=== PATIENT | male | born 1940 | race Caucasian/White ===

== ENCOUNTER 2017-02-03 12:28 | Emergency (ER) | payer BC ==
[~2017-02-03] VITALS: Ht 172.7 cm; Wt 93.5 kg
[~2017-02-03 12:28] MED LIST: ANDG TOP; CHOL100027 PO; FINA5TAB PO; FSM70 PO; FURO-85 PO; METO25TA3 PO; POTA1080 PO; SIMV20TA5 PO; TAMS0.4C59 PO; TIMO0.2527 OPB; TRVOPS OPB; ZOLP5TAB6 PO
[2017-02-03 12:32] VITALS: Ht 172.7 cm; Wt 93.5 kg
[2017-02-03] MEDS ORDERED: SODIUM CHLORIDE 0.9% 1000ML 1,000 ML IV ONE (12:52)
[2017-02-03] MEDS ORDERED: SODIUM CHLORIDE 0.9% 1000ML 1,000 ML IV STA (12:52)
[2017-02-03] MEDS ORDERED: KETOROLAC TROMETHAMINE 30 MG/ML VIAL IV STA (12:52)
[2017-02-03 13:15] LABS: COMPLETE YES; EOS % 1.5 %; HEMATOCRIT 37.8 % (42-52); IG% 0.2 %; LYMPH % 34.1 %; LYMPH ABS # 1.57 K/uL (1.2-3.4); MEAN CELL VOLUME 84.4 fL (80-100); MEAN CORPUSCULAR HEMOGLOBIN 27.9 pg (25-34); MEAN CORPUSCULAR HGB CONC 33.1 g/dl (32-36); MEAN PLATELET VOLUME 9.7 fL (7.4-10.4); MONO % 12.2 %; PLATELET COUNT 163 K/uL (130-400); RED BLOOD COUNT 4.48 M/uL (4.7-6.1)
[2017-02-03] MEDS ORDERED: OXYC20TA50 PO (13:20)
[2017-02-03] MEDS ORDERED: FLM4 PO (13:21)
[2017-02-03 13:33] LABS: BUN/CREATININE RATIO 17.7 (10-20); CREATININE 0.96 mg/dl (0.60-1.40); POTASSIUM 3.9 mmol/L (3.5-5.1)
--- NOTE | 2017-02-03 13:39 | EMERGENCY ROOM VISIT NOTE ---
History Report prepared by Hansel: Clare Milian Under the Supervision of: Dr. Scar Begum M.D. First contact with patient: 12:44 Chief Complaint: FLANK PAIN Stated Complaint: RIGHT SIDE PAIN/KIDNEY STONE History of Present Illness The patient is a 77 year old male who presents to the Emergency Room with complaints of worsening right-sided flank pain for the past 3 hours. He developed right flank pain around 9-10am this morning that has been gradually worsening. He has groin pain that is worse when he lays flat. The patient has a history of kidney stones and states that this feels exactly like his previous stones. He rates his current pain as a 6/10 in severity. He took any oxycodone [employer] that did not help. The patient denies chest pain, shortness of breath, dysuria, and abdominal pain. Two days ago he had an episode of "rust colored" urine, but denies anything since that time. He denies any current hematuria. He does not take any blood thinners. Source of History: patient Onset: 3 hours ago Position: other (right flank) Symptom Intensity: 6/10 Timing: worsening Modifying Factors (Worsening): other (laying flat) Associated Symptoms: No chest pain, No SOB, No abdominal pain, No urinary symptoms Review of Systems See HPI for pertinent positives & negatives. A total of 10 systems reviewed and were otherwise negative. Past Medical & Surgical Medical Problems: (1) Benign hypertension (2) Hyperlipidemia (3) Kidney stone (4) Pulmonary valve disorder Surgical Problems: (1) H/O mitral valve repair (2) Hx of laminectomy Old medical records were reviewed. Nurse's notes were reviewed and I agree with. Family History FH: ischemic heart disease Social History Smoking Status: Never Smoker Alcohol Use: none Marital Status: Housing Status: lives with family Occupation Status: employed Current/Historical Medications Scheduled Alendronate Sodium (Alendronate Sodium), 70 MG PO WK Cholecalciferol (Vitamin D 1000 Unit), 1,000 INTER.UNIT PO BID Finasteride (Proscar), 5 MG PO DAILY Furosemide (Lasix), 20 MG PO DAILY Metoprolol Succ (Toprol Xl) (Toprol-Xl), 25 MG PO BID Oxycodone Hcl (Oxycontin), 20 MG PO Q12 Potassium Citrate (Alkalinizer (Potassium Citrate ER), 1,080 MG PO DAILY Simvastatin (Zocor), 20 MG PO QPM Tamsulosin HCl (Tamsulosin HCl), 0.4 MG PO DAILY Testosterone (Androgel), 5 GM TOP QAM Timolol Gfs 0.25% Oph (Timoptic-Xe 0.25% Oph), 1 DROP OPB HS Travoprost (Travatan Oph Soln 0.004% *), 1 DROP OPB HS Scheduled PRN Oxycodone Immediate Rel Tab (Roxicodone Ir), 1-2 TAB PO Q4H PRN for Severe Pain Zolpidem Tartrate (Zolpidem Tartrate), 5 MG PO HS PRN for Sleep Allergies Coded Allergies: No Known Allergies (Verified , 02/03/17) Physical Exam Vital Signs Date Time Temp Pulse Resp B/P (MAP) Pulse Ox O2 Delivery O2 Flow Rate FiO2 02/03/17 16:28 36.6 57 16 137/73 97 02/03/17 14:28 65 16 137/72 98 Room Air 02/03/17 13:28 56 16 135/56 95 02/03/17 12:32 36.6 64 18 138/75 95 Room Air Physical Exam General: Well developed well nourished non-ill appearing older male in no acute distress, breathing comfortably on room air. Normal speech HEENT: Normal cephalic atraumatic. Pupils are equal round and reactive to light. Sclerae anicteric. Extraocular movements are intact. Oropharynx is pink with moist mucous membranes. No swelling of the mouth lips or tongue. Neck: Supple with a midline trachea. No meningeal signs or stiffness, no JVD or bruits. No Stridor. Chest: Clear to auscultation bilaterally. No wheezes or rhonchi. No increased work of breathing. Heart: regular rate and rhythm. Abdomen: Soft nontender, nondistended without rebound guarding or rigidity, no rash. Extremities: No cyanosis clubbing or edema. No calf tenderness or assymetry Spine/Back. Non tender to palpation. No CVA tenderness Skin: Good turgor without rashes. Neurologic exam: Cranial nerves two through 12 are intact. Motor and sensation are intact and symmetrical throughout. Medical Decision & Procedures ER Provider Diagnostic Interpretation: Radiology results as stated below per my review and radiologist interpretation: ABD/PELVIS WITHOUT FOR STONE HISTORY: 77 years-old Male eval for stone acute right flank pain with concern for kidney stones. Initial exam. COMPARISON: CT abdomen and pelvis 11/11/2012 TECHNIQUE: Multiple axial CT images of the abdomen and pelvis were obtained without contrast. A dose lowering technique was used consistent with the principals of RAVINDER. FINDINGS: There is minimal dependent bibasilar atelectasis. Calcific granuloma is noted within the left lower lobe, subcentimeter. No pneumoperitoneum. Inferior cardiac chambers are enlarged with coronary arterial calcifications. Prosthetic mitral valve is noted. The liver, spleen, pancreas and adrenal glands are within normal limits. Nonspecific perinephric stranding is present bilaterally. There is mild right-sided hydroureteronephrosis secondary to a 4 x 3 x 6 mm calculus of the distal right ureter just proximal to the ureterovesicular junction. There is a large smoothly marginated 1.3 x 2.3 cm urinary bladder calculus which is seen layering dependently. Small urachal remnant of the urinary bladder is noted projecting from the urinary bladder dome towards the umbilicus, nicely seen on the sagittal images. Multiple left-sided nonobstructing renal calculi are noted, largest of which is in the interpolar region, 1.1 x 1.0 cm. No left-sided obstructive uropathy. Prostate is markedly enlarged, 7.0 cm transversely with unchanged retroprostatic calcifications. There are small bilateral fat filled inguinal hernias with apparent small bilateral hydroceles. There is moderate after chronic plaquing of the abdominal aorta. Mildly prominent nonenlarged periaortic lymph nodes are seen measuring up to 8 mm in short axis, unchanged and likely physiologic. There is no bowel obstruction. The appendix appears normal. Small fat filled periumbilical hernia is noted, diastases 1.3 cm. Multilevel degenerative changes of the spine are noted with advanced intervertebral disc space narrowing throughout the thoracic and lumbar spine. Advanced facet arthropathy also noted. There is convex left curvature of the lumbar spine. IMPRESSION: 1. Mild right-sided hydroureteronephrosis secondary to a 4 x 3 x 6 mm calculus of the distal right ureter just proximal to the ureterovesicular junction. 2. Multiple left-sided nonobstructing renal calculi are noted in addition to a large 2.3 cm bladder calculus. 3. Prostatomegaly. 4. Note is made of a urachal remnant extending towards the umbilicus suggesting a diverticulum or patent urachus. The above report was generated using voice recognition software. It may contain grammatical, syntax or spelling errors. Electronically signed by: Angel Alston M.D. 02/03/2017 2:37 PM Dictated Date/Time: 02/03/2017 2:25 PM Laboratory Results 02/03/17 13:00 Red Blood Count 4.48, Mean Corpuscular Volume 84.4, Mean Corpuscular Hemoglobin 27.9, Mean Corpuscular Hemoglobin Concent 33.1, Mean Platelet Volume 9.7, Neutrophils (%) (Auto) 52.0, Lymphocytes (%) (Auto) 34.1, Monocytes (%) (Auto) 12.2, Eosinophils (%) (Auto) 1.5, Basophils (%) (Auto) 0.0, Neutrophils # (Auto ) 2.39, Lymphocytes # (Auto) 1.57, Monocytes # (Auto) 0.56, Eosinophils # (Auto ) 0.07, Basophils # (Auto) 0.00 02/03/17 13:00 Test 02/03/17 13:00 02/03/17 14:30 White Blood Count 4.60 K/uL (4.8-10.8) Red Blood Count 4.48 M/uL (4.7-6.1) Hemoglobin 12.5 g/dL (14.0-18.0) Hematocrit 37.8 % (42-52) Mean Corpuscular Volume 84.4 fL (80-100) Mean Corpuscular Hemoglobin 27.9 pg (25-34) Mean Corpuscular Hemoglobin Concent 33.1 g/dl (32-36) Platelet Count 163 K/uL (130-400) Mean Platelet Volume 9.7 fL (7.4-10.4) Neutrophils (%) (Auto) 52.0 % Lymphocytes (%) (Auto) 34.1 % Monocytes (%) (Auto) 12.2 % Eosinophils (%) (Auto) 1.5 % Basophils (%) (Auto) 0.0 % Neutrophils # (Auto) 2.39 K/uL (1.4-6.5) Lymphocytes # (Auto) 1.57 K/uL (1.2-3.4) Monocytes # (Auto) 0.56 K/uL (0.11-0.59) Eosinophils # (Auto) 0.07 K/uL (0-0.5) Basophils # (Auto) 0.00 K/uL (0-0.2) RDW Standard Deviation 39.7 fL (36.4-46.3) RDW Coefficient of Variation 13.0 % (11.5-14.5) Immature Granulocyte % (Auto) 0.2 % Immature Granulocyte # (Auto) 0.01 K/uL (0.00-0.02) Anion Gap 7.0 mmol/L (3-11) Est Creatinine Clear Calc Drug Dose 71.5 ml/min Estimated GFR () 88.0 Estimated GFR (Non- 75.9 BUN/Creatinine Ratio 17.7 (10-20) Calcium Level 9.0 mg/dl (8.5-10.1) Total Bilirubin 0.5 mg/dl (0.2-1) Direct Bilirubin 0.2 mg/dl (0-0.2) Aspartate Amino Transf (AST/SGOT) 15 U/L (15-37) Alanine Aminotransferase (ALT/SGPT) 22 U/L (12-78) Alkaline Phosphatase 79 U/L (45-117) Total Protein 7.5 gm/dl (6.4-8.2) Albumin 4.0 gm/dl (3.4-5.0) Lipase 197 U/L (73-393) Urine Color YELLOW Urine Appearance CLEAR (CLEAR) Urine pH 5.0 (4.5-7.5) Urine Specific [place] 1.014 (1.000-1.030) Urine Protein NEG (NEG) Urine Glucose (UA) NEG (NEG) Urine Ketones NEG (NEG) Urine Occult Blood 2+ (NEG) Urine Nitrite NEG (NEG) Urine Bilirubin NEG (NEG) Urine Urobilinogen NEG (NEG) Urine Leukocyte Esterase NEG (NEG) Urine WBC (Auto) 1-5 /hpf (0-5) Urine RBC (Auto) 0-4 /hpf (0-4) Urine Hyaline Casts (Auto) 1-5 /lpf (0-5) Urine Epithelial Cells (Auto) 10-20 /lpf (0-5) Urine Bacteria (Auto) NEG (NEG) Laboratory studies as stated above per my review. Medications Administered Medications (Trade) Dose Ordered Sig/Sheree Route Start Time Stop Time Status Last Admin Dose Admin Sodium Chloride 1,000 ml @ 999 mls/hr Q1H1M STAT IV 02/03/17 12:52 02/03/17 13:52 DC 02/03/17 13:04 999 MLS/HR Sodium Chloride 1,000 ml @ 150 mls/hr Q6H40M ONCE IV 02/03/17 12:52 02/03/17 19:31 02/03/17 14:59 150 MLS/HR Ketorolac Tromethamine (Toradol Inj) 15 mg NOW STAT IV 02/03/17 12:52 02/03/17 12:55 DC 02/03/17 13:05 15 MG ED Course 1244: Past medical records reviewed. The patient was evaluated in room A12B, and a complete history and physical examination were performed. 1252: Toradol 15 mg IV, NSS 1000 ml @ 150 mls/hr IV, NSS 1000 ml @ 999 mls/hr IV 1421: I reassessed the patient and he is doing well. 1501: I updated the patient at this time. Toradol has improved his pain. 1534: I reassessed the patient at this time. He is feeling better and resting comfortably. I discussed the results and treatment plan with the patient. I answered all pertaining questions that he had. He expressed understanding and verbalized agreement. The patient will be discharged home. Medical Decision Differentials include, but are not limited to kidney stone, musculoskeletal, UTI , aneurysm, colitis, infection, electrolyte or metabolic abnormality. This patient comes in as described above. He's having right flank pain which occasionally rates radiates around to the abdomen. It does have a history kidney stones. He looks well on exam. He has no fever or chills or anything to suggest infection. IV access established and he was hydrated normal saline. He has no white count or fever to suggest infection. Urinalysis does not suggest infection with a backup culture pending. He has normal renal function. He has no electrode or metabolic abnormalities. CAT scan does show an obstructing distal stone on the right. This is medium-size and it may pass on its own. He feels significantly better after receiving Toradol 15 mg IV as well as IV hydration. He desires to go home. He is followed by Dr. Harkins. I recommended he follow up with Dr. Harkins or his primary doctor within the next couple days. He should rest and drink plenty of fluids, use NSAID such as ibuprofen or Aleve. For breakthrough pain, use OxyIR 5 mg, one or 2 pills every 6 hours as needed. He was warned that this could make him drowsy and do not take before drinking, driving, working. Do not take with any other narcotics or sedating medications. He was encouraged to return if: increasing pain, fever or chills, worsening of symptoms, any new problems or concerns. He was happy with plan and discharged to home. [place] Drug Monitoring Program Search Results: patient reviewed within database, no issues identified Medication Reconcilliation Current Medication List: was personally reviewed by me Blood Pressure Screening Patient's blood pressure: Normal blood pressure Impression Primary Impression: Renal colic on right side Additional Impression: Kidney stone Scribe Attestation The scribe's documentation has been prepared under my direction and personally reviewed by me in its entirety. I confirm that the note above accurately reflects all work, treatment, procedures, and medical decision making performed by me. Departure Information Dispostion Home / Self-Care Prescriptions Oxycodone Immediate Rel Tab (ROXICODONE IR) 5 Mg Tab 1-2 TAB PO Q4H Y for Severe Pain for 4 Days, #20 TAB Prov: Scar Begum M.D. 02/03/17 Referrals Jaya Skaggs M.D. (PCP) Forms HOME CARE DOCUMENTATION FORM, IMPORTANT VISIT INFORMATION Patient Instructions My [facility] Additional Instructions Rest. Drink plenty of fluids. Strain her urine. Use either Aleve or ibuprofen in the [id number] dosages for the next several days. Take with food For more severe pain may use OxyIR 5 mg, one or 2 pills every 6 hours OxyIR may make you drowsy do not take before drinking, driving, working Do not take with any other narcotics or sedating medications including OxyContin , Ultram/tramadol, Vicodin, Percocet, etc. Be very careful getting up and down Return if: Fever or chills, worsening of symptoms, burning on urination, any new problems or concerns Problem Qualifiers
--- NOTE | 2017-02-03 14:39 | DIAGNOSTIC IMAGING REPORT ---
ABD/PELVIS WITHOUT FOR STONE HISTORY: 77 years-old Male eval for stone acute right flank pain with concern for kidney stones. Initial exam. COMPARISON: CT abdomen and pelvis 11/11/2012 TECHNIQUE: Multiple axial CT images of the abdomen and pelvis were obtained without contrast. A dose lowering technique was used consistent with the principals of RAVINDER. FINDINGS: There is minimal dependent bibasilar atelectasis. Calcific granuloma is noted within the left lower lobe, subcentimeter. No pneumoperitoneum. Inferior cardiac chambers are enlarged with coronary arterial calcifications. Prosthetic mitral valve is noted. The liver, spleen, pancreas and adrenal glands are within normal limits. Nonspecific perinephric stranding is present bilaterally. There is mild right-sided hydroureteronephrosis secondary to a 4 x 3 x 6 mm calculus of the distal right ureter just proximal to the ureterovesicular junction. There is a large smoothly marginated 1.3 x 2.3 cm urinary bladder calculus which is seen layering dependently. Small urachal remnant of the urinary bladder is noted projecting from the urinary bladder dome towards the umbilicus, nicely seen on the sagittal images. Multiple left-sided nonobstructing renal calculi are noted, largest of which is in the interpolar region, 1.1 x 1.0 cm. No left-sided obstructive uropathy. Prostate is markedly enlarged, 7.0 cm transversely with unchanged retroprostatic calcifications. There are small bilateral fat filled inguinal hernias with apparent small bilateral hydroceles. There is moderate after chronic plaquing of the abdominal aorta. Mildly prominent nonenlarged periaortic lymph nodes are seen measuring up to 8 mm in short axis, unchanged and likely physiologic. There is no bowel obstruction. The appendix appears normal. Small fat filled periumbilical hernia is noted, diastases 1.3 cm. Multilevel degenerative changes of the spine are noted with advanced intervertebral disc space narrowing throughout the thoracic and lumbar spine. Advanced facet arthropathy also noted. There is convex left curvature of the lumbar spine. IMPRESSION: 1. Mild right-sided hydroureteronephrosis secondary to a 4 x 3 x 6 mm calculus of the distal right ureter just proximal to the ureterovesicular junction. 2. Multiple left-sided nonobstructing renal calculi are noted in addition to a large 2.3 cm bladder calculus. 3. Prostatomegaly. 4. Note is made of a urachal remnant extending towards the umbilicus suggesting a diverticulum or patent urachus. The above report was generated using voice recognition software. It may contain grammatical, syntax or spelling errors. Electronically signed by: Angel Alston M.D. 02/03/2017 2:37 PM Dictated Date/Time: 02/03/2017 2:25 PM
[2017-02-03 15:02] LABS: URINE APPEARANCE CLEAR (CLEAR); URINE BILIRUBIN NEG (NEG); URINE COLOR YELLOW; URINE NITRITE NEG (NEG); URINE SPECIFIC GRAVITY 1.014 (1.000-1.030); UROBILINOGEN NEG (NEG)
[2017-02-03 15:03] LABS: MANUAL MICROSCOPIC REQUIRED? NO; REVIEW REQ? NO
[2017-02-03] MEDS ORDERED: OXYC1TAB3 PO (15:45)
[2017-02-03 16:28] VITALS: BP 137/73; PULSE 57; TEMP 36.6; O2SAT 97
== END 2017-02-03 16:29 | disposition home or self-care (01) ==
LOC: C.EDB 12:30 → C.EDA 16:29
DX: N13.2 Hydronephrosis with renal and ureteral calculous obstruction (principal); N23 Unspecified renal colic; I10 Essential (primary) hypertension; E78.5 Hyperlipidemia, unspecified; Z87.442 Personal history of urinary calculi; Z82.49 Family history of ischemic heart disease and other diseases of the circulatory system; Z79.899 Other long term (current) drug therapy

== ENCOUNTER → 2017-04-13 | Outpatient (CLI) | payer BC ==
[~2017-04-13] MED LIST changes: +CPR500 PO; +FLM4 PO; +OXYC20TA50 PO; -TAMS0.4C59 PO; -TIMO0.2527 OPB; +TIMO4SOL2 OPB; +TRAV0.00 OPB; -TRVOPS OPB
--- NOTE | 2017-04-13 11:20 | DIAGNOSTIC IMAGING REPORT ---
KUB CLINICAL HISTORY: Nephrolithiasis. COMPARISON STUDY: CT of the abdomen and pelvis March 30, 2017. FINDINGS: A 1.2 cm calculus within the upper pole of the left kidney is noted. A punctate calcification within the lower pole of the left kidney is noted. A 3 x 1.8 cm bladder calculus is unchanged. No ureteral calculi are identified. IMPRESSION: 1. No change in left-sided nephrolithiasis, including a 1.2 cm calculus within the upper pole of the left kidney. 2. 3 x 1.8 cm bladder calculus. 3. No ureteral calculi. Electronically signed by: Richard Navarrete M.D. 04/13/2017 11:19 AM Dictated Date/Time: 04/13/2017 11:15 AM
== END | disposition home or self-care (01) ==
LOC: C.RAD1850 10:45
PROVIDERS: ATTEND Urology
DX: N20.0 Calculus of kidney (principal)

== ENCOUNTER → 2017-11-26 | Outpatient (CLI) | payer BC ==
[~2017-11-26] MED LIST changes: +ASPI-435 PO; +CIPR1TAB10 PO; -CPR500 PO; +IRON1CAP2 PO; +OPTIRAY 320 IV PRN; +OXYC-57 PO; -OXYC20TA50 PO; +PRENTAB26 PO; -ZOLP5TAB6 PO
--- NOTE | 2017-11-26 11:26 | DIAGNOSTIC IMAGING REPORT ---
CT OF THE ABDOMEN AND PELVIS WITH AND WITHOUT CONTRAST HEMATURIA PROTOCOL CLINICAL HISTORY: Bladder calculus. COMPARISON STUDY: CT of the abdomen and pelvis November 01, 2017 and KUB November 13, 2017. TECHNIQUE: Unenhanced and split bolus phase imaging of the abdomen and pelvis was performed with delayed phase imaging through the pelvis. Injection of 116 cc Optiray 320 IV was uneventful. A dose lowering technique was utilized adhering to the principles of ALARA. CT DOSE: 2024.50 mGycm FINDINGS: Lung bases are clear. The distal right ureteral calculus shown on CT of November 01, 2017 is no longer visualized. The left renal calculus shown on prior exam is no longer visualized. There is a punctate calculus within the lower pole of the left kidney. There are no ureteral calculi and there is no hydronephrosis or hydroureter. A 3 x 1.5 cm bladder calculus is unchanged. Prostate gland is markedly enlarged. No upper tract urothelial lesions are identified although opacification on the delayed images is suboptimal. Mild bladder wall thickening is accentuated by underdistention. Bladder is suboptimally assessed given incomplete opacification but no discrete bladder mass is identified. The liver, spleen, adrenal glands and pancreas are unremarkable. Multiple subcentimeter hypodense renal lesions are too small to characterize but favor cysts. There is no evidence for a bowel obstruction. No abdominal or pelvic lymphadenopathy is present. There are no suspicious osseous lesions. IMPRESSION: 1. No hydronephrosis or hydroureter. No ureteral calculi. Distal right ureteral calculus on CT of November 01, 2017 no longer visualized. Large left renal calculus shown on prior examination no longer visualized. Punctate left renal calculus. 2. No change in a 3 x 1.5 cm bladder calculus. 3. Marked enlargement of the prostate gland. 4. No urothelial lesion identified although collecting system/ureteral opacification and bladder opacification suboptimal. Electronically signed by: Richard Navarrete M.D. 11/26/2017 11:25 AM Dictated Date/Time: 11/26/2017 11:12 AM
== END | disposition home or self-care (01) ==
LOC: C.CTS 10:34
PROVIDERS: ATTEND Urology
DX: N21.0 Calculus in bladder (principal); N20.0 Calculus of kidney; N40.0 Benign prostatic hyperplasia without lower urinary tract symptoms

== ENCOUNTER → 2017-12-22 | Outpatient (CLI) | payer BC ==
[~2017-12-22] MED LIST changes: -CIPR1TAB10 PO; -OPTIRAY 320 IV PRN; -OXYC-57 PO
[2017-12-22 14:00] LABS: EOS ABS # 0.04 K/uL (0-0.5); HEMATOCRIT 36.6 % (42-52); HEMOGLOBIN 11.9 g/dL (14.0-18.0); IG# 0.01 K/uL (0.00-0.02); LYMPH % 48.1 %; LYMPH ABS # 1.91 K/uL (1.2-3.4); MEAN CELL VOLUME 84.1 fL (80-100); MEAN CORPUSCULAR HEMOGLOBIN 27.4 pg (25-34); MEAN CORPUSCULAR HGB CONC 32.5 g/dl (32-36); MEAN PLATELET VOLUME 10.3 fL (7.4-10.4); MONO % 10.6 %; MONO ABS # 0.42 K/uL (0.11-0.59); NEUT ABS # 1.59 K/uL (1.4-6.5); PLATELET COUNT 149 K/uL (130-400); RED CELL DISTRIBUTION WIDTH CV 12.9 % (11.5-14.5); RED CELL DISTRIBUTION WIDTH SD 39.4 fL (36.4-46.3); WHITE BLOOD COUNT 3.97 K/uL (4.8-10.8)
[2017-12-22 15:29] LABS: BLOOD UREA NITROGEN 21 mg/dl (7-18); CALCIUM 9.3 mg/dl (8.5-10.1); CARBON DIOXIDE 29 mmol/L (21-32); CREATININE 0.95 mg/dl (0.60-1.40); GLUCOSE 89 mg/dl (70-99); POTASSIUM 4.4 mmol/L (3.5-5.1); SODIUM 142 mmol/L (136-145)
== END | disposition home or self-care (01) ==
LOC: C.CPL 12:40
PROVIDERS: ATTEND Urology
DX: Z01.818 Encounter for other preprocedural examination (principal)

== ENCOUNTER 2019-12-25 22:53 | Inpatient (IN) ==
--- NOTE | 2019-12-25 23:36 | Emergency Department Note ---
Impression & Plan Hematuria ED Provider Note NAME: KAYLA YOUSSEF III AGE: 79 SEX: M ARRIVES VIA: Ambulance INFORMANT: [Patient] and his ED PROVIDER(S): Bertha Bautista DO CHIEF COMPLAINT: Suprapubic pressure and hematuria PLAN: Disposition: Evaluation by the [facility] Hospitalist service Condition: Stable MEDICAL DECISION MAKING: This is a 79-year-old male patient who underwent bladder/prostate resection 3.5 weeks ago. He removed the Araujo catheter approximately 5 days ago. Since that time, the urinary output has decreased and has turned to more blood and increased in viscosity. Patient now has increased bladder pressure. A Araujo catheter was placed and bloody urine was slightly draining. The catheter was irrigated with 1 L of sterile water in a syringe. Clots were removed but the urine remained quite bloody. The patient's H&H was stable. The case was discussed with urology and they recommended continuous bladder irrigation and admission to the hospital. Triage Nursing notes reviewed and agree them. [Additional history obtained from] the patient's [Prior medical records reviewed] Vital Signs: reviewed and unremarkable Differential diagnosis: Hematuria, UTI, medication side effects ER treatment provided: Fully catheter placement Continuous bladder irrigation Diagnostics interpreted by me: ECG: Sinus tachycardia at [address] segment depression in leads I and aVL which may be rate dependent. There is no ectopy. This was compared to an EKG from November of this year. Cardiac Monitoring: Sinus tachycardia at a rate of 117 Laboratory studies: [See below] Consultation(s): Dr. [facility] urology HPI: 79/M arrives for evaluation of hematuria and bladder pressure. The patient underwent a TURP and bladder tumor removal on November [address] Kumar. The patient removed his Araujo catheter 5 days ago at the direction of his urologist. Since that time, the patient's urine has increased in viscosity and blood. Tonight, the patient noted very thick bloody urine and now has incr easing bladder pressure. ROS: See above HPI for pertinent positives & negatives. A total of [10] systems reviewed and were otherwise negative. PAST MEDICAL HISTORY:[See Below] PAST SURGICAL HISTORY:[See Below] FAMILY HISTORY:[See Below] SOCIAL HISTORY:[See Below] HOME MEDICATIONS:See list ALLERGIES:None VITALS:[See Below] PHYSICAL EXAMINATION: HEENT: Head - normocephalic and atraumatic Pupils are equal, round, and reactive to light. Extraocular eye muscles are intact, and sclera are anicteric. Nose - moist nasal mucosa without discharge. Mouth - moist buccal mucosa. Oropharynx is nonerythematous and there is no tonsillar exudate or edema noted. Neck: Supple; no cervical lymphadenopathy or JVD Heart: Regular rate and rhythm. There is a normal S1 and S2 with no murmurs, clicks, or gallops appreciated. Lungs: Clear to auscultation bilaterally with no wheezes, rales, or rhonchi. Abdomen: Soft, moderately distended, some pain with palpation in the suprapubic region, with good bowel sounds. There are no palpable pulsatile masses or he patosplenomegaly. There is no guarding, rigidity, or rebound noted. Extremities: No evidence of cyanosis, clubbing, or edema. There are easily palpable peripheral pulses. Skin: Extremely pale, warm and dry with good turgor and no rashes. ED COURSE: Times/Reassessments: 2310: The patient was evaluated in room C10. A complete history and physical was performed. An order was placed for continuous cardiac monitoring. The patient was in a sinus tachycardia at a rate of 117. A twelve-lead EKG was obtained as described above. A Araujo catheter was placed and the bladder was irrigated as described above. 0020: Patient was reevaluated at this time. The catheter continued to drain tonia blood with some clots. I discussed the case with urology and they recommended continuous bladder irrigation. A three-way catheter was placed and continuous bladder irrigation was started. I discussed the case with the [facility] hospitalist service and they will evaluate for further management. Bertha Bautista DO Past Med/Surg History Medical History (Updated 12/26/19 @ 04:47 by Bertha Bautista DO) Balance problem post laminectomy; walks with a walker since then BPH (benign prostatic hyperplasia) current issue Elevated IOP History of prostatitis Admitted to [facility] 2017, d/c to [facility] Hx of bladder cancer Hyperlipidemia Hypertension Osteopenia Personal history of kidney stones hx lithotripsy Pulmonary hypertension Sleep apnea uses cpap "sporadically" Surgical History (Updated 12/26/19 @ 02:39 by Fabrizio Trujillo MD) History of cardiac cath x2 - [facility] - done prior to MVR, not CAD-related, no stents placed History of colonoscopy History of lithotripsy left kidney Hx of CABG Hx of laminectomy C4-C7 - [facility] 1997 Hx of mitral valve repair done at [facility] 2011 Hx of rotator cuff surgery right and left Social History Smoking Status: Never smoker Second Hand Exposure: No; Hx Alcohol Use: No Hx Substance Use: No Preferred Language: Micronesian Communication Ability: Effective Visual Impairment: No Limitations 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 Beliefs That Will Affect Care: None Current Living Situation: Spouse Feels Safe at Home: Yes Allergies Allergies Allergy/AdvReac Type Severity Reaction Status Date / Time No Known Allergies Allergy Verified 12/26/19 01:25 Home Meds Home Medications Medication Instructions Recorded Confirmed aspirin [Aspir-81] 81 mg PO QAM 03/17/18 12/26/19 cholecalciferol (vitamin D3) 2,000 unit PO QAM 03/17/18 12/26/19 [Vitamin D3] finasteride 5 mg PO QPM 03/17/18 12/26/19 furosemide 20 mg PO QAM 03/17/18 12/26/19 metoprolol succinate [Toprol XL] 25 mg PO DAILY 03/17/18 12/26/19 potassium citrate 10 meq PO QAM 03/17/18 12/26/19 simvastatin 20 mg PO PM 03/17/18 12/26/19 tamsulosin 0.4 mg PO QPM 03/17/18 12/26/19 timolol 1 drp OPHTHALMIC (EYE) QPM 03/17/18 12/26/19 travoprost [Travatan Z] 1 drp OPHTHALMIC (EYE) PM 03/17/18 12/26/19 alendronate 70 mg tablet 70 mg PO WK 09/07/19 12/26/19 testosterone 1.62 % (20.25 mg/1.25 1 packet TD DAILY 09/07/19 12/26/19 gram) transdermal gel packet Results & Data (ED) Vital Signs Vital Signs - 24 hr 12/25/19 23:00 12/25/19 23:06 12/25/19 23:30 Temperature 36.8 C Temperature Source Oral Pulse Rate 100 H 117 H 104 H Pulse Rate [Apical] Pulse Rate from SpO2 Sensor 100 H 105 H Respiratory Rate 16 20 15 Respiratory Effort / Characteristics Non-Labored Spontaneous Respiratory Depth Normal Blood Pressure 136/105 H 136/105 H 135/116 H Blood Pressure [Right Arm] Blood Pressure Mean 123 115 122 Blood Pressure Mean [Right Arm] Pulse Oximetry 99 99 99 Oxygen Delivery Method Room Air Sepsis Recent Fever Within 48 Hours No Sepsis New/Unexplained Change in Mental Status No Sepsis Action Taken by Nursing No Action Required 12/26/19 00:00 12/26/19 00:07 12/26/19 00:31 Temperature Temperature Source Pulse Rate 94 H 92 H Pulse Rate [Apical] 95 H Pulse Rate from SpO2 Sensor 90 Respiratory Rate 12 16 19 Respiratory Effort / Characteristics Non-Labored Respiratory Depth Normal Blood Pressure 132/82 124/73 Blood Pressure [Right Arm] 132/82 Blood Pressure Mean 86 109 Blood Pressure Mean [Right Arm] 98 Pulse Oximetry 98 99 98 Oxygen Delivery Method Room Air Room Air Sepsis Recent Fever Within 48 Hours Sepsis New/Unexplained Change in Mental Status Sepsis Action Taken by Nursing 12/26/19 01:00 12/26/19 01:30 12/26/19 02:00 Temperature Temperature Source Pulse Rate 96 H 106 H 104 H Pulse Rate [Apical] Pulse Rate from SpO2 Sensor 93 H 107 H 97 H Respiratory Rate 16 14 15 Respiratory Effort / Characteristics Respiratory Depth Blood Pressure 112/78 110/70 131/79 Blood Pressure [Right Arm] Blood Pressure Mean 82 86 95 Blood Pressure Mean [Right Arm] Pulse Oximetry 96 96 98 Oxygen Delivery Method Room Air Room Air Room Air Sepsis Recent Fever Within 48 Hours Sepsis New/Unexplained Change in Mental Status Sepsis Action Taken by Nursing 12/26/19 02:30 Temperature Temperature Source Pulse Rate 102 H Pulse Rate [Apical] Pulse Rate from SpO2 Sensor 102 H Respiratory Rate 19 Respiratory Effort / Characteristics Respiratory Depth Blood Pressure 105/69 Blood Pressure [Right Arm] Blood Pressure Mean 91 Blood Pressure Mean [Right Arm] Pulse Oximetry 95 Oxygen Delivery Method Sepsis Recent Fever Within 48 Hours Sepsis New/Unexplained Change in Mental Status Sepsis Action Taken by Nursing Laboratory Data Result diagrams: 12/25/19 23:00 12/25/19 23:00 Lab Results 12/25/19 12/25/19 12/25/19 Range/Units 23:00 23:00 23:55 WBC 7.92 (4.8-10.8) K/uL RBC 4.13 L (4.7-6.1) M/uL Hgb 11.2 L (14.0-18.0) g/dL Hct 33.6 L (42-52) % MCV 81.4 (80-100) fL MCH 27.1 (25-34) pg MCHC 33.3 (32-36) g/dL RDW Std Deviation 39.0 (36.4-46.3) fL RDW Coeff of Destiny 13.1 (11.5-14.5) % Plt Count 242 (130-400) K/uL MPV 10.2 (7.4-10.4) fL Immature Gran % (Auto) 0.3 % Neut % (Auto) 58.4 % Lymph % (Auto) 28.3 % [place] % (Auto) 12.5 % Eos % (Auto) 0.5 % Baso % (Auto) 0.0 % Neut # (Auto) 4.63 (1.4-6.5) K/uL Lymph # (Auto) 2.24 (1.2-3.4) K/uL [place] # (Auto) 0.99 H (0.11-0.59) K/uL Eos # (Auto) 0.04 (0-0.5) K/uL Baso # (Auto) 0.00 (0-0.2) K/uL Immature Gran # (Auto) 0.02 (0.00-0.02) K/uL Sodium 144 (136-145) mmol/L Potassium 3.9 (3.5-5.1) mmol/L Chloride 114 H (98-107) mmol/L Carbon Dioxide 22 (21-32) mmol/L Anion Gap 8.0 (3-11) BUN 23 H (7-18) mg/dl Creatinine 1.02 (0.6-1.4) mg/dl Est Cr Clr Drug Dosing 63.7 ml/min Est GFR ( Amer) 80.6 Est GFR (Non-Af Amer) 69.6 BUN/Creatinine Ratio 22.1 H (10-20) Glucose 123 H (70-99) mg/dl Calcium 8.7 (8.5-10.1) mg/dl Total Bilirubin 0.3 (0.2-1) mg/dl AST 18 (15-37) U/L ALT 14 (12-78) U/L Alkaline Phosphatase 85 (45-117) U/L Total Protein 7.1 (6.4-8.2) gm/dl Albumin 3.3 L (3.4-5.0) gm/dl Globulin 3.8 (2.5-4.0) gm/dl Albumin/Globulin Ratio 0.9 (0.9-2) Lipase 172 (73-393) U/L Urine Color Red Urine Appearance Cloudy A (Clear) Urine pH 8.0 H (4.5-7.5) Ur Specific [place] 1.025 (1.000-1.030) Urine Protein 3+ H (Negative) Urine Glucose (UA) Trace H (Negative) Urine Ketones Negative (Negative) Urine Blood 2+ H (Negative) Urine Nitrite Negative (Negative) Urine Bilirubin Negative (Negative) Urine Urobilinogen Negative (Negative) Ur Leukocyte Esterase Negative (Negative) Urine RBC >30 H (0-4) /hpf Urine WBC 10-30 H (0-5) /hpf Ur Epithelial Cells 0-5 (0-5) /lpf Urine Bacteria Negative (Negative) Administered Medications Discontinued Medications Fentanyl Citrate (Fentanyl Citrate 100 Mcg/2 Ml Vial) 50 mcg IV NOW STA Stop: 12/26/19 01:55 Last Admin: 12/26/19 02:13 Dose: 50 mcg Documented by: [id number] Sodium Chloride (Nss) 500 mls @ 999 mls/hr IV .Q31M ONE Stop: 12/26/19 00:22 Last Infusion: 12/26/19 00:39 Dose: 0 mls/hr Documented by: [id number] Admin: 12/26/19 00:09 Dose: 999 mls/hr Documented by: [id number] Discharge Plan Visit Data Chief Complaint: Urinary Symptoms Stated Complaint: PAIN ED Provider: Bertha Bautista Discharge Problem: Hematuria Patient Disposition: Admitted As Inpatient Discharge Instructions Interventions: ED Discharge Assessment Last Done: 12/26/19 03:33 Discharge Problem: Hematuria Qualifiers: Hematuria type: gross Qualified Code(s): R31.0 - Gross hematuria
[2019-12-25 23:38] LABS: Eosinophils # (auto) 0.04 K/uL (0-0.5); Eosinophils % (auto) 0.5 %; Hematocrit (blood only) 33.6 % (42-52); Hemoglobin 11.2 g/dL (14.0-18.0); Immature Granulocytes # (auto) 0.02 K/uL (0.00-0.02); Immature Granulocytes % (auto) 0.3 %; Lymphocytes # (auto) 2.24 K/uL (1.2-3.4); Lymphocytes % (auto) 28.3 %; Mean Corpuscular Hemoglobin 27.1 pg (25-34); Mean Corpuscular Hgb Conc 33.3 g/dL (32-36); Mean Corpuscular Volume 81.4 fL (80-100); Mean Platelet Volume 10.2 fL (7.4-10.4); Monocytes # (auto) 0.99 K/uL (0.11-0.59); Monocytes % (auto) 12.5 %; Neutrophils # (auto) 4.63 K/uL (1.4-6.5); Neutrophils % (auto) 58.4 %; Platelet Count 242 K/uL (130-400); RDW Coefficient of Variation 13.1 % (11.5-14.5); Red Blood Count 4.13 M/uL (4.7-6.1); White Blood Count 7.92 K/uL (4.8-10.8)
[2019-12-25 23:46] LABS: Albumin Level 3.3 gm/dl (3.4-5.0); BUN Creatinine Ratio 22.1 (10-20); Calcium 8.7 mg/dl (8.5-10.1); Creatinine Clr Calc Pharmacy 63.7 ml/min; Est GFR (African American) 80.6; Est GFR (Non-African American) 69.6; Potassium 3.9 mmol/L (3.5-5.1)
[2019-12-25 23:48] LABS: Albumin Globulin Ratio 0.9 (0.9-2); Bilirubin,Total 0.3 mg/dl (0.2-1); Globulin 3.8 gm/dl (2.5-4.0); Total Protein 7.1 gm/dl (6.4-8.2)
[2019-12-25] MEDS ORDERED: SODIUM CHLORIDE 0.9% 500 ML IV ONE (23:52)
[2019-12-26 00:22] LABS: Appearance Urine Cloudy (Clear); Bilirubin Urine Negative (Negative); Blood Urine 2+ (Negative); Color Urine Red; Glucose Urine UA Trace (Negative); Ketones Urine Negative (Negative); Leukocyte Esterase Urine Negative (Negative); Nitrite Urine Negative (Negative); Specific Gravity Urine 1.025 (1.000-1.030); Urobilinogen Urine Negative (Negative)
[2019-12-26 00:24] LABS: Protein Urine 3+ (Negative)
[2019-12-26 00:26] LABS: Sulfosalicylic Acid Urine Positive (Negative)
[2019-12-26 00:29] LABS: Bacteria Urine Negative (Negative); Epithelial Cell Urine 0-5 /lpf (0-5); RBC Urine >30 /hpf (0-4)
[2019-12-26] MEDS ORDERED: fentaNYL citrate 100 MCG/2 ML VIAL IV STA (01:54)
--- NOTE | 2019-12-26 02:15 | History & Physical Report ---
Date of Service December 26, 2019 Assessment & Plan (1) Malignant neoplasm of urinary bladder: Mr. Boss is a 79yo M w/ MHx of bladder neoplasm status post resection,With a past medical history of hearing loss, MONSE, Klinefelter's, and hypertension who presents with increased urinary bleed and decreased urinary output. Hematuria following prostate adenoma/bladder Tumor resection papillary appearing tumor 11/30 with Doran removal 5 days prior to presentation Increasingly thick, sanguinous output Case discussed with urology by ED provider, recommended placement of irrigating catheter and continuous bladder irrigation Bladder ultrasound pending Hemoglobin 11.2, prior hemoglobin 12 Aspirin held - If persistent bleeding can consider DDVAP/Aspirin reversal - NPO, Uro consulted - CBC q12 while bleeding, BMP daily CAD with history of CABG - ASA held as above - Metoprolol Succinate 25mg PO daily, hold for SBP<110 - EF 2018 60% - Continue Simvastatin 20mg daily - Pitting edema present, worse since his bipass with vein graft per pt. 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 during H&P, communication intact but somewhat limited by memory MONSE with pHTN - CPAP qHS PRN DVT PPx: SCDs Diet: NPO pending Uro eval, NSS 80cc/hr Code: Full Dispo: Med/Surg Tele in setting of active bleeding (2) Pulmonary hypertension: (3) Pulmonary valve disorder: (4) Urethral stricture unspecified: (5) UTI (urinary tract infection): (6) Sensorineural hearing loss (SNHL) of both ears: (7) Obstructive sleep apnea: (8) Mitral regurgitation: (9) Benign prostatic hyperplasia with urinary obstruction: History of Present Illness Chief Complaint: Urinary Retention, hematuria, pain Primary Care Provider: Jaya Skaggs MD Mr. Boss is a 79yo M w/ MHx of bladder neoplasm status post resection,With a past medical history of hearing loss, MONSE, Klinefelter's, and hypertension who presents with increased urinary bleed and decreased urinary output. Patient recently underwent transurethral resection of bladder tumor of 7.[address] Kumar on 11/30. He had a Doran in place which was removed 5 days ago. He started getting blood clots and started having increasingly thick urine output in decreased volume. He had his catheter out 5 days ago and his symptoms started ~1-2 days afterwards. He uses a plastic container to void into at night and has noted a progressively darker red color to his urine. He was finally unable to void while sitting on the toilet despite a feeling of pressure and having to go along with an increase in pain which prompted him to present to the emergency department. Sporadic pain while in the bedside every 5-8 minutes.. Pain improved following irrigation. He denies lightheadedness, dizziness, shortness of breath. He is on a daily aspirin. No blood thinners. Medical History: Reviewed. Surgical History Reviewed: Pertinent positive recent bladder/prostate resection. Meds: Reviewed MedHx: Reviewed Social: No tobacco products. rare alcohol use. denies recreational drug use. Lives with his and granddaughter. No one sick in the home. independently ambulatory. Code Status: Full code Allergies Allergy/AdvReac Type Severity Reaction Status Date / Time No Known Allergies Allergy Verified 12/26/19 01:25 Home Medications Home Medications Medication Instructions Recorded Confirmed Type aspirin [Aspir-81] 81 mg PO QAM 03/17/18 12/26/19 History cholecalciferol (vitamin D3) 2,000 unit PO QAM 03/17/18 12/26/19 History [Vitamin D3] finasteride 5 mg PO QPM 03/17/18 12/26/19 History furosemide 20 mg PO QAM 03/17/18 12/26/19 History metoprolol succinate [Toprol XL] 25 mg PO DAILY 03/17/18 12/26/19 History potassium citrate 10 meq PO QAM 03/17/18 12/26/19 History simvastatin 20 mg PO PM 03/17/18 12/26/19 History tamsulosin 0.4 mg PO QPM 03/17/18 12/26/19 History timolol 1 drp OPHTHALMIC (EYE) QPM 03/17/18 12/26/19 History travoprost [Travatan Z] 1 drp OPHTHALMIC (EYE) PM 03/17/18 12/26/19 History alendronate 70 mg tablet 70 mg PO WK 09/07/19 12/26/19 History testosterone 1.62 % (20.25 mg/1.25 1 packet TD DAILY 09/07/19 12/26/19 History gram) transdermal gel packet Past Med/Surg History Medical History Balance problem post laminectomy; walks with a walker since then BPH (benign prostatic hyperplasia) current issue Elevated IOP History of prostatitis Admitted to [facility] 2017, d/c to [facility] Hx of bladder cancer Hyperlipidemia Hypertension Osteopenia Personal history of kidney stones hx lithotripsy Pulmonary hypertension Sleep apnea uses cpap "sporadically" Surgical History History of cardiac cath x2 - s - done prior to MVR, not CAD-related, no stents placed History of colonoscopy History of lithotripsy left kidney Hx of CABG Hx of laminectomy C4-C7 - [facility] 1997 Hx of mitral valve repair done at [facility] 2011 Hx of rotator cuff surgery right and left Social History Smoking Status: Unknown if ever smoked Second Hand Exposure: No; Hx Alcohol Use: No Hx Substance Use: No Preferred Language: Irish Communication Ability: Effective Visual Impairment: No Limitations Intranet Specialist Required: No Beliefs That Will Affect Care: None Current Living Situation: Spouse Feels Safe at Home: Yes Safety Concerns: Feels Safe At This Time Review of Systems Review of Systems: Constitutional: Denies fever, chills, malaise, weight lira ge Eyes: Denies vision change ENT: Denies ear pain, sore throat, sinus pain Cardiovascular: Denies Chest pain, chest pressure, palpitations. Endorses chronic leg swelling. Respiratory: Denies shortness of breath, cough, sputum production, difficulty breathing Gastrointestinal: Denies nausea, vomiting, constipation, diarrhea Genitourinary: See HPI Musculoskeletal: Denies acute/focal weakness, muscle aches/pain, joint aches/pain Integumentary:Denies acute rash, lesions, bruising Neurological: Denies headache, numbness, tingling, focal weakness Physical Exam Physical Exam: General: A&O to name and place. NAD. Cooperative. HEENT: Atraumatic, normocephalic. PERLAA. Pulm: CTAB A&P. -wheezes, -rales, -rhonchi. Symmetrical chest rise. No increase work of breathing. No respiratory distress. Cardiac: RRR, -mrg. Radial pulses intact and symmetrical. Pitting edema to the calf present bilaterally. Abdominal: Suprapubic TTP. Softly distended. : Triple lumen doran in place with irrigation running. Draining sanginous urine. Results & Data Results & Data ([facility]) Vital Signs (Past 12 Hours) Vital Signs Temp Pulse Pulse Resp BP BP Pulse Ox 12/26/19 01:00 96 H 16 112/78 96 12/26/19 00:31 92 H 19 124/73 98 12/26/19 00:07 95 H 16 132/82 99 12/26/19 00:00 94 H 12 132/82 98 12/25/19 23:30 104 H 15 135/116 H 99 12/25/19 23:06 36.8 C 117 H 20 136/105 H 99 12/25/19 23:00 100 H 16 136/105 H 99 Supervising Physician Co-Signing Physician Notes Attending addendum: I have physically seen this patient, have supervised the medical residents activities, and agree with the H&P unless as otherwise noted. Assessment and Plan: Gross hematuria/status post tumor resection of prostate and bladder- Admit for continuous bladder irrigation Follow urine culture and sensitivity Empiric ceftriaxone hold aspirin Hold aspirin Reverse aspirin if bleeding persists NPO CAD/CABG- Holding aspirin Continue metoprolol succinate with hold parameters Remaining orders and notations as noted Resident Activity Tracking Resident Involvement: Resident Care Provided Care Provided: Adult Hospital Medicine
[2019-12-26] MEDS: SODIUM CHLORIDE 0.9% 1000ML 1,000 ML IV SCH ×2 (05:22→17:53)
--- NOTE | 2019-12-26 08:23 | Ultrasound Report ---
US retro bladder ltd HISTORY: 79 years-old Male clot burden, continued hematuria acute hematuria with prior transurethral resection of a bladder mass on 12/01/2019. COMPARISON: Renal ultrasound 08/18/2018, CT abdomen and pelvis 12/05/2019 TECHNIQUE: Multiple real-time sonographic images of the urinary bladder were obtained assessing ashely param appearance and color flow FINDINGS: Decompressed urinary bladder optimally visualized. Ureteral jets are not seen. No definitive urinary bladder mass that a 5. There is a catheter device noted which appears to extend into the venous and m ay partially extend into the urinary bladder. Hypoechoic collection adjacent to the catheter measures up to 3.8 x 4.9 x 1.0 cm. IMPRESSION: 1. Decompressed urinary bladder suboptimally evaluated. 2. Indeterminate hypoechoic collection adjacent to the pelvic catheter measures up to 4.9 cm. ACT 112: Negative or not required by law. The above report was generated using voice recognition software. It may contain grammatical, syntax o r spelling errors. Electronically signed by: Angel Alston M.D. 12/26/2019 8:22 AM
--- NOTE | 2019-12-26 08:26 | Hospitalist Progress Note ---
Date of Service December 26, 2019 Assessment & Plan (1) Malignant neoplasm of urinary bladder: Mr. Boss is a 79yo M w/ MHx of bladder neoplasm status post resection,With a past medical history of hearing loss, MONSE, Klinefelter's, and hypertension who presents with increased urinary bleed and decreased urinary output. Hematuria following prostate adenoma/bladder Tumor resection papillary appearing tumor 11/30 with Araujo removal 5 days prior to presentation Increasingly thick, sanguinous output Case discussed with urology by ED provider, recommended placement of irrigating catheter and continuous bladder irrigation Bladder ultrasound pending Hemoglobin 11.2, prior hemoglobin 12 Aspirin held - If persistent bleeding can consider DDVAP/Aspirin reversal - NPO, Uro consulted - CBC q12 while bleeding, BMP daily (2) Benign prostatic hyperplasia with urinary obstruction: (3) UTI (urinary tract infection): Abnormal urinalysis on presentation. 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 - Pt with some memory difficulty during H&P, communication intact but somewhat limited by memory Admission and Anticipated Discharge Date Admission Date: December 26, 2019 Subjective Patient is relatively comfortable he continues to have punch colored urine he is on three-way irrigation Araujo catheter at this time Review of Systems Review of Systems: Mild distress and moderate fatigue no headache, blurry or double vision no speech or swallowing issues no chest pain, pressure or palpitations no shortness of breath, cough or wheezes Mild suprapubic abdominal pain, nausea or vomiting, diarrhea or constipation Persistent gross hematuria no focal joint pain or swelling no back pain, CVA tenderness or radicular pain no bruising, bleeding or rashes no focal signs of weakness or numbness or altered sensation no complaints or anxiety or depression. Physical Exam Physical Exam: The patient appeared very pale but well nourished and normally developed. Vital signs as documented. Head exam is normocephalic atraumatic no scleral icterus Neck is without JVD, thyromegaly, or carotid bruits. Lungs are clear to auscultation, no focal loss of breath sounds Cardiac exam, Rhythm is regular.. No murmurs, rubs or gallops. Abdominal exam reveals normal bowel sounds, soft mild tenderness in the suprapubic area Extremities are nonedematous and both pedal pulses are normal. Neurologic exam is alert and oriented, no focal loss of strength or sensation Skin is without bruises or rashes Psychologically is without concerns for anxiety or depression Results & Data Results & Data ([facility]) Vital Signs (Past 12 Hours) Vital Signs Temp Pulse Pulse Resp BP BP Pulse Ox 12/26/19 05:31 98.4 F 94 H 16 105/71 97 12/26/19 03:00 90 19 119/68 98 12/26/19 02:30 102 H 19 105/69 95 12/26/19 02:00 104 H 15 131/79 98 12/26/19 01:30 106 H 14 110/70 96 12/26/19 01:00 96 H 16 112/78 96 12/26/19 00:31 92 H 19 124/73 98 12/26/19 00:07 95 H 16 132/82 99 12/26/19 00:00 94 H 12 132/82 98 12/25/19 23:30 104 H 15 135/116 H 99 12/25/19 23:06 98.2 F 117 H 20 136/105 H 99 12/25/19 23:00 100 H 16 136/105 H 99 PG Care Time/CCT Total # of Minutes Spent Total Time Spent with Patient: Total time spent is greater than 50% in coordination of care (as documented) at patient's floor/unit and/or counseling patient: Coding Level of Care Code 08757 Subseq Hosp Care Lvl 2 Diagnoses Malignant neoplasm of urinary bladder C67.9 Benign prostatic hyperplasia with urinary obstruction N40.1; N13.8 UTI (urinary tract infection) N39.0 Obstructive sleep apnea G47.33 Atherosclerotic heart disease of [place] coronary artery without angina pectoris I25.10 Pulmonary hypertension I27.20 Pulmonary valve disorder I37.9 Sensorineural hearing loss (SNHL) of both ears H90.3
[2019-12-26] MEDS: POTASSIUM CITRATE 10 MEQ TAB PO SCH (09:00)
[2019-12-26] MEDS: METOPROLOL SUCC 25MG EXT REL TAB PO SCH (09:00)
[2019-12-26] MEDS: FUROSEMIDE 20 MG TAB PO SCH (09:00)
[2019-12-26 12:08] LABS: Basophils # (auto) 0.01 K/uL (0-0.2); Basophils % (auto) 0.1 %; Eosinophils # (auto) 0.03 K/uL (0-0.5); Eosinophils % (auto) 0.4 %; Hematocrit (blood only) 27.8 % (42-52); Immature Granulocytes # (auto) 0.03 K/uL (0.00-0.02); Immature Granulocytes % (auto) 0.4 %; Mean Corpuscular Hemoglobin 26.6 pg (25-34); Mean Corpuscular Hgb Conc 32.4 g/dL (32-36); Mean Corpuscular Volume 82.2 fL (80-100); Mean Platelet Volume 9.7 fL (7.4-10.4); Monocytes # (auto) 1.21 K/uL (0.11-0.59); Monocytes % (auto) 17.2 %; Neutrophils # (auto) 3.85 K/uL (1.4-6.5); Neutrophils % (auto) 54.9 %; Platelet Count 175 K/uL (130-400); RDW Coefficient of Variation 13.3 % (11.5-14.5); RDW Standard Deviation 40.3 fL (36.4-46.3); Red Blood Count 3.38 M/uL (4.7-6.1); White Blood Count 7.03 K/uL (4.8-10.8)
--- NOTE | 2019-12-26 12:34 | Electrocardiogram Report ---
Test Reason : Blood Pressure : / mmHG Vent. Rate : 107 BPM Atrial Rate : 107 BPM P-R Int : 172 ms QRS Dur : 096 ms QT Int : 348 ms P-R-T Axes : 000 -16 060 degrees QTc Int : 464 ms Sinus tachycardia Nonspecific ST abnormality Abnormal ECG When compared with ECG of 18-NOV-2019 10:36, [place] interval has decreased Vent. rate has increased BY [address] now depressed in Anterior leads Confirmed by Campbell Hanson ([id number]) on 12/26/2019 12:34:48 PM Referred By: REFERRED SELF Confirmed By:Campbell Hanson
--- NOTE | 2019-12-26 16:22 | Urology Consultation ---
Date of Consultation December 26, 2019 Assessment & Plan (1) Benign prostatic hyperplasia with urinary obstruction: (2) UTI (urinary tract infection): Patient undergoing supportive care with hydration, IV medications, and supportive care. Patient has CBI with a three-way catheter and has been tolerating well. Had irrigated last night in the ER with ER team and drastically improved issues. Has not had considerable clot since then. No major changes or issues. Has been tolerating catheter without major problems. Discussed different options. Discussed concerns and issues. Discussed plan moving forward. Plan will be to maintain catheter for approximately 1 to 2 weeks with plans to attempt removal in the office. We will continue with CBI overnight and continue to titrate to clear with plans to hopefully discontinue in the morning. Likely can go home tomorrow morning if doing well and no major other issues. Would recommend a few days of antibiotics due to possibility of UTI. Otherwise we will continue to follow. Patient's complicated history was reviewed and interpreted by myself. All imaging was reviewed interpreted by myself. Recent history and other issues were discussed. Patient is well-established with our urology group and will continue with follow-up with them. History of Present Illness Attending Physician: Jonathan Gil MD History of Present Illness Consult for urinary issues with hematuria. Patient had a resection of prostate and bladder approximately 3 to 4 weeks ago and had catheter recently removed approximately a week and a half ago. After that time went a few days with no major issues but then developed worsening problems with voiding and started to pass thick material. Eventually had difficulty voiding and had significant pressure and issues voiding after distention of the bladder due to hematuria and clot. Was irrigated in the ER and drastically improved. Had a three-way catheter placed and placed on CBI and since then has been doing well. Urine is currently a light red/pink color and CBI has been turned down over time. Patient has mild to moderate discomfort in pelvis and groin going to back and side in waves. Has decreased mobility significantly with acute issues. No severe nausea or vomiting. Currently no fevers. Allergies Allergy/AdvReac Type Severity Reaction Status Date / Time No Known Allergies Allergy Verified 12/26/19 01:25 Home Medications Home Medications Medication Instructions Recorded Confirmed Type aspirin [Aspir-81] 81 mg PO QAM 03/17/18 12/26/19 History cholecalciferol (vitamin D3) 2,000 unit PO QAM 03/17/18 12/26/19 History [Vitamin D3] finasteride 5 mg PO QPM 03/17/18 12/26/19 History furosemide 20 mg PO QAM 03/17/18 12/26/19 History metoprolol succinate [Toprol XL] 25 mg PO DAILY 03/17/18 12/26/19 History potassium citrate 10 meq PO QAM 03/17/18 12/26/19 History simvastatin 20 mg PO PM 03/17/18 12/26/19 History tamsulosin 0.4 mg PO QPM 03/17/18 12/26/19 History timolol 1 drp OPHTHALMIC (EYE) QPM 03/17/18 12/26/19 History travoprost [Travatan Z] 1 drp OPHTHALMIC (EYE) PM 03/17/18 12/26/19 History alendronate 70 mg tablet 70 mg PO WK 09/07/19 12/26/19 History testosterone 1.62 % (20.25 mg/1.25 1 packet TD DAILY 09/07/19 12/26/19 History gram) transdermal gel packet Patient History Medical History Balance problem post laminectomy; walks with a walker since then BPH (benign prostatic hyperplasia) current issue Elevated IOP History of prostatitis Admitted to [facility] 2017, d/c to [facility] Hx of bladder cancer Hyperlipidemia Hypertension Osteopenia Personal history of kidney stones hx lithotripsy Pulmonary hypertension Sleep apnea uses cpap "sporadically" Surgical History History of cardiac cath x2 - s - done prior to MVR, not CAD-related, no stents placed History of colonoscopy History of lithotripsy left kidney Hx of CABG Hx of laminectomy C4-C7 - [facility] 1997 Hx of mitral valve repair done at [facility] 2011 Hx of rotator cuff surgery right and left Social History Smoking Status: Unknown if ever smoked Second Hand Exposure: No; Hx Alcohol Use: No Hx Substance Use: No Preferred Language: Hungarian Communication Ability: Effective Visual Impairment: No Limitations 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 Advanced age. Chronic Medical issues. HEENT: Normocephalic. Inspection normal. Cranial Nerves 2-12 Grossly intact with some hearing issues. Normal inspection of face. Normal inspection of neck. Psychologic: Normal affect. Baseline issues with memory. Respiratory: Nonlabored. No use of accessory muscles. No tachypnea or dyspnea. Cardiovascular: No tachycardia Skin: [place] and Dry. No rashes or visible lesions. Extremities/Lymphatics: Minor Mobility issues. Slow Gait. Abdomen: Soft Non-distended. No rebound or guarding. Obese. : Araujo in place draining light red/pink urine on CBI on slow drip. Results & Data ([facility]) Vital Signs (Past 12 Hours) Vital Signs Temp Pulse Pulse Pulse Resp BP BP 12/26/19 15:24 36.7 C 68 18 115/68 12/26/19 14:20 69 12/26/19 11:04 36.3 C L 79 17 109/68 12/26/19 08:26 36.6 C 108 H 17 108/70 12/26/19 07:00 87 12/26/19 05:31 36.9 C 94 H 16 105/71 Pulse Ox 12/26/19 15:24 98 12/26/19 14:20 12/26/19 11:04 96 12/26/19 08:26 98 12/26/19 07:00 12/26/19 05:31 97 PG Care Time/CCT Total # of Minutes Spent Total Time Spent with Patient: Total time spent is greater than 50% in coordination of care (as documented) at patient's floor/unit and/or counseling patient: Coding Level of Care Code 73769 Inpt Consult Level 5 Diagnoses Benign prostatic hyperplasia with urinary obstruction N40.1; N13.8 UTI (urinary tract infection) N39.0
[2019-12-26] MEDS: BELLADONNA/OPIUM SUPP 60 MG SUPP PR PRN ×2 (16:49→22:55)
[2019-12-26] MEDS: ACETAMINOPHEN 325 MG TAB PO PRN ×2 (16:50→20:53)
[2019-12-26] MEDS: FINASTERIDE 5 MG TAB PO SCH (20:18)
[2019-12-26] MEDS: SIMVASTATIN 20 MG TAB PO SCH (20:18)
[2019-12-27 00:37] LABS: Basophils # (auto) 0.01 K/uL (0-0.2); Basophils % (auto) 0.2 %; Eosinophils # (auto) 0.03 K/uL (0-0.5); Eosinophils % (auto) 0.5 %; Hematocrit (blood only) 26.5 % (42-52); Hemoglobin 8.7 g/dL (14.0-18.0); Immature Granulocytes # (auto) 0.02 K/uL (0.00-0.02); Immature Granulocytes % (auto) 0.3 %; Lymphocytes # (auto) 2.14 K/uL (1.2-3.4); Mean Corpuscular Hemoglobin 27.3 pg (25-34); Mean Corpuscular Hgb Conc 32.8 g/dL (32-36); Mean Corpuscular Volume 83.1 fL (80-100); Monocytes % (auto) 12.3 %; Neutrophils # (auto) 3.49 K/uL (1.4-6.5); Neutrophils % (auto) 53.7 %; Platelet Count 156 K/uL (130-400); RDW Coefficient of Variation 13.5 % (11.5-14.5); Red Blood Count 3.19 M/uL (4.7-6.1); White Blood Count 6.49 K/uL (4.8-10.8)
--- NOTE | 2019-12-27 01:41 | Billing Data ---
Date of Service December 27, 2019 Coding Level of Care Code 81072 Initial Inpt Care Lvl 2
[2019-12-27] MEDS: ACETAMINOPHEN 325 MG TAB PO PRN ×4 (01:59→20:26)
[2019-12-27] MEDS: SODIUM CHLORIDE 0.9% 1000ML 1,000 ML IV SCH ×2 (05:24→16:08)
[2019-12-27] MEDS: BELLADONNA/OPIUM SUPP 60 MG SUPP PR PRN ×2 (05:31→16:08)
[2019-12-27] MEDS: METOPROLOL SUCC 25MG EXT REL TAB PO SCH (08:08)
[2019-12-27] MEDS: FUROSEMIDE 20 MG TAB PO SCH (08:08)
[2019-12-27] MEDS: POTASSIUM CITRATE 10 MEQ TAB PO SCH (08:09)
--- NOTE | 2019-12-27 09:55 | Urology Progress Note ---
Date of Service December 27, 2019 Assessment & Plan (1) Hematuria: Hematuria appears to have resolved Hemoglobin is stable Cultures pending but no growth at this stage CBI clamped Ambulate Already scheduled for an outpatient voiding trial Discharge when deemed medically stable presuming his urine remains clear Subjective Subjectively doing okay this morning He tolerated his catheter and CBI well overnight Tolerating a diet No pain Not ambulating much Physical Exam Physical Exam: CBI running slowlycompletely clear urine Constitutional: well developed and well nourished Neck: neck nontender Respiratory: normal respiratory effort; no respiratory distress and does not use accessory muscles Cardiovascular: Rate/Rhythm: regular rate Vessels: radial pulses present Extremities: no edema Gastrointestinal (Abdomen): Inspection/Auscultation: abdomen normal to inspection Percussion/Palpation: abdomen soft; abdomen nontender and no guarding Musculoskeletal: Head/Neck/Chest: normocephalic and head atraumatic Extremities: extremities normal to inspection Skin: no rashes and no lesions Trauma: no evidence of skin trauma Neurologic: awake; not obtunded Speech / Cognition: normal speech Motor/Sensory: no tremor Psychiatric: Orientation: alert and oriented x 3 Genitourinary: no CVA tenderness Lymphatic: no lymphadenopathy Results & Data ([facility]) Vital Signs (Past 12 Hours) Vital Signs Temp Pulse Pulse Resp BP Pulse Ox 12/27/19 07:04 36.6 C 63 18 124/65 99 12/27/19 07:00 54 L 12/27/19 04:52 36.6 C 87 20 144/72 H 99 12/26/19 23:27 70 12/26/19 22:55 36.7 C 62 18 121/73 98 PG Care Time/CCT Total # of Minutes Spent Total Time Spent with Patient: Total time spent is greater than 50% in coordination of care (as documented) at patient's floor/unit and/or counseling patient: Coding Level of Care Code 65193 Subseq Hosp Care Lvl 2 Diagnoses Hematuria R31.0 Hematuria type: gross (1) Hematuria Hematuria type: gross Qualified Code(s): R31.0 - Gross hematuria
[2019-12-27] MEDS: cefTRIAXone SODIUM 2,000 MG in DEXTROSE 5% 50 ML IV SCH (11:53)
[2019-12-27 12:14] LABS: Mean Corpuscular Hgb Conc 32.2 g/dL (32-36); Mean Platelet Volume 10.1 fL (7.4-10.4); Platelet Count 183 K/uL (130-400)
[2019-12-27 12:41] LABS: Basophils # (auto) 0.01 K/uL (0-0.2); Basophils % (auto) 0.2 %; Eosinophils # (auto) 0.07 K/uL (0-0.5); Eosinophils % (auto) 1.1 %; Hematocrit (blood only) 30.4 % (42-52); Hemoglobin 9.8 g/dL (14.0-18.0); Immature Granulocytes # (auto) 0.02 K/uL (0.00-0.02); Immature Granulocytes % (auto) 0.3 %; Lymphocytes # (auto) 1.56 K/uL (1.2-3.4); Lymphocytes % (auto) 24.9 %; Mean Corpuscular Hemoglobin 26.9 pg (25-34); Mean Corpuscular Volume 83.5 fL (80-100); Monocytes # (auto) 0.71 K/uL (0.11-0.59); Monocytes % (auto) 11.3 %; Neutrophils # (auto) 3.89 K/uL (1.4-6.5); Neutrophils % (auto) 62.2 %; RDW Coefficient of Variation 13.4 % (11.5-14.5); Red Blood Count 3.64 M/uL (4.7-6.1); White Blood Count 6.26 K/uL (4.8-10.8)
[2019-12-27] MEDS: SIMVASTATIN 20 MG TAB PO SCH (20:27)
[2019-12-27] MEDS: FINASTERIDE 5 MG TAB PO SCH (20:27)
[2019-12-28] MEDS: BELLADONNA/OPIUM SUPP 60 MG SUPP PR PRN (00:23)
[2019-12-28] MEDS: SODIUM CHLORIDE 0.9% 1000ML 1,000 ML IV SCH (06:03)
[2019-12-28] MEDS: FUROSEMIDE 20 MG TAB PO SCH (08:09)
[2019-12-28] MEDS: METOPROLOL SUCC 25MG EXT REL TAB PO SCH (08:10)
[2019-12-28] MEDS: POTASSIUM CITRATE 10 MEQ TAB PO SCH (08:10)
[2019-12-28] MEDS: cefTRIAXone SODIUM 2,000 MG in DEXTROSE 5% 50 ML IV SCH (09:47)
[2019-12-28 10:48] LABS: Hematocrit (blood only) 27.7 % (42-52); Hemoglobin 8.9 g/dL (14.0-18.0)
[2019-12-28] MEDS: ACETAMINOPHEN 325 MG TAB PO PRN (10:49)
--- NOTE | 2019-12-28 13:21 | Urology Progress Note ---
Date of Service December 28, 2019 Assessment & Plan (1) Malignant neoplasm of urinary bladder: (2) Hematuria: (3) Neoplasm of bladder: (4) UTI (urinary tract infection): start ditropan and d/c for f/u on macobid hs pain med and ditropan xl follow up next week for voiding trial per Dr. Kumar Admission and Anticipated Discharge Date Admission Date: December 26, 2019 Subjective pt with clear urine off CBI but occasional bladder spasm . Off b and o suppository . Ordered ditropan xl 5 mg . Would discharge on this and with pain med if spasms severe. Physical Exam Physical Exam: urine in doran bag clear Results & Data ([facility]) Vital Signs (Past 12 Hours) Vital Signs Temp Pulse Pulse Resp BP Pulse Ox 12/28/19 11:46 36.9 C 60 18 110/63 98 12/28/19 07:21 57 L 12/28/19 06:52 36.9 C 60 18 112/58 L 98 12/28/19 04:05 36.6 C 68 18 123/72 98 PG Care Time/CCT Total # of Minutes Spent Total Time Spent with Patient: Total time spent is greater than 50% in coordination of care (as documented) at patient's floor/unit and/or counseling patient: Coding Level of Care Code 96632 Subseq Hosp Care Lvl 1 Diagnoses Malignant neoplasm of urinary bladder C67.9 Hematuria R31.0 Hematuria type: gross Neoplasm of bladder D49.4 UTI (urinary tract infection) N39.0 (1) Hematuria Hematuria type: gross Qualified Code(s): R31.0 - Gross hematuria
[2019-12-28] MEDS ORDERED: OXYBUTYNIN CHLORIDE XL 5 MG TABCR PO SCH (13:30)
--- NOTE | 2019-12-30 08:09 | Discharge Summary ---
Date of Service December 28, 2019 Admission HPI Per Admitting Provider Mr. Boss is a 79yo M w/ MHx of bladder neoplasm status post resection,With a past medical history of hearing loss, MONSE, Klinefelter's, and hypertension who presents with increased urinary bleed and decreased urinary output. Patient recently underwent transurethral resection of bladder tumor of 7.[address] Kumar on 11/30. He had a Doran in place which was removed 5 days ago. He started getting blood clots and started having increasingly thick urine output in decreased volume. He had his catheter out 5 days ago and his symptoms started ~1-2 days afterwards. He uses a plastic container to void into at night and has noted a progressively darker red color to his urine. He was finally unable to void while sitting on the toilet despite a feeling of pressure and having to go along with an increase in pain which prompted him to present to the emergency department. Sporadic pain while in the bedside every 5-8 minutes.. Pain improved following irrigation. He denies lightheadedness, dizziness, sh ortness of breath. He is on a daily aspirin. No blood thinners. Medical History: Reviewed. Surgical History Reviewed: Pertinent positive recent bladder/prostate resection. Meds: Reviewed MedHx: Reviewed Social: No tobacco products. rare alcohol use. denies recreational drug use. Lives with his and granddaughter. No one sick in the home. independently ambulatory. Code Status: Full code Principal Diagnosis Hematuria and urinary retention after cystoscopy Discharge Exam Constitutional well developed, + obese and healthy appearing; no acute distress Eyes PERRL, conjunctivae normal, anicteric sclerae ENMT external ear and nose normal, oropharynx normal Neck trachea midline, no thyromegaly Respiratory normal respiratory effort, lungs clear to auscultation Cardiovascular RRR, no murmur, no edema Gastrointestinal (Abdomen) normal bowel sounds, soft, nontender, no hepatosplenomegaly Musculoskeletal no cyanosis or clubbing, extremities motor strength 5/5 Skin no rashes, warm and dry Neurologic patellar DTR's 2+ bilat, sensation intact and PERRL, EOMI, accommodation nl, no face palsy, no dysarthria Psychiatric A+Ox3, euthymic affect Genitourinary doran in place Lymphatic no cervical or axillary lymphadenopathy Discharge Data Allergies Allergy/AdvReac Type Severity Reaction Status Date / Time No Known Allergies Allergy Verified 12/26/19 01:25 Consultations 12/26/19 01:53 ED Decision to Admit Stat 12/26/19 04:03 Consult Urology Routine Ordered Studies 12/26/19 04:03 retro bladder ltd Urgent Hospital Course (1) Malignant neoplasm of urinary bladder: Mr. Boss is a 79yo M w/ MHx of bladder neoplasm status post resection,With a past medical history of hearing loss, MONSE, Klinefelter's, and hypertension who presents with increased urinary bleed and decreased urinary output, evidence of urinary retention treated with bladder irrigation, three way catheter, hematuria resolved and less bladder spasms no growth on urine culture Hb dropped slightly to 8.9 but no further signs of bleeding will continue to hold aspirin until 01/01 keep doran on discharge and follow up with Dr. Kumar next week Ditropan daily to decrease bladder spasms Use Ultram PRN for pain, use Sandor shonna suppositories q6 PRN for pain Macrobid BID x 5 days to cover for potential infection urology followed while admitted, they agree with discharge, will seein the office (2) Pulmonary hypertension: likely due to obstructive sleep apnea (3) Pulmonary valve disorder: (4) Urethral stricture unspecified: (5) UTI (urinary tract infection): Abnormal urinalysis on presentation. 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 Kumar) Discharge Plan Discharge Items Patient Disposition: Home - Self-Care Reason For Visit: HEMATURIA Discharge Diagnosis: Hematuria status post bladder tumor resection Condition on Discharge: Good Goals: voiding trial next week with Dr Kumar in the office Activity: Resume your previous activity Non-emergency contact: Primary Care Provider and Urologist Call non-emergency contact if: you have any medication questions and your symptoms worsen Follow-up/Referrals: Martinez Kumar DO [Physician] - (next week, voiding trial) Jaya Skaggs MD [Primary Care Provider] - Diet: Heart Healthy Addtl Attending Provider Instructions: Medications: - DITROPAN: take 5mg daily for overactive bladder - MACROBID: take twice a day for 5 days to cover for possible UTI - ULTRAM: take at night for pain - SANDOR SHONNA: use suppository every 6 hours as needed Hematuria, urinary retention, recent resection of bladder tumor, possible UTI hematuria treated with bladder irrigation will keep doran on discharge, follow up with Dr. Kumar for voiding trial next week continue to hold aspirin until Monday 01/01, you can resume that morning Hb dropped slightly to 8.9 but no further signs of bleeding continue all prior medications, will add Ditropan for more symptom relief and use Ultram at night for pain control Pending Studies at Discharge: No Stand-Alone Forms: [employer], Smoking Cessation Medications and DC Order Prescriptions: New oxybutynin chloride 5 mg Tablet Extended Release 24hr 5 mg PO QAM 30 Days Qty: 30 RF: 2 nitrofurantoin monohyd/m-cryst [Macrobid] 100 mg capsule 100 mg PO BID 7 Days Qty: 14 RF: 0 tramadol 50 mg tablet 50 mg PO HS PRN (Reason: pain) Qty: 10 RF: 0 belladonna alkaloids-opium 16.2-60 mg Suppository 1 supp DE Q6H PRN (Reason: pain) 7 Days Qty: 12 RF: 0 Continued testosterone 1.62 % (20.25 mg/1.25 gram) gel in packet 1 packet TD DAILY RF: 0 alendronate 70 mg tablet 70 mg PO WK RF: 0 travoprost [Travatan Z] 0.004 % Drops 1 drp OPHTHALMIC (EYE) PM RF: 0 tamsulosin 0.4 mg Capsule 0.4 mg PO QPM RF: 0 potassium citrate 10 mEq (1,080 mg) Tablet Extended Release 10 meq PO QAM RF: 0 simvastatin 20 mg Tablet 20 mg PO PM RF: 0 timolol 0.25 % Drops 1 drp ophthalmic (eye) QPM RF: 0 furosemide 20 mg Tablet 20 mg PO QAM RF: 0 metoprolol succinate [Toprol XL] 25 mg Tablet Extended Release 24 Hr 25 mg PO DAILY RF: 0 finasteride 5 mg Tablet 5 mg PO QPM RF: 0 cholecalciferol (vitamin D3) [Vitamin D3] 2,000 unit Capsule 2,000 unit PO QAM RF: 0 Discontinued aspirin [Aspir-81] 81 mg Tablet,Delayed Release (Dr/Ec) 81 mg PO QAM RF: 0 Discharge Orders: Discharge Order (Routine); Ordered 12/28/19 Ordered By: Aamir Castillo Admission Data Admit Date/Time: 12/26/19 02:43 Attending Provider: Aamir Castillo Admit Provider: Fabrizio Trujillo Primary Care Provider: Jaya Skaggs Other Providers: Crispin Marie ; Martinez Kumar Other Interventions: Discharge Summary Assessment (RN) Last Done: 12/28/19 15:12 Coding Level of Care Code D/C Day Management >30 mins Diagnoses Malignant neoplasm of urinary bladder C67.9 Pulmonary hypertension I27.20 Pulmonary valve disorder I37.9 Urethral stricture unspecified N35.919 UTI (urinary tract infection) N39.0 Sensorineural hearing loss (SNHL) of both ears H90.3 Obstructive sleep apnea G47.33 Mitral regurgitation I34.0 Benign prostatic hyperplasia with urinary obstruction N40.1; N13.8
== END 2019-12-28 16:45 | disposition home or self-care (01) | DRG 687 ==
LOC: ED 22:53 → 2W 12-26 02:43 → SUATTDRO 12-26 02:43 → 2W 12-26 03:33

== ENCOUNTER 2022-02-27 11:55 | Inpatient (IN) ==
[2022-02-27 12:29] LABS: Basophils # (auto) 0.01 K/uL (0-0.2); Basophils % (auto) 0.1 %; Eosinophils # (auto) 0.02 K/uL (0-0.50); Eosinophils % (auto) 0.2 %; Hemoglobin 12.6 g/dl (14.0-18.0); Immature Granulocytes # (auto) 0.07 K/uL (0.00-0.02); Immature Granulocytes % (auto) 0.8 %; Lymphocytes # (auto) 1.04 K/uL (1.2-3.4); Lymphocytes % (auto) 11.7 %; Mean Corpuscular Hemoglobin 27.2 pg (25.0-34.0); Mean Corpuscular Hgb Conc 33.2 g/dL (32.0-36.0); Mean Corpuscular Volume 81.9 fL (80.0-100.0); Mean Platelet Volume 10.6 fL (9.4-12.4); Monocytes # (auto) 1.88 K/uL (0.24-0.82); Monocytes % (auto) 21.2 %; Neutrophils # (auto) 5.86 K/uL (1.4-6.5); Platelet Count 185 K/uL (130-400); RDW Coefficient of Variation 13.3 % (11.5-14.5); RDW Standard Deviation 39.5 fL (36.4-46.3); Red Blood Count 4.64 M/uL (4.63-6.08); White Blood Count 8.88 K/ul (4.8-10.8)
[2022-02-27 12:49] LABS: Albumin Level 3.9 gm/dl (3.4-5.0); Potassium 3.4 mmol/L (3.5-5.1)
[2022-02-27 12:53] LABS: INR 1.1 (0.9-1.1); Partial Thromboplastin Time 27.6 Seconds (21.0-31.0); Prothrombin Time 11.4 Seconds (9.0-12.0)
[2022-02-27 13:23] LABS: Albumin Globulin Ratio 1.3 (0.9-2); BUN Creatinine Ratio 12.2 (10-20); Bilirubin,Total 1.6 mg/dl (0.2-1.0); Calcium 9.2 mg/dl (8.5-10.1); Creatinine Clr Calc Pharmacy 52.7 ml/min; Est GFR (African American) 68.3 ml/min; Est GFR (Non-African American) 58.9 ml/min; Globulin 3.1 gm/dl (2.5-4.0); Magnesium 1.8 mg/dl (1.7-2.4)
[2022-02-27] MEDS ORDERED: ACETAMINOPHEN 500 MG TAB PO STA (14:17)
[2022-02-27] MEDS ORDERED: CEFEPIME 2,000 MG/20 ML VIAL IV STA (14:17)
[2022-02-27] MEDS ORDERED: SODIUM CHLORIDE 0.9% 1000ML 500 ML IV ONE (14:17)
--- NOTE | 2022-02-27 14:26 | XRay Report ---
XR chest 1V portable CLINICAL HISTORY: weak TECHNIQUE: Single frontal radiograph of the chest was obtained. Comparison: Comparison is made to chest radiograph 11/18/2019 FINDINGS: Median sternotomy wires are unchanged. The cardiomediastinal silhouette is stable. The lungs are curtis r. No evidence of pleural effusion or pneumothorax. IMPRESSION: No acute chest disease. ACT 112: Negative or not required by law. Electronically signed by: Aamir Hernandez M.D. 02/27/2022 2:24 PM
--- NOTE | 2022-02-27 14:31 | Emergency Department Note ---
Impression & Plan Weakness, Cellulitis, Flu-like symptoms, Fever ED Provider Note NAME: KAYLA YOUSSEF III AGE: 82 SEX: M : 1940 ARRIVES VIA: Ambulance INFORMANT: [Patient][friend] ED PROVIDER(S): [Qamar Vallecillo MD] CHIEF COMPLAINT: Illness HISTORY OF PRESENT ILLNESS: Patient is an 82-year-old male who was found on the floor of his home. He is unsure how he got to the floor. He denies any pain or injury. He admits to feeling weak and achy and somewhat flulike for the last 2 days. As per the friend at the bedside, his legs are swollen and that is not typical. Patient denies any cough or congestion. He had a mild sore throat yesterday but that has resolved. He has not had vomiting or diarrhea, no abdominal pain. The patient is a poor historian because of dementia, no further history obtainable. REVIEW OF SYSTEMS: Unobtainable given his dementia. PMHx/PSHx: See Below SOCIAL HISTORY: See Below. PHYSICAL EXAM: GENERAL: Patient is in no acute distress. HEENT: No acute trauma, normocephalic atraumatic, mucous membranes moist, no nasal congestion, no scleral icterus. NECK: No stridor, no adenopathy, no meningismus, trachea is midline. LUNGS: Clear to auscultation bilaterally, no wheeze, no rhonchi, breath sounds equal. HEART: Without murmurs gallops or rubs, regular rate and rhythm. ABDOMEN: Soft, nontender, bowel sounds positive, no peritonitis. EXTREMITIES: No cyanosis. Moderate bilateral pedal edema with some warmth and mild erythema bilaterally, no drainage NEUROLOGIC: Awake and alert, dementia noted, no acute motor or sensory deficits, no focal weakness. SKIN: No jaundice, no diaphoresis. Groin: No erythema to suggest cellulitis. DIFFERENTIAL DIAGNOSIS: Infection, dehydration, metabolic abnormality, UTI, COVID-19, influenza, rhabdomyolysis, hypo/hyperglycemia, electrolyte disturbance, anemia, hypoxia, cardiac sources, intracerebral event, toxicologic issues, stroke, TIA, as well as other pathologies. EMERGENCY DEPARTMENT COURSE/PROCEDURES: ECG: Indication was weakness. The ECG shows a very poor baseline. The rate is 78. I suspect a sinus rhythm with PVCs. No ST elevation. There is nonspecific ST change seen. QTC is 451. Continuous Cardiac Monitoring: An order was placed for continuous cardiac monitoring. The monitor shows a rate of 72 with normal sinus rhythm. Critical Care Note: I have personally spent 38 minutes of critical care time in the direct management of this patient. This includes bedside care, interpretation of diagnostic studies, and testing, discussion with consultants, patient, and family members, and other required patient management activities. This 38 minutes is in excess of all separately billable procedures. MEDICAL DECISION MAKING: There is no leukocytosis. The patient does have a mild anemia with a hemoglobin 12.6. The patient does have a history of anemia. There is a normal platelet count. No coagulopathy. Potassium slightly low at 3.4. No renal failure. Lactic acid level is not elevated making severe sepsis less likely. No concerning liver enzyme elevation. Total CK was slightly elevated consistent with his time on the ground, total CK was not high enough to be concerning for true rhabdomyolysis. The patient appeared to be in a euthyroid state. Urinalysis showed what appears to be contamination. COVID, influenza and RSV test were negative. Chest x-ray did not show pneumonia or CHF. On exam, the patient had a bilateral lower extremity cellulitis. He was febrile. The patient received IV cefepime as antibiotic coverage. He was given IV saline for hydration. He received oral Tylenol. The patient has fallen, he is weak. He has flulike symptoms, he has a fever. He appears to have a bilateral lower extremity cellulitis. Hospitalization is warranted. I spoke with the patient and his friend, I talked to case management, the on- call hospitalist was consulted. Past Med/Surg History Medical History Balance problem post laminectomy; walks with a walker since then BPH (benign prostatic hyperplasia) current issue Elevated IOP History of prostatitis Admitted to [facility] 2017, d/c to [facility] Hx of bladder cancer Hyperlipidemia Hypertension Osteopenia Personal history of kidney stones hx lithotripsy Pulmonary hypertension Sleep apnea uses cpap "sporadically" Surgical History History of cardiac cath x2 - [facility] - done prior to MVR, not CAD-related, no stents placed History of colonoscopy History of lithotripsy left kidney Hx of CABG Hx of laminectomy C4-C7 - [facility] 1997 Hx of mitral valve repair done at [facility] 2011 Hx of rotator cuff surgery right and left Social History Smoking Status: Unknown if ever smoked Second Hand Exposure: No; Do You Dip or Chew Tobacco: No; Tobacco Cessation Education Requested by Patient: No Hx Alcohol Use: No Hx Substance Use: No Preferred Language: Kazakh Communication Ability: Effective Visual Impairment: No Limitations Geospatial Program Management Officer Required: No Beliefs That Will Affect Care: None marital status: Current Living Situation: Alone Current Living Situation Comment: Currently lives in a ranch style house 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 Other Information That Helps Us Care for You: No Feels Safe at Home: Yes Safety Concerns: Feels Safe At This Time Assistive Devices: Walker Allergies Allergies Allergy/AdvReac Type Severity Reaction Status Date / Time No Known Allergies Allergy Verified 02/27/22 15:23 Home Meds Home Medications Medication Instructions Recorded Confirmed cholecalciferol (vitamin D3) 50 2,000 unit PO QAM 03/17/18 02/27/22 mcg (2,000 unit) capsule (Vitamin D3) finasteride 5 mg tablet 5 mg PO QPM 03/17/18 02/27/22 furosemide 20 mg tablet 20 mg PO QAM 03/17/18 02/27/22 metoprolol succinate 25 mg 25 mg PO DAILY 03/17/18 02/27/22 tablet,extended release 24 hr (Toprol XL) potassium citrate 10 mEq (1,080 10 meq PO QAM 03/17/18 02/27/22 mg) tablet,extended release simvastatin 20 mg tablet 20 mg PO PM 03/17/18 02/27/22 tamsulosin 0.4 mg capsule 0.4 mg PO QPM 03/17/18 02/27/22 alendronate 70 mg tablet 70 mg PO WK 09/07/19 02/27/22 Previous Rx's Medication Instructions Recorded tramadol 50 mg tablet 50 mg PO HS PRN pain #10 tabs 12/28/19 Results & Data (ED) Vital Signs Vital Signs - 24 hr 02/27/22 12:02 02/27/22 12:19 02/27/22 14:30 Temperature 38 C H Temperature Source Oral Pulse Rate 75 72 Pulse Rate [Finger] 67 Respiratory Rate 20 20 18 Blood Pressure 147/74 H Blood Pressure [Left Arm] 145/88 H Blood Pressure Mean 98 Blood Pressure Mean [Left Arm] 107 Pulse Oximetry 99 97 98 Oxygen Delivery Method Room Air Room Air Room Air Sepsis Recent Fever Within 48 Hours Yes Sepsis New/Unexplained Change in Mental Status No Sepsis Action Taken by Nursing No Action Required Home Medications Current Medication List: was personally reviewed by me Laboratory Data Attestation: I reviewed the patient's lab results. Result diagrams: 02/27/22 12:10 02/27/22 12:10 Lab Results 02/27/22 02/27/22 02/27/22 Range/Units 12:10 12:10 12:10 WBC 8.88 (4.8-10.8) K/ul RBC 4.64 (4.63-6.08) M/uL Hgb 12.6 L (14.0-18.0) g/dl Hct 38.0 L (40.1-51.0) % MCV 81.9 (80.0-100.0) fL MCH 27.2 (25.0-34.0) pg MCHC 33.2 (32.0-36.0) g/dL RDW Std Deviation 39.5 (36.4-46.3) fL RDW Coeff of Destiny 13.3 (11.5-14.5) % Plt Count 185 (130-400) K/uL MPV 10.6 (9.4-12.4) fL Immature Gran % (Auto) 0.8 % Neut % (Auto) 66.0 % Lymph % (Auto) 11.7 % [place] % (Auto) 21.2 % Eos % (Auto) 0.2 % Baso % (Auto) 0.1 % Neut # (Auto) 5.86 (1.4-6.5) K/uL Lymph # (Auto) 1.04 L (1.2-3.4) K/uL [place] # (Auto) 1.88 H (0.24-0.82) K/uL Eos # (Auto) 0.02 (0-0.50) K/uL Baso # (Auto) 0.01 (0-0.2) K/uL Immature Gran # (Auto) 0.07 H (0.00-0.02) K/uL PT 11.4 (9.0-12.0) Seconds INR 1.1 (0.9-1.1) APTT 27.6 (21.0-31.0) Seconds PTT Ratio 1.0 Sodium 140 (136-145) mmol/L Potassium 3.4 L (3.5-5.1) mmol/L Chloride 108 H (98-107) mmol/L Carbon Dioxide 22 (21-32) mmol/L Anion Gap 10 (3-11) BUN 14 (6-23) mg/dl Creatinine 1.15 (0.6-1.4) mg/dl Est Cr Clr Drug Dosing 52.7 ml/min Est GFR ( Amer) 68.3 ml/min Est GFR (Non-Af Amer) 58.9 ml/min BUN/Creatinine Ratio 12.2 (10-20) Glucose 103 H (70-99(Fasting)) mg/dl Lactate (0.4-2.0) mmol/L Calcium 9.2 (8.5-10.1) mg/dl Magnesium 1.8 (1.7-2.4) mg/dl Total Bilirubin 1.6 H (0.2-1.0) mg/dl AST 25 (13-39) U/L ALT 8 (7-52) U/L Alkaline Phosphatase 80 (34-104) U/L Total Creatine Kinase (30-223) U/L Total Protein 7.0 (6.0-8.3) gm/dl Albumin 3.9 (3.4-5.0) gm/dl Globulin 3.1 (2.5-4.0) gm/dl Albumin/Globulin Ratio 1.3 (0.9-2) TSH (0.300-4.500) uIu/ml SARS-CoV-2 (PCR) (Negative) Influenza Type A (PCR) (Neg) Influenza Type B (PCR) (Neg) RSV (RT-PCR) (Neg) 02/27/22 02/27/22 02/27/22 Range/Units 12:10 12:10 14:16 WBC (4.8-10.8) K/ul RBC (4.63-6.08) M/uL Hgb (14.0-18.0) g/dl Hct (40.1-51.0) % MCV (80.0-100.0) fL MCH (25.0-34.0) pg MCHC (32.0-36.0) g/dL RDW Std Deviation (36.4-46.3) fL RDW Coeff of Destiny (11.5-14.5) % Plt Count (130-400) K/uL MPV (9.4-12.4) fL Immature Gran % (Auto) % Neut % (Auto) % Lymph % (Auto) % [place] % (Auto) % Eos % (Auto) % Baso % (Auto) % Neut # (Auto) (1.4-6.5) K/uL Lymph # (Auto) (1.2-3.4) K/uL [place] # (Auto) (0.24-0.82) K/uL Eos # (Auto) (0-0.50) K/uL Baso # (Auto) (0-0.2) K/uL Immature Gran # (Auto) (0.00-0.02) K/uL PT (9.0-12.0) Seconds INR (0.9-1.1) APTT (21.0-31.0) Seconds PTT Ratio Sodium (136-145) mmol/L Potassium (3.5-5.1) mmol/L Chloride (98-107) mmol/L Carbon Dioxide (21-32) mmol/L Anion Gap (3-11) BUN (6-23) mg/dl Creatinine (0.6-1.4) mg/dl Est Cr Clr Drug Dosing ml/min Est GFR ( Amer) ml/min Est GFR (Non-Af Amer) ml/min BUN/Creatinine Ratio (10-20) Glucose (70-99(Fasting)) mg/dl Lactate (0.4-2.0) mmol/L Calcium (8.5-10.1) mg/dl Magnesium (1.7-2.4) mg/dl Total Bilirubin (0.2-1.0) mg/dl AST (13-39) U/L ALT (7-52) U/L Alkaline Phosphatase (34-104) U/L Total Creatine Kinase 524 H (30-223) U/L Total Protein (6.0-8.3) gm/dl Albumin (3.4-5.0) gm/dl Globulin (2.5-4.0) gm/dl Albumin/Globulin Ratio (0.9-2) TSH 2.404 (0.300-4.500) uIu/ml SARS-CoV-2 (PCR) NEGATIVE (Negative) Influenza Type A (PCR) Negative (Neg) Influenza Type B (PCR) Negative (Neg) RSV (RT-PCR) Negative (Neg) 02/27/22 Range/Units 14:31 WBC (4.8-10.8) K/ul RBC (4.63-6.08) M/uL Hgb (14.0-18.0) g/dl Hct (40.1-51.0) % MCV (80.0-100.0) fL MCH (25.0-34.0) pg MCHC (32.0-36.0) g/dL RDW Std Deviation (36.4-46.3) fL RDW Coeff of Destiny (11.5-14.5) % Plt Count (130-400) K/uL MPV (9.4-12.4) fL Immature Gran % (Auto) % Neut % (Auto) % Lymph % (Auto) % [place] % (Auto) % Eos % (Auto) % Baso % (Auto) % Neut # (Auto) (1.4-6.5) K/uL Lymph # (Auto) (1.2-3.4) K/uL [place] # (Auto) (0.24-0.82) K/uL Eos # (Auto) (0-0.50) K/uL Baso # (Auto) (0-0.2) K/uL Immature Gran # (Auto) (0.00-0.02) K/uL PT (9.0-12.0) Seconds INR (0.9-1.1) APTT (21.0-31.0) Seconds PTT Ratio Sodium (136-145) mmol/L Potassium (3.5-5.1) mmol/L Chloride (98-107) mmol/L Carbon Dioxide (21-32) mmol/L Anion Gap (3-11) BUN (6-23) mg/dl Creatinine (0.6-1.4) mg/dl Est Cr Clr Drug Dosing ml/min Est GFR ( Amer) ml/min Est GFR (Non-Af Amer) ml/min BUN/Creatinine Ratio (10-20) Glucose (70-99(Fasting)) mg/dl Lactate 1.6 (0.4-2.0) mmol/L Calcium (8.5-10.1) mg/dl Magnesium (1.7-2.4) mg/dl Total Bilirubin (0.2-1.0) mg/dl AST (13-39) U/L ALT (7-52) U/L Alkaline Phosphatase (34-104) U/L Total Creatine Kinase (30-223) U/L Total Protein (6.0-8.3) gm/dl Albumin (3.4-5.0) gm/dl Globulin (2.5-4.0) gm/dl Albumin/Globulin Ratio (0.9-2) TSH (0.300-4.500) uIu/ml SARS-CoV-2 (PCR) (Negative) Influenza Type A (PCR) (Neg) Influenza Type B (PCR) (Neg) RSV (RT-PCR) (Neg) Administered Medications Finasteride (Finasteride 5 Mg Tab) 5 mg PO QPM CHIDI Stop: 03/29/22 20:59 Last Admin: 02/27/22 21:02 Dose: 5 mg Documented By: Simvastatin (Simvastatin 20 Mg Tab) 20 mg PO PM CHIDI Stop: 03/29/22 20:59 Last Admin: 02/27/22 21:01 Dose: 20 mg Documented By: Tamsulosin HCl (Tamsulosin Hcl 0.4 Mg Cap) 0.4 mg PO QPM CHIDI Stop: 03/29/22 20:59 Last Admin: 02/27/22 21:01 Dose: 0.4 mg Documented By: Discontinued Medications Acetaminophen (Acetaminophen 500 Mg Tab) 1,000 mg PO NOW STA Stop: 02/27/22 14:18 Last Admin: 02/27/22 14:23 Dose: 1,000 mg Documented By: JENN Cefepime HCl (Maxipime) 2,000 mg in 20 mls @ 5 mls/min IV NOW STA; Protocol Stop: 02/27/22 14:20 Last Admin: 02/27/22 14:23 Dose: 5 mls/min Documented By: JENN Sodium Chloride (Nss 1000ml) 500 mls @ 999 mls/hr IV .Q31M ONE Stop: 02/27/22 14:47 Last Infusion: 02/27/22 15:59 Dose: 0 mls/hr Documented By: Admin: 02/27/22 14:23 Dose: 999 mls/hr Documented By: MES Potassium Chloride (Potassium Chloride Crtab 20 Meq Tabcr) 20 meq PO BID CHIDI Stop: 02/27/22 21:01 Last Admin: 02/27/22 21:02 Dose: 20 meq Documented By: Admin: 02/27/22 17:42 Dose: 20 meq Documented By: BT Imaging Data Radiologist's Impression: Chest X-Ray 02/27/22 13:56 XR chest 1V portable CLINICAL HISTORY: weak TECHNIQUE: Single frontal radiograph of the chest was obtained. Comparison: Comparison is made to chest radiograph 11/18/2019 FINDINGS: Median sternotomy wires are unchanged. The cardiomediastinal silhouette is stable. The lungs are clear. No evidence of pleural effusion or pneumothorax. IMPRESSION: No acute chest disease. ACT 112: Negative or not required by law. Electronically signed by: Aamir Hernandez M.D. 02/27/2022 2:24 PM Discharge Plan Visit Data Chief Complaint: Illness Stated Complaint: WEAKNESS, ED Provider: Qamar Vallecillo Discharge Problem: Weakness, Cellulitis, Flu-like symptoms, Fever Patient Disposition: Admitted As Inpatient Condition: Fair Discharge Instructions Interventions: ED Discharge Assessment Last Done: 02/27/22 16:39
[2022-02-27 15:23] LABS: Influenza A virus by PCR Negative (Neg); Influenza B virus by PCR Negative (Neg); RSV by PCR Negative (Neg); SARS CoV2 RNA(COVID-19) InHosp NEGATIVE (Negative)
--- NOTE | 2022-02-27 15:38 | Electrocardiogram Report ---
Test Reason : Blood Pressure : / mmHG Vent. Rate : 078 BPM Atrial Rate : 075 BPM P-R Int : 260 ms QRS Dur : 088 ms QT Int : 396 ms P-R-T Axes : 269 -42 -50 degrees QTc Int : 451 ms Poor data quality, interpretation may be adversely affected Probable Sinus rhythm Left anterior fascicular block Pulmonary disease pattern Nonspecific ST abnormality Abnormal ECG When compared with ECG of 25-DEC-2019 23:00, No significant change Confirmed by Shaw Durbin ([id number]) on 02/27/2022 3:37:55 PM Referred By: ED Confirmed By:Shaw Durbin
--- NOTE | 2022-02-27 16:38 | History & Physical Report ---
Date of Service February 27, 2022 Assessment & Plan (1) Bilateral lower extremity edema: Plan: Do not suspect cellulitis given lack of neutrophilia, fevers and bilateral equal symptoms in setting of pitting edema. Will hold further antibiotics and observe wfor worsening erythema Unclear acuity but patient has longstanding need for stockings according to his friend Venous doppler to assess for DVT Recommend DOC hose and monitoring for progression I suspect this is just from venous insufficiency with him not moving around much however to complete workup will get TTE LFTs unremarkable Urine Protein/Cr ratio pending (2) Ambulatory dysfunction: Plan: PT/OT evals (3) Obstructive sleep apnea: Plan: CPAP HS (4) Benign hypertension: Plan: Continue furosemide 20 mg p.o. daily (5) BPH (benign prostatic hyperplasia): Plan: Continue tamsulosin 0.4 mg p.o. 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 Unclear if he was lost to follow-up given he was followed in 2020 but appointment in October was canceled. (7) Expressive dysphasia: Plan: Prior H&P in 2019 noted patient had some memory difficulties but no specific word finding difficulty. Will obtain brain MRI given inability to obtain a good history. (8) Short-term memory loss: Plan: Unclear chronicity but noted memory difficulties in 2019 H&P B12 level with AM labs TSH WNL Plan VTE prophylaxis - deferred pending venous doppler Diet - regular Disposition - observation status to med/surg, PT/OT evals Admission and Anticipated Discharge Date Admission Date: February 27, 2022 History of Present Illness Chief Complaint: Found on floor Primary Care Provider: Jaya Skaggs MD Félix Boss is an 82-year-old male who presents to the ER with via EMS due to being found on the floor. Unable to get any meaningful history from the patient - he is having a lot of difficulty finding the right words. He has known short term memory loss. Unable to tell me what happened, how long he had been down or how he got there. Tries to confabulate poorly. Per nursing/ER notes the patient was found on the ground in his home by his friend. Unknown how long he was on the floor. Patient denies loss of consciousness or any pain. Generally feels weak and achy with dizziness and decreased appetite. Orientated x3. Allergies Allergy/AdvReac Type Severity Reaction Status Date / Time No Known Allergies Allergy Verified 02/27/22 15:23 Home Medications Medication Instructions Recorded Confirmed Type cholecalciferol (vitamin D3) 50 2,000 unit PO QAM 03/17/18 02/27/22 History mcg (2,000 unit) capsule (Vitamin D3) finasteride 5 mg tablet 5 mg PO QPM 03/17/18 02/27/22 History furosemide 20 mg tablet 20 mg PO QAM 03/17/18 02/27/22 History metoprolol succinate 25 mg 25 mg PO DAILY 03/17/18 02/27/22 History tablet,extended release 24 hr (Toprol XL) potassium citrate 10 mEq (1,080 10 meq PO QAM 03/17/18 02/27/22 History mg) tablet,extended release simvastatin 20 mg tablet 20 mg PO PM 03/17/18 02/27/22 History tamsulosin 0.4 mg capsule 0.4 mg PO QPM 03/17/18 02/27/22 History alendronate 70 mg tablet 70 mg PO WK 09/07/19 02/27/22 History tramadol 50 mg tablet 50 mg PO HS PRN pain #10 tabs 12/28/19 02/27/22 Rx Past Med/Surg History Medical History Balance problem post laminectomy; walks with a walker since then BPH (benign prostatic hyperplasia) current issue Elevated IOP History of prostatitis Admitted to [facility] 2017, d/c to [facility] Hx of bladder cancer Hyperlipidemia Hypertension Osteopenia Personal history of kidney stones hx lithotripsy Pulmonary hypertension Sleep apnea uses cpap "sporadically" Surgical History History of cardiac cath x2 - [facility] - done prior to MVR, not CAD-related, no stents placed History of colonoscopy History of lithotripsy left kidney Hx of CABG Hx of laminectomy C4-C7 - [facility] 1997 Hx of mitral valve repair done [facility] 2011 Hx of rotator cuff surgery right and left Social History Smoking Status: Unknown if ever smoked Second Hand Exposure: No; Do You Dip or Chew Tobacco: No; Tobacco Cessation Education Requested by Patient: No Hx Alcohol Use: No Hx Substance Use: No Preferred Language: Polish Communication Ability: Effective Visual Impairment: No Limitations Charge Preparation Technician Required: No Beliefs That Will Affect Care: None marital status: Current Living Situation: Alone Current Living Situation Comment: Currently lives in a ranch style house 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 Other Information That Helps Us Care for You: No Feels Safe at Home: Yes Safety Concerns: Feels Safe At This Time Assistive Devices: Walker Review of Systems Review of Systems: Unobtainable due to cognitive status (unreliable) Physical Exam Constitutional: WD/WN, vitals as above Eyes: PERRL, conjunctivae normal, anicteric sclerae Neck: trachea midline, no thyromegaly Respiratory: normal respiratory effort, lungs clear to auscultation Cardiovascular: Rate/Rhythm: regular rate and regular rhythm Heart Sounds: + murmur (systolic, loudest at apex) Extremities: normal capillary refill and + pedal edema (3+ b/l pitting); no calf tenderness Gastrointestinal (Abdomen): normal bowel sounds, soft, nontender, no hepatosplenomegaly Musculoskeletal: no cyanosis or clubbing, extremities motor strength 5/5 Skin: no rashes, warm and dry Neurologic: moves all extremities, awake and + confused; no focal motor deficits (no lateralizing weakness) Speech / Cognition: normal speech Motor/Sensory: no tremor and no pronator drift Coordination: normal [id number] test Psychiatric: Orientation: alert, oriented to person, oriented to place and oriented to time (year) Genitourinary: no CVA tenderness Results & Data Results & Data ([facility]) Vital Signs (Past 12 Hours) Vital Signs Temp Pulse Pulse Resp BP BP Pulse Ox 02/27/22 15:04 37.4 C 02/27/22 14:30 67 18 145/88 H 98 02/27/22 12:19 72 20 97 02/27/22 12:02 38 C H 75 20 147/74 H 99 O2 Del Method 02/27/22 15:04 02/27/22 14:30 Room Air 02/27/22 12:19 Room Air 02/27/22 12:02 Room Air Laboratory Results Abnormal lab results 02/27/22 02/27/22 02/27/22 Range/Units 12:10 12:10 12:10 Hgb 12.6 L (14.0-18.0) g/dl Hct 38.0 L (40.1-51.0) % Lymph # (Auto) 1.04 L (1.2-3.4) K/uL [place] # (Auto) 1.88 H (0.24-0.82) K/uL Immature Gran # (Auto) 0.07 H (0.00-0.02) K/uL Potassium 3.4 L (3.5-5.1) mmol/L Chloride 108 H (98-107) mmol/L Glucose 103 H (70-99(Fasting)) mg/dl Total Bilirubin 1.6 H (0.2-1.0) mg/dl Total Creatine Kinase 524 H (30-223) U/L Diagnostic Findings XR chest 1V portable CLINICAL HISTORY: weak TECHNIQUE: Single frontal radiograph of the chest was obtained. Comparison: Comparison is made to chest radiograph 11/18/2019 FINDINGS: Median sternotomy wires are unchanged. The cardiomediastinal silhouette is stable. The lungs are clear. No evidence of pleural effusion or pneumothorax. IMPRESSION: No acute chest disease. Medications Administered ER medications given: Cefepime 2 g IV Acetaminophen 1 g. NSS 500 mL bolus ECG Indication: altered mental status Rate (beats per minute): 78 Rhythm: normal sinus (probable but quality affects interpretation) Findings: + LAFB and + nonspecific-ST abn Comparison ECG Date: from (December 25, 2019) Change: no significant change Code Status & VTE Plan Code Status Full per patient wishes VTE Prophylaxis Plan VTE Prophylaxis will be ordered: Yes PG Care Time/CCT Total # of Minutes Spent Total Time Spent with Patient: Total time spent is greater than 50% in coordination of care (as documented) at patient's floor/unit and/or counseling patient: Coding Level of Care Code INT OBSERVATION CARE 70M LVL 3 Diagnoses Bilateral lower extremity edema R60.0 Ambulatory dysfunction R26.2 Obstructive sleep apnea G47.33 Benign hypertension I10 BPH (benign prostatic hyperplasia) N40.0 Hematuria R31.0 Hematuria type: gross Expressive dysphasia R47.02 Short-term memory loss R41.3 (1) Hematuria Hematuria type: gross Qualified Code(s): R31.0 - Gross hematuria
[2022-02-27] MEDS ORDERED: traMADol HCL 50 MG TABLET PO PRN (17:14)
[2022-02-27 17:18] LABS: Appearance Urine Turbid (Clear); Bacteria Urine Automated Negative (Negative); Blood Urine 3+ (Negative); Color Urine Orange; Epithelial Cell Urine Auto >30 /lpf (0-5); Glucose Urine UA Negative (Negative); Ketones Urine 1+ (Negative); Leukocyte Esterase Urine Trace (Negative); Nitrite Urine Positive (Negative); Protein Urine 1+ (Negative); Specific Gravity Urine 1.023 (1.000-1.030); Urobilinogen Urine Negative (Negative)
[2022-02-27 17:24] LABS: Bilirubin Urine 1+ (Negative)
[2022-02-27] MEDS: POTASSIUM CHLORIDE CRTAB 20 MEQ TABCR PO SCH ×2 (17:42→21:02)
[2022-02-27 17:57] LABS: Calcium Oxalate Crystals Urine Present (None Prsent); Cast Urine Automated 0 /lpf (0-5); Triple Phosphate Crystal Urine Present (None Prsent)
[2022-02-27] MEDS ORDERED: SIMVASTATIN 20 MG TAB PO SCH (21:00)
[2022-02-27] MEDS: TAMSULOSIN HCL 0.4 MG CAP PO SCH (21:01)
[2022-02-27] MEDS: FINASTERIDE 5 MG TAB PO SCH (21:02)
[2022-02-28 00:46] LABS: Creatinine Urine Random 155.1 mg/dl; Protein Creatinine Ratio Urine 0.3 (0-0.2); Total Protein Urine Random 52.6 mg/dl (0-11.9)
[2022-02-28 07:23] LABS: Basophils # (auto) 0.02 K/uL (0-0.2); Basophils % (auto) 0.2 %; Eosinophils # (auto) 0.02 K/uL (0-0.50); Eosinophils % (auto) 0.2 %; Hemoglobin 10.6 g/dl (14.0-18.0); Immature Granulocytes # (auto) 0.11 K/uL (0.00-0.02); Immature Granulocytes % (auto) 1.1 %; Lymphocytes # (auto) 1.57 K/uL (1.2-3.4); Mean Corpuscular Hemoglobin 27.6 pg (25.0-34.0); Mean Corpuscular Hgb Conc 33.1 g/dL (32.0-36.0); Mean Corpuscular Volume 83.3 fL (80.0-100.0); Monocytes # (auto) 1.89 K/uL (0.24-0.82); Monocytes % (auto) 18.1 %; Neutrophils # (auto) 6.84 K/uL (1.4-6.5); Neutrophils % (auto) 65.4 %; Platelet Count 130 K/uL (130-400); RDW Coefficient of Variation 13.4 % (11.5-14.5); RDW Standard Deviation 40.8 fL (36.4-46.3); Red Blood Count 3.84 M/uL (4.63-6.08); White Blood Count 10.45 K/ul (4.8-10.8)
[2022-02-28 07:28] LABS: Albumin Globulin Ratio 1.5 (0.9-2); Albumin Level 3.4 gm/dl (3.4-5.0); BUN Creatinine Ratio 11.8 (10-20); Bilirubin,Total 1.2 mg/dl (0.2-1.0); Calcium 8.4 mg/dl (8.5-10.1); Creatinine Clr Calc Pharmacy 44.7 ml/min; Est GFR (Non-African American) 44.9 ml/min; Globulin 2.2 gm/dl (2.5-4.0); Potassium 3.8 mmol/L (3.5-5.1); Total Protein 5.6 gm/dl (6.0-8.3)
--- NOTE | 2022-02-28 08:55 | Ultrasound Report ---
BILATERAL LOWER EXTREMITY VENOUS DOPPLER HISTORY: b/l swollen lower extremities COMPARISON STUDY: None. FINDINGS: There is normal compressibility, flow, and augmentation within the bilateral lower extremit y deep venous systems. IMPRESSION: No DVT within the right or left lower extremity. ACT 112: Negative or not required by law. Electronically signed by: Guicho Brannon M.D. 02/28/2022 8:54 AM
[2022-02-28] MEDS ORDERED: FUROSEMIDE 20 MG TAB PO SCH (09:00)
[2022-02-28] MEDS: CYANOCOBALAMIN 1000 MCG/ML VIAL IM SCH (10:18)
[2022-02-28] MEDS: cefTRIAXone SODIUM 2,000 MG in DEXTROSE 5% 50 ML IV SCH (10:19)
[2022-02-28] MEDS: METOPROLOL SUCC 25MG EXT REL TAB PO SCH (10:19)
[2022-02-28] MEDS: CHOLECALCIFEROL 1,000 UNITS 25 MCG TAB PO SCH (10:20)
[2022-02-28] MEDS: SODIUM CHLORIDE 0.9% 1000ML 1,000 ML IV SCH (10:23)
--- NOTE | 2022-02-28 10:39 | CT Scan Report ---
HEAD CT NONCONTRAST CT DOSE: HISTORY: confusion, found down TECHNIQUE: Multiaxial CT images of the head were performed without the use of intravenous contrast. A utomated exposure control was utilized for this study. A dose lowering technique was utilized adheri ng to the principles of ALARA. Comparison: Head CT 06/19/2013. Findings: The paranasal sinuses and mastoid air cells are clear. The calvarium and skull base are int act. There is no mass, hematoma, midline shift, acute infarct. White matter hypodensity is nonspecifi c but suggestive of microvascular ischemic change. The ventricles and sulci demonstrate mild age-rela russell involutional changes. 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 Impression: No acute intracranial abnormality. Atrophy and microvascular ischemic changes. ACT 112: Negative or not required by law. Electronically signed by: Guicho Brannon M.D. 02/28/2022 10:36 AM
--- NOTE | 2022-02-28 10:44 | CT Scan Report ---
ABDOMEN AND PELVIS CT WITHOUT CONTRAST CT DOSE: 1876.50 mGy.cm HISTORY: Acute fever with confusion fever,h/o bladder CA,confusion TECHNIQUE: Multiaxial CT images of the abdomen and pelvis were performed without contrast. A dose lo wering technique was utilized adhering to the principles of ALARA. COMPARISON STUDY: CT abdomen pelvis 12/05/2019. FINDINGS: Prior median sternotomy. Coronary arterial calcifications. Mild subsegmental bibasilar atel ectasis versus scarring. Limited study secondary to upper extremity positioning. No pneumatosis or pn eumoperitoneum. The unenhanced spleen, mildly atrophic pancreas and adrenal glands are unremarkable. The visualized l iver appears to be within normal limits. Mild nonspecific bilateral perinephric stranding. 2 mm nonob structing calculus of the inferior pole left kidney. 2 mm nonobstructing calculus of the superior venice e right kidney. There is mild right-sided hydroureteronephrosis secondary to an obstructing 7 x 4 x 7 mm calculus of the right ureter at the level of L5. Prostamegaly. Partial distention of the urinary bladder. Atherosclerosis of the abdominal aorta without aneurysm. Subcentimeter retroperitoneal lymph nodes. No bowel obstruction or bowel wall thickening. Mild colonic fecal retention. Normal appendix. Degener ative changes of the shoulders and spine. Chronic appearing ununited fracture of the posterolateral l eft ninth rib. IMPRESSION: 1. Mild right-sided hydroureteronephrosis secondary to an obstructing 7 mm calculus of the right uret er at the level of L5. 2. Bilateral nephrolithiasis. 3. Prostamegaly. 4. No bowel obstruction or bowel wall thickening. 5. Additional findings as above. ACT 112: Negative or not required by law. The above report was generated using voice recognition software. It may contain grammatical, syntax o r spelling errors. Electronically signed by: Malik Alston M.D. 02/28/2022 10:42 AM
[2022-02-28] MEDS: DAPTOmycin 300 MG in SYRINGE 0 ML IV SCH (11:15)
[2022-02-28] MEDS: ACETAMINOPHEN 325 MG TAB PO PRN ×3 (11:15→23:27)
--- NOTE | 2022-02-28 12:57 | Urology Consultation ---
Date of Consultation February 28, 2022 Assessment & Plan (1) Right ureteral calculus: (2) Fever: Plan 82yo M admitted with fever, BLE edema, and weakness. CT a/p today notable for an obstructing right ureteral stone. - Reviewed with Dr. Kumar. - Afebrile and hemodynamically stable at present. - Labs reviewed - WBC 10.45, Creatinine 1.44 (previous 1.15). - Urine and blood cultures pending. - On IV Ceftriaxone and Daptomycin, follow cultures. - Pt states he is voiding in urinal, continue to monitor. Bladder scan prn. - Pt had lunch so will make NPO now and continue with close observation, possible stent placement later today pending patient status. - Continue supportive care and antibiotic therapy - Urology will follow closely ATTENDING NOTE: Independently evaluated, assessed, examined, and interviewed. Agree with above. Significant stone with obstruction. Increasing issues with infections. Had fever at admission. On broad spectrum abx for concern with developing pyelonephritis. Had eaten around noon and plan was for supportive care and resuscitation prior to procedure to allow for gastric emptying. Had previously had left sided stones. Has history of Low Risk UCC/PUNLMP Risks and benefits discussed at length for procedure. These include bleeding, infection, injury to surrounding tissues or organs, and risks associated with anesthesia. Patient states understanding and agrees to proceed. Will sign consent and proceed. Plan for cystoscopy with possible right stent and ureteroscopy. History of Present Illness Reason for Consultation: obstructing right ureteral stone, fever Attending Physician: Nikki Kelly MD History of Present Illness 82yo M with a hx of bladder ca, BPH s/p TURP (2019) who presented to the ED via EMS yesterday after being found on the floor and admitted with BLE edema and weakness. On arrival he was febrile at 30 8C. No leukocytosis. Normal renal function. UA with 3+ blood, positive nitrite, trace LE, negative bacteria. He was given IV cefepime and fluids and admitted to medicine for further management due to weakness and flulike symptoms. Due to his fever and confusion a CT a/p was ordered this morning and notable for an obstructing 7 mm calculus at the right ureter causing mild right-sided hydronephrosis, bilateral nephrolithiasis, and prostatomegaly. Urology consulted for right ureteral stone, fever. CT a/p- 1. Mild right-sided hydroureteronephrosis secondary to an obstructing 7 mm c alculus of the right ureter at the level of L5. 2. Bilateral nephrolithiasis. 3. Prostamegaly. 4. No bowel obstruction or bowel wall thickening. 5. Additional findings as above. Patient examined at bedside. Awake, sitting in bedside chair eating lunch on arrival. No acute distress. Unable to provide much meaningful history. Forgetful. He denies any pain or discomfort. Denies fevers or chills. Denies nausea or vomiting. Reports he is voiding in the urinal without difficulty. Denies hematuria or dysuria. Allergies Allergy/AdvReac Type Severity Reaction Status Date / Time No Known Allergies Allergy Verified 02/27/22 15:23 Home Medications Medication Instructions Recorded Confirmed Type cholecalciferol (vitamin D3) 50 2,000 unit PO QAM 03/17/18 02/27/22 History mcg (2,000 unit) capsule (Vitamin D3) finasteride 5 mg tablet 5 mg PO QPM 03/17/18 02/27/22 History furosemide 20 mg tablet 20 mg PO QAM 03/17/18 02/27/22 History metoprolol succinate 25 mg 25 mg PO DAILY 03/17/18 02/27/22 History tablet,extended release 24 hr (Toprol XL) potassium citrate 10 mEq (1,080 10 meq PO QAM 03/17/18 02/27/22 History mg) tablet,extended release simvastatin 20 mg tablet 20 mg PO PM 03/17/18 02/27/22 History tamsulosin 0.4 mg capsule 0.4 mg PO QPM 03/17/18 02/27/22 History alendronate 70 mg tablet 70 mg PO WK 09/07/19 02/27/22 History tramadol 50 mg tablet 50 mg PO HS PRN pain #10 tabs 12/28/19 02/27/22 Rx Patient History Medical History (Updated 02/28/22 @ 17:18 by Nikki Kelly MD) B12 deficiency Balance problem post laminectomy; walks with a walker since then BPH (benign prostatic hyperplasia) current issue Elevated IOP History of prostatitis Admitted to [facility] 2017, d/c to [facility] Hx of bladder cancer Hyperlipidemia Hypertension Osteopenia Personal history of kidney stones hx lithotripsy Pulmonary hypertension Sleep apnea uses cpap "sporadically" Surgical History History of cardiac cath x2 - s - done prior to MVR, not CAD-related, no stents placed History of colonoscopy History of lithotripsy left kidney Hx of CABG Hx of laminectomy C4-C7 - [facility] 1997 Hx of mitral valve repair done at [facility] 2011 Hx of rotator cuff surgery right and left Social History Smoking Status: Unknown if ever smoked Second Hand Exposure: No; Do You Dip or Chew Tobacco: No; Tobacco Cessation Education Requested by Patient: No Hx Alcohol Use: No Hx Substance Use: No Preferred Language: Andorran Communication Ability: Effective Visual Impairment: No Limitations Automation Technician Required: No Beliefs That Will Affect Care: None marital status: Current Living Situation: Alone Current Living Situation Comment: Currently lives in a ranch style house and 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 Other Information That Helps Us Care for You: No Feels Safe at Home: Yes Safety Concerns: Feels Safe At This Time Assistive Devices: Cane, Glasses and Walker Review of Systems Review of Systems: All systems reviewed & are unremarkable except as noted in HPI & below Physical Exam Constitutional: no acute distress Eyes: PERRL, conjunctivae normal, anicteric sclerae ENMT: external ear and nose normal, oropharynx normal Neck: normal visual inspection Respiratory: no respiratory distress and no labored breathing Gastrointestinal (Abdomen): Percussion/Palpation: abdomen soft; abdomen nontender and no guarding Musculoskeletal: Head/Neck/Chest: normocephalic Skin: No visible rashes or lesions Neurologic: awake Forgetful Psychiatric: Orientation: alert and oriented x 3 Genitourinary: no CVA tenderness Results & Data ([facility]) Vital Signs (Past 12 Hours) Vital Signs Temp Pulse Pulse Resp BP Pulse Ox O2 Del Method 02/28/22 11:00 37.0 C 68 20 111/64 96 Room Air 02/28/22 07:40 37.0 C 73 18 108/57 L 97 Room Air 02/28/22 03:15 36.7 C 67 20 120/68 97 CPAP 02/28/22 03:23 78 26 H 97 FiO2 02/28/22 11:00 02/28/22 07:40 02/28/22 03:15 02/28/22 03:23 21 PG Care Time/CCT Total # of Minutes Spent Total Time Spent with Patient: Total time spent is greater than 50% in coordination of care (as documented) at patient's floor/unit and/or counseling patient: Coding Level of Care Code 25386 Initial Inpt Care Lvl 2 Diagnoses Right ureteral calculus N20.1 Fever R50.9 Fever type: unspecified (1) Fever Fever type: unspecified Qualified Code(s): R50.9 - Fever, unspecified
--- NOTE | 2022-02-28 17:19 | Hospitalist Progress Note ---
Date of Service February 28, 2022 Assessment & Plan (1) Fever: Plan: Presented with fever, increased confusion, and was found down on the ground- unknown if there was a fall Chest x-ray negative, COVID/flu/RSV negative. With complaints of right-sided abdominal and back pain for the last several days and UA with blood, protein, nitrite, and crystals, but no WBCs and a lot of epithelial cells-contaminated sample, however suspicion for UTI and ureteral stone prompted CT abdomen/pelvis. He has a history of nephrolithiasis and bladder cancer. CT abdomen/pelvis shows right-sided 7 mm obstructing ureteral stone with mild right-sided hydronephrosis Initially ER physician questioned cellulitis of the legs but this is ruled out- he has chronic venous stasis changes and significant edema. He did receive 1 dose of cefepime in the ER -Blood cultures-remain no growth to date -Start ceftriaxone and daptomycin for broad-spectrum coverage -Follow urine culture -Consult urology-plan for cystoscopy and ureteral stent placement later this evening -Tylenol as needed for fevers -Restart IV fluids with normal saline at maintenance rate for 2 L while n.p.o. given mild acute kidney injury (2) Acute metabolic encephalopathy: Plan: Secondary to fever and UTI as above in the setting of existing cognitive impairment as per my discussion with his step daughter/POA on phone Seems to be somewhat improved since admission -Continue to treat infection as above -Discontinue home tramadol (3) Right ureteral calculus: Plan: As above (4) B12 deficiency: Plan: B12 level checked after admission and found to be severely low at 176 -Begin B12 injections IM once daily for several days while here and then convert to p.o. B12 on discharge (5) LOLA (acute kidney injury): Plan: Creatinine up to 1.44 today from 1.1 on admission Likely secondary to obstructing ureteral stone and possibly prerenal from fevers and dehydration Also with mild rhabdomyolysis but not likely significant to be causing acute kidney injury -Hold home Lasix -Giving IV fluids -Follow BMP in the morning (6) Bilateral lower extremity edema: Plan: Ongoing for at least a year but worse in the last month as per his stepdaughter With significant 3+ edema Urine protein creatinine ratio not significantly high and serum protein and albumin levels are normal Venous doppler to assess for DVT is negative bilaterally He has a history of mitral valve repair and previous echocardiogram 2018 and notes from cardiology from 2019 reviewed and note mild pulmonary hypertension as well as severely dilated RV with normal systolic function at that time He is treated with Lasix from his PCP-hold for now for acute kidney injury as above CT abdomen/pelvis without significant inguinal or pelvic lymphadenopathy causing compression -Check echo to assess for right-sided heart failure as he does have mildly elevated total bilirubin which could be sign of hepatic congestion (7) Obstructive sleep apnea: Plan: Continue CPAP HS (8) Benign hypertension: Plan: Blood pressures are controlled Holding home Lasix Continue home metoprolol (9) BPH (benign prostatic hyperplasia): Plan: Continue tamsulosin 0.4 mg p.o. daily Continue finasteride (10) Short-term memory loss: Plan: Unclear chronicity but noted memory difficulties in 2019 H&P B12 level low and being replaced as above TSH WNL Would benefit from neurology or neuropsych evaluation as an outpatient to formally evaluate for dementia Discussed with his stepdaughter on the phone-she is working on trying to convince the patient to move into an assisted living type setting as she does not feel he is safe at home with his declining cognition; she will be removing his car keys from the house but he has not really driven in several months anyway. (11) Ambulatory dysfunction: Plan: PT/OT aguilar (12) Rhabdomyolysis: Plan: Mildly elevated CK in the 500s now down to 300s Continue normal saline hydration gently as above Likely secondary to being down on the ground for an unknown length of time Plan VTE prophylaxis -DOC pool, add Lovenox after urological procedure Disposition -continued stay, admit Discussed his care with his stepdaughter on the phone at length on 02/28 Admission and Anticipated Discharge Date Admission Date: February 27, 2022 Subjective Patient forgetful and continues to tell me the seeing things repeatedly mostly with regards to his previous urological procedures a couple of years ago. He does not recall why he never followed up with urology. He does not recall falling to the ground-states "that part is hazy." He does note that he has been having right-sided abdominal and back pain for the last several days. He is not hurting anywhere else. He thinks that the slight redness to his legs is the same as it always is and that the swelling in his legs has been going on for quite some time. His daughter on the phone relates that the leg swelling has worsened probably over the last month. Telemetry with normal sinus rhythm with rates in 70s to 80s Review of Systems Review of Systems: All systems reviewed & are unremarkable except as noted in HPI & below Physical Exam Constitutional: WD/WN, vitals as above Eyes: + anicteric sclerae Neck: trachea midline, no thyromegaly Respiratory: normal respiratory effort, lungs clear to auscultation Cardiovascular: Rate/Rhythm: regular rate and regular rhythm Heart Sounds: no murmur Extremities: + edema (3+ edema bilateral legs to the knees) Chest (Breasts): Chest: normal inspection of chest Gastrointestinal (Abdomen): normal bowel sounds, soft, nontender, no hepatosplenomegaly Musculoskeletal: Extremities: extremities normal to inspection; no cyanosis an d no clubbing Skin: Bilateral legs with chronic venous stasis changes with pink rash anterior legs, no warmth to the touch, no tenderness Dry skin Neurologic: moves all extremities and awake; no focal motor deficits Psychiatric: Orientation: alert, oriented to person, oriented to place and cooperative Genitourinary: Penis appears normal, no scrotal swelling Results & Data Results & Data ([facility] [place]) Vital Signs (Past 12 Hours) Vital Signs Temp Pulse Resp BP Pulse Ox O2 Del Method 02/28/22 16:03 37.2 C 63 20 137/74 98 Room Air 02/28/22 12:01 Room Air 02/28/22 11:00 37.0 C 68 20 111/64 96 Room Air 02/28/22 07:40 37.0 C 73 18 108/57 L 97 Room Air Laboratory Results 02/28/22 02/28/22 02/28/22 Range/Units 09:34 06:39 06:39 WBC (4.8-10.8) K/ul RBC (4.63-6.08) M/uL Hgb (14.0-18.0) g/dl Hct (40.1-51.0) % MCV (80.0-100.0) fL MCH (25.0-34.0) pg MCHC (32.0-36.0) g/dL RDW Std Deviation (36.4-46.3) fL RDW Coeff of Destiny (11.5-14.5) % Plt Count (130-400) K/uL MPV (9.4-12.4) fL Immature Gran % (Auto) % Neut % (Auto) % Lymph % (Auto) % Burnett % (Auto) % Eos % (Auto) % Baso % (Auto) % Neut # (Auto) (1.4-6.5) K/uL Lymph # (Auto) (1.2-3.4) K/uL Burnett # (Auto) (0.24-0.82) K/uL Eos # (Auto) (0-0.50) K/uL Baso # (Auto) (0-0.2) K/uL Immature Gran # (Auto) (0.00-0.02) K/uL Sodium 138 (136-145) mmol/L Potassium 3.8 (3.5-5.1) mmol/L Chloride 108 H (98-107) mmol/L Carbon Dioxide 23 (21-32) mmol/L Anion Gap 7 (3-11) BUN 17 (6-23) mg/dl Creatinine 1.44 H (0.6-1.4) mg/dl Est Cr Clr Drug Dosing 44.7 ml/min Est GFR ( Amer) 52.0 ml/min Est GFR (Non-Af Amer) 44.9 ml/min BUN/Creatinine Ratio 11.8 (10-20) Glucose 103 H (70-99(Fasting)) mg/dl Calcium 8.4 L (8.5-10.1) mg/dl Total Bilirubin 1.2 H (0.2-1.0) mg/dl AST 24 (13-39) U/L ALT 8 (7-52) U/L Alkaline Phosphatase 60 (34-104) U/L Total Creatine Kinase 379 H (30-223) U/L Total Protein 5.6 L (6.0-8.3) gm/dl Albumin 3.4 (3.4-5.0) gm/dl Globulin 2.2 L (2.5-4.0) gm/dl Albumin/Globulin Ratio 1.5 (0.9-2) Vitamin B12 176 L (180-914) pg/ml Ur Random Creatinine mg/dl U Random Total Protein (0-11.9) mg/dl Protein/Creatinin Ratio (0-0.2) 02/28/22 02/27/22 Range/Units 06:39 23:00 WBC 10.45 (4.8-10.8) K/ul RBC 3.84 L (4.63-6.08) M/uL Hgb 10.6 L (14.0-18.0) g/dl Hct 32.0 L (40.1-51.0) % MCV 83.3 (80.0-100.0) fL MCH 27.6 (25.0-34.0) pg MCHC 33.1 (32.0-36.0) g/dL RDW Std Deviation 40.8 (36.4-46.3) fL RDW Coeff of Destiny 13.4 (11.5-14.5) % Plt Count 130 (130-400) K/uL MPV 11.0 (9.4-12.4) fL Immature Gran % (Auto) 1.1 % Neut % (Auto) 65.4 % Lymph % (Auto) 15.0 % Burnett % (Auto) 18.1 % Eos % (Auto) 0.2 % Baso % (Auto) 0.2 % Neut # (Auto) 6.84 H (1.4-6.5) K/uL Lymph # (Auto) 1.57 (1.2-3.4) K/uL Burnett # (Auto) 1.89 H (0.24-0.82) K/uL Eos # (Auto) 0.02 (0-0.50) K/uL Baso # (Auto) 0.02 (0-0.2) K/uL Immature Gran # (Auto) 0.11 H (0.00-0.02) K/uL Sodium (136-145) mmol/L Potassium (3.5-5.1) mmol/L Chloride (98-107) mmol/L Carbon Dioxide (21-32) mmol/L Anion Gap (3-11) BUN (6-23) mg/dl Creatinine (0.6-1.4) mg/dl Est Cr Clr Drug Dosing ml/min Est GFR ( Amer) ml/min Est GFR (Non-Af Amer) ml/min BUN/Creatinine Ratio (10-20) Glucose (70-99(Fasting)) mg/dl Calcium (8.5-10.1) mg/dl Total Bilirubin (0.2-1.0) mg/dl AST (13-39) U/L ALT (7-52) U/L Alkaline Phosphatase (34-104) U/L Total Creatine Kinase (30-223) U/L Total Protein (6.0-8.3) gm/dl Albumin (3.4-5.0) gm/dl Globulin (2.5-4.0) gm/dl Albumin/Globulin Ratio (0.9-2) Vitamin B12 (180-914) pg/ml Ur Random Creatinine 155.1 mg/dl U Random Total Protein 52.6 H (0-11.9) mg/dl Protein/Creatinin Ratio 0.3 H (0-0.2) Diagnostic Findings Venous Doppler Study 02/28/22 00:00 BILATERAL LOWER EXTREMITY VENOUS DOPPLER HISTORY: b/l swollen lower extremities COMPARISON STUDY: None. FINDINGS: There is normal compressibility, flow, and augmentation within the bilateral lower extremity deep venous systems. IMPRESSION: No DVT within the right or left lower extremity. ACT 112: Negative or not required by law. Electronically signed by: Guicho Brannon M.D. 02/28/2022 8:[address] 02/28/22 09:[address] DOSE: HISTORY: confusion, found down TECHNIQUE: Multiaxial CT images of the head were performed without the use of intravenous contrast. Automated exposure control was utilized for this study. A dose lowering technique was utilized adhering to the principles of ALARA. Comparison: Head CT 06/19/2013. Findings: The paranasal sinuses and mastoid air cells are clear. The calvarium and skull base are intact. There is no mass, hematoma, midline shift, acute infarct. White matter hypodensity is nonspecific but suggestive of microvascular ischemic change. The ventricles and sulci demonstrate mild age-related involutional changes. 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 Impression: No acute intracranial abnormality. Atrophy and microvascular ischemic changes. ACT 112: Negative or not required by law. Electronically signed by: Guicho Brannon M.D. 02/28/2022 10:36 AM Abdomen/Pelvis CT 02/28/22 09:[address] WITHOUT CONTRAST CT DOSE: 1876.50 mGy.cm HISTORY: Acute fever with confusion fever,h/o bladder CA,confusion TECHNIQUE: Multiaxial CT images of the abdomen and pelvis were performed without contrast. A dose lowering technique was utilized adhering to the principles of ALARA. COMPARISON STUDY: CT abdomen pelvis 12/05/2019. FINDINGS: Prior median sternotomy. Coronary arterial calcifications. Mild subsegmental bibasilar atelectasis versus scarring. Limited study secondary to upper extremity positioning. No pneumatosis or pneumoperitoneum. The unenhanced spleen, mildly atrophic pancreas and adrenal glands are unremark able. The visualized liver appears to be within normal limits. Mild nonspecific bilateral perinephric stranding. 2 mm nonobstructing calculus of the inferior pole left kidney. 2 mm nonobstructing calculus of the superior pole right kidney. There is mild right-sided hydroureteronephrosis secondary to an obstructing 7 x 4 x 7 mm calculus of the right ureter at the level of L5. Prostamegaly. Partial distention of the urinary bladder. Atherosclerosis of the abdominal aorta without aneurysm. Subcentimeter retroperitoneal lymph nodes. No bowel obstruction or bowel wall thickening. Mild colonic fecal retention. Normal appendix. Degenerative changes of the shoulders and spine. 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 IMPRESSION: 1. Mild right-sided hydroureteronephrosis secondary to an obstructing 7 mm calculus of the right ureter at the level of L5. 2. Bilateral nephrolithiasis. 3. Prostamegaly. 4. No bowel obstruction or bowel wall thickening. 5. Additional findings as above. ACT 112: Negative or not required by law. The above report was generated using voice recognition software. It may contain grammatical, syntax or spelling errors. Electronically signed by: Malik Alston M.D. 02/28/2022 10:42 AM PG Care Time/CCT Total # of Minutes Spent Total Time Spent with Patient: Total time spent is greater than 50% in coordination of care (as documented) at patient's floor/unit and/or counseling patient: Coding Level of Care Code 35863 Subseq Hosp Care Lvl 3 Diagnoses Fever R50.9 Fever type: unspecified Acute metabolic encephalopathy G93.41 Right ureteral calculus N20.1 B12 deficiency E53.8 LOLA (acute kidney injury) N17.9 Bilateral lower extremity edema R60.0 Obstructive sleep apnea G47.33 Benign hypertension I10 BPH (benign prostatic hyperplasia) N40.0 Short-term memory loss R41.3 Ambulatory dysfunction R26.2 Rhabdomyolysis M62.82 (1) Fever Fever type: unspecified Qualified Code(s): R50.9 - Fever, unspecified
[2022-02-28] MEDS ORDERED: ePHEDrine sulfate 50 MG/ML AMP IV PRN (20:04)
[2022-02-28] MEDS ORDERED: fentaNYL citrate 100 MCG/2 ML VIAL IV PRN (20:04)
[2022-02-28] MEDS ORDERED: ONDANSETRON INJ 2 MG/ML 2 ML VIAL IV PRN (20:04)
[2022-02-28] MEDS ORDERED: ATROPINE SULFATE 0.1 MG/ML 10ML SYR IV PRN (20:04)
--- NOTE | 2022-02-28 20:04 | Anesthesiology Consultation ---
Date of Service February 28, 2022 Assessment & Plan Chart Review Chart Review: Acceptable Risk for Surgery and Patient NOT seen in Pre Admission Testing Consults Requested none ASA ASA4 Proposed Anesthesia Anesthesia Type: MAC Risk / Benefits Reviewed With: PT / POA / Parent / Guardian, Accepts Plan and Informed Consent Obtained History Surgery Operation Date: 02/28/22 20:00 Proposed Procedures p Cystoscopy Retrograde - Martinez Kumar DO s Ureteral Stent - Martinez Kumar DO Height/Weight Height: 5 ft 10 in Weight: 90.1 kg Allergies Allergy/AdvReac Type Severity Reaction Status Date / Time No Known Allergies Allergy Verified 02/27/22 15:23 Medications Home Medications Medication Instructions Recorded Confirmed Last Taken cholecalciferol (vitamin D3) 50 2,000 unit PO QAM 03/17/18 02/27/22 12/04/19 mcg (2,000 unit) capsule (Vitamin D3) finasteride 5 mg tablet 5 mg PO QPM 03/17/18 02/27/22 12/04/19 furosemide 20 mg tablet 20 mg PO QAM 03/17/18 02/27/22 12/04/19 metoprolol succinate 25 mg 25 mg PO DAILY 03/17/18 02/27/22 12/04/19 tablet,extended release 24 hr (Toprol XL) potassium citrate 10 mEq (1,080 10 meq PO QAM 03/17/18 02/27/22 12/04/19 mg) tablet,extended release simvastatin 20 mg tablet 20 mg PO PM 03/17/18 02/27/22 12/04/19 tamsulosin 0.4 mg capsule 0.4 mg PO QPM 03/17/18 02/27/22 12/04/19 alendronate 70 mg tablet 70 mg PO WK 09/07/19 02/27/22 11/29/19 10:00 tramadol 50 mg tablet 50 mg PO HS PRN pain #10 tabs 12/28/19 02/27/22 Unknown Active Medications Generic Name Dose Route Start Last Admin Trade Name Freq PRN Reason Stop Dose Admin Acetaminophen 650 mg 02/27/22 17:09 02/28/22 16:00 Acetaminophen 325 Mg Tab PO 03/29/22 17:08 650 mg Q4H PRN Administration Pain or Fever Cyanocobalamin 1,000 mcg 02/28/22 09:15 02/28/22 10:18 Cyanocobalamin 1000 Mcg/Ml Vial IM 03/04/22 09:01 1,000 mcg QAM CHIDI Administration Finasteride 5 mg 02/27/22 21:00 02/27/22 21:02 Finasteride 5 Mg Tab PO 03/29/22 20:59 5 mg QPM CHIDI Administration Ceftriaxone Sodium 2,000 mg/ 70 mls @ 100 mls/hr 02/28/22 09:15 02/28/22 11:20 Dextrose IV 03/07/22 09:14 Infused Q24H CHIDI Infusion Protocol Daptomycin 300 mg/ Syringe 6 mls @ 3 mls/min 02/28/22 09:15 02/28/22 11:15 IV 03/07/22 09:14 3 mls/min Q24H CHIDI Administration Protocol Sodium Chloride 1,000 mls @ 80 mls/hr 02/28/22 09:30 02/28/22 10:23 Nss 1000ml IV 03/01/22 10:29 80 mls/hr .[id number] CHIDI Administration Metoprolol Succinate 25 mg 02/28/22 09:00 02/28/22 10:19 Metoprolol Succ 25mg Ext Rel Tab PO 03/30/22 08:59 25 mg DAILY CHIDI Administration Tamsulosin HCl 0.4 mg 02/27/22 21:00 02/27/22 21:01 Tamsulosin Hcl 0.4 Mg Cap PO 03/29/22 20:59 0.4 mg QPM CHIDI Administration Vitamin D 2,000 units 02/28/22 09:00 02/28/22 10:20 Cholecalciferol 1,000 Units 25 Mcg Tab PO 03/30/22 08:59 2,000 units QAM CHIDI Administration Past Medical History Medical History (Updated 02/28/22 @ 17:18 by Nikki Kelly MD) B12 deficiency Balance problem post laminectomy; walks with a walker since then BPH (benign prostatic hyperplasia) current issue Elevated IOP History of prostatitis Admitted to [facility] 2017, d/c to [facility] Hx of bladder cancer Hyperlipidemia Hypertension Osteopenia Personal history of kidney stones hx lithotripsy Pulmonary hypertension Sleep apnea uses cpap "sporadically" Exercise / Class Metabolic Activity II 4-5 Yardwork/Stairs/Walk up hill Past Surgical History Surgical History History of cardiac cath x2 - s - done prior to MVR, not CAD-related, no stents placed History of colonoscopy History of lithotripsy left kidney Hx of CABG Hx of laminectomy C4-C7 - [facility] 1997 Hx of mitral valve repair done at [facility] 2011 Hx of rotator cuff surgery right and left Past Anesthesia History No Hx of Anesthesia Complications and No Family Hx of Anesthesia Complications History of PONV No Hx of PONV and No Hx of Motion Sickness Social History Smoking Status: Unknown if ever smoked Do You Dip or Chew Tobacco: No Hx Alcohol Use: No alcohol intake frequency: holidays/special occasions only Hx Substance Use: No substance use type: does not use Physical Exam Vital Signs Last Vital Signs Temp 37 C 02/28/22 19:23 Pulse 64 02/28/22 19:23 Resp 18 02/28/22 19:23 BP 138/63 02/28/22 19:23 Pulse Ox 99 02/28/22 19:23 O2 Del Method 02/28/22 19:23 FiO2 21 02/28/22 03:23 ENMT Mouth: no dentition abnormality Thyromental Distance: > or= 3.5 Finger Breadths Mallampati Class: II Neck normal visual inspection Respiratory normal respiratory effort Auscultation: lungs clear to auscultation bilaterally Cardiovascular Rate/Rhythm: regular rate and regular rhythm Extremities: + edema Psychiatric Orientation: alert Testing Laboratory Results 02/28/22 06:39 02/28/22 06:39 PT 11.4 Seconds (9.0-12.0) 02/27/22 12:10 INR 1.1 (0.9-1.1) 02/27/22 12:10 APTT 27.6 Seconds (21.0-31.0) 02/27/22 12:10 Urine Color [place] 02/27/22 16:38 Urine Appearance Turbid (Clear) A 02/27/22 16:38 Urine pH 5.0 (4.5-7.5) 02/27/22 16:38 Ur Specific [place] 1.023 (1.000-1.030) 02/27/22 16:38 Urine Protein 1+ (Negative) H 02/27/22 16:38 Urine Glucose (UA) Negative (Negative) 02/27/22 16:38 Urine Ketones 1+ (Negative) H 02/27/22 16:38 Urine Nitrite Positive (Negative) A 02/27/22 16:38 Ur Leukocyte Esterase Trace (Negative) H 02/27/22 16:38 Urine WBC (Auto) 1-5 /hpf (0-5) 02/27/22 16:38 Urine RBC (Auto) 10-30 /hpf (0-4) H 02/27/22 16:38 U Hyaline Cast (Auto) 0 /lpf (0-5) 02/27/22 16:38 U Epithel Cells (Auto) >30 /lpf (0-5) H 02/27/22 16:38 Urine Bacteria (Auto) Negative (Negative) 02/27/22 16:38 02/27/22 12:10 Aerobic Blood Culture - Preliminary Blood No growth in Aerobic bottle after 24 hours. Anaerobic Blood Culture - Preliminary No growth in Anaerobic bottle after 24 hours. 02/27/22 12:05 Aerobic Blood Culture - Preliminary Blood No growth in Aerobic bottle after 24 hours. Anaerobic Blood Culture - Preliminary No growth in Anaerobic bottle after 24 hours.
[2022-02-28] MEDS ORDERED: PROPOFOL IV EMULSION 10 MG/ML 20 ML VIAL IV ONE (20:30)
[2022-02-28] MEDS ORDERED: LIDOCAINE 2% MPF LOCAL 5 ML VIAL INFIL ONE (20:30)
[2022-02-28] MEDS ORDERED: DIATRIZOATE MEGLUMINE 30% 100ML VIAL INSTIL PRN (20:43)
--- NOTE | 2022-02-28 21:05 | Operative Report ---
PG Post Operative Report Pre & Post Diagnosis Operation Date: 02/28/22 20:00 Pre-Op Diagnosis: Right obstuctive stone Post-Op Diagnosis: Right obstuctive stone I identified the patient and participated in the time-out.: Yes Procedure Operation Date: 02/28/22 20:00 Actual Procedures p Cystoscopy Right Retrograde Pyelogram Right Renal Aspiration, Right Ureteral Stent - Martinez Kumar DO Surgeon Martinez Kumar, II, DO Rehabilitation Worker None Estimated Blood Loss 1 Findings Consistent with Post-Op Diagnosis Stent placed in good position. Severely impacted stone with purulent material drained from right kidney. 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 Risks and benefits discussed at length. Description of Procedure Patient was consented and brought back to the operating room. Patient was placed under anesthesia in the supine position and moved to the dorsal lithotomy position. Patient was prepped and draped in the regular sterile fashion. A time out was completed. A 30degree Cystoscope was placed into the bladder and the entire bladder was examined. Numerous small tumors were discovered in the trigone and bladder neck. Appeared to be papillary tumors. The UO's were identified. The UO was cannulized with a catheter and considerable obstruction was appreciated. A wire was used to by pass the area. With manipulation, the catheter was advanced and a urine aspiration was completed. Purulent material was noted and a large amount of drainage occurred after bypassing the obstruciton. The catheter was advanced and a retrograde pyelogram was completed. A wire was then placed. With the wire in place, a 6 Fr Double J stent was placed. It was confirmed with fluoroscopy. With the stent in place, the bladder was emptied. The scope was removed. A 20 Fr Coude catheter was placed. The patient was cleaned, aroused from anesthesia, and transferred to the pacu in stable condition having tolerated the procedure well with no complications. I was present and participated in all aspects of the procedure. The patient will be monitored in the PACU until transferred. Will maintain stent for likely 2-3 weeks for decompression. Likely will need catheter for 3-7 days for decompression of system and management of any blood clots or bleeding. Patient had significant narrowing of the pendulous urethra that was bypassed with the scope. A severely impacted stone was found in the distal ureter. Multiple tumors were discovered in the bladder. Will likely need to proceed with intervention on these issues once patient is cleared of infection. I attest to the content of the Intraoperative Record and any orders documented therein. Any exceptions are noted below.
--- NOTE | 2022-02-28 21:16 | Anesthesiology Progress Note ---
Date of Service February 28, 2022 Anesthesia Post Procedure Vital Signs Vital Signs: Temp Pulse Pulse Resp BP Pulse Ox O2 Del Method 02/28/22 19:23 37 C 64 18 138/63 99 Room Air 02/28/22 06:28 77 02/28/22 14:17 60 02/28/22 16:03 37.2 C 63 20 137/74 98 Room Air 02/28/22 12:01 Room Air 02/28/22 11:00 37.0 C 68 20 111/64 96 Room Air 02/28/22 07:40 37.0 C 73 18 108/57 L 97 Room Air 02/27/22 21:50 78 02/28/22 03:15 36.7 C 67 20 120/68 97 CPAP 02/28/22 03:23 78 26 H 97 02/27/22 23:05 36.9 C 68 18 134/64 97 Room Air 02/27/22 23:28 78 26 H 97 FiO2 02/28/22 19:23 02/28/22 06:28 02/28/22 14:17 02/28/22 16:03 02/28/22 12:01 02/28/22 11:00 02/28/22 07:40 02/27/22 21:50 02/28/22 03:15 02/28/22 03:23 21 02/27/22 23:05 02/27/22 23:28 21 Pain Intensity Left Back: Pain Intensity: 8 Left Neck: Pain Intensity: 8 Transfer of Care Handoff Completed per policy Notes Mental Status: alert / awake / arousable Patient Amnestic to Procedure: Yes Nausea / Vomiting: adequately controlled Pain: adequately controlled Airway Patency, RR, SpO2: stable & adequate BP & HR: stable & adequate Hydration State: stable & adequate Anesthetic Complications: no major complications apparent
[2022-02-28] MEDS: TAMSULOSIN HCL 0.4 MG CAP PO SCH (22:36)
[2022-02-28] MEDS: FINASTERIDE 5 MG TAB PO SCH (22:36)
--- NOTE | 2022-02-28 22:53 | Fluoroscopy Report ---
INTRAOPERATIVE RADIOGRAPHS CLINICAL HISTORY: Right ureteral stent placement. Fluoroscopy time: 92 seconds. FINDINGS: 3 spot fluoroscopic views of the right abdomen are correlated with abdominal CT dated 02/28. Contrast within the renal collecting system on the initial image shows moderate hydronephrosis . The images show the proximal and distal ends of a right ureteral stent in appropriate position. A b ladder catheter is also in place. IMPRESSION: Intraoperative images from a right ureteral stent placement procedure as above. Electronically signed by: Qamar Choudhury M.D. 02/28/2022 10:51 PM
[2022-03-01] MEDS: SODIUM CHLORIDE 0.9% 1000ML 1,000 ML IV SCH (01:20)
[2022-03-01 07:49] LABS: Basophils # (auto) 0.01 K/uL (0-0.2); Basophils % (auto) 0.1 %; Echinocytes 1+; Eosinophils # (auto) 0.07 K/uL (0-0.50); Eosinophils % (auto) 0.9 %; Hematocrit (blood only) 28.9 % (40.1-51.0); Hemoglobin 9.6 g/dl (14.0-18.0); Immature Granulocytes # (auto) 0.06 K/uL (0.00-0.02); Immature Granulocytes % (auto) 0.8 %; Lymphocytes # (auto) 1.63 K/uL (1.2-3.4); Lymphocytes % (auto) 21.4 %; Mean Corpuscular Hemoglobin 27.4 pg (25.0-34.0); Mean Corpuscular Hgb Conc 33.2 g/dL (32.0-36.0); Mean Corpuscular Volume 82.6 fL (80.0-100.0); Mean Platelet Volume 11.2 fL (9.4-12.4); Monocytes # (auto) 1.19 K/uL (0.24-0.82); Monocytes % (auto) 15.6 %; Neutrophils # (auto) 4.67 K/uL (1.4-6.5); Neutrophils % (auto) 61.2 %; Platelet Count 123 K/uL (130-400); Platelet Estimate Decreased (Normal); RDW Coefficient of Variation 13.5 % (11.5-14.5); RDW Standard Deviation 40.5 fL (36.4-46.3); White Blood Count 7.63 K/ul (4.8-10.8)
[2022-03-01] MEDS: DAPTOmycin 300 MG in SYRINGE 0 ML IV SCH (09:26)
[2022-03-01] MEDS: cefTRIAXone SODIUM 2,000 MG in DEXTROSE 5% 50 ML IV SCH (09:31)
[2022-03-01] MEDS: CHOLECALCIFEROL 1,000 UNITS 25 MCG TAB PO SCH (09:37)
[2022-03-01] MEDS: METOPROLOL SUCC 25MG EXT REL TAB PO SCH (09:37)
[2022-03-01] MEDS: CYANOCOBALAMIN 1000 MCG/ML VIAL IM SCH (09:37)
[2022-03-01] MEDS: ENOXAPARIN INJ 30 MG/0.3 ML SYR SQ SCH (09:38)
--- NOTE | 2022-03-01 09:45 | XCELERA ---
[id number]
--- NOTE | 2022-03-01 17:38 | Hospitalist Progress Note ---
Date of Service March 01, 2022 Assessment & Plan (1) Fever: Plan: Presented with fever, increased confusion, and was found down on the ground- unknown if there was a fall Chest x-ray negative, COVID/flu/RSV negative. With complaints of right-sided abdominal and back pain for the last several days and UA with blood, protein, nitrite, and crystals, but no WBCs and a lot of epithelial cells-contaminated sample, however suspicion for UTI and ureteral stone prompted CT abdomen/pelvis. He has a history of nephrolithiasis and bladder cancer. CT abdomen/pelvis shows right-sided 7 mm obstructing ureteral stone with mild right-sided hydronephrosis Initially ER physician questioned cellulitis of the legs but this is ruled out- he has chronic venous stasis changes and significant edema. He did receive 1 dose of cefepime in the ER -Blood cultures-remain no growth to date -Start ceftriaxone and daptomycin for broad-spectrum coverage -Follow urine culture -Consult urology-plan for cystoscopy and ureteral stent placement later this evening -Tylenol as needed for fevers -Restart IV fluids with normal saline at maintenance rate for 2 L while n.p.o. given mild acute kidney injury On 03/01 will repeat blood in AM. temperature has improved. continue antibiotics. (2) Acute metabolic encephalopathy: Plan: Secondary to fever and UTI as above in the setting of existing cognitive impairment as per my discussion with his step daughter/POA on phone Seems to be somewhat improved since admission -Continue to treat infection as above -Discontinue home tramadol (3) Right ureteral calculus: Plan: As above (4) B12 deficiency: Plan: B12 level checked after admission and found to be severely low at 176 -Begin B12 injections IM once daily for several days while here and then convert to p.o. B12 on discharge (5) LOLA (acute kidney injury): Plan: Creatinine up to 1.44 today from 1.1 on admission Likely secondary to obstructing ureteral stone and possibly prerenal from fevers and dehydration Also with mild rhabdomyolysis but not likely significant to be causing acute kidney injury -Hold home Lasix -Giving IV fluids -Follow BMP in the morning (6) Bilateral lower extremity edema: Plan: Ongoing for at least a year but worse in the last month as per his stepdaughter With significant 3+ edema Urine protein creatinine ratio not significantly high and serum protein and albumin levels are normal Venous doppler to assess for DVT is negative bilaterally He has a history of mitral valve repair and previous echocardiogram 2019 and notes from cardiology from 2019 reviewed and note mild pulmonary hypertension as well as severely dilated RV with normal systolic function at that time He is treated with Lasix from his PCP-hold for now for acute kidney injury as above CT abdomen/pelvis without significant inguinal or pelvic lymphadenopathy causing compression -Check echo to assess for right-sided heart failure as he does have mildly elevated total bilirubin which could be sign of hepatic congestion (7) Obstructive sleep apnea: Plan: Continue CPAP HS (8) Benign hypertension: Plan: Blood pressures are controlled Holding home Lasix Continue home metoprolol (9) BPH (benign prostatic hyperplasia): Plan: Continue tamsulosin 0.4 mg p.o. daily Continue finasteride (10) Short-term memory loss: Plan: Unclear chronicity but noted memory difficulties in 2019 H&P B12 level low and being replaced as above TSH WNL Would benefit from neurology or neuropsych evaluation as an outpatient to formally evaluate for dementia Discussed with his stepdaughter on the phone-she is working on trying to convince the patient to move into an assisted living type setting as she does not feel he is safe at home with his declining cognition; she will be removing his car keys from the house but he has not really driven in several months anyway. (11) Ambulatory dysfunction: Plan: PT/OT aguilar (12) Rhabdomyolysis: Plan: Mildly elevated CK in the 500s now down to 300s Continue normal saline hydration gently as above Likely secondary to being down on the ground for an unknown length of time Plan VTE prophylaxis -DOC pool, add Lovenox after urological procedure Disposition -continued stay, admit Discussed his care with his stepdaughter on the phone at length on 02/28 Admission and Anticipated Discharge Date Admission Date: February 28, 2022 Subjective 82 yo male reports no symptoms. Patient has poor short term memory. Review of Systems Review of Systems: All systems reviewed & are unremarkable except as noted in HPI & below Physical Exam Physical Exam: Constitutional: WD/WN, vitals as above Eyes: + anicteric sclerae Neck: trachea midline, no thyromegaly Respiratory: normal respiratory effort, lungs clear to auscultation Cardiovascular: Rate/Rhythm: regular rate and regular rhythm Heart Sounds: no murmur Extremities: + edema (3+ edema bilateral legs to the knees) Chest (Breasts): Chest: normal inspection of chest Gastrointestinal (Abdomen): normal bowel sounds, soft, nontender, no hepatosplenomegaly Musculoskeletal: Extremities: extremities normal to inspection; no cyanosis and no clubbing Skin: Bilateral legs with chronic venous stasis changes with pink rash anterior legs, no warmth to the touch, no tenderness Dry skin Neurologic: moves all extremities and awake; no focal motor deficits Psychiatric: Orientation: alert, oriented to person, oriented to place and cooperative Genitourinary: Penis appears normal, no scrotal swelling Results & Data Results & Data ([facility]) Vital Signs (Past 12 Hours) Vital Signs Temp Pulse Pulse Resp BP Pulse Ox O2 Del Method 03/01/22 06:16 56 L 03/01/22 14:30 73 03/01/22 15:25 36.7 C 69 18 125/65 98 Room Air 03/01/22 11:08 36.7 C 60 18 112/68 96 Room Air 03/01/22 07:49 36.7 C 64 20 113/62 97 Room Air PG Care Time/CCT Total # of Minutes Spent Total Time Spent with Patient: Total time spent is greater than 50% in coordination of care (as documented) at patient's floor/unit and/or counseling patient: Coding Level of Care Code 42242 Subseq Hosp Care Lvl 2 Diagnoses Fever R50.9 Fever type: unspecified Acute metabolic encephalopathy G93.41 Right ureteral calculus N20.1 B12 deficiency E53.8 LOLA (acute kidney injury) N17.9 Bilateral lower extremity edema R60.0 Obstructive sleep apnea G47.33 Benign hypertension I10 BPH (benign prostatic hyperplasia) N40.0 Short-term memory loss R41.3 Ambulatory dysfunction R26.2 Rhabdomyolysis M62.82 (1) Fever Fever type: unspecified Qualified Code(s): R50.9 - Fever, unspecified
[2022-03-01] MEDS: FINASTERIDE 5 MG TAB PO SCH (20:23)
[2022-03-01] MEDS: TAMSULOSIN HCL 0.4 MG CAP PO SCH (20:23)
[2022-03-02] MEDS ORDERED: MELATONIN 3 MG TAB PO ONE (01:24)
[2022-03-02 07:10] LABS: Albumin Globulin Ratio 1.3 (0.9-2); Albumin Level 3.1 gm/dl (3.4-5.0); BUN Creatinine Ratio 22.5 (10-20); Bilirubin,Total 0.5 mg/dl (0.2-1.0); Calcium 8.2 mg/dl (8.5-10.1); Creatinine Clr Calc Pharmacy 80.4 ml/min; Est GFR (African American) 96.4 ml/min; Est GFR (Non-African American) 83.2 ml/min; Globulin 2.4 gm/dl (2.5-4.0); Potassium 3.6 mmol/L (3.5-5.1); Total Protein 5.5 gm/dl (6.0-8.3)
[2022-03-02] MEDS: CHOLECALCIFEROL 1,000 UNITS 25 MCG TAB PO SCH (09:38)
[2022-03-02] MEDS: METOPROLOL SUCC 25MG EXT REL TAB PO SCH (09:38)
[2022-03-02] MEDS: CYANOCOBALAMIN 1000 MCG/ML VIAL IM SCH (09:39)
[2022-03-02] MEDS: ENOXAPARIN INJ 30 MG/0.3 ML SYR SQ SCH (09:46)
[2022-03-02] MEDS: DAPTOmycin 300 MG in SYRINGE 0 ML IV SCH (10:00)
[2022-03-02] MEDS: cefTRIAXone SODIUM 2,000 MG in DEXTROSE 5% 50 ML IV SCH (10:02)
[2022-03-02] MEDS: ACETAMINOPHEN 325 MG TAB PO PRN (12:30)
[2022-03-02] MEDS: FINASTERIDE 5 MG TAB PO SCH (20:33)
[2022-03-02] MEDS: TAMSULOSIN HCL 0.4 MG CAP PO SCH (20:33)
--- NOTE | 2022-03-02 20:53 | Hospitalist Progress Note ---
Date of Service March 02, 2022 Assessment & Plan (1) Fever: Plan: Presented with fever, increased confusion, and was found down on the ground- unknown if there was a fall Chest x-ray negative, COVID/flu/RSV negative. With complaints of right-sided abdominal and back pain for the last several days and UA with blood, protein, nitrite, and crystals, but no WBCs and a lot of epithelial cells-contaminated sample, however suspicion for UTI and ureteral stone prompted CT abdomen/pelvis. He has a history of nephrolithiasis and bladder cancer. CT abdomen/pelvis shows right-sided 7 mm obstructing ureteral stone with mild right-sided hydronephrosis Initially ER physician questioned cellulitis of the legs but this is ruled out- he has chronic venous stasis changes and significant edema. He did receive 1 dose of cefepime in the ER -Blood cultures-remain no growth to date -Start ceftriaxone and daptomycin for broad-spectrum coverage -Follow urine culture -Consult urology-plan for cystoscopy and ureteral stent placement later this evening -Tylenol as needed for fevers -Restart IV fluids with normal saline at maintenance rate for 2 L while n.p.o. given mild acute kidney injury On 03/02 will repeat bloodwork in AM. remained afebrile continue antibiotics. awaiting placement (2) Acute metabolic encephalopathy: Plan: Secondary to fever and UTI as above in the setting of existing cognitive impairment as per my discussion with his step daughter/POA on phone Seems to be somewhat improved since admission -Continue to treat infection as above -Discontinue home tramadol (3) Right ureteral calculus: Plan: As above (4) B12 deficiency: Plan: B12 level checked after admission and found to be severely low at 176 -Begin B12 injections IM once daily for several days while here and then convert to p.o. B12 on discharge (5) LOLA (acute kidney injury): Plan: Creatinine up to 1.44 today from 1.1 on admission Likely secondary to obstructing ureteral stone and possibly prerenal from fevers and dehydration Also with mild rhabdomyolysis but not likely significant to be causing acute kidney injury resolved on 03/02 (6) Bilateral lower extremity edema: Plan: Ongoing for at least a year but worse in the last month as per his stepdaughter With significant 3+ edema Urine protein creatinine ratio not significantly high and serum protein and albumin levels are normal Venous doppler to assess for DVT is negative bilaterally He has a history of mitral valve repair and previous echocardiogram 2019 and notes from cardiology from 2020 reviewed and note mild pulmonary hypertension as well as severely dilated RV with normal systolic function at that time He is treated with Lasix from his PCP-hold for now for acute kidney injury as above CT abdomen/pelvis without significant inguinal or pelvic lymphadenopathy causing compression -Check echo to assess for right-sided heart failure as he does have mildly elevated total bilirubin which could be sign of hepatic congestion (7) Obstructive sleep apnea: Plan: Continue CPAP HS (8) Benign hypertension: Plan: Blood pressures are controlled Holding home Lasix Continue home metoprolol (9) BPH (benign prostatic hyperplasia): Plan: Continue tamsulosin 0.4 mg p.o. daily Continue finasteride (10) Short-term memory loss: Plan: Unclear chronicity but noted memory difficulties in 2019 H&P B12 level low and being replaced as above TSH WNL Would benefit from neurology or neuropsych evaluation as an outpatient to formally evaluate for dementia Discussed with his stepdaughter on the phone-she is working on trying to convince the patient to move into an assisted living type setting as she does not feel he is safe at home with his declining cognition; she will be removing his car keys from the house but he has not really driven in several months anyway. (11) Ambulatory dysfunction: Plan: PT/OT aguilar (12) Rhabdomyolysis: Plan: Mildly elevated CK in the 500s now down to 300s Continue normal saline hydration gently as above Likely secondary to being down on the ground for an unknown length of time Plan VTE prophylaxis -DOC hose, add Lovenox after urological procedure Disposition -continued stay, admit Admission and Anticipated Discharge Date Admission Date: February 28, 2022 Subjective 82 yo male reports no new symptoms. Review of Systems Review of Systems: All systems reviewed & are unremarkable except as noted in HPI & below Physical Exam Physical Exam: Constitutional: WD/WN, vitals as above Eyes: + anicteric sclerae Neck: trachea midline, no thyromegaly Respiratory: normal respiratory effort, lungs clear to auscultation Cardiovascular: Rate/Rhythm: regular rate and regular rhythm Heart Sounds: no murmur Extremities: + edema (3+ edema bilateral legs to the knees) Chest (Breasts): Chest: normal inspection of chest Gastrointestinal (Abdomen): normal bowel sounds, soft, nontender, no hepatosplenomegaly Musculoskeletal: Extremities: extremities normal to inspection; no cyanosis and no clubbing Skin: Bilateral legs with chronic venous stasis changes with pink rash anterior legs, no warmth to the touch, no tenderness Dry skin Neurologic: moves all extremities and awake; no focal motor deficits Psychiatric: Orientation: alert, oriented to person, oriented to place and cooperative Genitourinary: Penis appears normal, no scrotal swelling Results & Data Results & Data ([facility]) Vital Signs (Past 12 Hours) Vital Signs Temp Pulse Pulse Resp BP Pulse Ox O2 Del Method 03/02/22 19:00 36.8 C 58 L 20 123/63 97 Room Air 03/02/22 15:02 66 03/02/22 15:46 37.2 C 64 18 110/67 99 Room Air PG Care Time/CCT Total # of Minutes Spent Total Time Spent with Patient: Total time spent is greater than 50% in coordination of care (as documented) at patient's floor/unit and/or counseling patient: Coding Level of Care Code 94962 Subseq Hosp Care Lvl 2 Diagnoses Fever R50.9 Fever type: unspecified Acute metabolic encephalopathy G93.41 Right ureteral calculus N20.1 B12 deficiency E53.8 LOLA (acute kidney injury) N17.9 Bilateral lower extremity edema R60.0 Obstructive sleep apnea G47.33 Benign hypertension I10 BPH (benign prostatic hyperplasia) N40.0 Short-term memory loss R41.3 Ambulatory dysfunction R26.2 Rhabdomyolysis M62.82 Time Spent (min) 25 (1) Fever Fever type: unspecified Qualified Code(s): R50.9 - Fever, unspecified
[2022-03-03 06:57] LABS: Hematocrit (blood only) 28.6 % (40.1-51.0); Hemoglobin 9.4 g/dl (14.0-18.0); Mean Corpuscular Hemoglobin 27.5 pg (25.0-34.0); Mean Corpuscular Hgb Conc 32.9 g/dL (32.0-36.0); Mean Corpuscular Volume 83.6 fL (80.0-100.0); Mean Platelet Volume 11.1 fL (9.4-12.4); Platelet Count 151 K/uL (130-400); RDW Coefficient of Variation 13.4 % (11.5-14.5); RDW Standard Deviation 40.9 fL (36.4-46.3); Red Blood Count 3.42 M/uL (4.63-6.08); White Blood Count 6.04 K/ul (4.8-10.8)
[2022-03-03 07:53] LABS: BUN Creatinine Ratio 23.8 (10-20); Calcium 8.5 mg/dl (8.5-10.1); Creatinine Clr Calc Pharmacy 77.4 ml/min; Est GFR (African American) 94.5 ml/min; Est GFR (Non-African American) 81.5 ml/min; Potassium 3.6 mmol/L (3.5-5.1)
[2022-03-03] MEDS: ENOXAPARIN INJ 30 MG/0.3 ML SYR SQ SCH (08:52)
[2022-03-03] MEDS: CHOLECALCIFEROL 1,000 UNITS 25 MCG TAB PO SCH (08:54)
[2022-03-03] MEDS: METOPROLOL SUCC 25MG EXT REL TAB PO SCH (08:54)
[2022-03-03] MEDS: CYANOCOBALAMIN 1000 MCG/ML VIAL IM SCH (08:54)
--- NOTE | 2022-03-03 09:17 | Urology Progress Note ---
Date of Service March 03, 2022 Assessment & Plan (1) Right ureteral calculus: Plan: 82yo M admitted with fever, BLE edema, and weakness; found to have a right ureteral stone. - Pt POD #3 s/p cystoscopy and right ureteral stent placement - Subjectively doing well - Afebrile, lab work reviewed - creatinine and WBC within normal limits - Urine and kidney culture showed no growth, BCx showing no growth x 48 hours - on Ceftriaxone and Daptomycin - Tolerating right ureteral stent without bother - Continue Araujo catheter for at least 3-7 days, can follow-up outpatient for voiding trial if discharged with catheter - Plan to maintain ureteral stent for 2-3 weeks - Continue supportive care, antibiotics, and management per primary service - Will arrange outpatient follow-up with our service to discuss definitive stone treatment and next steps - will sign off Admission and Anticipated Discharge Date Admission Date: February 28, 2022 Subjective Patient awake and resting in bed. No acute issues overnight. Offers no complaints at present. No flank, abdominal or suprapubic discomfort. Araujo intact and draining clear yellow/tea colored urine. No nausea or vomiting. No fever or chills. Review of Systems Constitutional: as per Subjective / HPI Gastrointestinal: as per Subjective / HPI Genitourinary: + as per Subjective / HPI Physical Exam Constitutional: well developed; no acute distress and not ill appearing Respiratory: normal respiratory effort; no respiratory distress and no labored breathing Gastrointestinal (Abdomen): Inspection/Auscultation: abdomen normal to inspection; abdomen not distended Neurologic: moves all extremities and awake forgetful, repeats same questions during exam Psychiatric: Orientation: alert and oriented to person Genitourinary: Araujo intact and draining clear yellow/tea colored urine Results & Data ([facility]) Vital Signs (Past 12 Hours) Vital Signs Temp Pulse Pulse Resp BP Pulse Ox O2 Del Method 03/03/22 08:12 37.3 C 61 18 111/67 97 Room Air 03/03/22 06:13 54 L 03/03/22 03:10 36.7 C 56 L 20 119/70 98 Room Air 03/02/22 23:13 57 L PG Care Time/CCT Total # of Minutes Spent Total Time Spent with Patient: Total time spent is greater than 50% in coordination of care (as documented) at patient's floor/unit and/or counseling patient: Coding Level of Care Code 22382 Subseq Hosp Care Lvl 2 Diagnoses Right ureteral calculus N20.1
[2022-03-03] MEDS: DAPTOmycin 300 MG in SYRINGE 0 ML IV SCH (09:49)
[2022-03-03] MEDS: cefTRIAXone SODIUM 2,000 MG in DEXTROSE 5% 50 ML IV SCH (09:49)
[2022-03-03] MEDS: TAMSULOSIN HCL 0.4 MG CAP PO SCH (20:06)
[2022-03-03] MEDS: FINASTERIDE 5 MG TAB PO SCH (20:06)
--- NOTE | 2022-03-03 22:21 | Hospitalist Progress Note ---
Date of Service March 03, 2022 Assessment & Plan (1) Fever: Plan: Presented with fever, increased confusion, and was found down on the ground- unknown if there was a fall Chest x-ray negative, COVID/flu/RSV negative. With complaints of right-sided abdominal and back pain for the last several days and UA with blood, protein, nitrite, and crystals, but no WBCs and a lot of epithelial cells-contaminated sample, however suspicion for UTI and ureteral stone prompted CT abdomen/pelvis. He has a history of nephrolithiasis and bladder cancer. CT abdomen/pelvis shows right-sided 7 mm obstructing ureteral stone with mild right-sided hydronephrosis Initially ER physician questioned cellulitis of the legs but this is ruled out- he has chronic venous stasis changes and significant edema. He did receive 1 dose of cefepime in the ER -Blood cultures-remain no growth to date -Start ceftriaxone and daptomycin for broad-spectrum coverage -Follow urine culture -Consult urology-plan for cystoscopy and ureteral stent placement later this evening -Tylenol as needed for fevers -Restart IV fluids with normal saline at maintenance rate for 2 L while n.p.o. given mild acute kidney injury On 03/03 remained afebrile continue antibiotics. awaiting placement (2) Acute metabolic encephalopathy: Plan: Secondary to fever and UTI as above in the setting of existing cognitive impairment as per my discussion with his step daughter/POA on phone Seems to be somewhat improved since admission -Continue to treat infection as above -Discontinue home tramadol (3) Right ureteral calculus: Plan: As above (4) B12 deficiency: Plan: B12 level checked after admission and found to be severely low at 176 -Begin B12 injections IM once daily for several days while here and then convert to p.o. B12 on discharge (5) LOLA (acute kidney injury): Plan: Creatinine up to 1.44 today from 1.1 on admission Likely secondary to obstructing ureteral stone and possibly prerenal from fevers and dehydration Also with mild rhabdomyolysis but not likely significant to be causing acute kidney injury resolved on 03/02 (6) Bilateral lower extremity edema: Plan: Ongoing for at least a year but worse in the last month as per his stepdaughter With significant 3+ edema Urine protein creatinine ratio not significantly high and serum protein and albumin levels are normal Venous doppler to assess for DVT is negative bilaterally He has a history of mitral valve repair and previous echocardiogram 2018 and notes from cardiology from 2020 reviewed and note mild pulmonary hypertension as well as severely dilated RV with normal systolic function at that time He is treated with Lasix from his PCP-hold for now for acute kidney injury as above CT abdomen/pelvis without significant inguinal or pelvic lymphadenopathy causing compression -Check echo to assess for right-sided heart failure as he does have mildly elevated total bilirubin which could be sign of hepatic congestion (7) Obstructive sleep apnea: Plan: Continue CPAP HS (8) Benign hypertension: Plan: Blood pressures are controlled Holding home Lasix Continue home metoprolol (9) BPH (benign prostatic hyperplasia): Plan: Continue tamsulosin 0.4 mg p.o. daily Continue finasteride (10) Short-term memory loss: Plan: Unclear chronicity but noted memory difficulties in 2019 H&P B12 level low and being replaced as above TSH WNL Would benefit from neurology or neuropsych evaluation as an outpatient to f ormally evaluate for dementia Discussed with his stepdaughter on the phone-she is working on trying to convince the patient to move into an assisted living type setting as she does not feel he is safe at home with his declining cognition; she will be removing his car keys from the house but he has not really driven in several months anyway. (11) Ambulatory dysfunction: Plan: PT/OT aguilar (12) Rhabdomyolysis: Plan: Mildly elevated CK in the 500s now down to 300s Continue normal saline hydration gently as above Likely secondary to being down on the ground for an unknown length of time Plan VTE prophylaxis -DOC hose, add Lovenox after urological procedure Disposition -continued stay, admit Admission and Anticipated Discharge Date Admission Date: February 28, 2022 Subjective 82 yo male reports no new symptoms. Review of Systems Review of Systems: All systems reviewed & are unremarkable except as noted in HPI & below Physical Exam Physical Exam: Constitutional: WD/WN, vitals as above Eyes: + anicteric sclerae Neck: trachea midline, no thyromegaly Respiratory: normal respiratory effort, lungs clear to auscultation Cardiovascular: Rate/Rhythm: regular rate and regular rhythm Heart Sounds: no murmur Extremities: + edema (3+ edema bilateral legs to the knees) Chest (Breasts): Chest: normal inspection of chest Gastrointestinal (Abdomen): normal bowel sounds, soft, nontender, no hepatosplenomegaly Musculoskeletal: Extremities: extremities normal to inspection; no cyanosis and no clubbing Skin: Bilateral legs with chronic venous stasis changes with pink rash anterior legs, no warmth to the touch, no tenderness Dry skin Neurologic: moves all extremities and awake; no focal motor deficits Psychiatric: Orientation: alert, oriented to person, oriented to place and cooperative Genitourinary: Penis appears normal, no scrotal swelling Results & Data Results & Data ([facility]) Vital Signs (Past 12 Hours) Vital Signs Temp Pulse Pulse Resp BP Pulse Ox O2 Del Method 03/03/22 19:56 Room Air 03/03/22 19:55 36.6 C 51 L 18 123/62 95 Room Air 03/03/22 16:01 36.9 C 63 19 147/78 H 97 Room Air 03/03/22 14:16 57 L 03/03/22 11:54 70 18 147/75 H 98 Room Air 03/03/22 11:29 36.8 C PG Care Time/CCT Total # of Minutes Spent Total Time Spent with Patient: Total time spent is greater than 50% in coordination of care (as documented) at patient's floor/unit and/or counseling patient: Coding Level of Care Code 53962 Subseq Hosp Care Lvl 2 Diagnoses Fever R50.9 Fever type: unspecified Acute metabolic encephalopathy G93.41 Right ureteral calculus N20.1 B12 deficiency E53.8 LOLA (acute kidney injury) N17.9 Bilateral lower extremity edema R60.0 Obstructive sleep apnea G47.33 Benign hypertension I10 BPH (benign prostatic hyperplasia) N40.0 Short-term memory loss R41.3 Ambulatory dysfunction R26.2 Rhabdomyolysis M62.82 Time Spent (min) 25 (1) Fever Fever type: unspecified Qualified Code(s): R50.9 - Fever, unspecified
[2022-03-04] MEDS: CHOLECALCIFEROL 1,000 UNITS 25 MCG TAB PO SCH (08:08)
[2022-03-04] MEDS: CYANOCOBALAMIN 1000 MCG/ML VIAL IM SCH (08:09)
[2022-03-04] MEDS: METOPROLOL SUCC 25MG EXT REL TAB PO SCH (08:09)
[2022-03-04] MEDS: ENOXAPARIN INJ 30 MG/0.3 ML SYR SQ SCH (08:09)
[2022-03-04] MEDS: cefTRIAXone SODIUM 2,000 MG in DEXTROSE 5% 50 ML IV SCH (08:55)
[2022-03-04] MEDS: DAPTOmycin 300 MG in SYRINGE 0 ML IV SCH (08:55)
--- NOTE | 2022-03-10 14:37 | Discharge Summary ---
Date of Service March 04, 2022 Admission HPI Per Admitting Provider Félix Boss is an 82-year-old male who presents to the ER with via EMS due to being found on the floor. Unable to get any meaningful history from the patient - he is having a lot of difficulty finding the right words. He has known short term memory loss. Unable to tell me what happened, how long he had been down or how he got there. Tries to confabulate poorly. Per nursing/ER notes the patient was found on the ground in his home by his friend. Unknown how long he was on the floor. Patient denies loss of consciousness or any pain. Generally feels weak and achy with dizziness and decreased appetite. Orientated x3. Principal Diagnosis fever Discharge Exam Constitutional: WD/WN, vitals as above Eyes: + anicteric sclerae Neck: trachea midline, no thyromegaly Respiratory: normal respiratory effort, lungs clear to auscultation Cardiovascular: Rate/Rhythm: regular rate and regular rhythm Heart Sounds: no murmur Extremities: + edema (3+ edema bilateral legs to the knees) Chest (Breasts): Chest: normal inspection of chest Gastrointestinal (Abdomen): normal bowel sounds, soft, nontender, no he patosplenomegaly Musculoskeletal: Extremities: extremities normal to inspection; no cyanosis and no clubbing Skin: Bilateral legs with chronic venous stasis changes with pink rash anterior legs, no warmth to the touch, no tenderness Dry skin Neurologic: moves all extremities and awake; no focal motor deficits Psychiatric: Orientation: alert, oriented to person, oriented to place and cooperative Genitourinary: Penis appears normal, no scrotal swelling Discharge Data Allergies Allergy/AdvReac Type Severity Reaction Status Date / Time No Known Allergies Allergy Verified 02/27/22 15:23 Consultations 02/27/22 14:31 ED Decision to Admit Stat 02/28/22 11:38 Consult Urology Routine Procedures Performed Operation Date: 02/28/22 20:00 Actual Procedures p Right Ureteral Stent, Cystoscopy Retrograde - Martinez Kumar DO Ordered Studies 02/28/22 US venous doppler LE BI Routine 02/28/22 09:[address] [CT head/brain wo con] Urgent 02/28/22 09:14 CT abd pelvis wo con Urgent 02/28/22 19:13 FL retrograde includes kub Routine Hospital Course (1) Fever: Presented with fever, increased confusion, and was found down on the ground- unknown if there was a fall Chest x-ray negative, COVID/flu/RSV negative. With complaints of right-sided abdominal and back pain for the last several days and UA with blood, protein, nitrite, and crystals, but no WBCs and a lot of epithelial cells-contaminated sample, however suspicion for UTI and ureteral stone prompted CT abdomen/pelvis. He has a history of nephrolithiasis and bladder cancer. CT abdomen/pelvis shows right-sided 7 mm obstructing ureteral stone with mild right-sided hydronephrosis Initially ER physician questioned cellulitis of the legs but this is ruled out- he has chronic venous stasis changes and significant edema. He did receive 1 dose of cefepime in the ER -Blood cultures-remain no growth to date -Start ceftriaxone and daptomycin for broad-spectrum coverage -Follow urine culture -Consult urology-plan for cystoscopy and ureteral stent placement later this evening -Tylenol as needed for fevers -Restart IV fluids with normal saline at maintenance rate for 2 L while n.p.o. given mild acute kidney injury On 03/03 remained afebrile continue antibiotics. awaiting placement ON 03/04 will discharge patient on 8 more days of PO antibiotics Patient received ceftriaxone on 03/04 will start cefdinir on 03/05 Discharge instructions and followup stated below. (2) Acute metabolic encephalopathy: Secondary to fever and UTI as above in the setting of existing cognitive impairment as per my discussion with his step daughter/POA on phone Seems to be somewhat improved since admission -Continue to treat infection as above -Discontinue home tramadol during inpatient. will recommend limiting this as an outpatient. (3) Right ureteral calculus: As above (4) B12 deficiency: B12 level checked after admission and found to be severely low at 176 -Begin B12 injections IM once daily for several days while here and then convert to p.o. B12 on discharge (5) LOLA (acute kidney injury): Creatinine up to 1.44 today from 1.1 on admission Likely secondary to obstructing ureteral stone and possibly prerenal from fevers and dehydration Also with mild rhabdomyolysis but not likely significant to be causing acute kidney injury resolved on 03/02 (6) Bilateral lower extremity edema: Ongoing for at least a year but worse in the last month as per his stepdaughter With significant 3+ edema Urine protein creatinine ratio not significantly high and serum protein and albumin levels are normal Venous doppler to assess for DVT is negative bilaterally He has a history of mitral valve repair and previous echocardiogram 2019 and notes from cardiology from 2019 reviewed and note mild pulmonary hypertension as well as severely dilated RV with normal systolic function at that time He is treated with Lasix from his PCP-hold for now for acute kidney injury as above CT abdomen/pelvis without significant inguinal or pelvic lymphadenopathy causing compression -Check echo to assess for right-sided heart failure as he does have mildly elevated total bilirubin which could be sign of hepatic congestion (7) Obstructive sleep apnea: Continue CPAP HS (8) Benign hypertension: Blood pressures are controlled Holding home Lasix Continue home metoprolol (9) BPH (benign prostatic hyperplasia): Continue tamsulosin 0.4 mg p.o. daily Continue finasteride (10) Short-term memory loss: Unclear chronicity but noted memory difficulties in 2019 H&P B12 level low and being replaced as above TSH WNL Would benefit from neurology or neuropsych evaluation as an outpatient to formally evaluate for dementia Discussed with his stepdaughter on the phone-she is working on trying to convince the patient to move into an assisted living type setting as she does not feel he is safe at home with his declining cognition; she will be removing his car keys from the house but he has not really driven in several months anyway. (11) Ambulatory dysfunction: PT/OT aguilar (12) Rhabdomyolysis: Mildly elevated CK in the 500s now down to 300s Continue normal saline hydration gently as above Likely secondary to being down on the ground for an unknown length of time Total Time Total Time Spent Total Time Spent (In Minutes): 35 Discharge Plan Discharge Items Patient Disposition: Transfer Inpatient Rehab Fac Reason For Visit: cellulitis Discharge Diagnosis: complicated UTI Condition on Discharge: Fair Activity: Resume your previous activity Non-emergency contact: Primary Care Provider Call non-emergency contact if: you have any medication questions Follow-up/Referrals: Jaya Skaggs MD [Primary Care Provider] - Diet: Regular Addtl Attending Provider Instructions: - Tolerating right ureteral stent without bother - Continue Araujo catheter for at least 3-7 days, can follow-up outpatient for voiding trial if discharged with catheter - Plan to maintain ureteral stent for 2-3 weeks - Continue supportive care, antibiotics for 8 more days starting tomorrow morning. He received ceftriaxone today, will not need oral cefdiir until AM of 03/05 - Will need to arrange outpatient follow-up with Urology to discuss definitive stone treatment Pending Studies at Discharge: No Stand-Alone Forms: My [facility] Skilled Items Patient informed of condition?: Yes DNR: No Discharge Level of Care: Acute rehab Communicable Disease: No Discharge Prognosis: Stable Lines: None Urinary Catheter: Yes (continue for 3-7 more days) Medications and DC Order Prescriptions: New cefdinir 300 mg capsule 300 mg PO BID 8 Days Qty: 16 0RF Continued alendronate 70 mg tablet 70 mg PO WK Rx Instructions: tuesdays tamsulosin 0.4 mg Capsule 0.4 mg PO QPM potassium citrate 10 mEq (1,080 mg) Tablet Extended Release 10 meq PO QAM simvastatin 20 mg Tablet 20 mg PO PM furosemide 20 mg Tablet 20 mg PO QAM metoprolol succinate [Toprol XL] 25 mg Tablet Extended Release 24 Hr 25 mg PO DAILY finasteride 5 mg Tablet 5 mg PO QPM cholecalciferol (vitamin D3) [Vitamin D3] 2,000 unit Capsule 2,000 unit PO QAM tramadol 50 mg tablet 50 mg PO HS PRN (Reason: pain) Qty: 10 0RF Discharge Orders: Discharge Order (Routine); Ordered 03/04/22 Ordered By: John Grimes Admission Data Admit Date/Time: 02/28/22 17:15 Attending Provider: John Grimes Admit Provider: Hayden Clement Primary Care Provider: Jaya Skaggs Other Providers: Hayden Clement ; Kareem Faulkner ; [facility] ; [facility] ; [facility] Other Interventions: Discharge Summary Assessment (RN) Last Done: 03/04/22 14:05 Coding Level of Care Code D/C DAY MANAGEMENT >30 MINS Diagnoses Fever R50.9 Fever type: unspecified Acute metabolic encephalopathy G93.41 Right ureteral calculus N20.1 B12 deficiency E53.8 LOLA (acute kidney injury) N17.9 Bilateral lower extremity edema R60.0 Obstructive sleep apnea G47.33 Benign hypertension I10 BPH (benign prostatic hyperplasia) N40.0 Short-term memory loss R41.3 Ambulatory dysfunction R26.2 Rhabdomyolysis M62.82
== END 2022-03-04 17:09 | DRG 659 ==
LOC: 2N 11:55 → ED 11:55 → SUATTDRO 14:37 → 2N 16:39 → SUATTDRO 02-28 17:15

== ENCOUNTER 2023-10-05 21:33 | Inpatient (IN) ==
--- OUTSIDE RECORDS SUMMARY | 2023-10-05 21:42 | External Medical Summary ---
Author Name Unknown Address Unknown Organization [id number]:[place] [facility] [place] [address] [place] [address] Laboratory Report Ordering Provider Test Date Status LOUIS ALBRIGHT 07/20/2023 07:32:00 Final Observation Date Value Abnormality Reference (Units ) Status Color of Urine by Auto 07/20/2023 07:32:00 Light Yellow Colorless, Light Yellow, Yellow, Dark Yellow Final Clarity, Urine 07/20/2023 07:32:00 Clear Clear Final Glucose [Mass/volume] in Urine by Automated test strip 07/20/2023 07:32:00 Negative Negative (mg/dL) Final Bilirubin.total [Presence] in Urine by Automated test strip 07/20/2023 07:32:00 Negative Negative Final Ketones [Mass/volume] in Urine by Automated test strip 07/20/2023 07:32:00 Negative Negative (mg/dL) Final Specific gravity, Urine 07/20/2023 07:32:00 1.014 1.003-1.030 Final Hemoglobin [Presence] in Urine by Automated test strip 07/20/2023 07:32:00 Negative Negative Final pH, Urine 07/20/2023 07:32:00 6.0 5.0-7.5 (Units) Final Protein [Mass/volume] in Urine by Automated test strip 07/20/2023 07:32:00 Negative Negative (mg/dL) Final Urobilinogen [Mass/volume] in Urine by Automated test strip 07/20/2023 07:32:00 Normal Normal (mg/dL) Final Nitrite [Presence] in Urine by Automated test strip 07/20/2023 07:32:00 Negative Negative Final Leukocyte esterase [Presence] in Urine by Automated test strip 07/20/2023 07:32:00 Negative Negative Final Annotation Comment 07/20/2023 07:32:00 Final Screen negative - Microscopi c not performed. Performing Location LABORATORY [facility] - [address] [place] [address]
--- OUTSIDE RECORDS SUMMARY | 2023-10-05 21:42 | External Medical Summary ---
Author Name Unknown Address Unknown Organization [id number][place] [facility] [place] [address] [place] [id number] Laboratory Report Ordering Provider Test Date Status LOUIS ALBRIGHT 07/20/2023 07:32:00 Final Observation Date Value Abnormality Reference (Units) Status Bacteria identified in Specimen by Culture 07/20/2023 07:32:00 No significant growth Final Test: Culture, Urine, Quanti tative
Specimen Source: Urine, Clean Catch
Specimen Type: Urine
Specimen Date: 07/20/2023 7:32 AM
Result Date: 07/21/2023 4:59 PM
Result Status: Final result
Resulting Lab: [place] [facility]
[address]
[place] [id number]

CULTURE

No significant growth

null Performing Location [place] [facility] [place] [address] [facility] [id number]
[2023-10-05 22:18] LABS: Albumin Globulin Ratio 1.5 (0.9-2); Albumin Level 4.6 gm/dl (3.4-5.0); BUN Creatinine Ratio 20.3 (10-20); Bilirubin,Total 0.4 mg/dl (0.2-1.0); Creatinine Clr Calc Pharmacy 54.6 ml/min; Est GFR (African American) 59.6 ml/min; Est GFR (Non-African American) 51.4 ml/min; Globulin 3.1 gm/dl (2.5-4.0); Magnesium 2.1 mg/dl (1.7-2.4); Potassium 4.2 mmol/L (3.5-5.1); Total Protein 7.7 gm/dl (6.0-8.3)
[2023-10-05 22:19] LABS: Basophils # (auto) 0.02 K/uL (0.00-0.20); Basophils % (auto) 0.2 %; Eosinophils # (auto) 0.08 K/uL (0.00-0.50); Eosinophils % (auto) 0.9 %; Hematocrit (blood only) 40.4 % (42.0-52.0); Hemoglobin 13.3 g/dl (14.0-18.0); Immature Granulocytes # (auto) 0.08 K/uL (0.01-0.20); Immature Granulocytes % (auto) 0.9 %; Lymphocytes # (auto) 2.41 K/uL (1.20-3.40); Lymphocytes % (auto) 27.4 %; Mean Corpuscular Hgb Conc 32.9 g/dL (32.0-36.0); Mean Corpuscular Volume 82.1 fL (80.0-100.0); Mean Platelet Volume 10.9 fL (9.4-12.4); Monocytes # (auto) 1.53 K/uL (0.11-0.59); Monocytes % (auto) 17.4 %; Neutrophils # (auto) 4.69 K/uL (1.40-6.50); Neutrophils % (auto) 53.2 %; Platelet Count 194 K/uL (130-400); RDW Coefficient of Variation 14.3 % (11.5-14.5); RDW Standard Deviation 42.4 fL (36.4-46.3); Red Blood Count 4.92 M/uL (4.70-6.10); White Blood Count 8.81 K/ul (4.8-10.8)
[2023-10-05 22:25] LABS: Troponin I High Sensitivity 6.9 pg/ml (0-20)
[2023-10-05 22:29] LABS: Partial Thromboplastin Time 27 Seconds (21-31)
--- NOTE | 2023-10-05 23:13 | Emergency Department Note ---
History of Present Illness General Chief complaint: Fall Stated complaint: FALL Time Seen by Provider: 10/05/23 21:41 History of Present Illness Maximum Pain Intensity: 6 This is an 83-year-old male presenting to the emergency department from [facility] via EMS for evaluation of unwitnessed fall. Patient was found in the bathroom with blood on the back of his head. Patient was not able to stand or ambulate after the fall. He is not on any blood thinners. Patient is having pain in his head as well as his right hip. Patient does not report any chest pain, chest tightness, shortness of breath, lightheadedness, or dizziness before or after the event. He does not remember many of the events before the fall however, and this may have been a syncopal episode. He rates his current discomfort a 6/10. Home Medications Medication Instructions Recorded Confirmed Type finasteride 5 mg tablet 5 mg PO QPM 03/17/18 10/06/23 History metoprolol succinate 25 mg 25 mg PO QAM 03/17/18 10/06/23 History tablet,extended release 24 hr (Toprol XL) potassium citrate 10 mEq (1,080 10 meq PO QAM 03/17/18 10/06/23 History mg) tablet,extended release simvastatin 20 mg tablet 20 mg PO PM 03/17/18 10/06/23 History cholecalciferol (vitamin D3) 50 50 mcg PO DAILY 03/27/22 10/06/23 History mcg (2,000 unit) capsule (Vitamin D3) tamsulosin 0.4 mg capsule 0.4 mg PO QPM 05/07/22 10/06/23 History alendronate 70 mg tablet 70 mg PO WK 01/29/23 10/06/23 History furosemide 20 mg tablet (Lasix) 20 mg PO BID 01/29/23 10/06/23 History acetaminophen 325 mg tablet 650 mg PO Q4 PRN Mild Pain (Scale 10/06/23 10/06/23 History Score 1-4) acetaminophen 325 mg tablet 650 mg PO Q4 PRN fever < 100 per 10/06/23 10/06/23 History [facility] menthol 0.44 %-zinc oxide 20.6 % 1 applic topical QS 10/06/23 10/06/23 History topical ointment (Calmoseptine) sertraline 50 mg tablet 50 mg PO QPM 10/06/23 10/06/23 History Allergies Allergy/AdvReac Type Severity Reaction Status Date / Time citalopram [From Celexa] Allergy Unknown Unknown Verified 10/06/23 03:00 Past Med/Surg History Problem List (Updated 10/06/23 @ 02:53 by Ash Muro PA-C) Fall (Acute) Head injury (Acute) CHF (congestive heart failure) (Acute) Syncope and collapse Personal history of kidney stones hx lithotripsy Chronic acquired lymphedema (Chronic) Abnormal ankle brachial index (CELINA) (Acute) Dementia Vitamin D deficiency Calculus of kidney Pulmonary valve disorder (Chronic) Back pain (Acute) Encounter for removal of sutures (Acute) Head injury (Acute) Ureteral calculi (Acute) Ureteral calculus (Acute) Vertigo (Acute) Encounter for pre-operative examination Urethral stricture unspecified (Acute) UTI (urinary tract infection) (Acute) Tinnitus (Acute) Sensorineural hearing loss (SNHL) of both ears (Acute) Obstructive sleep apnea (Acute) Neoplasm of uncertain behavior of skin (Acute) Neoplasm of bladder (Acute) Mitral regurgitation (Acute) Menieres disease (Acute) Malignant tumor of urinary bladder (Acute) Laceration (Acute) Klinefelters syndrome (Acute) Incomplete bladder emptying (Acute) Hearing loss (Acute) Gross hematuria (Acute) Encounter for screening for malignant neoplasm of prostate (Acute) Elevated prostate specific antigen (PSA) (Acute) Dysplastic nevus (Acute) Calculus of urinary bladder (Acute) Benign prostatic hyperplasia with urinary obstruction (Acute) Benign hypertension (Acute 11/11/12) Atherosclerotic heart disease of [place] coronary artery without angina pectoris (Acute) Actinic keratosis (Acute) Malignant neoplasm of urinary bladder Hematuria (Acute) Bilateral lower extremity edema Expressive dysphasia Ambulatory dysfunction Short-term memory loss Weakness (Acute) Cellulitis (Acute) Flu-like symptoms (Acute) Fever (Acute) Right ureteral calculus Acute metabolic encephalopathy LOLA (acute kidney injury) Rhabdomyolysis B12 deficiency BPH (benign prostatic hyperplasia) current issue Pulmonary hypertension RVSP 40-50 mmHg Medical History Atrial septal aneurysm 03/01/22 Atrial septal aneurysm incidentally noted, with small, hemodynamically insignificant shunt. Consider daily aspirin for stroke prophylaxis. CAD (coronary artery disease) h/o CABG x 1; 05/2010 History of prostatitis Osteopenia Hx of bladder cancer Elevated IOP Balance problem post laminectomy; walks with a walker since then Hypertension Hyperlipidemia Sleep apnea uses cpap "sporadically" Surgical History History of cystoscopy Hx of CABG History of lithotripsy left kidney History of colonoscopy History of cardiac cath x2 - s - done prior to MVR, not CAD-related, no stents placed Hx of rotator cuff surgery right and left Hx of laminectomy C4-C7 - [facility] 1997 Hx of mitral valve repair done at [facility] 2011 Social History Smoking Status: Never smoker Preferred Language: Portuguese Communication Ability: Effective Visual Impairment: No Limitations Mechanic Helper Required: No Beliefs That Will Affect Care: None marital status: / Current Living Situation: Personal Care Facility Current Living Situation Comment: [facility] Feels Safe at Home: Yes Assistive Devices: Cane, Glasses and Walker Review of Systems A total of 10 systems reviewed and were otherwise negative Physical Exam Vital Signs Vital Signs - 24 hr 10/05/23 21:41 10/05/23 21:45 10/05/23 21:50 Temperature 36.7 C Temperature Source Oral Pulse Rate 75 79 80 Pulse Rate [Apical] Pulse Rate from SpO2 Sensor Pulse Rhythm Irregular Irregular Pulse Rhythm [Apical] Pulse Strength Normal Pulse Strength [Apical] Respiratory Rate 17 15 Respiratory Effort / Characteristics Non-Labored Spontaneous Respiratory Depth Normal Respiratory Pattern Blood Pressure 133/81 Blood Pressure [Left Arm] Blood Pressure Mean 98 Blood Pressure Mean [Left Arm] Pulse Oximetry 95 95 Oxygen Delivery Method Room Air Room Air Sepsis Recent Fever Within 48 Hours No Sepsis New/Unexplained Change in Mental Status N/A Sepsis Action Taken by Nursing No Action Required 10/05/23 21:51 10/05/23 22:46 10/05/23 23:00 Temperature Temperature Source Pulse Rate 64 Pulse Rate [Apical] 78 69 Pulse Rate from SpO2 Sensor Pulse Rhythm Pulse Rhythm [Apical] Irregular Pulse Strength Pulse Strength [Apical] Normal Respiratory Rate 15 18 13 Respiratory Effort / Characteristics Non-Labored Spontaneous Respiratory Depth Normal Normal Respiratory Pattern Regular Blood Pressure 122/69 Blood Pressure [Left Arm] 115/90 105/63 Blood Pressure Mean 86 Blood Pressure Mean [Left Arm] 98 77 Pulse Oximetry 99 96 96 Oxygen Delivery Method Room Air Room Air Sepsis Recent Fever Within 48 Hours Sepsis New/Unexplained Change in Mental Status Sepsis Action Taken by Nursing 10/05/23 23:30 10/05/23 23:31 10/06/23 00:03 Temperature Temperature Source Pulse Rate 71 74 Pulse Rate [Apical] 63 Pulse Rate from SpO2 Sensor Pulse Rhythm Pulse Rhythm [Apical] Regular Pulse Strength Pulse Strength [Apical] Normal Respiratory Rate 14 21 18 Respiratory Effort / Characteristics Non-Labored Respiratory Depth Normal Respiratory Pattern Blood Pressure 103/71 Blood Pressure [Left Arm] 124/68 Blood Pressure Mean 81 Blood Pressure Mean [Left Arm] 86 Pulse Oximetry 97 95 98 Oxygen Delivery Method Room Air Sepsis Recent Fever Within 48 Hours Sepsis New/Unexplained Change in Mental Status Sepsis Action Taken by Nursing 10/06/23 00:03 10/06/23 00:30 10/06/23 01:00 Temperature Temperature Source Pulse Rate 70 75 66 Pulse Rate [Apical] Pulse Rate from SpO2 Sensor 73 Pulse Rhythm Pulse Rhythm [Apical] Pulse Strength Pulse Strength [Apical] Respiratory Rate 18 20 18 Respiratory Effort / Characteristics Respiratory Depth Respiratory Pattern Blood Pressure 124/68 Blood Pressure [Left Arm] Blood Pressure Mean 86 Blood Pressure Mean [Left Arm] Pulse Oximetry 98 Oxygen Delivery Method Sepsis Recent Fever Within 48 Hours Sepsis New/Unexplained Change in Mental Status Sepsis Action Taken by Nursing VITALS: Vitals are noted on the nurse's note and reviewed by myself. Vital signs stable. GENERAL: Elderly white male who appears in his chronic state of health. HEAD: Superficial abrasion noted to the left posterior scalp. No significant laceration noted. EARS: External ear normal. External auditory canals clear, tympanic membranes pearly mendenhall without erythema or effusion bilaterally. EYES: Pupils equal round and reactive to light and accommodation. Conjunctivae without injection, sclerae without icterus. Extraocular movements intact. NECK: Supple without nuchal rigidity. No lymphadenopathy. No thyromegaly. Cervical spine is nontender. HEART: Regular rate and rhythm LUNGS: Clear to auscultation bilaterally without wheezes, rales or rhonchi. No retractions or accessory muscle use. ABDOMEN: Positive normal bowel sounds x 4. Soft, nontender, without masses or organomegaly. No guarding or rebound tenderness. MUSCULOSKELETAL: Bilateral lower extremity 2+ pitting edema. Bilateral hip tenderness right greater than left. NEURO: Patient was alert and oriented to person place and time. CN II through XII grossly intact. Course Administered Medications Discontinued Medications Furosemide (Furosemide Inj 20 Mg/2 Ml Vial) 20 mg IV ONE ONE Stop: 10/06/23 00:10 Last Admin: 10/06/23 00:14 Dose: 20 mg Documented By: KOFI Medical Decision Making Differential Diagnosis Differential diagnosis: Etiologies such as vasovagal event, infection, anemia, hypoglycemia, hypovolemia, electrolyte abnormalities, dysrhythmias, cardiac ischemia, cardiac tamponade, valvular heart disease, structural heart disease, seizure, vascular stenosis/dissection, pulmonary embolism, intracerebral event, toxicological process, neurologic event, as well as others were entertained. Laboratory Data 10/05/23 21:46 10/05/23 21:46 Lab Results 10/05/23 10/06/23 Range/Units 21:46 00:57 WBC 8.81 (4.8-10.8) K/ul RBC 4.92 (4.70-6.10) M/uL Hgb 13.3 L (14.0-18.0) g/dl Hct 40.4 L (42.0-52.0) % MCV 82.1 (80.0-100.0) fL MCH 27.0 (25.0-34.0) pg MCHC 32.9 (32.0-36.0) g/dL RDW Std Deviation 42.4 (36.4-46.3) fL RDW Coeff of Destiny 14.3 (11.5-14.5) % Plt Count 194 (130-400) K/uL MPV 10.9 (9.4-12.4) fL Immature Gran % (Auto) 0.9 % Neut % (Auto) 53.2 % Lymph % (Auto) 27.4 % [place] % (Auto) 17.4 % Eos % (Auto) 0.9 % Baso % (Auto) 0.2 % Neut # (Auto) 4.69 (1.40-6.50) K/uL Lymph # (Auto) 2.41 (1.20-3.40) K/uL [place] # (Auto) 1.53 H (0.11-0.59) K/uL Eos # (Auto) 0.08 (0.00-0.50) K/uL Baso # (Auto) 0.02 (0.00-0.20) K/uL Immature Gran # (Auto) 0.08 (0.01-0.20) K/uL PT 11.0 (9.0-12.0) Seconds INR 1.0 (0.9-1.1) APTT 27 (21-31) Seconds PTT Ratio 1.0 Sodium 139 (136-145) mmol/L Potassium 4.2 (3.5-5.1) mmol/L Chloride 102 (98-107) mmol/L Carbon Dioxide 30 (21-32) mmol/L Anion Gap 7 (3-11) BUN 26 H (6-23) mg/dl Creatinine 1.28 (0.6-1.4) mg/dl Est Cr Clr Drug Dosing 54.6 ml/min Est GFR ( Amer) 59.6 ml/min Est GFR (Non-Af Amer) 51.4 ml/min BUN/Creatinine Ratio 20.3 H (10-20) Glucose 113 H (70-99(Fasting)) mg/dl Calcium 10.0 (8.6-10.3) mg/dl Magnesium 2.1 (1.7-2.4) mg/dl Total Bilirubin 0.4 (0.2-1.0) mg/dl AST 19 (13-39) U/L ALT 10 (7-52) U/L Alkaline Phosphatase 91 (34-104) U/L Total Creatine Kinase 60 (30-223) U/L Troponin I High Sens 6.9 (0-20) pg/ml B-Natriuretic Peptide 209 H (0-100) pg/ml Total Protein 7.7 (6.0-8.3) gm/dl Albumin 4.6 (3.4-5.0) gm/dl Globulin 3.1 (2.5-4.0) gm/dl Albumin/Globulin Ratio 1.5 (0.9-2) Urine Color Yellow Urine Appearance Clear (Clear) Urine pH 6.5 (4.5-7.5) Ur Specific [place] 1.014 (1.000-1.030) Urine Protein Negative (Negative) Urine Glucose (UA) Negative (Negative) Urine Ketones Negative (Negative) Urine Blood Negative (Negative) Urine Nitrite Negative (Negative) Urine Bilirubin Negative (Negative) Urine Urobilinogen Negative (Negative) Ur Leukocyte Esterase Negative (Negative) Imaging Data Radiologist's Impression: Cervical Spine CT 10/05/23 21:46 Exam(s): CT C SPINE EXAM: CT Cervical Spine Without Intravenous Contrast CLINICAL HISTORY: Reason for exam: fall/syncope/injury. TECHNIQUE: Axial computed tomography images of the cervical spine without intravenous contrast. CTDI is 26.78 mGy and DLP is 519.24 mGy-cm. Automated exposure control was utilized for the study. A dose lowering technique was utilized adhering to the principles of ALARA. COMPARISON: No relevant prior studies available. FINDINGS: The vertebral body heights are maintained. The craniocervical junction is intact. The atlanto-dens interval is maintained. The dens is intact. Multilevel laminectomies/posterior decompression, extending from C3-C7. There is no spondylolisthesis. Multilevel cervical spondylosis and degenerative disc disease. Straightening of the cervical lordosis. The unenhanced neck soft tissues are grossly unremarkable. The visualized lung apices are grossly clear. IMPRESSION: No acute fracture or subluxation of the cervical spine. Electronically signed by: Edison Wills MD 10/05/23 23:[address] 10/05/23 21:46 Exam(s): CT HEAD Without Contrast EXAM: CT Head Without Intravenous Contrast CLINICAL HISTORY: Reason for exam: fall/syncope/injury. TECHNIQUE: Axial computed tomography images of the head/brain without intravenous contrast. CTDI is 51.92 mGy and DLP is 899.15 mGy-cm. Automated exposure control was utilized for the study. A dose lowering technique was utilized adhering to the principles of ALARA. COMPARISON: No relevant prior studies available. FINDINGS: No acute intracranial hemorrhage. No midline shift or mass effect. The territorial mendenhall-white matter differentiation is maintained throughout. Age-related cerebral volume loss. Periventricular and subcortical white matter hypoattenuation, consistent with chronic microangiopathy. The visualized orbits appear grossly unremarkable. Posterior scalp soft tissue swelling. The calvarium is intact. The visualized paranasal sinuses and mastoid air cells are grossly clear. IMPRESSION: No acute intracranial hemorrhage, midline shift, or mass effect. Posterior scalp soft tissue swelling. Electronically signed by: Edison Wills MD 10/05/23 23:49 PM [facility] Narrative Physical exam and history were performed. Nursing notes, EMR, and Medication List were personally reviewed. No social concerns were identified as barriers to patients care. Patient appears to have had a fall in the bathroom this evening. It is unsure if this is a syncopal episode or mechanical fall. Patient is initially unsure of the exact mechanism on arrival with EMS. He does have abrasion to the back of his head. IV access was established and labs were obtained. CT scans of the head and neck were performed, as well as x-rays of the hips and pelvis. An order was placed for continuous cardiac monitoring. The monitor shows a rate of 66 with normal sinus rhythm. Patient's blood work is as above and was reviewed. He does not have a significantly elevated white blood cell count, gross anemia, or significant electrolyte imbalance. BNP is elevated suggesting some element of CHF. Imaging studies were independently reviewed by myself and radiology, and do not appear to show obvious acute process. On reevaluation the patient seems to clinically be improving after the fall, and cognitively seems improved. The patient does not endorse any new or worsening symptoms. I did give him IV Lasix here in the ER. He does not seem well for discharge at this time. The case was discussed with the on-call hospitalist, who agreed to evaluate him here in the ER. Please see the hospitalist dictation for further patient course, plan, and disposition. The chart was completed utilizing [employer] Speech Voice Recognition Software. Grammatical errors, random word insertions, pronoun errors, and incomplete sentences are an occasional consequence of this system due to software limitations, ambient noise, and hardware issues. Any formal questions or concerns about the content, text, or information contained within the body of this dictation should be directly addressed to the provider for clarification. . Impression & Plan CHF (congestive heart failure), Head injury, Fall Discharge Plan Visit Data Chief Complaint: Fall Stated Complaint: FALL ED Provider: Julissa Dumont ED Midlevel Provider: Ash Muro Discharge Problem: CHF (congestive heart failure), Head injury, Fall Patient Disposition: Admitted As Inpatient Discharge Instructions Interventions: ED Discharge Assessment Last Done: 10/06/23 02:33
--- NOTE | 2023-10-05 23:50 | CT Scan Report ---
Exam(s): CT HEAD Without Contrast EXAM: CT Head Without Intravenous Contrast CLINICAL HISTORY: Reason for exam: fall/syncope/injury. TECHNIQUE: Axial computed tomography images of the head/brain without intravenous contrast. CTDI is 51.92 mGy and DLP is 899.15 mGy-cm. Automated exposure control was utilized for the study. A dose lowering technique was utilized adhering to the principles of ALARA. COMPARISON: No relevant prior studies available. FINDINGS: No acute intracranial hemorrhage. No midline shift or mass effect. The territorial mendenhall-white matter differentiation is maintained throughout. Age-related cerebral volume loss. Periventricular and subcortical white matter hypoattenuation, consistent with chronic microangiopathy. The visualized orbits appear grossly unremarkable. Posterior scalp soft tissue swelling. The calvarium is intact. The visualized paranasal sinuses and mastoid air cells are grossly clear. IMPRESSION: No acute intracranial hemorrhage, midline shift, or mass effect. Posterior scalp soft tissue swelling. Electronically signed by: Edison Wills MD 10/05/23 23:49 PM
--- NOTE | 2023-10-05 23:51 | CT Scan Report ---
Exam(s): CT C SPINE EXAM: CT Cervical Spine Without Intravenous Contrast CLINICAL HISTORY: Reason for exam: fall/syncope/injury. TECHNIQUE: Axial computed tomography images of the cervical spine without intravenous contrast. CTDI is 26.78 mGy and DLP is 519.24 mGy-cm. Automated exposure control was utilized for the study. A dose lowering technique was utilized adhering to the principles of ALARA. COMPARISON: No relevant prior studies available. FINDINGS: The vertebral body heights are maintained. The craniocervical junction is intact. The atlanto-dens interval is maintained. The dens is intact. Multilevel laminectomies/posterior decompression, extending from C3-C7. There is no spondylolisthesis. Multilevel cervical spondylosis and degenerative disc disease. Straightening of the cervical lordosis. The unenhanced neck soft tissues are grossly unremarkable. The visualized lung apices are grossly clear. IMPRESSION: No acute fracture or subluxation of the cervical spine. Electronically signed by: Edison Wills MD 10/05/23 23:50 PM
[2023-10-06] MEDS: FUROSEMIDE INJ 20 MG/2 ML VIAL IV ONE (00:14)
--- NOTE | 2023-10-06 00:19 | Emergency Department Note ---
ED Visit Note I was consulted by the Advanced Practice Provider, Ash Muro PA-C. I performed a substantive portion of the visit. This includes aspects of: History: Patient is an 83-year-old male presenting after a syncopal episode. Patient is unsure of how he ended up on the floor, but reports he woke up on the floor and had to call staff at [facility] for assistance to get up. He is not on any anticoagulation. Complaining of right hip and back pain. He denies any chest pain or shortness of breath prior to the episode. MDM: - Laboratory workup interpreted by myself showed normal WBC; stable electrolytes; elevated BNP (209); normal troponin; normal CK - CT head wo contrast negative for acute intracranial pathology - CT cervical spine wo contrast negative for acute injury - CXR negative for pneumonia, per my interpretation - Xray pelvis negative for acute fracture, per my interpretation - Given patient's age and risk factors, will admit for syncope workup. .
[2023-10-06 01:06] LABS: Appearance Urine Clear (Clear); Bilirubin Urine Negative (Negative); Blood Urine Negative (Negative); Color Urine Yellow; Glucose Urine UA Negative (Negative); Ketones Urine Negative (Negative); Leukocyte Esterase Urine Negative (Negative); Nitrite Urine Negative (Negative); Protein Urine Negative (Negative); Specific Gravity Urine 1.014 (1.000-1.030); Urobilinogen Urine Negative (Negative); pH Urine 6.5 (4.5-7.5)
--- NOTE | 2023-10-06 01:52 | History & Physical Report ---
Date of Service October 06, 2023 Assessment & Plan (1) Syncope and collapse: (2) Chronic acquired lymphedema: (3) Venous stasis ulcers of both lower extremities: (4) H/O mitral valve repair: (5) Obstructive sleep apnea: (6) Neoplasm of bladder: (7) Klinefelters syndrome: (8) Benign prostatic hyperplasia with urinary obstruction: (9) Atherosclerotic heart disease of [place] coronary artery without angina pectoris: (10) Urethral stricture unspecified: Plan Status post fall- Unwitnessed fall while entering the bathroom. Patient reports that he had not moved his bowels or urine Patient was supposed to be walking with his walker, due to imbalance associated with severe lower extremity edema and ambulatory dysfunction CT scan of head was negative except for posterior scalp soft tissue swelling This appears to be more of a mechanical fall as opposed to a neurologic cause However, patient will be admitted to the medical surgical unit with telemetry to monitor for possible arrhythmia as a contributing factor HFpEF/CAD/status post CABG x 1/status post mitral valve repair/moderate TR/mild MS/mild pulmonary hypertension- The patient will be admitted to telemetry for serial cardiac enzymes, serial EKG's, cardiac rhythm monitoring and a 2-D echocardiogram with Dopplers. Most recent echo from 03/01/2022 with ejection fraction 55-60% Received furosemide 20 mg IV from the ED Continue furosemide 20 mg IV twice daily changed from oral twice daily dose Follow serial CBC with differential, renal function panel and magnesium level Chronic lower extremity edema/lymphedema- Unna boots have dropped and are compressing lower extremities Consult wound care for redressing Furosemide 20 mg IV twice daily as noted above BPH with LUTS- Continue finasteride and tamsulosin Attempt more gentle diuresis due to history of issues with urinary retention CODE STATUS: DNR/DNI History of Present Illness Chief Complaint: The patient was referred to the emergency department from [facility] via EMS, after a unwitnessed fall in the bathroom. The patient's HPI and ROS are somewhat limited and unreliable due to his underlying dementia. Primary Care Provider: STEPHY Armando The patient is a 83-year-old male with a past medical history including BPH with LUTS, CAD, status post CABG x 1, mitral valve repair, moderate tricuspid regurgitation, mild mitral stenosis, mild pulmonary hypertension, hypertension, vertigo, MONSE, Mervin's granulomatosis, dementia, and Klinefelter's. The patient had an unwitnessed fall while walking into the bathroom, with some posterior head trauma and bleeding noted. He also complained of hip pain, which is resolved at this time, being able to walk to the bathroom here without pain. He does not remember the mechanics of the fall, and only remembers finding himself on the floor. He is supposed to walk with his walker, due to significant lower extremity edema, but did not walk with his walker to the bathroom this evening. Allergies Allergy/AdvReac Type Severity Reaction Status Date / Time celexa Allergy Unknown Unknown Uncoded 10/06/23 00:45 Home Medications Medication Instructions Recorded Confirmed Type finasteride 5 mg tablet 5 mg PO QPM 03/17/18 10/06/23 History metoprolol succinate 25 mg 25 mg PO QAM 03/17/18 10/06/23 History tablet,extended release 24 hr (Toprol XL) potassium citrate 10 mEq (1,080 10 meq PO QAM 03/17/18 10/06/23 History mg) tablet,extended release simvastatin 20 mg tablet 20 mg PO PM 03/17/18 10/06/23 History cholecalciferol (vitamin D3) 50 50 mcg PO DAILY 03/27/22 10/06/23 History mcg (2,000 unit) capsule (Vitamin D3) tamsulosin 0.4 mg capsule 0.4 mg PO QPM 05/07/22 10/06/23 History alendronate 70 mg tablet 70 mg PO WK 01/29/23 10/06/23 History furosemide 20 mg tablet (Lasix) 20 mg PO BID 01/29/23 10/06/23 History acetaminophen 325 mg tablet 650 mg PO Q4 PRN Mild Pain (Scale 10/06/23 10/06/23 History Score 1-4) acetaminophen 325 mg tablet 650 mg PO Q4 PRN fever < 100 per 10/06/23 10/06/23 History juniper menthol 0.44 %-zinc oxide 20.6 % 1 applic topical QS 10/06/23 10/06/23 History topical ointment (Calmoseptine) sertraline 50 mg tablet 50 mg PO QPM 10/06/23 10/06/23 History Past Med/Surg History Problem List (Updated 10/06/23 @ 02:15 by Crispin Marie MD) Syncope and collapse Personal history of kidney stones hx lithotripsy Chronic acquired lymphedema (Chronic) Abnormal ankle brachial index (CELINA) (Acute) Dementia Vitamin D deficiency Calculus of kidney Pulmonary valve disorder (Chronic) Back pain (Acute) Encounter for removal of sutures (Acute) Head injury (Acute) Ureteral calculi (Acute) Ureteral calculus (Acute) Vertigo (Acute) Encounter for pre-operative examination Urethral stricture unspecified (Acute) UTI (urinary tract infection) (Acute) Tinnitus (Acute) Sensorineural hearing loss (SNHL) of both ears (Acute) Obstructive sleep apnea (Acute) Neoplasm of uncertain behavior of skin (Acute) Neoplasm of bladder (Acute) Mitral regurgitation (Acute) Menieres disease (Acute) Malignant tumor of urinary bladder (Acute) Laceration (Acute) Klinefelters syndrome (Acute) Incomplete bladder emptying (Acute) Hearing loss (Acute) Gross hematuria (Acute) Encounter for screening for malignant neoplasm of prostate (Acute) Elevated prostate specific antigen (PSA) (Acute) Dysplastic nevus (Acute) Calculus of urinary bladder (Acute) Benign prostatic hyperplasia with urinary obstruction (Acute) Benign hypertension (Acute 11/11/12) Atherosclerotic heart disease of [place] coronary artery without angina pectoris (Acute) Actinic keratosis (Acute) Malignant neoplasm of urinary bladder Hematuria (Acute) Bilateral lower extremity edema Expressive dysphasia Ambulatory dysfunction Short-term memory loss Weakness (Acute) Cellulitis (Acute) Flu-like symptoms (Acute) Fever (Acute) Right ureteral calculus Acute metabolic encephalopathy LOLA (acute kidney injury) Rhabdomyolysis B12 deficiency BPH (benign prostatic hyperplasia) current issue Pulmonary hypertension RVSP 40-50 mmHg Medical History Atrial septal aneurysm 03/01/22 Atrial septal aneurysm incidentally noted, with small, hemodynamically insignificant shunt. Consider daily aspirin for stroke prophylaxis. CAD (coronary artery disease) h/o CABG x 1; 05/2010 History of prostatitis Osteopenia Hx of bladder cancer Elevated IOP Balance problem post laminectomy; walks with a walker since then Hypertension Hyperlipidemia Sleep apnea uses cpap "sporadically" Surgical History History of cystoscopy Hx of CABG History of lithotripsy left kidney History of colonoscopy History of cardiac cath x2 - [facility] - done prior to MVR, not CAD-related, no stents placed Hx of rotator cuff surgery right and left Hx of laminectomy C4-C7 - [facility] 1997 Hx of mitral valve repair done at [facility] 2011 Social History Smoking Status: Never smoker Preferred Language: Divehi Communication Ability: Effective Visual Impairment: No Limitations Pediatric Geneticist Required: No Beliefs That Will Affect Care: None marital status: / Current Living Situation: Personal Care Facility Current Living Situation Comment: [facility] Feels Safe at Home: Yes Assistive Devices: Cane, Glasses and Walker Review of Systems Review of Systems: Review of systems is limited due to patient's dementia Physical Exam Physical Exam: The patient is awake, disoriented and confused, posterior scalp injury with minor bleeding, sitting upright in bed and in no acute distress. HEENT--PERRL, EOMI, mucous membranes and oropharynx normal Neck--supple. No JVD. No bruits. Thyroid normal, trachea midline, no adenopathy. Heart--normal S1 and S2. No murmurs, rubs or gallops. Lungs--crackles at the bases bilaterally. No respiratory distress, no accessory muscle use. Abdomen--normal bowel sounds and soft. Nontender. Nondistended Extremities--3+ bilateral pretibial and pedal edema. Unna boots bilaterally, with operative band about 2 inches below anterior tibial tuberosity Dermatologic--normal skin turgor, normal color, Neurologic--cranial nerves II through XII grossly intact. Rheumatologic--limited exam of lower extremities due to edema and Unna boots. Psychiatric--normal affect, but confused Results & Data Results & Data Vital Signs (Past 12 Hours) Vital Signs Temp Pulse Pulse Resp BP BP Pulse Ox 10/06/23 01:00 66 18 10/06/23 00:30 75 20 10/06/23 00:03 70 18 124/68 98 10/06/23 00:03 63 18 124/68 98 10/05/23 23:31 74 21 103/71 95 10/05/23 23:30 71 14 97 10/05/23 23:00 64 13 122/69 96 10/05/23 22:46 69 18 105/63 96 10/05/23 21:51 78 15 115/90 99 10/05/23 21:50 80 15 95 10/05/23 21:45 79 10/05/23 21:41 36.7 C 75 17 133/81 95 O2 Del Method 10/06/23 01:00 10/06/23 00:30 10/06/23 00:03 10/06/23 00:03 Room Air 10/05/23 23:31 10/05/23 23:30 10/05/23 23:00 10/05/23 22:46 Room Air 10/05/23 21:51 Room Air 10/05/23 21:50 Room Air 10/05/23 21:45 10/05/23 21:41 Room Air Laboratory Results Laboratory Results WBC 8.81 K/ul (4.8-10.8) 10/05/23 21:46 RBC 4.92 M/uL (4.70-6.10) 10/05/23 21:46 Hgb 13.3 g/dl (14.0-18.0) L 10/05/23 21:46 Hct 40.4 % (42.0-52.0) L 10/05/23 21:46 MCV 82.1 fL (80.0-100.0) 10/05/23 21:46 MCH 27.0 pg (25.0-34.0) 10/05/23 21:46 MCHC 32.9 g/dL (32.0-36.0) 10/05/23 21:46 RDW Std Deviation 42.4 fL (36.4-46.3) 10/05/23 21:46 RDW Coeff of Destiny 14.3 % (11.5-14.5) 10/05/23 21:46 Plt Count 194 K/uL (130-400) 10/05/23 21:46 MPV 10.9 fL (9.4-12.4) 10/05/23 21:46 Immature Gran % (Auto) 0.9 % 10/05/23 21:46 Neut % (Auto) 53.2 % 10/05/23 21:46 Lymph % (Auto) 27.4 % 10/05/23 21:46 [place] % (Auto) 17.4 % 10/05/23 21:46 Eos % (Auto) 0.9 % 10/05/23 21:46 Baso % (Auto) 0.2 % 10/05/23 21:46 Neut # (Auto) 4.69 K/uL (1.40-6.50) 10/05/23 21:46 Lymph # (Auto) 2.41 K/uL (1.20-3.40) 10/05/23 21:46 [place] # (Auto) 1.53 K/uL (0.11-0.59) H 10/05/23 21:46 Eos # (Auto) 0.08 K/uL (0.00-0.50) 10/05/23 21:46 Baso # (Auto) 0.02 K/uL (0.00-0.20) 10/05/23 21:46 Immature Gran # (Auto) 0.08 K/uL (0.01-0.20) 10/05/23 21:46 PT 11.0 Seconds (9.0-12.0) 10/05/23 21:46 INR 1.0 (0.9-1.1) 10/05/23 21:46 APTT 27 Seconds (21-31) 10/05/23 21:46 PTT Ratio 1.0 10/05/23 21:46 Sodium 139 mmol/L (136-145) 10/05/23 21:46 Potassium 4.2 mmol/L (3.5-5.1) 10/05/23 21:46 Chloride 102 mmol/L (98-107) 10/05/23 21:46 Carbon Dioxide 30 mmol/L (21-32) 10/05/23 21:46 Anion Gap 7 (3-11) 10/05/23 21:46 BUN 26 mg/dl (6-23) H 10/05/23 21:46 Creatinine 1.28 mg/dl (0.6-1.4) 10/05/23 21:46 Est Cr Clr Drug Dosing 54.6 ml/min 10/05/23 21:46 Est GFR ( Amer) 59.6 ml/min 10/05/23 21:46 Est GFR (Non-Af Amer) 51.4 ml/min 10/05/23 21:46 BUN/Creatinine Ratio 20.3 (10-20) H 10/05/23 21:46 Glucose 113 mg/dl (70-99(Fasting)) H 10/05/23 21:46 Calcium 10.0 mg/dl (8.6-10.3) 10/05/23 21:46 Magnesium 2.1 mg/dl (1.7-2.4) 10/05/23 21:46 Total Bilirubin 0.4 mg/dl (0.2-1.0) 10/05/23 21:46 AST 19 U/L (13-39) 10/05/23 21:46 ALT 10 U/L (7-52) 10/05/23 21:46 Alkaline Phosphatase 91 U/L (34-104) 10/05/23 21:46 Total Creatine Kinase 60 U/L (30-223) 10/05/23 21:46 Troponin I High Sens 6.9 pg/ml (0-20) 10/05/23 21:46 B-Natriuretic Peptide 209 pg/ml (0-100) H 10/05/23 21:46 Total Protein 7.7 gm/dl (6.0-8.3) 10/05/23 21:46 Albumin 4.6 gm/dl (3.4-5.0) 10/05/23 21:46 Globulin 3.1 gm/dl (2.5-4.0) 10/05/23 21:46 Albumin/Globulin Ratio 1.5 (0.9-2) 10/05/23 21:46 Urine Color Yellow 10/06/23 00:57 Urine Appearance Clear (Clear) 10/06/23 00:57 Urine pH 6.5 (4.5-7.5) 10/06/23 00:57 Ur Specific [place] 1.014 (1.000-1.030) 10/06/23 00:57 Urine Protein Negative (Negative) 10/06/23 00:57 Urine Glucose (UA) Negative (Negative) 10/06/23 00:57 Urine Ketones Negative (Negative) 10/06/23 00:57 Urine Blood Negative (Negative) 10/06/23 00:57 Urine Nitrite Negative (Negative) 10/06/23 00:57 Urine Bilirubin Negative (Negative) 10/06/23 00:57 Urine Urobilinogen Negative (Negative) 10/06/23 00:57 Ur Leukocyte Esterase Negative (Negative) 10/06/23 00:[address] 10/05/23 21:46 Exam(s): CT C SPINE EXAM: CT Cervical Spine Without Intravenous Contrast CLINICAL HISTORY: Reason for exam: fall/syncope/injury. TECHNIQUE: Axial computed tomography images of the cervical spine without intravenous contrast. CTDI is 26.78 mGy and DLP is 519.24 mGy-cm. Automated exposure control was utilized for the study. A dose lowering technique was utilized adhering to the principles of ALARA. COMPARISON: No relevant prior studies available. FINDINGS: The vertebral body heights are maintained. The craniocervical junction is intact. The atlanto-dens interval is maintained. The dens is intact. Multilevel laminectomies/posterior decompression, extending from C3-C7. There is no spondylolisthesis. Multilevel cervical spondylosis and degenerative disc disease. Straightening of the cervical lordosis. The unenhanced neck soft tissues are grossly unremarkable. The visualized lung apices are grossly clear. IMPRESSION: No acute fracture or subluxation of the cervical spine. Electronically signed by: Edison Wills MD 10/05/23 23:[address] 10/05/23 21:46 Exam(s): CT HEAD Without Contrast EXAM: CT Head Without Intravenous Contrast CLINICAL HISTORY: Reason for exam: fall/syncope/injury. TECHNIQUE: Axial computed tomography images of the head/brain without intravenous contrast. CTDI is 51.92 mGy and DLP is 899.15 mGy-cm. Automated exposure control was utilized for the study. A dose lowering technique was utilized adhering to the principles of ALARA. COMPARISON: No relevant prior studies available. FINDINGS: No acute intracranial hemorrhage. No midline shift or mass effect. The territorial mendenhall-white matter differentiation is maintained throughout. Age-related cerebral volume loss. Periventricular and subcortical white matter hypoattenuation, consistent with chronic microangiopathy. The visualized orbits appear grossly unremarkable. Posterior scalp soft tissue swelling. The calvarium is intact. The visualized paranasal sinuses and mastoid air cells are grossly clear. IMPRESSION: No acute intracranial hemorrhage, midline shift, or mass effect. Posterior scalp soft tissue swelling. Electronically signed by: Edison Wills MD 10/05/23 23:49 PM Code Status & VTE Plan Code Status DNR/DNI VTE Prophylaxis Plan VTE Prophylaxis will be ordered: Yes PG Care Time/CCT Total # of Minutes Spent Total Time Spent with Patient: Total time spent is greater than 50% in coordination of care (as documented) at patient's floor/unit and/or counseling patient: Coding Level of Care Code 87794 INT INP/OBS CARE 3/75MIN Diagnoses Syncope and collapse R55 Chronic acquired lymphedema I89.0 Venous stasis ulcers of both lower extremities I83.019; I83.029; L97.919; L97.929 H/O mitral valve repair Z98.890 Obstructive sleep apnea G47.33 Neoplasm of bladder D49.4 Klinefelters syndrome Q98.4 Benign prostatic hyperplasia with urinary obstruction N40.1; N13.8 Atherosclerotic heart disease of [place] coronary artery without angina pectoris I25.10 Urethral stricture unspecified N35.919
[2023-10-06] MEDS ORDERED: ONDANSETRON INJ 2 MG/ML 2 ML VIAL IV PRN (02:56)
[2023-10-06] MEDS ORDERED: ACETAMINOPHEN 325 MG TAB PO PRN (02:56)
[2023-10-06] MEDS ORDERED: ALUMINUM/MAGNESIUM SUSP 30 ML UDC PO PRN (02:56)
[2023-10-06] MEDS ORDERED: MAGNESIUM HYDROXIDE SUSP 30 ML UDC PO PRN (02:56)
--- NOTE | 2023-10-06 07:05 | XRay Report ---
SINGLE VIEW CHEST CLINICAL HISTORY: Syncope. Fall. FINDINGS: An AP, portable, supine chest radiograph is compared to study dated 05/07/2022. The examina tion is degraded by portable technique and apical lordotic positioning. The patient is status post mi dline sternotomy and cardiac valve surgery. The heart is enlarged noting atherosclerotic calcificatio n of the thoracic aorta. There is pulmonary vascular congestion. No airspace consolidation or large p leural effusion is identified. No pneumothorax is seen. The skeletal structures are osteopenic. The b mely thorax is grossly intact. Arthritic change is noted in the shoulders. IMPRESSION: Cardiomegaly with pulmonary vascular congestion. ACT 112: Negative or not required by law. Electronically signed by: Qamar Choudhury M.D. 10/06/2023 7:04 AM
--- NOTE | 2023-10-06 07:09 | XRay Report ---
XR hip SARAH 2v w pelvis CLINICAL HISTORY: fall/syncope/injury COMPARISON STUDY: KUB February 02, 2018. FINDINGS: Sacroiliac joints and symphysis pubis are intact. No proximal femoral fracture is present. Subtle cortical irregularity of the left inferior pubic ramus is noted. No osseous lesions are identi fied. IMPRESSION: 1. No proximal femoral fractures. 2. Equivocal acute nondisplaced left inferior pubic ramus fracture. This finding will be called/faxed to the ordering provider at time of dictation. ACT 112: Negative or not required by law. Electronically signed by: Richard Navarrete M.D. 10/06/2023 7:08 AM
--- NOTE | 2023-10-06 08:11 | Hospitalist Progress Note ---
Date of Service October 06, 2023 Assessment & Plan (1) Syncope and collapse: (2) Chronic acquired lymphedema: (3) Venous stasis ulcers of both lower extremities: (4) H/O mitral valve repair: (5) Obstructive sleep apnea: (6) Neoplasm of bladder: (7) Klinefelters syndrome: (8) Benign prostatic hyperplasia with urinary obstruction: (9) Atherosclerotic heart disease of [place] coronary artery without angina pectoris: (10) Urethral stricture unspecified: Plan Status post fall from memory care unit at [facility], significant hospitali delirium when inpatient per daughter Unwitnessed fall while entering the bathroom. Patient reports that he had not moved his bowels or urine Patient was supposed to be walking with his walker, due to imbalance associated with severe lower extremity edema and ambulatory dysfunction CT scan of head was negative except for posterior scalp soft tissue swelling This appears to be more of a mechanical fall as opposed to a neurologic cause However, patient will be admitted to the medical surgical unit with telemetry to monitor for possible arrhythmia as a contributing factor Of note, appears patient w/ hx MONSE (CPAP sporadically), notable elevated R sided heart pressures likely from untreated sleep apnea (does appear sleeping frequently throughout the day) Check UA as well HFpEF/CAD/status post CABG x 1/status post mitral valve repair/moderate TR/mild MS/mild pulmonary hypertension- Acute on chronic HFpEF treated with IV Lasix BID (now on PO BID, increased dose) The patient will be admitted to telemetry for serial cardiac enzymes, serial EKG's, cardiac rhythm monitoring and a 2-D echocardiogram with Dopplers. Most recent echo from 03/01/2022 with ejection fraction 55-60% Received furosemide 20 mg IV from the ED, continued on 20mg IV BID from home dose but transitioned back to 20mg PO BID for now given legs appear with chronic lymphedema -BNP elevated 209, was in 140s in Apr 2022 when in ER w/ concerns of LE edema but was on 20mg PO daily lasix at that time. ?benefit from increasing dosing however volume difficult given lymphedema and sits in chair/legs dependent per daughter ECHO w/o significant change Of note, does have hx MONSE, does not appear to have been compliant w/ CPAP in past but will need to continue f/u discussions Decreased back to 20mg PO BID for this morning given chronicity however given ECHO and increased LE edema (but no SOB/hypoxia), will increase lasix to 40mg PO BID for this evening (ripped out IV this afternoon) Continue AHA diet/fluid restriction Weights, I&Os Monitor electrolytes/renal function/mag in AM Chronic lower extremity edema/lymphedema- Unna boots have dropped and are compressing lower extremities Consult wound care for redressing Furosemide 20 mg IV twice daily as noted above, switched to 40mg PO BID and monitor response/weight BPH with LUTS- Continue finasteride and tamsulosin Attempt more gentle diuresis due to history of issues with urinary retention, however transitioned to PO as above and will monitor CODE STATUS: DNR/DNI Delirium prevention strategies/wake/sleep schedule to be encouraged updated daughter by phone this AM (teacher) - will be by after work. Patient from memory unit at [facility], hopefully able to dc as soon as possible. Admission and Anticipated Discharge Date Admission Date: October 06, 2023 Supervising Physician Co-Signing Physician Notes The patient was not seen by me. The chart was reviewed. Case discussed with MARINA Riggs. Agree with assessment and plan Subjective BRIDGE NOTE: ADMITTED AFTER MIDNIGHT Eval this morning, resting in bed. Reports initially did hit the back of his head when he fell but remembers attempting to go to the bathroom and felt himself loosing his balance before the fall. No loss of consciousness but reports things are "coming back to him." Discussed therapy evals and will attempt to dc as soon as able. He believes daughter Clare should be in soon. When asked if lives at [facility] he reports he lives in his own home. Urine cx collected/sent. Wound nurse consulted, unna boots/wraps in place. Ok to call daughter for update. Per daughter Félix Sparks is in memory care at [facility]. She will be by this afternoon after work. Physical Exam Physical Exam: The patient is awake, disoriented and confused, but pleasant/cooperative, wanting to go back to sleep,no acute distress. posterior scalp injury with minor bleeding, HEENT--PERRL, EOMI, mucous membranes and oropharynx normal Neck--supple. No JVD. No bruits. Thyroid normal, trachea midline, no adenopathy. Heart--normal S1 and S2. No murmurs, rubs or gallops. Lungs--crackles at the bases bilaterally. No respiratory distress, no accessory muscle use. Abdomen--normal bowel sounds and soft. Nontender. Nondistended Extremities--3+ bilateral pretibial and pedal edema. Unna boots bilaterally, with operative band about 2 inches below anterior tibial tuberosity Dermatologic--normal skin turgor, normal color, Neurologic--cranial nerves II through XII grossly intact. Rheumatologic--limited exam of lower extremities due to edema and Unna boots. Psychiatric--normal affect, but confused Results & Data Results & Data Vital Signs (Past 12 Hours) Vital Signs Temp Pulse Pulse Resp BP BP Pulse Ox 10/06/23 07:47 36.7 C 75 20 92/58 L 98 10/06/23 07:34 10/06/23 07:00 76 10/06/23 03:21 83 10/06/23 03:00 37 C 76 18 126/68 95 10/06/23 02:56 37 C 76 18 126/68 95 10/06/23 01:00 66 18 10/06/23 00:30 75 20 10/06/23 00:03 70 18 124/68 98 10/06/23 00:03 63 18 124/68 98 10/05/23 23:31 74 21 103/71 95 10/05/23 23:30 71 14 97 10/05/23 23:00 64 13 122/69 96 10/05/23 22:46 69 18 105/63 96 10/05/23 21:51 78 15 115/90 99 10/05/23 21:50 80 15 95 10/05/23 21:45 79 10/05/23 21:41 36.7 C 75 17 133/81 95 O2 Del Method 10/06/23 07:47 Room Air 10/06/23 07:34 Room Air 10/06/23 07:00 10/06/23 03:21 10/06/23 03:00 Room Air 10/06/23 02:56 Room Air 10/06/23 01:00 10/06/23 00:30 10/06/23 00:03 10/06/23 00:03 Room Air 10/05/23 23:31 10/05/23 23:30 10/05/23 23:00 10/05/23 22:46 Room Air 10/05/23 21:51 Room Air 10/05/23 21:50 Room Air 10/05/23 21:45 10/05/23 21:41 Room Air Laboratory Results 10/06/23 10/06/23 10/05/23 Range/Units 03:33 00:57 21:46 WBC 8.81 (4.8-10.8) K/ul RBC 4.92 (4.70-6.10) M/uL Hgb 13.3 L (14.0-18.0) g/dl Hct 40.4 L (42.0-52.0) % MCV 82.1 (80.0-100.0) fL MCH 27.0 (25.0-34.0) pg MCHC 32.9 (32.0-36.0) g/dL RDW Std Deviation 42.4 (36.4-46.3) fL RDW Coeff of Destiny 14.3 (11.5-14.5) % Plt Count 194 (130-400) K/uL MPV 10.9 (9.4-12.4) fL Immature Gran % (Auto) 0.9 % Neut % (Auto) 53.2 % Lymph % (Auto) 27.4 % [place] % (Auto) 17.4 % Eos % (Auto) 0.9 % Baso % (Auto) 0.2 % Neut # (Auto) 4.69 (1.40-6.50) K/uL Lymph # (Auto) 2.41 (1.20-3.40) K/uL [place] # (Auto) 1.53 H (0.11-0.59) K/uL Eos # (Auto) 0.08 (0.00-0.50) K/uL Baso # (Auto) 0.02 (0.00-0.20) K/uL Immature Gran # (Auto) 0.08 (0.01-0.20) K/uL PT 11.0 (9.0-12.0) Seconds INR 1.0 (0.9-1.1) APTT 27 (21-31) Seconds PTT Ratio 1.0 Sodium 139 (136-145) mmol/L Potassium 4.2 (3.5-5.1) mmol/L Chloride 102 (98-107) mmol/L Carbon Dioxide 30 (21-32) mmol/L Anion Gap 7 (3-11) BUN 26 H (6-23) mg/dl Creatinine 1.28 (0.6-1.4) mg/dl Est Cr Clr Drug Dosing 54.6 ml/min Est GFR ( Amer) 59.6 ml/min Est GFR (Non-Af Amer) 51.4 ml/min BUN/Creatinine Ratio 20.3 H (10-20) Glucose 113 H (70-99(Fasting)) mg/dl Calcium 10.0 (8.6-10.3) mg/dl Magnesium 2.1 (1.7-2.4) mg/dl Total Bilirubin 0.4 (0.2-1.0) mg/dl AST 19 (13-39) U/L ALT 10 (7-52) U/L Alkaline Phosphatase 91 (34-104) U/L Total Creatine Kinase 60 (30-223) U/L Troponin I High Sens 6.9 (0-20) pg/ml B-Natriuretic Peptide 209 H (0-100) pg/ml Total Protein 7.7 (6.0-8.3) gm/dl Albumin 4.6 (3.4-5.0) gm/dl Globulin 3.1 (2.5-4.0) gm/dl Albumin/Globulin Ratio 1.5 (0.9-2) Urine Color Yellow Urine Appearance Clear (Clear) Urine pH 6.5 (4.5-7.5) Ur Specific [place] 1.014 (1.000-1.030) Urine Protein Negative (Negative) Urine Glucose (UA) Negative (Negative) Urine Ketones Negative (Negative) Urine Blood Negative (Negative) Urine Nitrite Negative (Negative) Urine Bilirubin Negative (Negative) Urine Urobilinogen Negative (Negative) Ur Leukocyte Esterase Negative (Negative) Nasal Screen MRSA (PCR) Negative (Negative) Diagnostic Findings Cervical Spine CT 10/05/23 21:46 Exam(s): CT C SPINE EXAM: CT Cervical Spine Without Intravenous Contrast CLINICAL HISTORY: Reason for exam: fall/syncope/injury. TECHNIQUE: Axial computed tomography images of the cervical spine without intravenous contrast. CTDI is 26.78 mGy and DLP is 519.24 mGy-cm. Automated exposure control was utilized for the study. A dose lowering technique was utilized adhering to the principles of ALARA. COMPARISON: No relevant prior studies available. FINDINGS: The vertebral body heights are maintained. The craniocervical junction is intact. The atlanto-dens interval is maintained. The dens is intact. Multilevel laminectomies/posterior decompression, extending from C3-C7. There is no spondylolisthesis. Multilevel cervical spondylosis and degenerative disc disease. Straightening of the cervical lordosis. The unenhanced neck soft tissues are grossly unremarkable. The visualized lung apices are grossly clear. IMPRESSION: No acute fracture or subluxation of the cervical spine. Electronically signed by: Edison Wills MD 10/05/23 23:50 PM Chest X-Ray 10/05/23 21:46 SINGLE VIEW CHEST CLINICAL HISTORY: Syncope. Fall. FINDINGS: An AP, portable, supine chest radiograph is compared to study dated 05/07/2022. The examination is degraded by portable technique and apical lordotic positioning. The patient is status post midline sternotomy and cardiac valve surgery. The heart is enlarged noting atherosclerotic calcification of the thoracic aorta. There is pulmonary vascular congestion. No airspace consolidation or large pleural effusion is identified. No pneumothorax is seen. The skeletal structures are osteopenic. The bony thorax is grossly intact. Arthritic change is noted in the shoulders. IMPRESSION: Cardiomegaly with pulmonary vascular congestion. ACT 112: Negative or not required by law. Electronically signed by: Qamar Choudhury M.D. 10/06/2023 7:[address] 10/05/23 21:46 Exam(s): CT HEAD Without Contrast EXAM: CT Head Without Intravenous Contrast CLINICAL HISTORY: Reason for exam: fall/syncope/injury. TECHNIQUE: Axial computed tomography images of the head/brain without intravenous contrast. CTDI is 51.92 mGy and DLP is 899.15 mGy-cm. Automated exposure control was utilized for the study. A dose lowering technique was utilized adhering to the principles of ALARA. COMPARISON: No relevant prior studies available. FINDINGS: No acute intracranial hemorrhage. No midline shift or mass effect. The territorial mendenhall-white matter differentiation is maintained throughout. Age-related cerebral volume loss. Periventricular and subcortical white matter hypoattenuation, consistent with chronic microangiopathy. The visualized orbits appear grossly unremarkable. Posterior scalp soft tissue swelling. The calvarium is intact. The visualized paranasal sinuses and mastoid air cells are grossly clear. IMPRESSION: No acute intracranial hemorrhage, midline shift, or mass effect. Posterior scalp soft tissue swelling. Electronically signed by: Edison Wills MD 10/05/23 23:49 PM Hip/Pelvis X-Ray 10/05/23 21:46 XR hip SARAH 2v w pelvis CLINICAL HISTORY: fall/syncope/injury COMPARISON STUDY: KUB February 02, 2018. FINDINGS: Sacroiliac joints and symphysis pubis are intact. No proximal femoral fracture is present. Subtle cortical irregularity of the left inferior pubic ramus is noted. No osseous lesions are identified. IMPRESSION: 1. No proximal femoral fractures. 2. Equivocal acute nondisplaced left inferior pubic ramus fracture. This finding will be called/faxed to the ordering provider at time of dictation. ACT 112: Negative or not required by law. Electronically signed by: Richard Navarrete M.D. 10/06/2023 7:08 AM ECHOCARDIOGRAM 10/06/23 Compared with 03/01/2022 study, probably no significant change The study was technically difficult. Left ventricular systolic function is normal. LV EF 60-65% The left ventricular wall motion is normal. RV moderately dilated. RVSP mildly reduced. RVSP is elevated at 40-50mmHg. IVC mildly dilated. No obvious valvular disease on very technically limited doppler. PG Care Time/CCT Total # of Minutes Spent Total Time Spent with Patient: Total time spent is greater than 50% in coordination of care (as documented) at patient's floor/unit and/or counseling patient: Coding Level of Care Code None Diagnoses Syncope and collapse R55 Chronic acquired lymphedema I89.0 Venous stasis ulcers of both lower extremities I83.019; I83.029; L97.919; L97.929 H/O mitral valve repair Z98.890 Obstructive sleep apnea G47.33 Neoplasm of bladder D49.4 Klinefelters syndrome Q98.4 Benign prostatic hyperplasia with urinary obstruction N40.1; N13.8 Atherosclerotic heart disease of [place] coronary artery without angina pectoris I25.10 Urethral stricture unspecified N35.919
--- NOTE | 2023-10-06 08:31 | Electrocardiogram Report ---
Test Reason : Blood Pressure : / mmHG Vent. Rate : 071 BPM Atrial Rate : 085 BPM P-R Int : 000 ms QRS Dur : 154 ms QT Int : 444 ms P-R-T Axes : 000 -67 035 degrees QTc Int : 482 ms Probable Sinus rhythm with 2nd degree A-V block (Mobitz I) Left anterior fascicular block Right bundle branch block Abnormal ECG When compared with ECG of 07-MAY-2022 20:11, Right bundle branch block is now Present Mobitz I now present Confirmed by Shaw Durbin ([id number]) on 10/06/2023 8:31:38 AM Referred By: Aura Lamb Confirmed By:Shaw Durbin
[2023-10-06] MEDS: MENTHOL-ZINC OXIDE 360 APPLN/120 GM TUBE EXT SCH (08:40)
[2023-10-06] MEDS: POTASSIUM CITRATE 10 MEQ TAB PO SCH (08:40)
[2023-10-06] MEDS: CHOLECALCIFEROL 25 MCG (1000 UNITS) TAB PO SCH (08:40)
[2023-10-06] MEDS: METOPROLOL SUCC 25MG EXT REL TAB PO SCH (08:41)
[2023-10-06] MEDS: ENOXAPARIN INJ 40 MG/0.4 ML SYR SQ SCH (08:41)
[2023-10-06] MEDS: FUROSEMIDE INJ 20 MG/2 ML VIAL IV SCH (08:54)
[2023-10-06 09:00] LABS: Hematocrit (blood only) 35.2 % (42.0-52.0); Hemoglobin 11.5 g/dl (14.0-18.0); Mean Corpuscular Hemoglobin 26.4 pg (25.0-34.0); Mean Corpuscular Hgb Conc 32.7 g/dL (32.0-36.0); Mean Corpuscular Volume 80.7 fL (80.0-100.0); Mean Platelet Volume 10.5 fL (9.4-12.4); Platelet Count 176 K/uL (130-400); RDW Coefficient of Variation 14.1 % (11.5-14.5); RDW Standard Deviation 41.3 fL (36.4-46.3); Red Blood Count 4.36 M/uL (4.70-6.10); White Blood Count 9.51 K/ul (4.8-10.8)
[2023-10-06 09:18] LABS: BUN Creatinine Ratio 21.4 (10-20); Calcium 8.9 mg/dl (8.6-10.3); Creatinine Clr Calc Pharmacy 57.1 ml/min; Est GFR (Non-African American) 60.4 ml/min; Magnesium 1.9 mg/dl (1.7-2.4); Potassium 3.5 mmol/L (3.5-5.1)
[2023-10-06] MEDS: FUROSEMIDE 20 MG TAB PO SCH (09:45)
[2023-10-06 11:32] LABS: Appearance Urine Clear (Clear); Bilirubin Urine Negative (Negative); Blood Urine Negative (Negative); Color Urine Yellow; Glucose Urine UA Negative (Negative); Ketones Urine Negative (Negative); Leukocyte Esterase Urine Negative (Negative); Nitrite Urine Negative (Negative); Protein Urine Negative (Negative); Specific Gravity Urine 1.017 (1.000-1.030); Urobilinogen Urine Negative (Negative); pH Urine 6.5 (4.5-7.5)
--- NOTE | 2023-10-06 12:16 | XCELERA ---
[id number]
--- NOTE | 2023-10-06 13:19 | Orthopedic Consultation ---
Date of Consultation October 06, 2023 Assessment & Plan (1) Pubic ramus fracture: I suspect this represents a nondisplaced left inferior pubic rami fracture. No surgical indications. He may be weightbearing as tolerated with assistance and with a walker. Orthopedics will sign off. Should follow-up in 2 weeks to 3 weeks at [facility] in [place] with either Dr. Malik Amos. History of Present Illness Reason for Consultation: Possible left pubic rami fracture Requesting Physician: Hospitalist Attending Physician: Nithin Brewer MD History of Present Illness This a gentleman who sustained a fall from a standing height. He is admitted to the hospital for both fall as well as possible cardiac cause of fall. To me he denies any significant pain or discomfort in the pelvic or hip region. Allergies Allergy/AdvReac Type Severity Reaction Status Date / Time citalopram [From Celexa] Allergy Unknown Unknown Verified 10/06/23 03:00 Home Medications Medication Instructions Recorded Confirmed Type finasteride 5 mg tablet 5 mg PO QPM 03/17/18 10/06/23 History metoprolol succinate 25 mg 25 mg PO QAM 03/17/18 10/06/23 History tablet,extended release 24 hr (Toprol XL) potassium citrate 10 mEq (1,080 10 meq PO QAM 03/17/18 10/06/23 History mg) tablet,extended release simvastatin 20 mg tablet 20 mg PO PM 03/17/18 10/06/23 History cholecalciferol (vitamin D3) 50 50 mcg PO DAILY 03/27/22 10/06/23 History mcg (2,000 unit) capsule (Vitamin D3) tamsulosin 0.4 mg capsule 0.4 mg PO QPM 05/07/22 10/06/23 History alendronate 70 mg tablet 70 mg PO WK 01/29/23 10/06/23 History furosemide 20 mg tablet (Lasix) 20 mg PO BID 01/29/23 10/06/23 History acetaminophen 325 mg tablet 650 mg PO Q4 PRN Mild Pain (Scale 10/06/23 10/06/23 History Score 1-4) acetaminophen 325 mg tablet 650 mg PO Q4 PRN fever < 100 per 10/06/23 10/06/23 History juniper menthol 0.44 %-zinc oxide 20.6 % 1 applic topical QS 10/06/23 10/06/23 History topical ointment (Calmoseptine) sertraline 50 mg tablet 50 mg PO QPM 10/06/23 10/06/23 History Patient History Medical History Atrial septal aneurysm 03/01/22 Atrial septal aneurysm incidentally noted, with small, hemodynamically insignificant shunt. Consider daily aspirin for stroke prophylaxis. CAD (coronary artery disease) h/o CABG x 1; 05/2010 History of prostatitis Osteopenia Hx of bladder cancer Elevated IOP Balance problem post laminectomy; walks with a walker since then Hypertension Hyperlipidemia Sleep apnea uses cpap "sporadically" Surgical History History of cystoscopy Hx of CABG History of lithotripsy left kidney History of colonoscopy History of cardiac cath x2 - [facility] - done prior to MVR, not CAD-related, no stents placed Hx of rotator cuff surgery right and left Hx of laminectomy C4-C7 - [facility] 1997 Hx of mitral valve repair done at [facility] 2011 Social History Smoking Status: Unknown if ever smoked Hx Alcohol Use: No Hx Substance Use: No Preferred Language: Slovak Communication Ability: Effective Visual Impairment: No Limitations 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 He has no significant pain with logroll of the hip. He has no significant tenderness in the region of the pelvis. I do not detect any obvious bruising or ecchymosis. Results & Data Vital Signs (Past 12 Hours) Vital Signs Temp Pulse Pulse Resp BP Pulse Ox O2 Del Method 10/06/23 11:06 36.5 C 75 20 113/67 98 Room Air 10/06/23 09:00 80 18 109/68 97 Room Air 10/06/23 07:47 36.7 C 75 20 92/58 L 98 Room Air 10/06/23 07:34 Room Air 10/06/23 07:00 76 10/06/23 03:21 83 10/06/23 03:00 37 C 76 18 126/68 95 Room Air 10/06/23 02:56 37 C 76 18 126/68 95 Room Air Diagnostic Findings I independently reviewed multiple views of the pelvis. There is a consistently seen fracture line to the inferior pubic rami. I do not identify other fracture. No evidence of hip fracture. The femoral head is well-seated in the acetabulum.
--- NOTE | 2023-10-06 14:31 | Communication Note ---
Date of Service: October 06, 2023 ADdendum Imaging w/: Pubic ramus fracture Ortho consulted WBAT, PT/OT consults pending f/u 2 weeks [facility] outpatient at discharge
[2023-10-06] MEDS: FUROSEMIDE 40 MG TAB PO SCH (17:02)
[2023-10-06] MEDS: SERTRALINE HCL 50 MG TABLET PO SCH (19:30)
[2023-10-06] MEDS: FINASTERIDE 5 MG TAB PO SCH (19:30)
[2023-10-06] MEDS: hydrOXYzine HCl 10 MG TAB PO STA (19:30)
[2023-10-06] MEDS: TAMSULOSIN HCL 0.4 MG CAP PO SCH (19:30)
[2023-10-06] MEDS: SIMVASTATIN 20 MG TAB PO SCH (19:30)
[2023-10-06] MEDS: LORazepam 0.5 MG TAB PO STA (22:57)
[2023-10-06] MEDS: OLANZapine 10 MG/2.1 ML SDV IM STA (23:17)
[2023-10-07 06:58] LABS: Basophils # (auto) 0.02 K/uL (0.00-0.20); Basophils % (auto) 0.2 %; Eosinophils # (auto) 0.06 K/uL (0.00-0.50); Eosinophils % (auto) 0.7 %; Hematocrit (blood only) 35.6 % (42.0-52.0); Hemoglobin 11.7 g/dl (14.0-18.0); Immature Granulocytes # (auto) 0.04 K/uL (0.01-0.20); Immature Granulocytes % (auto) 0.5 %; Lymphocytes # (auto) 1.91 K/uL (1.20-3.40); Lymphocytes % (auto) 21.7 %; Mean Corpuscular Hemoglobin 26.5 pg (25.0-34.0); Mean Corpuscular Hgb Conc 32.9 g/dL (32.0-36.0); Mean Corpuscular Volume 80.7 fL (80.0-100.0); Mean Platelet Volume 10.7 fL (9.4-12.4); Monocytes # (auto) 1.67 K/uL (0.11-0.59); Monocytes % (auto) 18.9 %; Neutrophils # (auto) 5.12 K/uL (1.40-6.50); Platelet Count 156 K/uL (130-400); RDW Coefficient of Variation 14.1 % (11.5-14.5); RDW Standard Deviation 41.5 fL (36.4-46.3); Red Blood Count 4.41 M/uL (4.70-6.10); White Blood Count 8.82 K/ul (4.8-10.8)
[2023-10-07 07:28] LABS: Albumin Level 3.9 gm/dl (3.4-5.0); BUN Creatinine Ratio 21.6 (10-20); Creatinine Clr Calc Pharmacy 57.9 ml/min; Est GFR (African American) 70.8 ml/min; Est GFR (Non-African American) 61.1 ml/min; Potassium 3.5 mmol/L (3.5-5.1)
--- NOTE | 2023-10-07 07:32 | Hospitalist Progress Note ---
Date of Service October 07, 2023 Assessment & Plan (1) Syncope and collapse: (2) Chronic acquired lymphedema: (3) Venous stasis ulcers of both lower extremities: (4) H/O mitral valve repair: (5) Obstructive sleep apnea: (6) Neoplasm of bladder: (7) Klinefelters syndrome: (8) Benign prostatic hyperplasia with urinary obstruction: (9) Atherosclerotic heart disease of [place] coronary artery without angina pectoris: (10) Urethral stricture unspecified: Plan Status post fall from memory care unit at [facility], significant hospitali delirium when inpatient per daughter Unwitnessed fall while entering the bathroom. Patient reports that he had not moved his bowels or urine Patient was supposed to be walking with his walker, due to imbalance associated with severe lower extremity edema and ambulatory dysfunction CT scan of head was negative except for posterior scalp soft tissue swelling This appears to be more of a mechanical fall as opposed to a neurologic cause However, patient will be admitted to the medical surgical unit with telemetry to monitor for possible arrhythmia as a contributing factor Of note, appears patient w/ hx MONSE (CPAP sporadically), notable elevated R sided heart pressures likely from untreated sleep apnea (does appear sleeping frequently throughout the day) Check UA as well HFpEF/CAD/status post CABG x 1/status post mitral valve repair/moderate TR/mild MS/mild pulmonary hypertension- Acute on chronic HFpEF treated with IV Lasix BID (now on PO BID, increased dose as outlined) Most recent echo from 03/01/2022 with ejection fraction 55-60% BNP elevated 209, was in 140s in Apr 2022 when in ER w/ concerns of LE edema but was on 20mg PO daily lasix at that time. ?benefit from increasing dosing however volume difficult given lymphedema and sits in chair/legs dependent per daughter Received furosemide 20 mg IV from the ED, continued on 20mg IV BID from home dose ECHO w/o significant change -Of note, does have hx MONSE, does not appear to have been compliant w/ CPAP in past but will need to continue f/u discussion however suspect not able to tolerate Lasix changed to 40mg PO BID from 20mg IV BID (takes 20mg PO BID at baseline) Continue AHA diet, fluid restriction Weight likely inaccurate as bedscale however less edematous today, breathing w/ less diminished in bases and will continue lasix 40mg PO BID Patient provided olanzapine 2.5mg IM x 1 for agitation/restlessness. Prior got 10mg hydroxyzine for anxiety/sleep --> PT/OT evals rec for rehab/SNF if unable to take back to current memory unit. CM looking into this but suspect needing 3MN and changed to full admission --> Olanzapine 2.5mg IM available as needed for agitation Arterial study completed today-- discussed w/ radiology given initial report impression --> Monophasic waveforms and calcific plaque without evidence of increased velocities to suggest hemodynamically significant stenosis. Wound RN to apply compression and will need ongoing wound f/u. Unlikely unna are to be continue to be used as patient not very ambulatory Continued inpatient stay Pubic ramus fracture Xray imagin w/ Equivocal acute nondisplaced left inferior pubic ramus fracture. Ortho consulted, non-operative Pain control, WBAT PT/OT consults as above Outpt f/u [facility] 2 weeks at dc Chronic lower extremity edema/lymphedema- Unna boots have dropped and are compressing lower extremities on admission Consult wound care for redressing, arterial study WITHOUT significant stenosis and compression to be applied in AM Tolerating lasix 40mg PO BID, renal function stable and continued continued monitoring BPH with LUTS- Continue finasteride and tamsulosin, issues with urinary retention Lasix as above increased dose and tolerating CODE STATUS: DNR/DNI Delirium prevention strategies/wake/sleep schedule to be encouraged updated daughter by phone 10/05 AM (teacher) - Patient from memory unit at [facility], hopefully able to dc as soon as possible however per therapy recs may require SNF prior to returning if unable to accomodate at present level Admission and Anticipated Discharge Date Admission Date: October 06, 2023 Supervising Physician Co-Signing Physician Notes The patient was not seen by me. The chart was reviewed. Case discussed with MARINA Riggs. Agree with assessment and plan Subjective Eval this afternoon, sitting up in chair. Had been cleaned up from urinary incontinence this morning. Remains w/ confusion but is pleasant/cooperative at this time. Did get dose olanzapine last evening. Was going to attempt to dc back to memory unit however discuss w/ PT and recs for rehab if unable to accommodate at current level and CM investigating. Arterial duplex this morning, not yet read --> afternoon read and discussed w/ Dr Hernandez, NOT having significant stenosis. Will plan for compression in AM w/ wound nurse. No fever/chills, chest pain, shortness of breath reported. Questions/concerns addressed at this time. Did add prn olanzapine given continued inpatient stay for agitation as needed as has bad hospital delirium. Physical Exam Physical Exam: General: 83yo obese male sitting up in recliner chair, NAD, pleasant confusion, talking about sports/[place] HEENT: posterior scalp scant crusted blood, mmm, trachea midline, +thick neck Resp: diminished in the bases but no significant wheezing/crackles/rales, on room air CV: RRR, no significant m/r/g, significant b/l LE edema/lymphedema, wraps prior removed GI: +BS, soft/NT, obese ; no doran MSK/Neuro: generalized weakness but nonfocal, no slurred speech/facial droop Psych: alert to person, not place/time, pleasant confusion at present Results & Data Results & Data Vital Signs (Past 12 Hours) Vital Signs Temp Pulse Resp BP Pulse Ox O2 Del Method 10/07/23 03:00 36.7 C 60 18 131/72 96 Room Air 10/06/23 23:32 36.9 C 74 18 126/70 97 Room Air Laboratory Results 10/07/23 Range/Units 06:00 WBC 8.82 (4.8-10.8) K/ul RBC 4.41 L (4.70-6.10) M/uL Hgb 11.7 L (14.0-18.0) g/dl Hct 35.6 L (42.0-52.0) % MCV 80.7 (80.0-100.0) fL MCH 26.5 (25.0-34.0) pg MCHC 32.9 (32.0-36.0) g/dL RDW Std Deviation 41.5 (36.4-46.3) fL RDW Coeff of Destiny 14.1 (11.5-14.5) % Plt Count 156 (130-400) K/uL MPV 10.7 (9.4-12.4) fL Immature Gran % (Auto) 0.5 % Neut % (Auto) 58.0 % Lymph % (Auto) 21.7 % [place] % (Auto) 18.9 % Eos % (Auto) 0.7 % Baso % (Auto) 0.2 % Neut # (Auto) 5.12 (1.40-6.50) K/uL Lymph # (Auto) 1.91 (1.20-3.40) K/uL [place] # (Auto) 1.67 H (0.11-0.59) K/uL Eos # (Auto) 0.06 (0.00-0.50) K/uL Baso # (Auto) 0.02 (0.00-0.20) K/uL Immature Gran # (Auto) 0.04 (0.01-0.20) K/uL Sodium 141 (136-145) mmol/L Potassium 3.5 (3.5-5.1) mmol/L Chloride 105 (98-107) mmol/L Carbon Dioxide 29 (21-32) mmol/L Anion Gap 7 (3-11) BUN 24 H (6-23) mg/dl Creatinine 1.11 (0.6-1.4) mg/dl Est Cr Clr Drug Dosing 57.9 ml/min Est GFR ( Amer) 70.8 ml/min Est GFR (Non-Af Amer) 61.1 ml/min BUN/Creatinine Ratio 21.6 H (10-20) Glucose 102 H (70-99(Fasting)) mg/dl Calcium 9.0 (8.6-10.3) mg/dl Phosphorus 3.0 (2.5-4.9) mg/dl Magnesium 2.0 (1.7-2.4) mg/dl Albumin 3.9 (3.4-5.0) gm/dl Diagnostic Findings ADDENDUM IMPRESSION: Monophasic waveforms and calcific plaque without evidence of increased velocities to suggest hemodynamically significant stenosis. Duplex Scan Lower Extremity Artery 10/07/23 00:00 US arterial duplex LE BI CLINICAL HISTORY: need for eval prior to compression TECHNIQUE: Real-time grayscale and color and spectral Doppler ultrasound imaging of the bilateral lower extremity arteries was performed. Measurements calculated based on NASCET criteria. COMPARISON: None available at the time of this dictation. FINDINGS: Monophasic waveforms are seen throughout with prominent plaque. No increased jose alejandro ocities are seen in the lower extremities. IMPRESSION: Monophasic waveforms and calcific plaque without evidence of increased velocities suggest hemodynamically significant stenosis. ACT 112: Negative or not required by law. Electronically signed by: Aamir Hernandez M.D. 10/07/2023 2:22 PM PG Care Time/CCT Total # of Minutes Spent Total Time Spent with Patient: Total time spent is greater than 50% in coordination of care (as documented) at patient's floor/unit and/or counseling patient: Coding Level of Care Code 31516 SUB INP/OBS CARE 3/50MIN Diagnoses Syncope and collapse R55 Chronic acquired lymphedema I89.0 Venous stasis ulcers of both lower extremities I83.019; I83.029; L97.919; L97.929 H/O mitral valve repair Z98.890 Obstructive sleep apnea G47.33 Neoplasm of bladder D49.4 Klinefelters syndrome Q98.4 Benign prostatic hyperplasia with urinary obstruction N40.1; N13.8 Atherosclerotic heart disease of [place] coronary artery without angina pectoris I25.10 Urethral stricture unspecified N35.919
[2023-10-07] MEDS: POTASSIUM CHLORIDE CRTAB 20 MEQ TABCR PO STA (14:22)
--- NOTE | 2023-10-07 14:23 | Ultrasound Report ---
US arterial duplex LE BI CLINICAL HISTORY: need for eval prior to compression TECHNIQUE: Real-time grayscale and color and spectral Doppler ultrasound imaging of the bilateral low er extremity arteries was performed. Measurements calculated based on NASCET criteria. COMPARISON: None available at the time of this dictation. FINDINGS: Monophasic waveforms are seen throughout with prominent plaque. No increased velocities are seen in t he lower extremities. IMPRESSION: Monophasic waveforms and calcific plaque without evidence of increased velocities suggest hemodynamic ally significant stenosis. ACT 112: Negative or not required by law. Electronically signed by: Aamir Hernandez M.D. 10/07/2023 2:22 PM
[2023-10-07] MEDS ORDERED: OLANZapine 10 MG/2.1 ML SDV IM PRN (15:43)
[2023-10-07] MEDS: CYANOCOBALAMIN (B-12) 500 MCG TABLET PO SCH (17:16)
[2023-10-07] MEDS: ACETAMINOPHEN 325 MG TAB PO PRN (22:28)
[2023-10-08 07:55] LABS: Basophils # (auto) 0.02 K/uL (0.00-0.20); Basophils % (auto) 0.2 %; Eosinophils # (auto) 0.04 K/uL (0.00-0.50); Eosinophils % (auto) 0.4 %; Hematocrit (blood only) 37.7 % (42.0-52.0); Hemoglobin 12.5 g/dl (14.0-18.0); Immature Granulocytes # (auto) 0.05 K/uL (0.01-0.20); Immature Granulocytes % (auto) 0.5 %; Lymphocytes # (auto) 1.81 K/uL (1.20-3.40); Lymphocytes % (auto) 17.7 %; Mean Corpuscular Hemoglobin 26.8 pg (25.0-34.0); Mean Corpuscular Hgb Conc 33.2 g/dL (32.0-36.0); Mean Corpuscular Volume 80.7 fL (80.0-100.0); Mean Platelet Volume 10.8 fL (9.4-12.4); Monocytes # (auto) 2.07 K/uL (0.11-0.59); Monocytes % (auto) 20.3 %; Neutrophils # (auto) 6.23 K/uL (1.40-6.50); Neutrophils % (auto) 60.9 %; Platelet Count 174 K/uL (130-400); RDW Coefficient of Variation 14.2 % (11.5-14.5); RDW Standard Deviation 41.5 fL (36.4-46.3); Red Blood Count 4.67 M/uL (4.70-6.10); White Blood Count 10.22 K/ul (4.8-10.8)
[2023-10-08 08:13] LABS: BUN Creatinine Ratio 23.5 (10-20); Calcium 9.3 mg/dl (8.6-10.3); Est GFR (African American) 78.4 ml/min; Est GFR (Non-African American) 67.7 ml/min; Magnesium 2.2 mg/dl (1.7-2.4); Phosphorus 3.6 mg/dl (2.5-4.9); Potassium 4.2 mmol/L (3.5-5.1)
--- NOTE | 2023-10-08 08:30 | Hospitalist Progress Note ---
Date of Service October 08, 2023 Assessment & Plan (1) Syncope and collapse: Plan: Status post fall from memory care unit at [facility], significant hospital delirium when inpatient per daughter Patient with unwitnessed fall while entering the bathroom. Patient reports that he had not moved his bowels or urine Patient was supposed to be walking with his walker, due to imbalance associated with severe lower extremity edema and ambulatory dysfunction CT scan of head was negative except for posterior scalp soft tissue swelling Appears to be more of a mechanical fall as opposed to a neurologic cause. No significant arrythmia on telemetry, downgraded 10/06 Of note, appears patient w/ hx MONSE (CPAP sporadically), notable elevated R sided heart pressures likely from untreated sleep apnea (does appear sleeping frequently throughout the day) UA appeared negative HFpEF/CAD/status post CABG x 1/status post mitral valve repair/moderate TR/mild MS/mild pulmonary hypertension- Acute on chronic HFpEF treated with IV Lasix BID on admission(now on PO BID, increased dose as outlined) BNP elevation on admission 209 (was 140s in Apr 2022 when in ER and was on 20mg PO daily at that time, currently 20mg PO BID outpatient) Also w/ significant LE edema/lymphedema as well as pulm vascular congestion on CXR Most recent echo from 03/01/2022 with ejection fraction 55-60% Received furosemide 20 mg IV from the ED, continued on 20mg IV BID from home dose however switched to 40mg PO BID ECHO w/o significant chance Appears NOT treated for MONSE, likely worsening his HF however likely unable to tolerate AHA diet, fluid restriction Weights being obtained bedscale however SIGNIFICANT improvement in LE edema today and stable renal function and continuing on 40mg PO BID for now until rise in Cr. Suspect needing 40mg ONCE vs increasing to 60mg once daily would be better for Mr Toulson. Additional 20meq provided w/ increased lasix dosing day prior but continued on current 10meq for now given K 4.2 on AM labs Arterial study completed 10/06-- discussed w/ radiology given initial report impression --> Monophasic waveforms and calcific plaque without evidence of increased velocities to suggest hemodynamically significant stenosis. Wound RN to apply compression and will need ongoing wound f/u. Unlikely unna are to be continue to be used as patient not very ambulatory Patient provided olanzapine 2.5mg IM x 1 for agitation/restlessness 10/05-, NONE overnight last night but 2.5mg IM available as needed PT/OT rec rehab/snf if unable to take back [facility]. CM looking into this, 3MN rule/changed to full admit 10/06 and monitoring behabvior to see if able to accept back at current level, otherwise will need SNF Continued inpatient stay (2) Chronic acquired lymphedema: Plan: Chronic lower extremity edema/lymphedema- Unna boots have dropped and are compressing lower extremities on admission and not likely appropriate given not very ambulatory Consult wound care for redressing, arterial study WITHOUT significant stenosis and compression to be applied in AM IMPROVEMENT w/ increased lasix to 40mg PO BID and continued. Stable renal function on such. Consideration as above for 40mg PO daily vs 60mg once daily in AM Wound RN consulted, compression wraps applied today and will need continued wound f/u at [place] (3) Pubic ramus fracture: Plan: Pubic ramus fracture Xray imaging w/ Equivocal acute nondisplaced left inferior pubic ramus fracture. Ortho consulted, non-operative Pain control, WBAT Outpt f/u [facility] 2 weeks at [place] PT/OT consults as above and monitoring to see if able to return to [facility] vs needing SNF (4) Benign prostatic hyperplasia with urinary obstruction: Plan: BPH with LUTS- Continue finasteride and tamsulosin, issues with urinary retention Lasix as above increased dose and tolerating CODE STATUS: DNR/DNI (5) Obstructive sleep apnea: Plan: does not appear to be on current CPAP, unclear if would tolerate (6) Neoplasm of bladder: (7) Klinefelters syndrome: (8) Atherosclerotic heart disease of [place] coronary artery without angina pectoris: (9) Urethral stricture unspecified: (10) Delirium: Plan: acute worsening while inpatient not uncommon per daughter. UA not appearing infected, not hypoxia/no leukocytosis or fevers to suggest infection. LE does not appear cellulitic B12 borderline, PO replacement ordered Can check TSH w/ AM labs for completeness but is not on any supplementation Delirium prevention strategies/wake/sleep schedule to be encouraged Moved off telemetry day prior, much improved Zyprxa overnight 10/05-10/06 but not needing any further but available if needed for agitation/safety (11) Venous stasis ulcers of both lower extremities: (12) H/O mitral valve repair: Plan continued inpatient stay on increased diuretics monitoring behavior to see if able to return back to [facility] vs needing SNF. CM following Admission and Anticipated Discharge Date Admission Date: October 06, 2023 Supervising Physician Co-Signing Physician Notes The patient was not seen by me. The chart was reviewed. Case discussed with MARINA Riggs. Agree with assessment and plan Subjective Moved off telemetry last night. Evaluated this morning in 351-1, wound nurse in room. Applying compression-- legs look SIGNIFICANTLY better since increased lasix use and has been continued given stable BUN/Cr. 98% on RA. Knows in [place], pleasant dementia. Did not require any IM zyprexa overnight. Reports he got good sleep. No CP/SOB reported. Monitoring behavior to see if able to take back to [facility]. DIscussed increased diuretics at baseline. Questions/concerns addressed at this time. Physical Exam Physical Exam: General: 83yo obese male resting in bed, wound nurses in room, NAD, alert to person/place, dementia at baseline HEENT: posterior scalp scant crusted blood, mmm, trachea midline, +thick neck Resp: diminished in the bases (MUCH IMPROVED) but no significant wheezing/crackles/rales, on room air CV: RRR, no significant m/r/g, SIGNIFICANT IMPROVEMENT IN B/L LE EDEMA/lymphedema today, slight warmth but no drainage/tenderness GI: +BS, soft/NT, obese ; no doran MSK/Neuro: generalized weakness but nonfocal, no slurred speech/facial droop Psych: alert to person, dementia at baseline Results & Data Results & Data Vital Signs (Past 12 Hours) Vital Signs Temp Pulse Resp BP Pulse Ox O2 Del Method 10/08/23 08:11 36.4 C L 60 18 111/61 98 Room Air Laboratory Results 10/08/23 10/08/23 Range/Units 08:27 07:04 WBC 10.22 (4.8-10.8) K/ul RBC 4.67 L (4.70-6.10) M/uL Hgb 12.5 L (14.0-18.0) g/dl Hct 37.7 L (42.0-52.0) % MCV 80.7 (80.0-100.0) fL MCH 26.8 (25.0-34.0) pg MCHC 33.2 (32.0-36.0) g/dL RDW Std Deviation 41.5 (36.4-46.3) fL RDW Coeff of Destiny 14.2 (11.5-14.5) % Plt Count 174 (130-400) K/uL MPV 10.8 (9.4-12.4) fL Immature Gran % (Auto) 0.5 % Neut % (Auto) 60.9 % Lymph % (Auto) 17.7 % [place] % (Auto) 20.3 % Eos % (Auto) 0.4 % Baso % (Auto) 0.2 % Neut # (Auto) 6.23 (1.40-6.50) K/uL Lymph # (Auto) 1.81 (1.20-3.40) K/uL [place] # (Auto) 2.07 H (0.11-0.59) K/uL Eos # (Auto) 0.04 (0.00-0.50) K/uL Baso # (Auto) 0.02 (0.00-0.20) K/uL Immature Gran # (Auto) 0.05 (0.01-0.20) K/uL Sodium 139 (136-145) mmol/L Potassium 4.2 (3.5-5.1) mmol/L Chloride 103 (98-107) mmol/L Carbon Dioxide 30 (21-32) mmol/L Anion Gap 6 (3-11) BUN 24 H (6-23) mg/dl Creatinine 1.02 (0.6-1.4) mg/dl Est Cr Clr Drug Dosing 63.0 ml/min Est GFR ( Amer) 78.4 ml/min Est GFR (Non-Af Amer) 67.7 ml/min BUN/Creatinine Ratio 23.5 H (10-20) Glucose 109 H (70-99(Fasting)) mg/dl Calcium 9.3 (8.6-10.3) mg/dl Phosphorus 3.6 (2.5-4.9) mg/dl Magnesium 2.2 (1.7-2.4) mg/dl Iron 29 L (35-175) mcg/dl TIBC 246 L (250-450) mcg/dl Unsaturated IBC 217 (155-355) mcg/dl Transferrin % Sat 12 L (20-50) % Ferritin 233.7 (8-388) ng/ml Albumin 4.0 (3.4-5.0) gm/dl PG Care Time/CCT Total # of Minutes Spent Total Time Spent with Patient: Total time spent is greater than 50% in coordination of care (as documented) at patient's floor/unit and/or counseling patient: Coding Level of Care Code 88414 SUB INP/OBS CARE 3/50MIN Diagnoses Syncope and collapse R55 Chronic acquired lymphedema I89.0 Pubic ramus fracture S32.599A Benign prostatic hyperplasia with urinary obstruction N40.1; N13.8 Obstructive sleep apnea G47.33 Neoplasm of bladder D49.4 Klinefelters syndrome Q98.4 Atherosclerotic heart disease of [place] coronary artery without angina pectoris I25.10 Urethral stricture unspecified N35.919 Delirium R41.0 Venous stasis ulcers of both lower extremities I83.019; I83.029; L97.919; L97.929 H/O mitral valve repair Z98.890
[2023-10-08 09:33] LABS: Ferritin 233.7 ng/ml (8-388)
[2023-10-09 06:07] LABS: BUN Creatinine Ratio 24.5 (10-20); Est GFR (African American) 78.4 ml/min; Est GFR (Non-African American) 67.7 ml/min; Magnesium 2.1 mg/dl (1.7-2.4)
[2023-10-09 06:08] LABS: Hematocrit (blood only) 37.5 % (42.0-52.0); Hemoglobin 12.4 g/dl (14.0-18.0); Mean Corpuscular Hemoglobin 26.4 pg (25.0-34.0); Mean Corpuscular Hgb Conc 33.1 g/dL (32.0-36.0); Mean Corpuscular Volume 79.8 fL (80.0-100.0); Mean Platelet Volume 10.8 fL (9.4-12.4); Platelet Count 173 K/uL (130-400); RDW Standard Deviation 40.7 fL (36.4-46.3); White Blood Count 10.59 K/ul (4.8-10.8)
[2023-10-09 06:22] LABS: Thyroid Stimulating Hormone 1.94 uIu/ml (0.300-4.500)
--- NOTE | 2023-10-09 08:17 | Hospitalist Progress Note ---
Date of Service October 09, 2023 Assessment & Plan (1) Syncope and collapse: Plan: Status post fall from memory care unit at [facility], significant hospital delirium when inpatient per daughter Patient with unwitnessed fall while entering the bathroom. Patient reports that he had not moved his bowels or urine Patient was supposed to be walking with his walker, due to imbalance associated with severe lower extremity edema and ambulatory dysfunction CT scan of head was negative except for posterior scalp soft tissue swelling Appears to be more of a mechanical fall as opposed to a neurologic cause. No significant arrythmia on telemetry, downgraded 10/06 Of note, appears patient w/ hx MONSE (CPAP sporadically), notable elevated R sided heart pressures likely from untreated sleep apnea (does appear sleeping frequently throughout the day) UA appeared negative HFpEF/CAD/status post CABG x 1/status post mitral valve repair/moderate TR/mild MS/mild pulmonary hypertension- Acute on chronic HFpEF treated with IV Lasix BID on admission(now on PO BID, increased dose as outlined) BNP elevation on admission 209 (was 140s in Apr 2022 when in ER and was on 20mg PO daily at that time, currently 20mg PO BID outpatient) Also w/ significant LE edema/lymphedema as well as pulm vascular congestion on CXR Most recent echo from 03/01/2022 with ejection fraction 55-60% Received furosemide 20 mg IV from the ED, continued on 20mg IV BID from home dose however switched to 40mg PO BID ECHO w/o significant chance Appears NOT treated for MONSE, likely worsening his HF however likely unable to tolerate AHA diet, fluid restriction CONTINUE LASIX 40mg PO BID, likely benefit to continue increased dosing at discharge given improvement and stable BUN/Cr with continued increased dosing Arterial study completed 10/06 --> Monophasic waveforms and calcific plaque without evidence of increased velocities to suggest hemodynamically significant stenosis. Wound RN applied compression wraps, ongoing wound care Patient provided olanzapine 2.5mg IM x 1 for agitation/restlessness 10/05-, NONE overnight last night but 2.5mg IM available as needed 10/08 Remains on lasix 40mg PO BID but consider once daily higher dosing vs increased dosing at dc to maintain volume status given stable BUN/Cr w/ continued use and significant improvement in LE edema would NOT resume Unna boots at discharge. Will need continued wound care in follow up Mood stable, cooperative. Has NOT required any further zyprexa since initial episode Xray ordered for eval his L shoulder given fall/discomfort, voltaren ordered for pain control [facility] able to take 10/09 as long as behavior staying stable (2) Chronic acquired lymphedema: Plan: Chronic lower extremity edema/lymphedema- Unna boots have dropped and are compressing lower extremities on admission and not likely appropriate given not very ambulatory Consult wound care for redressing, arterial study WITHOUT significant stenosis and compression to be applied in AM IMPROVEMENT w/ increased lasix to 40mg PO BID and continued. Stable renal function on such and will continue higher dose. Would continue higher dose at dc as tolerating Wound RN consulted, compression wraps applied today and will need continued wound f/u at dc (3) Pubic ramus fracture: Plan: Pubic ramus fracture Xray imaging w/ Equivocal acute nondisplaced left inferior pubic ramus fracture. Ortho consulted, non-operative Pain control, WBAT Outpt f/u [facility] 2 weeks at dc PT/OT consults as above and monitoring to see if able to return to 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 UA not appearing infected, not hypoxia/no leukocytosis or fevers to suggest infection. LE does not appear cellulitic B12 borderline, PO replacement ordered Can check TSH w/ AM labs for completeness but is not on any supplementation Delirium prevention strategies/wake/sleep schedule to be encouraged Moved off telemetry day prior, much improved Zyprxa overnight 10/05-10/06 but not needing any further but available if needed for agitation/safety and remaining calm/pleasant (11) Venous stasis ulcers of both lower extremities: (12) H/O mitral valve repair: (13) Left shoulder pain: Plan: L posterior shoulder/scapular discomfort. xray for shoulder to be obtained for eval, some ecchymosis but no obv deformity, pulses palpable voltaren gel/pain control for now therapy evals as above Plan continued inpatient, therapy evals w/ recs for SNF if unable to accommodate at [facility]. CM sent therapy evals and able to accommodate if behavior remaining stable on 10/09 Xray L shoulder pending, will need ortho f/u at dc 2 wks Admission and Anticipated Discharge Date Admission Date: October 06, 2023 Supervising Physician Co-Signing Physician Notes The patient was not seen by me. The chart was reviewed. Case discussed with MARINA Riggs. Agree with assessment and plan Subjective Evaluated this morning, doing great, reports feeling quite refreshed. Good appetite, got cleaned up by nursing staff. discussed water pill/higher dosing to help with his legs. he reports legs tickle today, no painful. Does have some pain to his left posterior shoulder-- discussed about fall, he does report was "unpleasant experience" but believes he did land on that shoulder. Will obtain imaging for eval fracture but also going to order topical voltaren gel for pain control. Did not need any Zyprexa overnight, notified CM to see about potentially getting him back to [facility] tomorrow. Denies any fever/chills, chest pain, shortness of breath or abdominal pain/nausea at this time. Questions/concerns addressed. Will plan to reach out to update daughter on plan this afternoon. Physical Exam Physical Exam: General: 83yo obese male resting in bed, wound nurses in room, NAD, alert to person/place, dementia at baseline HEENT: posterior scalp scant crusted blood, mmm, trachea midline, +thick neck Resp: diminished in the bases (MUCH IMPROVED) but no significant wheezing/crackles/rales, on room air CV: RRR, no significant m/r/g, SIGNIFICANT IMPROVEMENT IN B/L LE EDEMA/lymphedema day prior, stable today, slight warmth but no drainage/tenderness, cap refill acceptable GI: +BS, soft/NT, obese ; no doran MSK/Neuro: generalized weakness but nonfocal, no slurred speech/facial droop LEFT posterior shoulder tender, slight ecchymosis (xray ordered), pulse palpable, sensation intact Psych: alert to person, dementia at baseline Results & Data Results & Data Vital Signs (Past 12 Hours) Vital Signs Temp Pulse Pulse Resp BP Pulse Ox O2 Del Method 10/09/23 07:49 Room Air 10/09/23 07:28 36.8 C 72 17 124/78 97 Room Air 10/09/23 07:20 36.5 C 76 16 129/75 95 Room Air Laboratory Results 10/09/23 Range/Units 05:26 WBC 10.59 (4.8-10.8) K/ul RBC 4.70 (4.70-6.10) M/uL Hgb 12.4 L (14.0-18.0) g/dl Hct 37.5 L (42.0-52.0) % MCV 79.8 L (80.0-100.0) fL MCH 26.4 (25.0-34.0) pg MCHC 33.1 (32.0-36.0) g/dL RDW Std Deviation 40.7 (36.4-46.3) fL RDW Coeff of Destiny 14.0 (11.5-14.5) % Plt Count 173 (130-400) K/uL MPV 10.8 (9.4-12.4) fL Sodium 138 (136-145) mmol/L Potassium 4.0 (3.5-5.1) mmol/L Chloride 104 (98-107) mmol/L Carbon Dioxide 26 (21-32) mmol/L Anion Gap 8 (3-11) BUN 25 H (6-23) mg/dl Creatinine 1.02 (0.6-1.4) mg/dl Est Cr Clr Drug Dosing 63.0 ml/min Est GFR ( Amer) 78.4 ml/min Est GFR (Non-Af Amer) 67.7 ml/min BUN/Creatinine Ratio 24.5 H (10-20) Glucose 115 H (70-99(Fasting)) mg/dl Calcium 9.0 (8.6-10.3) mg/dl Magnesium 2.1 (1.7-2.4) mg/dl TSH 1.940 (0.300-4.500) uIu/ml PG Care Time/CCT Total # of Minutes Spent Total Time Spent with Patient: Total time spent is greater than 50% in coordination of care (as documented) at patient's floor/unit and/or counseling patient: Coding Level of Care Code 66505 SUB INP/OBS CARE 50MIN Diagnoses Syncope and collapse R55 Chronic acquired lymphedema I89.0 Pubic ramus fracture S32.599A Benign prostatic hyperplasia with urinary obstruction N40.1; N13.8 Obstructive sleep apnea G47.33 Neoplasm of bladder D49.4 Klinefelters syndrome Q98.4 Atherosclerotic heart disease of [place] coronary artery without angina pectoris I25.10 Urethral stricture unspecified N35.919 Delirium R41.0 Venous stasis ulcers of both lower extremities I83.019; I83.029; L97.919; L97.929 H/O mitral valve repair Z98.890 Left shoulder pain M25.512
[2023-10-09] MEDS: IRON SUCROSE 300 MG in SODIUM CHLORIDE 0.9% 250 ML IV ONE (10:03)
--- NOTE | 2023-10-09 12:06 | XRay Report ---
XR shoulder LT min 2V routine CLINICAL HISTORY: fall, decreased ROM, eval fx TECHNIQUE: 3 views of the left shoulder were obtained. Comparison: None available at the time of this dictation. FINDINGS: There is no evidence of an acute fracture. Degenerative changes are seen in the glenohumeral joint. T he overlying soft tissues are unremarkable. The visualized portions of the lungs are clear. IMPRESSION: Degenerative changes without evidence of acute abnormality. ACT 112: Negative or not required by law. Electronically signed by: Aamir Hernandez M.D. 10/09/2023 12:05 PM
[2023-10-09] MEDS: DICLOFENAC SOD 1% GEL 100 GM TUBE EXT SCH (14:15)
[2023-10-10 07:15] VITALS: RESP 16; TEMP 97.9; O2SAT 95
--- NOTE | 2023-10-10 08:31 | Discharge Summary ---
Date of Service October 10, 2023 Admission HPI Per Admitting Provider The patient is a 83-year-old male with a past medical history including BPH with LUTS, CAD, status post CABG x 1, mitral valve repair, moderate tricuspid regurgitation, mild mitral stenosis, mild pulmonary hypertension, hypertension, vertigo, MONSE, Mervin's granulomatosis, dementia, and Klinefelter's. The patient had an unwitnessed fall while walking into the bathroom, with some posterior head trauma and bleeding noted. He also complained of hip pain, which is resolved at this time, being able to walk to the bathroom here without pain. He does not remember the mechanics of the fall, and only remembers finding h imself on the floor. He is supposed to walk with his walker, due to significant lower extremity edema, but did not walk with his walker to the bathroom this evening. Admission Exam Per Admitting Provider The patient is awake, disoriented and confused, posterior scalp injury with minor bleeding, sitting upright in bed and in no acute distress. HEENT--PERRL, EOMI, mucous membranes and oropharynx normal Neck--supple. No JVD. No bruits. Thyroid normal, trachea midline, no adenopathy. Heart--normal S1 and S2. No murmurs, rubs or gallops. Lungs--crackles at the bases bilaterally. No respiratory distress, no accessory muscle use. Abdomen--normal bowel sounds and soft. Nontender. Nondistended Extremities--3+ bilateral pretibial and pedal edema. Unna boots bilaterally, with operative band about 2 inches below anterior tibial tuberosity Dermatologic--normal skin turgor, normal color, Neurologic--cranial nerves II through XII grossly intact. Rheumatologic--limited exam of lower extremities due to edema and Unna boots. Psychiatric--normal affect, but confused Principal Diagnosis Fall, Acute on Chronic Heart Failure exacerbation, Pubic ramus fracture Discharge Exam General: 83yo obese male resting in bed, NAD, alert to person/place at times (knows from [facility]/wanting to go back if able), dementia at baseline HEENT: normocephalic (some scant dried blood from prior fall), mmm, trachea midline, +halitosis Resp: even/unlabored but slightly diminished in the bases but much improved, no w/r, on room air 95% CV: RRR, no significant m/r/g, significant improvement in LE edema since admission/stable on repeat exams, +warmth but no tenderness, chronic lymphedema, 1-2+ pitting edema, calves nontender, wraps in place, pulses with doppler GI: +BS, soft/NT, obese ; no doran MSK/Neuro: generalized weakness but nonfocal, no slurred speech/facial droop LEFT posterior shoulder tender, slight ecchymosis, pulse palpable, sensation intact Psych: alert to person, dementia at baseline Discharge Data Allergies Allergy/AdvReac Type Severity Reaction Status Date / Time citalopram [From Celexa] Allergy Unknown Unknown Verified 10/06/23 03:00 Consultations 10/06/23 01:53 ED Decision to Admit Stat 10/06/23 08:57 Consult Orthopedic Surgery Routine 10/06/23 09:20 Consult Cardiology Routine Ordered Studies Cervical Spine CT 10/05/23 21:46 Exam(s): CT C SPINE EXAM: CT Cervical Spine Without Intravenous Contrast CLINICAL HISTORY: Reason for exam: fall/syncope/injury. TECHNIQUE: Axial computed tomography images of the cervical spine without intravenous contrast. CTDI is 26.78 mGy and DLP is 519.24 mGy-cm. Automated exposure control was utilized for the study. A dose lowering technique was utilized adhering to the principles of ALARA. COMPARISON: No relevant prior studies available. FINDINGS: The vertebral body heights are maintained. The craniocervical junction is intact. The atlanto-dens interval is maintained. The dens is intact. Multilevel laminectomies/posterior decompression, extending from C3-C7. There is no spondylolisthesis. Multilevel cervical spondylosis and degenerative disc disease. Straightening of the cervical lordosis. The unenhanced neck soft tissues are grossly unremarkable. The visualized lung apices are grossly clear. IMPRESSION: No acute fracture or subluxation of the cervical spine. Electronically signed by: Edison Wills MD 10/05/23 23:50 PM Chest X-Ray 10/05/23 21:46 SINGLE VIEW CHEST CLINICAL HISTORY: Syncope. Fall. FINDINGS: An AP, portable, supine chest radiograph is compared to study dated 05/07/2022. The examination is degraded by portable technique and apical lordotic positioning. The patient is status post midline sternotomy and cardiac valve surgery. The heart is enlarged noting atherosclerotic calcification of the thoracic aorta. There is pulmonary vascular congestion. No airspace consolidation or large pleural effusion is identified. No pneumothorax is seen. The skeletal structures are osteopenic. The bony thorax is grossly intact. Arthritic change is noted in the shoulders. IMPRESSION: Cardiomegaly with pulmonary vascular congestion. ACT 112: Negative or not required by law. Electronically signed by: Qamar Choudhury M.D. 10/06/2023 7:[address] 10/05/23 21:46 Exam(s): CT HEAD Without Contrast EXAM: CT Head Without Intravenous Contrast CLINICAL HISTORY: Reason for exam: fall/syncope/injury. TECHNIQUE: Axial computed tomography images of the head/brain without intravenous contrast. CTDI is 51.92 mGy and DLP is 899.15 mGy-cm. Automated exposure control was utilized for the study. A dose lowering technique was utilized adhering to the principles of ALARA. COMPARISON: No relevant prior studies available. FINDINGS: No acute intracranial hemorrhage. No midline shift or mass effect. The territorial mendenhall-white matter differentiation is maintained throughout. Age-related cerebral volume loss. Periventricular and subcortical white matter hypoattenuation, consistent with chronic microangiopathy. The visualized orbits appear grossly unremarkable. Posterior scalp soft tissue swelling. The calvarium is intact. The visualized paranasal sinuses and mastoid air cells are grossly clear. IMPRESSION: No acute intracranial hemorrhage, midline shift, or mass effect. Posterior scalp soft tissue swelling. Electronically signed by: Edison Wills MD 10/05/23 23:49 PM Hip/Pelvis X-Ray 10/05/23 21:46 XR hip SARAH 2v w pelvis CLINICAL HISTORY: fall/syncope/injury COMPARISON STUDY: KUB February 02, 2018. FINDINGS: Sacroiliac joints and symphysis pubis are intact. No proximal femoral fracture is present. Subtle cortical irregularity of the left inferior pubic ramus is noted. No osseous lesions are identified. IMPRESSION: 1. No proximal femoral fractures. 2. Equivocal acute nondisplaced left inferior pubic ramus fracture. This finding will be called/faxed to the ordering provider at time of dictation. ACT 112: Negative or not required by law. Electronically signed by: Richard Navarrete M.D. 10/06/2023 7:08 AM Duplex Scan Lower Extremity Artery 10/07/23 00:00 US arterial duplex LE BI CLINICAL HISTORY: need for eval prior to compression TECHNIQUE: Real-time grayscale and color and spectral Doppler ultrasound imaging of the bilateral lower extremity arteries was performed. Measurements calculated based on NASCET criteria. COMPARISON: None available at the time of this dictation. FINDINGS: Monophasic waveforms are seen throughout with prominent plaque. No increased velocities are seen in the lower extremities. IMPRESSION: Monophasic waveforms and calcific plaque without evidence of increased velocities suggest hemodynamically significant stenosis. ACT 112: Negative or not required by law. Electronically signed by: Aamir Hernandez M.D. 10/07/2023 2:22 PM Shoulder X-Ray 10/09/23 09:13 XR shoulder LT min 2V routine CLINICAL HISTORY: fall, decreased ROM, eval fx TECHNIQUE: 3 views of the left shoulder were obtained. Comparison: None available at the time of this dictation. FINDINGS: There is no evidence of an acute fracture. Degenerative changes are seen in the glenohumeral joint. The overlying soft tissues are unremarkable. The visualized portions of the lungs are clear. IMPRESSION: Degenerative changes without evidence of acute abnormality. ACT 112: Negative or not required by law. Electronically signed by: Aamir Hernandez M.D. 10/09/2023 12:05 PM ECHOCARDIOGRAM 10/06/23 Compared with 03/01/2022 study, probably no significant change The study was technically difficult. Left ventricular systolic function is normal. LV EF 60-65% The left ventricular wall motion is normal. RV moderately dilated. RVSP mildly reduced. RVSP is elevated at 40-50mmHg. IVC mildly dilated. No obvious valvular disease on very technically limited doppler. Hospital Course (1) Syncope and collapse: Status post fall from memory care unit at [facility], significant hospital delirium when inpatient per daughter Patient with unwitnessed fall while entering the bathroom. Patient reports that he had not moved his bowels or urine Pt supposed to be walking with his walker, due to imbalance associated with severe lower extremity edema and ambulatory dysfunction Appears more mechanical in nature opposed to neurologic cause ( no significant arrhythmia on telemetry and downgraded off 10/06) CT head negative except posterior scalp soft tissue swelling. CXR w/ cardiomegaly with pulmonary vascular congestion. UA appeared negative Hip/pelvis with pubic ramus fracture (ortho consulted, nonoperative, WBAT and f/u UOC at discharge in follow up) BNP elevated to 209 (was 140s in Apr 2022 during ER visit and was on 20mg PO daily lasix at that time, presented to ER currently on 20mg PO BID) ECHO w/o significant change compared to February 2022 -- LV systolic function normal, no wma. LVEF 60-65%. RV moderately dilated. RVSP mildly reduced and RVSP pressure elevated to 40-50mmhg. IVC dilated. No obvious valvular disease on technically limited doppler Placed on lasix 20mg IV BID initially on admission however switched to 40mg PO BID given IV access/preventing irritation and agitation (had to give IM zyprexa x 1 overnight 10/05 for agitation but much improved since and not requiring any thing further) with significant improvement in LE edema Arterial study completed prior to compression, Unna boots removed (NOT APPROPRIATE) and study WITHOUT significant stenosis and able to apply grade 2 compression which should be continued at [facility] as well as wound care --> Wound RN w/ meassurements for LE edema to show how much improvement: 10/06/2023 10/08/2023 right foot- 33cm 31 right ankle-40cm 35.5 right calf- 41cm 33 left foot- 32cm 30 left ankle- 38.5cm 34 left calf- 43.5 33.5 Had been continued on lasix 40mg PO BID while inpatient until BUN/Cr bump --> prior to dc BUN/Cr 34/1.17 (and weights 111kg--> 99kg) and decision to switch to ONCE DAILY lasix, but at INCREASED dose to 40mg PO daily as suspect 20mg PO dosing ineffective. To continue to monitor weights at [facility] and utilize additional 40mg PO lasix for w eight gain. Did send referral to CHF clinic at [facility] for follow up. Recommended repeat labs this week to ensure renal function/electrolytes stable. Given prior 20+20 lasix with only 10meq kcl and K had been stable up until today and was given replacement prior to dc along with usual 10meq will continue usual 10meq however may need increased pending repeat labs Of note, appears patient w/ hx MONSE, notable elevated R sided heart pressures likely from untreated sleep apnea (does appear sleeping frequently throughout the day) -- suspect would benefit but w/ underlying dementia [facility] would be compliant with such. (2) Acute on chronic heart failure with preserved ejection fraction: HFpEF/CAD/status post CABG x 1/status post mitral valve repair/moderate TR/mild MS/mild pulmonary hypertension- Acute on chronic HFpEF treated with IV Lasix BID on admission(now on PO dosing, see above) Continued metoprolol succinate, simvastatin. Lasix as outlined above F/u discussions w/ primary provider about if patient would benefit from resuming CPAP therapy if he would tolerate given his dementia/from memory unit. At [facility]: Weights 111kg--> 99kg, decreased to once daily 40mg lasix at time of discharge but can utilize additional dosing for weight gain/edema to maintain volume status. -May need continued increased dosing vs 2-3x/wk pending repeat weights in follow up Continue wound care/compression wraps, elevation as tolerated. No evidence for cellulitis/pain on exam or fever Rec'd continue AHA diet/low salt, fluid restriction CHF referral at [facility] f/u PCP re: asa if not taking likely benefit however w/ falls should have ongoing discussion. Again CT head on admission negative for acute CVA, does not note any old CVAs either. Chronic microangiopathy rec consideration for CLAUS/ARB in follow up with CHF clinic however not started inpatient to prevent dropping BP in patient w/ fall and increased diuretics for volume management at this time (3) Chronic acquired lymphedema: Chronic lower extremity edema/lymphedema- Unna boots have dropped and are compressing lower extremities on admission and not likely appropriate given not very ambulatory Consult wound care for redressing, arterial study WITHOUT significant stenosis and compression applied. See above regarding improvement in edema w/ measurements on subsequent exams and continued diuretic use Lasix at [facility] as above, continue wound care w/ compression stockings and wound f/u (4) Pubic ramus fracture: Pubic ramus fracture Xray imaging w/ Equivocal acute nondisplaced left inferior pubic ramus fracture. Ortho consulted, non-operative Pain control, WBAT Outpt f/u UOC 2 weeks at [facility] PT/OT consulted as above and [facility] able to accept back at current level of care per CM- arrangement/transportation arranged (5) Benign prostatic hyperplasia with urinary obstruction: BPH with LUTS- Continue finasteride and tamsulosin, issues with urinary retention Lasix as above increased dose and tolerating without issue and switched to ONCe daily as above at [facility] to prevent evening dose/attempting to get up/falling given improvement in volume status/weights/edema CODE STATUS: DNR/DNI (6) Obstructive sleep apnea: does not appear to be on current CPAP, unclear if would tolerate but should have ongoing f/u discussions (7) Neoplasm of bladder: (8) Klinefelters syndrome: (9) Atherosclerotic heart disease of [place] coronary artery without angina pectoris: f/u regarding aspirin as does not appear to be on such should be if so, and risks discussed given fall risk. CT head negative for acute finding, echo w/o wma (10) Urethral stricture unspecified: (11) Delirium: acute worsening while inpatient not uncommon per daughter. UA not appearing infected, not hypoxia/no leukocytosis or fevers to suggest infection. LE does not appear cellulitic B12 borderline, PO replacement ordered -- will send rx to continue at [facility] TSH wnl Zyprexa x 1 overnight 10/05 as above and has remained stable off such since discontinuing telemetry and IV site with supportive care/delirium prevention strategies (12) Venous stasis ulcers of both lower extremities: (13) H/O mitral valve repair: (14) Left shoulder pain: L posterior shoulder/scapular discomfort. xray for shoulder to be obtained for eval, some ecchymosis but no obv deformity, pulses palpable --> NO FRACTURE voltaren gel/pain control for now therapy evals as above and f/u ortho for pubic ramus as well Of note, MCV >80, iron studies checked and c/w acute on chronic disease. Hgb stable/improved from priors w/ diuresis. Daily PO iron started along w/ colace BID and continue bowel regimen at [facility] to prevent constipation Plan dc back to [facility] f/u orthopedics for pubic ramus fracture. WBAT continue voltaren gel for shoulder pain, Tylenol otherwise effective continue lasix as outlined, consider increasing back to 40mg BID if having ongoing weight gain w/ decreased dosing to once daily however is at higher dose and weights down continue compression wraps/wound care b12 continued Transportation arranged for 1400 this afternoon to [facility] Total Time Total Time Spent Total Time Spent (In Minutes): 45 Discharge Plan Discharge Items Patient Disposition: Transfer Alf Fac Reason For Visit: SYNCOPE, HFpEF, LE ADEMA Discharge Diagnosis: Fall, Syncope, Acute on chronic heart failure, pubic ramus fracture Goals: You have been hospitalized for an acute medical problem. During your stay at [facility], we have made an effort to correct the problem that brought you to the hospital while keeping you as comfortable as possible. Me dications were used to bring your condition under control and your discharge instructions will include directions for any medications you should take after leaving the hospital. Please make sure you see your Primary Care Provider as part of your follow up plan.You have been hospitalized for an acute medical problem. During your stay at [facility], we have made an effort to correct the problem that brought you to the hospital while keeping you as comfortable as possible. Medications were used to bring your condition under control and your discharge instructions will include directions for any medications you should take after leaving the hospital. Please make sure you see your Primary Care Provider as part of your follow up plan. Activity: Resume your previous activity Non-emergency contact: Primary Care Provider Call non-emergency contact if: you have any medication questions, your symptoms worsen, your pain is not controlled and you have a fever Follow-up/Referrals: Aura Lamb CRNP [Primary Care Provider] - Malik Amos DO [Surgeon] - (3 weeks) Diet: Heart Healthy and Low Sodium (2gm) Fluids: 2000ml (8 cups) Addtl Attending Provider Instructions: You have been hospitalized after a fall and found to have fracture in your pelvis that is small and orthopedics was consulted and non-operative and will need follow up with Dr Amos in 3 weeks for follow-up and repeat imaging to make sure this is healing. CT imaging of the head was negative for stroke and heart monitoring did not show any significant arrhythmia as the cause and I suspect combination of acute heart failure/volume overload was contributing and we used increased diuretics called Lasix that you take at personal care to 40mg by mouth IN THE MORNING ONCE DAILY and to monitor your weights and for any weight gain >3lb in 24 hours or 5lb in a week you should take an additional dose in the evening. You should have repeat labs in the next week to ensure kidney function and electrolyte stay stable on this. Wound care was consulted and the UNNA boots were discontinued and not appropriate. Your edema has much improved and you are to continue the compression as instructed at discharge along with ongoing wound care. Please follow up with primary care in the next 7-10 days after discharge to monitor your progress. Please return to the ER with any fever/chills, chest pain, worsened shortness of breath or for any other symptoms concerning for you. It has been a pleasure being a part of the medical team providing for you while you have been in the hospital. Take care! Addtl Survey Compiler Provider Instructions: Call 911 and go to the Emergency Room if: * You have tightness or pain in your chest that does not go away with rest or Nitroglycerin * You are very short of breath even with rest Call your doctor if any of the following symptoms or problems start or get worse: * Shortness of breath or difficulty breathing * Wake up at night short of breath * Chest pain * Cough * Swelling of your hands, fee, or legs * More fatigued or tired with your normal activity * Palpitations - sudden fast heart beats WEIGHT * Weigh yourself every morning after using the bathroom. * Use the same scale. * Wear the same amount of clothing. * Write your weight down on your chart. * Call your doctor if you gain more than 2-3 pounds in 1-2 days. MEDICATIONS * Use this discharge instruction sheet for instructions. * Take your medications at the time your doctor ordered. * Do not skip a dose of your medicines. * If you miss a dose of medicine, take as soon as possible, but DO NOT DOUBLE A DOSE. * Read your medicine information when you get home. * Know all of the side effects of your medicine. * Call your doctor's office if you have any side effects. * Be sure all of your doctors know what medicine and herbs you take (including cold, flu, and herbal medicine). * Pain Medicine: If you do not get relief from your pain, please call your doctor for help. Take the following with you to your follow-up doctor appointments: * Weight Chart * Medication List * List of questions Do not drink excessive alcohol, beer or wine. Pending Studies at Discharge: Yes Studies:: blood cultures pending -- no growth to date Stand-Alone Forms: My myTomorrows, Smoking Cessation Skilled Items Patient informed of condition?: Yes DNR: Yes Discharge Level of Care: Other Communicable Disease: No Discharge Prognosis: Stable Lines: None Urinary Catheter: No Medications and DC Order Prescriptions: New ferrous sulfate 325 mg (65 mg iron) tablet 325 mg PO DAILY Qty: 30 0RF docusate sodium [Colace] 100 mg capsule 100 mg PO BID Qty: 14 0RF furosemide [Lasix] 40 mg tablet 40 mg PO DAILY Qty: 30 0RF furosemide [Lasix] 40 mg tablet 40 mg PO QPM PRN (Reason: weight gain) Qty: 30 0RF diclofenac sodium [Voltaren Arthritis Pain] 1 % Gel 2 g EXT TID Qty: 100 0RF Rx Instructions: to LEFT SHOULDER cyanocobalamin (vitamin B-12) 1,000 mcg capsule 1,000 mcg PO DAILY Qty: 30 0RF Continued alendronate 70 mg tablet 70 mg PO WK Rx Instructions: Give one tablet by mouth in the morning EVERY THURSDAY potassium citrate 10 mEq (1,080 mg) Tablet Extended Release 10 meq PO QAM simvastatin 20 mg Tablet 20 mg PO PM metoprolol succinate [Toprol XL] 25 mg Tablet Extended Release 24 Hr 25 mg PO QAM finasteride 5 mg Tablet 5 mg PO QPM tamsulosin 0.4 mg capsule 0.4 mg PO QPM cholecalciferol (vitamin D3) [Vitamin D3] 50 mcg (2,000 unit) Capsule 50 mcg PO DAILY sertraline 50 mg Tablet 50 mg PO QPM acetaminophen 325 mg Tablet 650 mg PO Q4 MDD 3g PRN (Reason: Mild Pain (Scale Score 1-4)) acetaminophen 325 mg Tablet 650 mg PO Q4 MDD 3g PRN (Reason: fever < 100 per kamaljit) menthol-zinc oxide [Calmoseptine] 0.44-20.6 % Ointment 1 applic TOPICAL QS Rx Instructions: apply to buttock every shift for redness Discontinued furosemide [Lasix] 20 mg tablet 20 mg PO BID Discharge Orders: Discharge Order- CHF (Routine); Ordered 10/10/23 Ordered By: Eusebia Thakkar Admission Data Admit Date/Time: 10/06/23 01:51 Attending Provider: Nithin Brewer Admit Provider: Crispin Marie Primary Care Provider: Aura Lamb Other Providers: Rosemarie Michelle at [place]; Crispin Marie; Todd Boss; Giacomo Javed; Will Forrester; Tanya Paz; Jonathan Krishnamurthy; Nancie Shaikh; Nelson Lockett; Buck Dias; Erich Hanson; Boyd Norwood; Buck Lemon; Pramod Mulligan; Forest Acuna; Abdi Mejia; Pipe Osullivan; Nancie Burroughs; Virgil Monroe; Blake Jenkins; Kareem Jimenez; Chen Joseph; Chance Cervantes Alexis N.; Eusebia Pena; Malik Amos; Jennifer Mcocrd; Thor Angel Other Interventions: Discharge Summary Assessment (RN) Last Done: 10/10/23 13:23 Supervising Physician Co-Signing Physician Notes The patient was not seen by me. The chart was reviewed. Case discussed with MARINA Riggs. Agree with assessment and plan Coding Level of Care Code 75059 INP/OBS DISCH >30 MIN Diagnoses Syncope and collapse R55 Acute on chronic heart failure with preserved ejection fraction I50.33 Chronic acquired lymphedema I89.0 Pubic ramus fracture S32.599A Benign prostatic hyperplasia with urinary obstruction N40.1; N13.8 Obstructive sleep apnea G47.33 Neoplasm of bladder D49.4 Klinefelters syndrome Q98.4 Atherosclerotic heart disease of [place] coronary artery without angina pectoris I25.10 Urethral stricture unspecified N35.919 Delirium R41.0 Venous stasis ulcers of both lower extremities I83.019; I83.029; L97.919; L97.929 H/O mitral valve repair Z98.890 Left shoulder pain M25.512
[2023-10-10 08:33] LABS: Magnesium 2.3 mg/dl (1.7-2.4); Potassium 3.4 mmol/L (3.5-5.1)
[2023-10-10 08:39] LABS: BUN Creatinine Ratio 29.1 (10-20); Creatinine Clr Calc Pharmacy 52.7 ml/min; Est GFR (African American) 66.4 ml/min; Est GFR (Non-African American) 57.3 ml/min
[2023-10-10] MEDS: FERROUS SULFATE 325 MG TAB PO SCH (09:39)
[2023-10-10] MEDS: POTASSIUM CHLORIDE CRTAB 20 MEQ TABCR PO STA (09:42)
[2023-10-10 13:25] VITALS: BP 132/80; PULSE 79
[2023-10-11] MEDS ORDERED: FUROSEMIDE 40 MG TAB PO SCH (09:00)
== END 2023-10-10 16:03 | DRG 291 ==
LOC: ED 21:33 → 2N 10-06 01:51 → SUATTDRO 10-06 01:51 → 2N 10-06 02:33 → 3W 10-07 18:40
DX: S32.592A Other specified fracture of left pubis, initial encounter for closed fracture; D49.4 Neoplasm of unspecified behavior of bladder; N40.1 Benign prostatic hyperplasia with lower urinary tract symptoms; Y92.89 Other specified places as the place of occurrence of the external cause; I11.0 Hypertensive heart disease with heart failure; E78.5 Hyperlipidemia, unspecified; I50.33 Acute on chronic diastolic (congestive) heart failure; W18.39XA Other fall on same level, initial encounter; Q98.4 Klinefelter syndrome, unspecified; Z95.1 Presence of aortocoronary bypass graft; I87.2 Venous insufficiency (chronic) (peripheral); R55 Syncope and collapse; F03.92 Unspecified dementia, unspecified severity, with psychotic disturbance; I25.10 Atherosclerotic heart disease of native coronary artery without angina pectoris; I89.0 Lymphedema, not elsewhere classified; I27.20 Pulmonary hypertension, unspecified; N35.919 Unspecified urethral stricture, male, unspecified site; M31.30 Wegener's granulomatosis without renal involvement; G47.33 Obstructive sleep apnea (adult) (pediatric); I08.1 Rheumatic disorders of both mitral and tricuspid valves

== ENCOUNTER 2024-05-11 06:45 | Inpatient (IN) ==
--- NOTE | 2024-05-11 06:56 | Emergency Department Note ---
Impression & Plan Ground-level fall, Dementia, Paroxysmal atrial flutter, Ambulatory dysfunction, Bradyarrhythmia ED Provider Note Name: KAYLA YOUSSEF III Age: 84 Sex: Male Arrives Via: Ambulance Informant: Patient (poor historian). EMS and nursing staff. ED Provider: Angelito El MD Chief Complaint: Fall Impression: As per impressions above Medical Decision Makin-year-old gentleman with a history of CHF, dementia, multiple other comorbidities arrives for evaluation following a ground-level fall at local dementia unit that he lives in. Unwitnessed patient arrives in no distress. Examination is fortunately benign beyond patient is a bit bradycardic and heart rate seemed irregular. EKG obtained which shows a slow A-fib. Reviewing his history I do not see a history of atrial fibrillation. Attempted to call daughter though unfortunately call went to voicemail. At this point it was felt that getting workup would be indicated thus laboratory workup obtained. Labs look okay there is no evidence of LOLA find any clear evidence of infection at this time. A CT of the head and neck and chest x-ray and pelvis x-ray are unremarkable. Patient was stood up for orthostatics with good blood pressure however he is very unstable on his feet. While history is positive for ambulatory dysfunction I am not quite sure what his baseline is. The setting of a new onset A-fib especially this low heart rate and switch the degree of unsteadiness I did ask the hospitalist to evaluate and bring it for further. Triage/Nursing Notes reviewed by Me External Chart Review by me: Discharge summary from 10/08/2023 reviewed by me for past medical history Differential:Infection, dehydration, metabolic abnormality, hypo/hyperglycemia, electrolyte disturbance, anemia, hypoxia, cardiac sources, intracerebral event, toxicologic, neurologic, as well as other pathologies. Vital Signs: reviewed and remarkable for bradycardia Labs:ED labs Reviewed by me and remarkable for no significant abnormalities Imaging: CT head without contrast as per my informal interpretation no intracranial hemorrhage or mass effect. CT of the cervical spine as per my informal interpretation. Extensive osteoarthritic findings in the anterior listhesis no evidence of fracture or dislocation. Chest x-ray as per my interpretation no fracture, pneumothorax, effusion, infiltrate. Pelvis x-ray as per my interpretation no fracture or dislocation EKG:As per my interpretation. Indication abnormal cardiac rhythm. Atrial flutter at 40 bpm with variable AV block. No ischemia appreciated. When compared to EKG of October 05, 2023 patient is now in a flutter where previously was in normal sinus rhythm. Cardiac/Tele Monitoring: Cardiac Monitoring: An Order was placed for continuous cardiac monitoring. The monitor shows a rate of 50 with a aflutter rhythm. Consults:Discussed with Dr. Rader of the [facility] service who will evaluate Plan: Disposition:Hospitalization. Condition: Good History of Present Illness: 84-year-old gentleman arrives for evaluation of ground-level fall. Patient lives at local [facility] where he had a fall this morning. It was unwitnessed. No concerns for prolonged downtime. No other significant complaints. No reported fevers, vomiting, altered mental status. Patient has been at his baseline per EMS. No lacerations or injuries appreciated or reported by nursing facility. No medications prior to arrival. Patient was noted however to be a bit hypoxic for EMS and was placed on 2 L with resolution. History is somewhat limited given patient's significant dementia but he essentially denies entire review of systems. Past Medical History:See Below Home Medications:See Below Allergies:See Below Vitals:Blood Pressure: 132/63, Pulse 40, RR 20, T 36.4C, O2 99% on RA Physical Exam: GENERAL: Patient is elderly appearing and in no distress. Pleasantly demented RESPIRATORY: No dyspnea. Clear to auscultation and equal bilaterally. CARDIOVASCULAR: Irregular.No murmur appreciated. GASTROINTESTINAL: Abdomen soft, non-tender, no peritonitis. BACK: No midline tenderness, no CVA tenderness EXTREMITIES: Normal motion all extremities, no cyanosis, no edema. NEUROLOGIC: Significant dementia unaware of time or location. No focal neurologic deficits appreciated SKIN: No rash, no jaundice, no diaphoresis. PSYCH: Appropriate GCS: 15 ED Course: Times/Reassessments: Patient stable throughout no distress & comfortable Angelito El MD Past Med/Surg History Problem List (Updated 05/11/24 @ 10:21 by Anna Rader MD) (HFpEF) heart failure with preserved ejection fraction Bradyarrhythmia (Acute) Paroxysmal atrial flutter (Acute) Dementia (Acute) Ground-level fall (Acute) Acute on chronic heart failure with preserved ejection fraction Left shoulder pain Delirium Pubic ramus fracture Fall (Acute) Head injury (Acute) CHF (congestive heart failure) (Acute) Syncope and collapse Personal history of kidney stones hx lithotripsy Chronic acquired lymphedema (Chronic) Abnormal ankle brachial index (CELINA) (Acute) Dementia Vitamin D deficiency Calculus of kidney Pulmonary valve disorder (Chronic) Back pain (Acute) Encounter for removal of sutures (Acute) Head injury (Acute) Ureteral calculi (Acute) Ureteral calculus (Acute) Vertigo (Acute) Encounter for pre-operative examination Urethral stricture unspecified (Acute) UTI (urinary tract infection) (Acute) Tinnitus (Acute) Sensorineural hearing loss (SNHL) of both ears (Acute) Obstructive sleep apnea (Acute) Neoplasm of uncertain behavior of skin (Acute) Neoplasm of bladder (Acute) Mitral regurgitation (Acute) Menieres disease (Acute) Malignant tumor of urinary bladder (Acute) Laceration (Acute) Klinefelters syndrome (Acute) Incomplete bladder emptying (Acute) Hearing loss (Acute) Gross hematuria (Acute) Encounter for screening for malignant neoplasm of prostate (Acute) Elevated prostate specific antigen (PSA) (Acute) Dysplastic nevus (Acute) Calculus of urinary bladder (Acute) Benign prostatic hyperplasia with urinary obstruction (Acute) Benign hypertension (Acute 11/11/12) Atherosclerotic heart disease of [place] coronary artery without angina pectoris (Acute) Actinic keratosis (Acute) Malignant neoplasm of urinary bladder Hematuria (Acute) Bilateral lower extremity edema Expressive dysphasia Ambulatory dysfunction (Acute) Short-term memory loss Weakness (Acute) Cellulitis (Acute) Flu-like symptoms (Acute) Fever (Acute) Right ureteral calculus Acute metabolic encephalopathy LOLA (acute kidney injury) Rhabdomyolysis B12 deficiency BPH (benign prostatic hyperplasia) current issue Pulmonary hypertension RVSP 40-50 mmHg Medical History Atrial septal aneurysm 03/01/22 Atrial septal aneurysm incidentally noted, with small, hemodynamically insignificant shunt. Consider daily aspirin for stroke prophylaxis. CAD (coronary artery disease) h/o CABG x 1; 05/2010 History of prostatitis Osteopenia Hx of bladder cancer Elevated IOP Balance problem post laminectomy; walks with a walker since then Hypertension Hyperlipidemia Sleep apnea uses cpap "sporadically" Surgical History History of cystoscopy Hx of CABG History of lithotripsy left kidney History of colonoscopy History of cardiac cath x2 - [facility] - done prior to MVR, not CAD-related, no stents placed Hx of rotator cuff surgery right and left Hx of laminectomy C4-C7 - [facility] 1997 Hx of mitral valve repair done at [facility] 2011 Social History Smoking Status: Never smoker Hx Alcohol Use: No Hx Substance Use: No Preferred Language: Pashto Communication Ability: Impaired Visual Impairment: No Limitations Court Specialist Required: No Beliefs That Will Affect Care: None marital status: / Current Living Situation: Halfway Current Living Situation Comment: [facility] Feels Safe at Home: Yes Assistive Devices: Walker and Wheelchair Allergies Allergies Allergy/AdvReac Type Severity Reaction Status Date / Time citalopram [From Celexa] Allergy Unknown Unknown Verified 10/06/23 03:00 Home Meds Home Medications Medication Instructions Recorded Confirmed finasteride 5 mg tablet 5 mg PO QPM 03/17/18 05/11/24 metoprolol succinate 25 mg 25 mg PO QAM 03/17/18 05/11/24 tablet,extended release 24 hr (Toprol XL) potassium citrate 10 mEq (1,080 10 meq PO QAM 03/17/18 05/11/24 mg) tablet,extended release tamsulosin 0.4 mg capsule 0.4 mg PO QPM 05/07/22 05/11/24 sertraline 50 mg tablet 50 mg PO QPM 10/06/23 05/11/24 bisacodyl 10 mg rectal suppository 10 mg VA DAILY PRN ON DAY 4 OF NO 05/11/24 05/11/24 BOWEL MOVEMENT furosemide 40 mg tablet 40 mg DAILY PRN weight gain >3 05/11/24 05/11/24 pounds in 1 day furosemide 40 mg tablet (Lasix) 40 mg PO DAILY 05/11/24 05/11/24 naproxen sodium 220 mg tablet 220 mg PO Q12H PRN PAIN IF TYLENOL 05/11/24 05/11/24 IS IN EFFECTIVE polyethylene glycol 3350 17 17 g PO DAILY PRN CONSTIPATION 05/11/24 05/11/24 gram/dose oral powder Previous Rx's Medication Instructions Recorded docusate sodium 100 mg capsule 100 mg PO BID #14 caps 10/09/23 (Colace) ferrous sulfate 325 mg (65 mg 325 mg PO DAILY #30 tabs 10/09/23 iron) tablet Results & Data (ED) Vital Signs Vital Signs - 24 hr 05/11/24 09:39 Pulse Rate 51 L Respiratory Rate 15 Laboratory Data 05/11/24 07:15 05/11/24 07:15 Lab Results 05/11/24 05/11/24 Range/Units 07:15 07:20 WBC 7.51 (4.8-10.8) K/ul RBC 4.62 L (4.70-6.10) M/uL Hgb 12.4 L (14.0-18.0) g/dl Hct 37.6 L (42.0-52.0) % MCV 81.4 (80.0-100.0) fL MCH 26.8 (25.0-34.0) pg MCHC 33.0 (32.0-36.0) g/dL RDW Std Deviation 39.8 (36.4-46.3) fL RDW Coeff of Destiny 13.5 (11.5-14.5) % Plt Count 189 (130-400) K/uL MPV 10.7 (9.4-12.4) fL Immature Gran % (Auto) 0.9 % Neut % (Auto) 52.3 % Lymph % (Auto) 30.2 % Cotton % (Auto) 15.2 % Eos % (Auto) 1.1 % Baso % (Auto) 0.3 % Neut # (Auto) 3.93 (1.40-6.50) K/uL Lymph # (Auto) 2.27 (1.20-3.40) K/uL Cotton # (Auto) 1.14 H (0.11-0.59) K/uL Eos # (Auto) 0.08 (0.00-0.50) K/uL Baso # (Auto) 0.02 (0.00-0.20) K/uL Immature Gran # (Auto) 0.07 (0.01-0.20) K/uL PT 11.5 (9.0-12.0) Seconds INR 1.1 (0.9-1.1) Sodium 144 (136-145) mmol/L Potassium 3.4 L (3.5-5.1) mmol/L Chloride 109 H (98-107) mmol/L Carbon Dioxide 25 (21-32) mmol/L Anion Gap 10 (3-11) BUN 19 (6-23) mg/dl Creatinine 0.91 (0.6-1.4) mg/dl Est Cr Clr Drug Dosing 69.8 ml/min eGFR 83.11 BUN/Creatinine Ratio 20.9 H (10-20) Glucose 97 (70-99(Fasting)) mg/dl Calcium 9.3 (8.6-10.3) mg/dl Phosphorus 2.7 (2.5-4.9) mg/dl Magnesium 1.9 (1.7-2.4) mg/dl Troponin I High Sens 10.2 (0-20) pg/ml TSH 3.096 (0.300-4.500) uIu/ml SARS-CoV-2 (PCR) NEGATIVE (Negative) Influenza Type A (PCR) Negative (Neg) Influenza Type B (PCR) Negative (Neg) RSV (RT-PCR) Negative (Neg) Administered Medications Finasteride (Finasteride 5 Mg Tab) 5 mg PO QPM CHIDI Stop: 06/10/24 20:59 Last Admin: 05/11/24 20:49 Dose: 5 mg Documented By: LILIBETH Furosemide (Furosemide 40 Mg Tab) 40 mg PO DAILY CHIDI Stop: 06/11/24 08:59 Last Admin: 05/12/24 08:29 Dose: 40 mg Documented By: GAVI Potassium Citrate (Potassium Citrate 10 Meq Tab) 10 meq PO QAM CHIDI Stop: 06/11/24 08:59 Last Admin: 05/12/24 08:29 Dose: 10 meq Documented By: GAVI Sertraline HCl (Sertraline Hcl 50 Mg Tablet) 50 mg PO QPM CHIDI Stop: 06/10/24 20:59 Last Admin: 05/11/24 20:49 Dose: 50 mg Documented By: LILIBETH Tamsulosin HCl (Tamsulosin Hcl 0.4 Mg Cap) 0.4 mg PO QPM CHIDI Stop: 06/10/24 20:59 Last Admin: 05/11/24 20:49 Dose: 0.4 mg Documented By: LILIBETH Discontinued Medications Potassium Chloride (Potassium Chloride Crtab 20 Meq Tabcr) 20 meq PO NOW STA Stop: 05/11/24 10:07 Last Admin: 05/11/24 10:54 Dose: 20 meq Documented By: [facility] Imaging Data Radiologist's Impression: Cervical Spine CT 05/11/24 06:53 EXAM: CT cervical spine wo con CLINICAL HISTORY: Unwitnessed fall, found down eval for head and neck trauma hx dementia. TECHNIQUE: A CT scan of the cervical spine was performed without the administration of intravenous contrast. Contiguous axial images were obtained from the skull base to the upper thoracic spine. Coronal and sagittal reformatted images were also reviewed. One of the following dose-reduction techniques was utilized for this exam. Automated exposure control, adjustment of the mA and/or kV according to patient size, and use of iterative reconstruction. COMPARISON: No previous studies are available for comparison. FINDINGS: Vertebrae: Status post spinolaminectomies at C3-C7 level. Straightening of cervical spine. Grade I anterolisthesis of C4 over C5 vertebra. Marginal bony outgrowths and end plates irregularity in cervical vertebrae. The vertebral bodies are normal in height. No evidence of acute fracture. No signs of lytic or sclerotic lesions. Intervertebral Discs: Multilevel significant disc degenerative changes with diffuse herniation, posterior marginal bony outgrowths, and facet joints arthropathy causing mild spinal canal stenosis and moderate to severe bilateral neural foraminal stenosis. Facet Joints: Multilevel facet joints arthropathy. Prevertebral Soft Tissues: The prevertebral soft tissues are normal in thickness without evidence of mass or abnormal fluid collection. IMPRESSION: 1. No evidence of acute fracture. 2. Status post spinolaminectomies at C3-C7 level. 3. Moderate spondylotic changes in the cervical spine. 4. Grade I anterolisthesis of C4 over C5 vertebra. 5. Multilevel significant disc degenerative changes with diffuse herniation, posterior marginal bony outgrowths and facet joints arthropathy causing mild spinal canal stenosis and moderate to severe bilateral neural foraminal stenosis. Electronically signed by Fernie Segura 05-11-2024 08:40 AM Chest X-Ray 05/11/24 06:53 XR chest 1V portable CLINICAL HISTORY: fall COMPARISON STUDY: Chest radiograph January 13, 2024. FINDINGS: There are median sternotomy wires and a prosthetic cardiac valve. Cardiomediastinal silhouette is stable. There is no pneumothorax or pleural effusion. No airspace opacities are present. Pulmonary vascularity is normal. The appearance of the chest is unchanged. IMPRESSION: No acute cardiopulmonary findings. ACT 112: Negative or not required by law. Electronically signed by: Richard Navarrete M.D. 05/11/2024 8:[address] 05/11/24 06:53 EXAM: CT head/brain wo con CLINICAL HISTORY: unwitnessed fall , found down eval for head and neck trauma hx dementia TECHNIQUE: Axial non-contrast CT scan of the brain was performed from the skull base to the high parietal region. One of the following dose reduction techniques were utilized for this exam: Automated exposure control, adjustment of the mA and/or kV according to patient size, use of iterative reconstruction. CTDI: 69.37 mGy , DLP: 1051.87 mGycm COMPARISON: None. FINDINGS: Brain Parenchyma: Small vessel ischemic changes in periventricular and subcortical white matter in bilateral cerebral hemispheres. Normal attenuation of rest of cerebral hemispheres, cerebellum, and brainstem. No evidence of acute infarct, hemorrhage, or mass effect. Ventricular System: Mild dilatation of ventricular system. Subarachnoid Spaces: Prominent sulci and cisterns. No evidence of subarachnoid hemorrhage or extra-axial fluid collections. Cerebellum and Brainstem: Normal size and signal. No masses, lesions, or areas of abnormal signal. Orbits: Normal appearance of the globes, optic nerves, and extraocular muscles. No evidence of orbital masses or abnormal signal. Sinuses: Clear paranasal sinuses. No evidence of sinusitis or mucosal thickening. Mastoid Air Cells: Clear mastoid air cells. No evidence of mastoiditis. Skull: Normal skull morphology. IMPRESSION: 1. No acute intracranial abnormality. 2. Age related brain atrophy and small vessel ischemic changes in bilateral cerebral hemispheres. Electronically signed by Fernie Segura 05-11-2024 08:27 AM Pelvis X-Ray 05/11/24 06:53 XR pelvis 1-2V routine CLINICAL HISTORY: fall COMPARISON: Pelvis radiograph and pelvis CT January 13, 2024. FINDINGS: Sacroiliac joints and symphysis pubis are intact. There are no fractures within the pelvis or hips. No osseous lesions are identified. IMPRESSION: No fractures within the pelvis or hips. ACT 112: Negative or not required by law. Electronically signed by: Richard Navarrete M.D. 05/11/2024 8:13 AM Discharge Plan Visit Data Chief Complaint: Fall Stated Complaint: FALL ED Provider: Angelito El Discharge Problem: Ground-level fall, Dementia, Paroxysmal atrial flutter, Ambulatory dysfunction, Bradyarrhythmia Patient Disposition: Admitted As Inpatient Condition: Good Discharge Instructions Interventions: ED Discharge Assessment Last Done: 05/11/24 17:06 Discharge Problem: Dementia Qualifiers: Dementia type: unspecified type Dementia severity: severe Dementia behavioral or psychological symptom: without behavioral, psychotic, or mood disturbance or anxiety Qualified Code(s): F03.C0 - Unspecified dementia, severe, without behavioral disturbance, psychotic disturbance, mood disturbance, and anxiety
[2024-05-11 07:41] LABS: Basophils # (auto) 0.02 K/uL (0.00-0.20); Basophils % (auto) 0.3 %; Eosinophils # (auto) 0.08 K/uL (0.00-0.50); Eosinophils % (auto) 1.1 %; Hematocrit (blood only) 37.6 % (42.0-52.0); Hemoglobin 12.4 g/dl (14.0-18.0); Immature Granulocytes # (auto) 0.07 K/uL (0.01-0.20); Immature Granulocytes % (auto) 0.9 %; Lymphocytes # (auto) 2.27 K/uL (1.20-3.40); Lymphocytes % (auto) 30.2 %; Mean Corpuscular Hemoglobin 26.8 pg (25.0-34.0); Mean Corpuscular Volume 81.4 fL (80.0-100.0); Mean Platelet Volume 10.7 fL (9.4-12.4); Monocytes # (auto) 1.14 K/uL (0.11-0.59); Monocytes % (auto) 15.2 %; Neutrophils # (auto) 3.93 K/uL (1.40-6.50); Neutrophils % (auto) 52.3 %; Platelet Count 189 K/uL (130-400); RDW Coefficient of Variation 13.5 % (11.5-14.5); RDW Standard Deviation 39.8 fL (36.4-46.3); Red Blood Count 4.62 M/uL (4.70-6.10); White Blood Count 7.51 K/ul (4.8-10.8)
[2024-05-11 07:54] LABS: BUN Creatinine Ratio 20.9 (10-20); Calcium 9.3 mg/dl (8.6-10.3); Creatinine Clr Calc Pharmacy 69.8 ml/min; Magnesium 1.9 mg/dl (1.7-2.4); Potassium 3.4 mmol/L (3.5-5.1)
[2024-05-11 08:01] LABS: Troponin I High Sensitivity 10.2 pg/ml (0-20)
[2024-05-11 08:10] LABS: Thyroid Stimulating Hormone 3.096 uIu/ml (0.300-4.500)
[2024-05-11 08:13] LABS: INR 1.1 (0.9-1.1); Prothrombin Time 11.5 Seconds (9.0-12.0)
--- NOTE | 2024-05-11 08:13 | XRay Report ---
XR chest 1V portable CLINICAL HISTORY: fall COMPARISON STUDY: Chest radiograph January 13, 2024. FINDINGS: There are median sternotomy wires and a prosthetic cardiac valve. Cardiomediastinal silhoue tte is stable. There is no pneumothorax or pleural effusion. No airspace opacities are present. Pulmo nary vascularity is normal. The appearance of the chest is unchanged. IMPRESSION: No acute cardiopulmonary findings. ACT 112: Negative or not required by law. Electronically signed by: Richard Navarrete M.D. 05/11/2024 8:11 AM
--- NOTE | 2024-05-11 08:14 | XRay Report ---
XR pelvis 1-2V routine CLINICAL HISTORY: fall COMPARISON: Pelvis radiograph and pelvis CT January 13, 2024. FINDINGS: Sacroiliac joints and symphysis pubis are intact. There are no fractures within the pelvis or hips. No osseous lesions are identified. IMPRESSION: No fractures within the pelvis or hips. ACT 112: Negative or not required by law. Electronically signed by: Richard Navarrete M.D. 05/11/2024 8:13 AM
--- NOTE | 2024-05-11 08:27 | CT Scan Report ---
EXAM: CT head/brain wo con CLINICAL HISTORY: unwitnessed fall , found down eval for head and neck trauma hx dementia TECHNIQUE: Axial non-contrast CT scan of the brain was performed from the skull base to the high parietal region. One of the following dose reduction techniques were utilized for this exam: Automated exposure control, adjustment of the mA and/or kV according to patient size, use of iterative reconstruction. CTDI: 69.37 mGy , DLP: 1051.87 mGycm COMPARISON: None. FINDINGS: Brain Parenchyma: Small vessel ischemic changes in periventricular and subcortical white matter in bilateral cerebral hemispheres. Normal attenuation of rest of cerebral hemispheres, cerebellum, and brainstem. No evidence of acute infarct, hemorrhage, or mass effect. Ventricular System: Mild dilatation of ventricular system. Subarachnoid Spaces: Prominent sulci and cisterns. No evidence of subarachnoid hemorrhage or extra-axial fluid collections. Cerebellum and Brainstem: Normal size and signal. No masses, lesions, or areas of abnormal signal. Orbits: Normal appearance of the globes, optic nerves, and extraocular muscles. No evidence of orbital masses or abnormal signal. Sinuses: Clear paranasal sinuses. No evidence of sinusitis or mucosal thickening. Mastoid Air Cells: Clear mastoid air cells. No evidence of mastoiditis. Skull: Normal skull morphology. IMPRESSION: 1. No acute intracranial abnormality. 2. Age related brain atrophy and small vessel ischemic changes in bilateral cerebral hemispheres. Electronically signed by Fernie Segura 05-11-2024 08:27 AM
[2024-05-11 08:34] LABS: Influenza A virus by PCR Negative (Neg); Influenza B virus by PCR Negative (Neg); RSV by PCR Negative (Neg); SARS CoV2 RNA(COVID-19) Ceph NEGATIVE (Negative)
--- NOTE | 2024-05-11 08:40 | CT Scan Report ---
EXAM: CT cervical spine wo con CLINICAL HISTORY: Unwitnessed fall, found down eval for head and neck trauma hx dementia. TECHNIQUE: A CT scan of the cervical spine was performed without the administration of intravenous contrast. Contiguous axial images were obtained from the skull base to the upper thoracic spine. Coronal and sagittal reformatted images were also reviewed. One of the following dose-reduction techniques was utilized for this exam. Automated exposure control, adjustment of the mA and/or kV according to patient size, and use of iterative reconstruction. COMPARISON: No previous studies are available for comparison. FINDINGS: Vertebrae: Status post spinolaminectomies at C3-C7 level. Straightening of cervical spine. Grade I anterolisthesis of C4 over C5 vertebra. Marginal bony outgrowths and end plates irregularity in cervical vertebrae. The vertebral bodies are normal in height. No evidence of acute fracture. No signs of lytic or sclerotic lesions. Intervertebral Discs: Multilevel significant disc degenerative changes with diffuse herniation, posterior marginal bony outgrowths, and facet joints arthropathy causing mild spinal canal stenosis and moderate to severe bilateral neural foraminal stenosis. Facet Joints: Multilevel facet joints arthropathy. Prevertebral Soft Tissues: The prevertebral soft tissues are normal in thickness without evidence of mass or abnormal fluid collection. IMPRESSION: 1. No evidence of acute fracture. 2. Status post spinolaminectomies at C3-C7 level. 3. Moderate spondylotic changes in the cervical spine. 4. Grade I anterolisthesis of C4 over C5 vertebra. 5. Multilevel significant disc degenerative changes with diffuse herniation, posterior marginal bony outgrowths and facet joints arthropathy causing mild spinal canal stenosis and moderate to severe bilateral neural foraminal stenosis. Electronically signed by Fernie Segura 05-11-2024 08:40 AM
--- NOTE | 2024-05-11 10:10 | History & Physical Report ---
Date of Service May 11, 2024 Assessment & Plan (1) Paroxysmal atrial flutter: (2) Dementia: (3) Ground-level fall: (4) Ambulatory dysfunction: (5) (HFpEF) heart failure with preserved ejection fraction: Plan 84-year-old man with severe dementia, HFpEF/right heart failure, pulmonary hypertension, coronary artery disease with remote CABG and mitral valve repair admitted from memory care unit after having fallen, found to be bradycardic and atrial flutter and unable to ambulate his POLST form specifies comfort measures and DNR/DNI, staff are unable to reach his daughter by phone this morning atrial flutter, bradycardia in the ED he at times had heart rates in the high 30s/low 40s, however, he appears to be asymptomatic from this we will simply stop his metoprolol. TSH was normal he is not a candidate for anticoagulation because of severe dementia frequent falls and comfort measures status unwitnessed ground-level fall, ambulatory dysfunction - at baseline he ambulates with a walker, staff at [facility] reports that he has had progressive decline over weeks and now can barely transfer with assistance. he was unable to stand and ambulate with assistance in the ED ED workup unrevealing for any specific cause of weakness CT head and neck negative for acute injuries, pelvis x-ray negative for fracture, does not report any pain currently will obtain a urinalysis and phosphate level replacing mild hypokalemia with potassium chloride 20 mEq p.o. x 1 PT and OT evaluate care coordination consult, seems unlikely that he is appropriate for his current level of care at [facility] based on my conversation with staff may need nursing facility HFpEF and right heart failure not in exacerbation history of coronary disease with remote CABG, mitral valve repair, pulmonary hypertension, sleep apnea not on CPAP reviewed echo from 2023 unremarkable, normal EF we will stop his metoprolol because of bradycardia continue furosemide 40 mg daily and 40 mg daily as needed weight gain BPHcontinue finasteride and tamsulosin. was not orthostatic in the ED DVT prophylaxisSCDs, not appropriate for chemoprophylaxis because of comfort measure status Admission and Anticipated Discharge Date Anticipated date of discharge: 05/12/24 History of Present Illness Chief Complaint: Fall Primary Care Provider: STEPHY Armando 84-year-old man with a history of dementia, HFpEF/ right sided heart failure, coronary artery disease with remote CABG, mitral valve repair who is a resident at [facility] at [facility] who was sent in because of a fall, weakness. He had an unwitnessed fall according to staff at [facility], he was thought to have hit his head, initially he complained of pain all over. He was also found to be hypoxic with a room air oxygen saturation in the 80s he is not usually hypoxic or on any oxygen. In the ED he was not hypoxic, vital signs were normal except for bradycardia. He was found to be in atrial flutter which is new for him. He was asymptomatic from bradycardia/a flutter. ED staff attempted to stand him up and have him walk and he was unable to. he was not orthostatic. I contacted the staff at [facility] and they said that he has had progressive decline recently and has gotten to the point where it is extremely hard for him to even transfer with assistance. Normally he would be ambulatory with a walker. He is extremely poor historian and has essentially no short-term memory. He can answer straightforward direct questions. He cannot tell me what happened he is not aware of where he is he denies any pain including head neck back arms and legs. He denies shortness of breath. No chest pain no abdominal pain. No nausea no dysuria or difficulty urinating. I reviewed his home medications he is on metoprolol succinate 25 mg daily there is a POLST form with him that specifies comfort measures only, use of antibiotics okay depending on the situation, DNR/DNI the staff at [facility] and the ED attempted to call his daughter but did not get any answer Allergies Allergy/AdvReac Type Severity Reaction Status Date / Time citalopram [From Celexa] Allergy Unknown Unknown Verified 10/06/23 03:00 Home Medications Medication Instructions Recorded Confirmed Type finasteride 5 mg tablet 5 mg PO QPM 03/17/18 10/06/23 History metoprolol succinate 25 mg 25 mg PO QAM 03/17/18 10/06/23 History tablet,extended release 24 hr (Toprol XL) potassium citrate 10 mEq (1,080 10 meq PO QAM 03/17/18 10/06/23 History mg) tablet,extended release cholecalciferol (vitamin D3) 50 50 mcg PO DAILY 03/27/22 10/06/23 History mcg (2,000 unit) capsule (Vitamin D3) tamsulosin 0.4 mg capsule 0.4 mg PO QPM 05/07/22 10/06/23 History acetaminophen 325 mg tablet 650 mg PO Q4 PRN Mild Pain (Scale 10/06/23 10/06/23 History Score 1-4) acetaminophen 325 mg tablet 650 mg PO Q4 PRN fever < 100 per 10/06/23 10/06/23 History juniper menthol 0.44 %-zinc oxide 20.6 % 1 applic topical QS 10/06/23 10/06/23 History topical ointment (Calmoseptine) sertraline 50 mg tablet 50 mg PO QPM 10/06/23 10/06/23 History docusate sodium 100 mg capsule 100 mg PO BID #14 caps 10/09/23 Rx (Colace) ferrous sulfate 325 mg (65 mg 325 mg PO DAILY #30 tabs 10/09/23 Rx iron) tablet cyanocobalamin (vitamin B-12) 1,000 mcg PO DAILY #30 caps 10/10/23 Rx 1,000 mcg capsule diclofenac sodium 1 % topical gel 2 g EXT TID #100 grams 10/10/23 Rx (Voltaren Arthritis Pain) furosemide 40 mg tablet 40 mg DAILY PRN weight gain >3 05/11/24 05/11/24 History pounds in 1 day furosemide 40 mg tablet (Lasix) 40 mg PO DAILY 05/11/24 History Past Med/Surg History Problem List (Updated 05/11/24 @ 10:21 by Anna Rader MD) (HFpEF) heart failure with preserved ejection fraction Bradyarrhythmia (Acute) Paroxysmal atrial flutter (Acute) Dementia (Acute) Ground-level fall (Acute) Acute on chronic heart failure with preserved ejection fraction Left shoulder pain Delirium Pubic ramus fracture Fall (Acute) Head injury (Acute) CHF (congestive heart failure) (Acute) Syncope and collapse Personal history of kidney stones hx lithotripsy Chronic acquired lymphedema (Chronic) Abnormal ankle brachial index (CELINA) (Acute) Dementia Vitamin D deficiency Calculus of kidney Pulmonary valve disorder (Chronic) Back pain (Acute) Encounter for removal of sutures (Acute) Head injury (Acute) Ureteral calculi (Acute) Ureteral calculus (Acute) Vertigo (Acute) Encounter for pre-operative examination Urethral stricture unspecified (Acute) UTI (urinary tract infection) (Acute) Tinnitus (Acute) Sensorineural hearing loss (SNHL) of both ears (Acute) Obstructive sleep apnea (Acute) Neoplasm of uncertain behavior of skin (Acute) Neoplasm of bladder (Acute) Mitral regurgitation (Acute) Menieres disease (Acute) Malignant tumor of urinary bladder (Acute) Laceration (Acute) Klinefelters syndrome (Acute) Incomplete bladder emptying (Acute) Hearing loss (Acute) Gross hematuria (Acute) Encounter for screening for malignant neoplasm of prostate (Acute) Elevated prostate specific antigen (PSA) (Acute) Dysplastic nevus (Acute) Calculus of urinary bladder (Acute) Benign prostatic hyperplasia with urinary obstruction (Acute) Benign hypertension (Acute 11/11/12) Atherosclerotic heart disease of [place] coronary artery without angina pectoris (Acute) Actinic keratosis (Acute) Malignant neoplasm of urinary bladder Hematuria (Acute) Bilateral lower extremity edema Expressive dysphasia Ambulatory dysfunction (Acute) Short-term memory loss Weakness (Acute) Cellulitis (Acute) Flu-like symptoms (Acute) Fever (Acute) Right ureteral calculus Acute metabolic encephalopathy LOLA (acute kidney injury) Rhabdomyolysis B12 deficiency BPH (benign prostatic hyperplasia) current issue Pulmonary hypertension RVSP 40-50 mmHg Medical History Atrial septal aneurysm 03/01/22 Atrial septal aneurysm incidentally noted, with small, hemodynamically insignificant shunt. Consider daily aspirin for stroke prophylaxis. CAD (coronary artery disease) h/o CABG x 1; 05/2010 History of prostatitis Osteopenia Hx of bladder cancer Elevated IOP Balance problem post laminectomy; walks with a walker since then Hypertension Hyperlipidemia Sleep apnea uses cpap "sporadically" Surgical History History of cystoscopy Hx of CABG History of lithotripsy left kidney History of colonoscopy History of cardiac cath x2 - s - done prior to MVR, not CAD-related, no stents placed Hx of rotator cuff surgery right and left Hx of laminectomy C4-C7 - 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 Beliefs That Will Affect Care: None marital status: / Current Living Situation: [facility] Current Living Situation Comment: [facility] Feels Safe at Home: Yes Assistive Devices: Walker Review of Systems Review of Systems: All systems reviewed & are unremarkable except as noted in HPI & below extremely limited due to poor cognitive status Physical Exam Physical Exam: PHYSICAL EXAMINATION Last 24h vital signs reviewed, see documentation in flowsheet General: elderly gentleman lying in ED gurney, frail appearing,comfortable appearing, no distress HEENT: Normocephalic, atraumatic, pupils round and equal, sclerae anicteric, no conjunctival injection, moist mucus membranes Lungs: Normal respiratory effort. Clear to auscultation bilaterally. No RRW Heart: Regular rate and rhythm, no murmurs. No JVD Abdomen: Soft, nontender, nondistended. Bowel sounds present. Extremities: Warm, dry, well-perfused. 2+ extremity edema to mid carson, pedal edema prominent, mild erythema of both ankles consistent with venous stasis disease. Neuro: Alert and oriented x self but not to place or situation nor to the holiday today which is near his day, essentially no short-term memory asks repeated questions, face symmetric, speech intact, wire stitcher machine 5 out of 5, moves lower extremities equally, generalized weakness Psych: Normal affect and behavior Results & Data Results & Data Vital Signs (Past 12 Hours) Vital Signs Temp Pulse Resp BP Pulse Ox O2 Del Method 05/11/24 09:03 47 L 16 05/11/24 09:01 122/76 05/11/24 08:48 52 L 17 05/11/24 08:30 48 L 17 97 05/11/24 08:19 151/104 H 05/11/24 08:16 123/48 L 05/11/24 08:15 52 L 18 95 05/11/24 08:14 40 L 05/11/24 08:01 131/72 05/11/24 08:01 131/72 05/11/24 08:00 60 16 92 05/11/24 07:42 55 L 16 96 05/11/24 07:39 139/53 L 05/11/24 07:39 139/53 L 05/11/24 07:38 55 L 19 97 05/11/24 07:11 53 L 16 92 05/11/24 07:08 52 L 23 99 05/11/24 07:02 116/76 05/11/24 06:56 46 L 17 98 05/11/24 06:48 97.5 F L 54 L 20 132/63 99 Room Air Laboratory Results 05/11/24 05/11/24 Range/Units 07:20 07:15 WBC 7.51 (4.8-10.8) K/ul RBC 4.62 L (4.70-6.10) M/uL Hgb 12.4 L (14.0-18.0) g/dl Hct 37.6 L (42.0-52.0) % MCV 81.4 (80.0-100.0) fL MCH 26.8 (25.0-34.0) pg MCHC 33.0 (32.0-36.0) g/dL RDW Std Deviation 39.8 (36.4-46.3) fL RDW Coeff of Destiny 13.5 (11.5-14.5) % Plt Count 189 (130-400) K/uL MPV 10.7 (9.4-12.4) fL Immature Gran % (Auto) 0.9 % Neut % (Auto) 52.3 % Lymph % (Auto) 30.2 % [place] % (Auto) 15.2 % Eos % (Auto) 1.1 % Baso % (Auto) 0.3 % Neut # (Auto) 3.93 (1.40-6.50) K/uL Lymph # (Auto) 2.27 (1.20-3.40) K/uL [place] # (Auto) 1.14 H (0.11-0.59) K/uL Eos # (Auto) 0.08 (0.00-0.50) K/uL Baso # (Auto) 0.02 (0.00-0.20) K/uL Immature Gran # (Auto) 0.07 (0.01-0.20) K/uL PT 11.5 (9.0-12.0) Seconds INR 1.1 (0.9-1.1) Sodium 144 (136-145) mmol/L Potassium 3.4 L (3.5-5.1) mmol/L Chloride 109 H (98-107) mmol/L Carbon Dioxide 25 (21-32) mmol/L Anion Gap 10 (3-11) BUN 19 (6-23) mg/dl Creatinine 0.91 (0.6-1.4) mg/dl Est Cr Clr Drug Dosing 69.8 ml/min eGFR 83.11 BUN/Creatinine Ratio 20.9 H (10-20) Glucose 97 (70-99(Fasting)) mg/dl Calcium 9.3 (8.6-10.3) mg/dl Magnesium 1.9 (1.7-2.4) mg/dl Troponin I High Sens 10.2 (0-20) pg/ml TSH 3.096 (0.300-4.500) uIu/ml SARS-CoV-2 (PCR) NEGATIVE (Negative) Influenza Type A (PCR) Negative (Neg) Influenza Type B (PCR) Negative (Neg) RSV (RT-PCR) Negative (Neg) Diagnostic Findings Cervical Spine CT 05/11/24 06:53 EXAM: CT cervical spine wo con CLINICAL HISTORY: Unwitnessed fall, found down eval for head and neck trauma hx dementia. TECHNIQUE: A CT scan of the cervical spine was performed without the administration of intravenous contrast. Contiguous axial images were obtained from the skull base to the upper thoracic spine. Coronal and sagittal reformatted images were also reviewed. One of the following dose-reduction techniques was utilized for this exam. Automated exposure control, adjustment of the mA and/or kV according to patient size, and use of iterative reconstruction. COMPARISON: No previous studies are available for comparison. FINDINGS: Vertebrae: Status post spinolaminectomies at C3-C7 level. Straightening of cervical spine. Grade I anterolisthesis of C4 over C5 vertebra. Marginal bony outgrowths and end plates irregularity in cervical vertebrae. The vertebral bodies are normal in height. No evidence of acute fracture. No signs of lytic or sclerotic lesions. Intervertebral Discs: Multilevel significant disc degenerative changes with diffuse herniation, posterior marginal bony outgrowths, and facet joints arthropathy causing mild spinal canal stenosis and moderate to severe bilateral neural foraminal stenosis. Facet Joints: Multilevel facet joints arthropathy. Prevertebral Soft Tissues: The prevertebral soft tissues are normal in thickness without evidence of mass or abnormal fluid collection. IMPRESSION: 1. No evidence of acute fracture. 2. Status post spinolaminectomies at C3-C7 level. 3. Moderate spondylotic changes in the cervical spine. 4. Grade I anterolisthesis of C4 over C5 vertebra. 5. Multilevel significant disc degenerative changes with diffuse herniation, posterior marginal bony outgrowths and facet joints arthropathy causing mild spinal canal stenosis and moderate to severe bilateral neural foraminal stenosis. Electronically signed by Fernie Segura 05-11-2024 08:40 AM Chest X-Ray 05/11/24 06:53 XR chest 1V portable CLINICAL HISTORY: fall COMPARISON STUDY: Chest radiograph January 13, 2024. FINDINGS: There are median sternotomy wires and a prosthetic cardiac valve. Cardiomediastinal silhouette is stable. There is no pneumothorax or pleural effusion. No airspace opacities are present. Pulmonary vascularity is normal. The appearance of the chest is unchanged. IMPRESSION: No acute cardiopulmonary findings. ACT 112: Negative or not required by law. Electronically signed by: Richard Navarrete M.D. 05/11/2024 8:[address] 05/11/24 06:53 EXAM: CT head/brain wo con CLINICAL HISTORY: unwitnessed fall , found down eval for head and neck trauma hx dementia TECHNIQUE: Axial non-contrast CT scan of the brain was performed from the skull base to the high parietal region. One of the following dose reduction techniques were utilized for this exam: Automated exposure control, adjustment of the mA and/or kV according to patient size, use of iterative reconstruction. CTDI: 69.37 mGy , DLP: 1051.87 mGycm COMPARISON: None. FINDINGS: Brain Parenchyma: Small vessel ischemic changes in periventricular and subcortical white matter in bilateral cerebral hemispheres. Normal attenuation of rest of cerebral hemispheres, cerebellum, and brainstem. No evidence of acute infarct, hemorrhage, or mass effect. Ventricular System: Mild dilatation of ventricular system. Subarachnoid Spaces: Prominent sulci and cisterns. No evidence of subarachnoid hemorrhage or extra-axial fluid collections. Cerebellum and Brainstem: Normal size and signal. No masses, lesions, or areas of abnormal signal. Orbits: Normal appearance of the globes, optic nerves, and extraocular muscles. No evidence of orbital masses or abnormal signal. Sinuses: Clear paranasal sinuses. No evidence of sinusitis or mucosal thickening. Mastoid Air Cells: Clear mastoid air cells. No evidence of mastoiditis. Skull: Normal skull morphology. IMPRESSION: 1. No acute intracranial abnormality. 2. Age related brain atrophy and small vessel ischemic changes in bilateral cerebral hemispheres. Electronically signed by Fernie Segura 05-11-2024 08:27 AM Pelvis X-Ray 05/11/24 06:53 XR pelvis 1-2V routine CLINICAL HISTORY: fall COMPARISON: Pelvis radiograph and pelvis CT January 13, 2024. FINDINGS: Sacroiliac joints and symphysis pubis are intact. There are no fractures within the pelvis or hips. No osseous lesions are identified. IMPRESSION: No fractures within the pelvis or hips. ACT 112: Negative or not required by law. Electronically signed by: Richard Navarrete M.D. 05/11/2024 8:13 AM I personally reviewed the chest x-ray film and agree with the interpretation above I personally reviewed the EKG tracing shows atrial flutter with variable block, bradycardia Code Status & VTE Plan Code Status DNR/DNI, comfort measures only according to his POLST form VTE Prophylaxis Plan VTE Prophylaxis will be ordered: Yes Reason for no VTE drug order: Treatment not indicated PG Care Time/CCT Total # of Minutes Spent Total Time Spent with Patient: Total time spent is greater than 50% in coordination of care (as documented) at patient's floor/unit and/or counseling patient: Coding Level of Care Code 11081 INT INP/OBS CARE 2/55MIN Diagnoses Paroxysmal atrial flutter I48.92 Dementia F03.C0 Dementia behavioral or psychological symptom: without behavioral, psychotic, or mood disturbance or anxiety Dementia severity: severe Dementia type: unspecified type Ground-level fall W18.30XA Ambulatory dysfunction R26.2 (HFpEF) heart failure with preserved ejection fraction I50.30 (2) Dementia Dementia behavioral or psychological symptom: without behavioral, psychotic, or mood disturbance or anxiety Dementia severity: severe Dementia type: unspecified type Qualified Code(s): F03.C0 - Unspecified dementia, severe, without behavioral disturbance, psychotic disturbance, mood disturbance, and anxiety
[2024-05-11 10:45] LABS: Phosphorus 2.7 mg/dl (2.5-4.9)
[2024-05-11] MEDS: POTASSIUM CHLORIDE CRTAB 20 MEQ TABCR PO STA (10:54)
[2024-05-11] MEDS ORDERED: ALUMINUM/MAGNESIUM SUSP 30 ML UDC PO PRN (11:53)
[2024-05-11] MEDS ORDERED: ONDANSETRON INJ 2 MG/ML 2 ML VIAL IV PRN (11:53)
[2024-05-11] MEDS ORDERED: POLYETHYLENE (MIRALAX) 17 GM PACK PO PRN (11:53)
[2024-05-11] MEDS ORDERED: MELATONIN 3 MG TAB PO PRN (11:53)
[2024-05-11] MEDS ORDERED: MAGNESIUM HYDROXIDE SUSP 30 ML UDC PO PRN (11:53)
[2024-05-11] MEDS ORDERED: ACETAMINOPHEN 325 MG TAB PO PRN (11:53)
--- NOTE | 2024-05-11 16:15 | Communication Note ---
Date of Service: May 11, 2024 I spoke with his daughter Clare by phone this afternoon. He uses a walker, but recently mostly in a wheelchair. She reports that his current level of care at [place] should be able to accommodate him even if he's completely wheelchair bound. We discussed the aflutter and plan to stop metoprolol for bradycardia, also still waiting for urine sample for UA.
[2024-05-11] MEDS: FINASTERIDE 5 MG TAB PO SCH (20:49)
[2024-05-11] MEDS: SERTRALINE HCL 50 MG TABLET PO SCH (20:49)
[2024-05-11] MEDS: TAMSULOSIN HCL 0.4 MG CAP PO SCH (20:49)
--- NOTE | 2024-05-11 23:22 | Electrocardiogram Report ---
Test Reason : Blood Pressure : */* mmHG Vent. Rate : 40 BPM Atrial Rate : 229 BPM P-R Int : * ms QRS Dur : 138 ms QT Int : 516 ms P-R-T Axes : 239 -64 -25 degrees QTcB Int : 420 ms Atrial flutter with variable A-V block with slow ventricular response Left axis deviation Right bundle branch block Abnormal ECG When compared with ECG of 05-Oct-2023 21:38, Atrial flutter is now Present T wave inversion now evident in Inferior leads Confirmed by Landon Davey ([id number]) on 05/11/2024 11:22:16 PM Referred By: REFERRED SELF Confirmed By: Landon Davey
[2024-05-11 23:33] LABS: Appearance Urine Clear (Clear); Bacteria Urine Automated None Seen (None Seen); Bilirubin Urine Negative (Negative); Blood Urine Negative (Negative); Cast Urine Automated 0-2 /lpf (0-2); Color Urine Yellow; Glucose Urine UA Negative (Negative); Ketones Urine Trace (Negative); Leukocyte Esterase Urine Negative (Negative); Nitrite Urine Negative (Negative); Protein Urine Trace (Negative); RBC Urine Automated 0-2 /hpf (0-2); Urobilinogen Urine Negative (Negative); WBC Urine Automated 0-5 /hpf (0-5); pH Urine 6.5 (4.5-7.5)
[2024-05-12] MEDS: FUROSEMIDE 40 MG TAB PO SCH (08:29)
[2024-05-12] MEDS: POTASSIUM CITRATE 10 MEQ TAB PO SCH (08:29)
--- NOTE | 2024-05-12 14:19 | Electrocardiogram Report ---
Test Reason : Blood Pressure : */* mmHG Vent. Rate : 69 BPM Atrial Rate : 241 BPM P-R Int : * ms QRS Dur : 116 ms QT Int : 452 ms P-R-T Axes : * -70 -1 degrees QTcB Int : 484 ms Atrial flutter with variable A-V block with premature ventricular or aberrantly conducted complexes Left axis deviation Low voltage QRS Incomplete right bundle branch block Inferior infarct , age undetermined Abnormal ECG When compared with ECG of 11-May-2024 07:02, Vent. rate has increased by 29 bpm QT has lengthened Confirmed by Campbell Hanson ([id number]) on 05/12/2024 2:18:57 PM Referred By: REFERRED SELF Confirmed By: Campbell Hanson
--- NOTE | 2024-05-12 15:48 | XRay Report ---
XR hand RT 2V CLINICAL HISTORY: s/p fall, 3rd metacarpal pain R hand TECHNIQUE: 3 views of the right hand were obtained. Comparison: None available at the time of this dictation. FINDINGS: Fourth metacarpal fracture is seen in the midshaft. It does not definitely involve the carpometacarpa l joint. Extensive osteoarthritic changes are seen. Soft tissue swelling is seen. IMPRESSION: Acute fracture of the fourth metacarpal shaft with associated soft tissue swelling. Osteoarthritic ch anges are seen. ACT 112: Negative or not required by law. Electronically signed by: Aamir Hernandez M.D. 05/12/2024 3:46 PM
--- NOTE | 2024-05-12 16:57 | Orthopedic Consultation ---
Date of Service May 12, 2024 Assessment & Plan (1) Fracture of metacarpal of right hand, closed: - Discussed our plan with the nurse as well as with Dr. Johnston today. He does have a fourth metacarpal fracture. He is tender in the area but is doing quite well with his activities. He has painless range of motion and no deformity noted. I think at this time, we can treat him in a removable wrist brace. Nursing staff is aware. We will place an order for the DME team tomorrow to fit him for this brace. Once he is discharged from the hospital, we would like to see him for follow-up x-rays and if anything else is needed from an orthopedic standpoint. Please reach out any other questions or concerns. History of Present Illness Reason for Consultation: right hand fracture Requesting Physician: . Attending Physician: Hayden Johnston MD Félix is an 84-year-old male who is being consulted today for a right fourth metacarpal fracture that was found on x-ray images today. He did report to the emergency department on 05/11/2024 due to a fall in the local dementia unit that he lives then. The fall was unwitnessed. All x-rays at the time of emergency department evaluation were negative for any acute fractures, however he was admitted due to ambulatory dysfunction as well as bradycardia and atrial flutter. He did have x-rays taken of his hand today due to swelling and some pain noted by the hospitalist. Xrays showed a fourth metacarpal fracture. Orthopedics was consulted. At our evaluation today, we entered the room when the patient was eating his dinner. He is using his right hand with no difficulty eating his dinner. He is holding a fork and bending his fingers as well as his wrist without any pain or discomfort. Patient does have a baseline of dementia. He was able to tell us if he had any pain or not. No other questions or concerns today. We did also get to speak with Dr. Johnston and his nurse Rosita today about our treatment plan. Allergies Allergy/AdvReac Type Severity Reaction Status Date / Time citalopram [From Celexa] Allergy Unknown Unknown Verified 10/06/23 03:00 Home Medications Medication Instructions Recorded Confirmed Type finasteride 5 mg tablet 5 mg PO QPM 03/17/18 05/11/24 History metoprolol succinate 25 mg 25 mg PO QAM 03/17/18 05/11/24 History tablet,extended release 24 hr (Toprol XL) potassium citrate 10 mEq (1,080 10 meq PO QAM 03/17/18 05/11/24 History mg) tablet,extended release tamsulosin 0.4 mg capsule 0.4 mg PO QPM 05/07/22 05/11/24 History sertraline 50 mg tablet 50 mg PO QPM 10/06/23 05/11/24 History docusate sodium 100 mg capsule 100 mg PO BID #14 caps 10/09/23 05/11/24 Rx (Colace) ferrous sulfate 325 mg (65 mg 325 mg PO DAILY #30 tabs 10/09/23 05/11/24 Rx iron) tablet bisacodyl 10 mg rectal suppository 10 mg OH DAILY PRN ON DAY 4 OF NO 05/11/24 05/11/24 History BOWEL MOVEMENT furosemide 40 mg tablet 40 mg DAILY PRN weight gain >3 05/11/24 05/11/24 History pounds in 1 day furosemide 40 mg tablet (Lasix) 40 mg PO DAILY 05/11/24 05/11/24 History naproxen sodium 220 mg tablet 220 mg PO Q12H PRN PAIN IF TYLENOL 05/11/24 05/11/24 History IS IN EFFECTIVE polyethylene glycol 3350 17 17 g PO DAILY PRN CONSTIPATION 05/11/24 05/11/24 History gram/dose oral powder Past Med/Surg History Problem List (Updated 05/13/24 @ 00:34 by Hayden Johnston MD) Hx of mitral valve repair done at [facility] 2011 Hypertension Hx of bladder cancer Hx of CABG CAD (coronary artery disease) h/o CABG x 1; 05/2010 Fracture of metacarpal of right hand, closed (HFpEF) heart failure with preserved ejection fraction Bradyarrhythmia (Acute) Paroxysmal atrial flutter (Acute) Dementia (Acute) Ground-level fall (Acute) Acute on chronic heart failure with preserved ejection fraction Left shoulder pain Delirium Pubic ramus fracture Fall (Acute) Head injury (Acute) CHF (congestive heart failure) (Acute) Syncope and collapse Personal history of kidney stones hx lithotripsy Chronic acquired lymphedema (Chronic) Abnormal ankle brachial index (CELINA) (Acute) Dementia Vitamin D deficiency Calculus of kidney Pulmonary valve disorder (Chronic) Back pain (Acute) Encounter for removal of sutures (Acute) Head injury (Acute) Ureteral calculi (Acute) Ureteral calculus (Acute) Vertigo (Acute) Encounter for pre-operative examination Urethral stricture unspecified (Acute) UTI (urinary tract infection) (Acute) Tinnitus (Acute) Sensorineural hearing loss (SNHL) of both ears (Acute) Obstructive sleep apnea (Acute) Neoplasm of uncertain behavior of skin (Acute) Neoplasm of bladder (Acute) Mitral regurgitation (Acute) Menieres disease (Acute) Malignant tumor of urinary bladder (Acute) Laceration (Acute) Klinefelters syndrome (Acute) Incomplete bladder emptying (Acute) Hearing loss (Acute) Gross hematuria (Acute) Encounter for screening for malignant neoplasm of prostate (Acute) Elevated prostate specific antigen (PSA) (Acute) Dysplastic nevus (Acute) Calculus of urinary bladder (Acute) Benign prostatic hyperplasia with urinary obstruction (Acute) Benign hypertension (Acute 11/11/12) Atherosclerotic heart disease of [place] coronary artery without angina pectoris (Acute) Actinic keratosis (Acute) Malignant neoplasm of urinary bladder Hematuria (Acute) Bilateral lower extremity edema Expressive dysphasia Ambulatory dysfunction (Acute) Short-term memory loss Weakness (Acute) Cellulitis (Acute) Flu-like symptoms (Acute) Fever (Acute) Right ureteral calculus Acute metabolic encephalopathy LOLA (acute kidney injury) Rhabdomyolysis B12 deficiency BPH (benign prostatic hyperplasia) current issue Pulmonary hypertension RVSP 40-50 mmHg Medical History Atrial septal aneurysm 03/01/22 Atrial septal aneurysm incidentally noted, with small, hemodynamically insignificant shunt. Consider daily aspirin for stroke prophylaxis. CAD (coronary artery disease) h/o CABG x 1; 05/2010 History of prostatitis Osteopenia Hx of bladder cancer Elevated IOP Balance problem post laminectomy; walks with a walker since then Hypertension Hyperlipidemia Sleep apnea uses cpap "sporadically" Surgical History History of cystoscopy Hx of CABG History of lithotripsy left kidney History of colonoscopy History of cardiac cath x2 - [facility] - done prior to MVR, not CAD-related, no stents placed Hx of rotator cuff surgery right and left Hx of laminectomy C4-C7 - [facility] 1997 Hx of mitral valve repair done at [facility] 2011 Social History Smoking Status: Never smoker Hx Alcohol Use: No Hx Substance Use: No Preferred Language: Lao Communication Ability: Impaired Visual Impairment: No Limitations Turn Down Man Required: No Beliefs That Will Affect Care: None marital status: / Current Living Situation: Correction Current Living Situation Comment: [facility] Feels Safe at Home: Yes Assistive Devices: Walker and Wheelchair Review of Systems All systems reviewed & are unremarkable except as noted in HPI & below. Physical Exam General: Alert. He is able to give us a partial history as he does have a baseline of dementia. He is pleasant at today's visit. He is using his right hand with no difficulty with his activities at the moment. He is eating dinner and holding a fork as well as bringing his hand up to his mouth without difficulty. He has full range of motion of the IP joints as well as the MCP joints and the wrist. His motion is painless. He is a little tender to the fo urth metacarpal. Other than that, no significant swelling, deformity noted. Results & Data Results & Data Laboratory Results Laboratory Results - last 48 hr 05/11/24 05/11/24 05/11/24 07:15 07:20 18:30 WBC 7.51 RBC 4.62 L Hgb 12.4 L Hct 37.6 L MCV 81.4 MCH 26.8 MCHC 33.0 RDW Std Deviation 39.8 RDW Coeff of Destiny 13.5 Plt Count 189 MPV 10.7 Immature Gran % (Auto) 0.9 Neut % (Auto) 52.3 Lymph % (Auto) 30.2 [place] % (Auto) 15.2 Eos % (Auto) 1.1 Baso % (Auto) 0.3 Neut # (Auto) 3.93 Lymph # (Auto) 2.27 [place] # (Auto) 1.14 H Eos # (Auto) 0.08 Baso # (Auto) 0.02 Immature Gran # (Auto) 0.07 PT 11.5 INR 1.1 Sodium 144 Potassium 3.4 L Chloride 109 H Carbon Dioxide 25 Anion Gap 10 BUN 19 Creatinine 0.91 Est Cr Clr Drug Dosing 69.8 eGFR 83.11 BUN/Creatinine Ratio 20.9 H Glucose 97 Calcium 9.3 Phosphorus 2.7 Magnesium 1.9 Troponin I High Sens 10.2 TSH 3.096 Urine Color Urine Appearance Urine pH Ur Specific [place] Urine Protein Urine Glucose (UA) Urine Ketones Urine Blood Urine Nitrite Urine Bilirubin Urine Urobilinogen Ur Leukocyte Esterase Urine WBC (Auto) Urine RBC (Auto) U Hyaline Cast (Auto) U Epithel Cells (Auto) Urine Bacteria (Auto) Nasal Screen MRSA (PCR) Negative SARS-CoV-2 (PCR) NEGATIVE Influenza Type A (PCR) Negative Influenza Type B (PCR) Negative RSV (RT-PCR) Negative 05/11/24 23:13 WBC RBC Hgb Hct MCV MCH MCHC RDW Std Deviation RDW Coeff of Destiny Plt Count MPV Immature Gran % (Auto) Neut % (Auto) Lymph % (Auto) [place] % (Auto) Eos % (Auto) Baso % (Auto) Neut # (Auto) Lymph # (Auto) [place] # (Auto) Eos # (Auto) Baso # (Auto) Immature Gran # (Auto) PT INR Sodium Potassium Chloride Carbon Dioxide Anion Gap BUN Creatinine Est Cr Clr Drug Dosing eGFR BUN/Creatinine Ratio Glucose Calcium Phosphorus Magnesium Troponin I High Sens TSH Urine Color Yellow Urine Appearance Clear Urine pH 6.5 Ur Specific [place] 1.020 Urine Protein Trace H Urine Glucose (UA) Negative Urine Ketones Trace H Urine Blood Negative Urine Nitrite Negative Urine Bilirubin Negative Urine Urobilinogen Negative Ur Leukocyte Esterase Negative Urine WBC (Auto) 0-5 Urine RBC (Auto) 0-2 U Hyaline Cast (Auto) 0-2 U Epithel Cells (Auto) 3-5 H Urine Bacteria (Auto) None Seen Nasal Screen MRSA (PCR) SARS-CoV-2 (PCR) Influenza Type A (PCR) Influenza Type B (PCR) RSV (RT-PCR) Diagnostic Findings Did review right hand x-rays on 05/12/2024 independently. Agree with impression below there is a fracture of the fourth metacarpal. IMPRESSION: Acute fracture of the fourth metacarpal shaft with associated soft tissue swelling. Osteoarthritic changes are seen. PG Care Time/CCT Total # of Minutes Spent Total Time Spent with Patient: Total time spent is greater than 50% in coordination of care (as documented) at patient's floor/unit and/or counseling patient: Coding Level of Care Code 80045 IN/OBS CONSULT LVL 4,60M Diagnoses Fracture of metacarpal of right hand, closed S62.309A
--- NOTE | 2024-05-12 19:11 | Hospitalist Progress Note ---
Date of Service May 12, 2024 Assessment & Plan (1) Paroxysmal atrial flutter: Plan: presented to [facility] with a.flutter with slow ventricular response unclear if any connection to his fall unclear if any symptoms from the a.flutter metoprolol held due to bradycardia; low HRs now resolved CHADsVASC score is at least 4 (5% chance of CVA) but poor candidate for anticoagulation thus, hold off on such for now and will d/w patient's family (2) Ground-level fall: Plan: at [facility] this led to right hand fracture as below but larger joints (hips, etc) all wnl PT, OT evals to determine dispo (3) Fracture of metacarpal of right hand, closed: Plan: x-rays with 4th metacarpal fracture [facility] consulted; appreciate their assistance removable brace to be ordered pain meds prn 25-OH vit D level in 2023 was wnl; defer recheck (4) Dementia: Plan: advanced lives at a memory care center in [place] (5) CAD (coronary artery disease): Plan: s/p CABG in the past (6) Pulmonary hypertension: (7) BPH (benign prostatic hyperplasia): Plan: cont flomax cont finasteride (8) Hx of CABG: Plan: 05/2010 (9) Hx of bladder cancer: (10) Hypertension: Plan chronic HFpEF/right sided heart failure - compensated metoprolol stopped due to significant bradycardia cont lasix not in exacerbation at this time daughter updated by phone this evening [place] to evaluate pt's candidacy to return there otherwise would need SNF placement Admission and Anticipated Discharge Date Admission Date: May 11, 2024 Subjective patient resting in bed comfortably when I came to see him he pointed to the right hand and said he was having pain there due to dementia it was otherwise difficult to obtain any meaningful history or ROS Review of Systems Review of Systems: Unobtainable due to cognitive status Physical Exam Physical Exam: gen - NAD neck - no JVD mouth - MMM heart - irregular, rate <100, s1 s2 lungs - CTA b/l abd - soft NT ND BS+ ext - pulses 2+ b/l feet musculo - ecchymoses present over dorsal surface of the right hand; tender 3rd/4th metacarpal bones; no deformity of any finger; no tenderness any finger; no tenderness in the right wrist; b/l hips without pain with passive ROM; no deformity of either leg or either arm psych - oriented to person only Results & Data Results & Data Vital Signs (Past 12 Hours) Vital Signs Temp Pulse Resp BP Pulse Ox O2 Del Method 05/12/24 15:03 36.5 C 62 18 116/64 99 Room Air 05/12/24 08:11 Room Air 05/12/24 08:02 36.6 C 57 L 18 131/73 96 Room Air Diagnostic Findings Cervical Spine CT 05/11/24 06:53 EXAM: CT cervical spine wo con CLINICAL HISTORY: Unwitnessed fall, found down eval for head and neck trauma hx dementia. TECHNIQUE: A CT scan of the cervical spine was performed without the administration of intravenous contrast. Contiguous axial images were obtained from the skull base to the upper thoracic spine. Coronal and sagittal reformatted images were also reviewed. One of the following dose-reduction techniques was utilized for this exam. Automated exposure control, adjustment of the mA and/or kV according to patient size, and use of iterative reconstruction. COMPARISON: No previous studies are available for comparison. FINDINGS: Vertebrae: Status post spinolaminectomies at C3-C7 level. Straightening of cervical spine. Grade I anterolisthesis of C4 over C5 vertebra. Marginal bony outgrowths and end plates irregularity in cervical vertebrae. The vertebral bodies are normal in height. No evidence of acute fracture. No signs of lytic or sclerotic lesions. Intervertebral Discs: Multilevel significant disc degenerative changes with diffuse herniation, posterior marginal bony outgrowths, and facet joints arthropathy causing mild spinal canal stenosis and moderate to severe bilateral neural foraminal stenosis. Facet Joints: Multilevel facet joints arthropathy. Prevertebral Soft Tissues: The prevertebral soft tissues are normal in thickness without evidence of mass or abnormal fluid collection. IMPRESSION: 1. No evidence of acute fracture. 2. Status post spinolaminectomies at C3-C7 level. 3. Moderate spondylotic changes in the cervical spine. 4. Grade I anterolisthesis of C4 over C5 vertebra. 5. Multilevel significant disc degenerative changes with diffuse herniation, posterior marginal bony outgrowths and facet joints arthropathy causing mild spinal canal stenosis and moderate to severe bilateral neural foraminal stenosis. Electronically signed by Fernie Segura 05-11-2024 08:40 AM Chest X-Ray 05/11/24 06:53 XR chest 1V portable CLINICAL HISTORY: fall COMPARISON STUDY: Chest radiograph January 13, 2024. FINDINGS: There are median sternotomy wires and a prosthetic cardiac valve. Cardiomediastinal silhouette is stable. There is no pneumothorax or pleural effusion. No airspace opacities are present. Pulmonary vascularity is normal. The appearance of the chest is unchanged. IMPRESSION: No acute cardiopulmonary findings. ACT 112: Negative or not required by law. Electronically signed by: Richard Navarrete M.D. 05/11/2024 8:[address] 05/11/24 06:53 EXAM: CT head/brain wo con CLINICAL HISTORY: unwitnessed fall , found down eval for head and neck trauma hx dementia TECHNIQUE: Axial non-contrast CT scan of the brain was performed from the skull base to the high parietal region. One of the following dose reduction techniques were utilized for this exam: Automated exposure control, adjustment of the mA and/or kV according to patient size, use of iterative reconstruction. CTDI: 69.37 mGy , DLP: 1051.87 mGycm COMPARISON: None. FINDINGS: Brain Parenchyma: Small vessel ischemic changes in periventricular and subcortical white matter in bilateral cerebral hemispheres. Normal attenuation of rest of cerebral hemispheres, cerebellum, and brainstem. No evidence of acute infarct, hemorrhage, or mass effect. Ventricular System: Mild dilatation of ventricular system. Subarachnoid Spaces: Prominent sulci and cisterns. No evidence of subarachnoid hemorrhage or extra-axial fluid collections. Cerebellum and Brainstem: Normal size and signal. No masses, lesions, or areas of abnormal signal. Orbits: Normal appearance of the globes, optic nerves, and extraocular muscles. No evidence of orbital masses or abnormal signal. Sinuses: Clear paranasal sinuses. No evidence of sinusitis or mucosal thickening. Mastoid Air Cells: Clear mastoid air cells. No evidence of mastoiditis. Skull: Normal skull morphology. IMPRESSION: 1. No acute intracranial abnormality. 2. Age related brain atrophy and small vessel ischemic changes in bilateral cerebral hemispheres. Electronically signed by Fernie Segura 05-11-2024 08:27 AM Pelvis X-Ray 05/11/24 06:53 XR pelvis 1-2V routine CLINICAL HISTORY: fall COMPARISON: Pelvis radiograph and pelvis CT January 13, 2024. FINDINGS: Sacroiliac joints and symphysis pubis are intact. There are no fractures within the pelvis or hips. No osseous lesions are identified. IMPRESSION: No fractures within the pelvis or hips. ACT 112: Negative or not required by law. Electronically signed by: Richard Navarrete M.D. 05/11/2024 8:13 AM Hand X-Ray 05/12/24 15:00 XR hand RT 2V CLINICAL HISTORY: s/p fall, 3rd metacarpal pain R hand TECHNIQUE: 3 views of the right hand were obtained. Comparison: None available at the time of this dictation. FINDINGS: Fourth metacarpal fracture is seen in the midshaft. It does not definitely involve the carpometacarpal joint. Extensive osteoarthritic changes are seen. Soft tissue swelling is seen. IMPRESSION: Acute fracture of the fourth metacarpal shaft with associated soft tissue swelling. Osteoarthritic changes are seen. ACT 112: Negative or not required by law. Electronically signed by: Aamir Hernandez M.D. 05/12/2024 3:46 PM PG Care Time/CCT Total # of Minutes Spent Total Time Spent with Patient: Total time spent is greater than 50% in coordination of care (as documented) at patient's floor/unit and/or counseling patient: Coding Level of Care Code 16916 SUB INP/OBS CARE 2/35MIN Diagnoses Paroxysmal atrial flutter I48.92 Ground-level fall W18.30XA Fracture of metacarpal of right hand, closed S62.309A Dementia F03.C0 Dementia behavioral or psychological symptom: without behavioral, psychotic, or mood disturbance or anxiety Dementia severity: severe Dementia type: unspecified type CAD (coronary artery disease) I25.10 Pulmonary hypertension I27.20 BPH (benign prostatic hyperplasia) N40.0 Hx of CABG Z95.1 Hx of bladder cancer Z85.51 Hypertension I10 (4) Dementia Dementia behavioral or psychological symptom: without behavioral, psychotic, or mood disturbance or anxiety Dementia severity: severe Dementia type: unspecified type Qualified Code(s): F03.C0 - Unspecified dementia, severe, without behavioral disturbance, psychotic disturbance, mood disturbance, and anxiety
[2024-05-13] MEDS ORDERED: [UNRECOGNIZED DRUG - OTHER] SCH (09:00)
[2024-05-13 09:58] LABS: BUN Creatinine Ratio 19.6 (10-20); Calcium 9.1 mg/dl (8.6-10.3); Creatinine Clr Calc Pharmacy 65.5 ml/min
--- NOTE | 2024-05-13 21:16 | Hospitalist Progress Note ---
Date of Service May 13, 2024 Assessment & Plan (1) Paroxysmal atrial flutter: Plan: presented to [facility] with a.flutter with slow ventricular response unclear if any connection to his fall unclear if any symptoms from the a.flutter but suspect no symptoms from such metoprolol held due to bradycardia; low HRs resolved CHADsVASC score is at least 4 (5% chance of CVA) but poor candidate for anticoagulation did d/w his daughter risks/benefits of starting anticoagulation will sleetmute back with daughter tomorrow to see if she wants to start thinners (2) Ground-level fall: Plan: at [facility] this led to right hand fracture as below but larger joints (hips, etc) all wnl PT, OT evals advising short-term SNF rehab before returning to [facility] (3) Fracture of metacarpal of right hand, closed: Plan: x-rays with 4th metacarpal fracture [facility] consulted; appreciate their assistance removable brace needed pain meds prn 25-OH vit D level in 2023 was wnl; defer recheck (4) Dementia: Plan: advanced lives at a memory care center in [place] (5) CAD (coronary artery disease): Plan: s/p CABG in the past no ischemic sx's (6) Pulmonary hypertension: Plan: stable o2 sats in room air (7) BPH (benign prostatic hyperplasia): Plan: cont flomax cont finasteride (8) Hx of CABG: Plan: 05/2010 (9) Hx of bladder cancer: Plan: noted (10) Hypertension: Plan: controlled Plan chronic HFpEF/right sided heart failure - compensated metoprolol stopped due to significant bradycardia cont lasix; stable BMP / lytes daughter updated by phone 05/12/24 unfortunately needs SNF for rehab prior to returning to [facility] social work making referrals change observation status to full admission status Admission and Anticipated Discharge Date Admission Date: May 13, 2024 Subjective patient sleeping upon arrival easily awakens unable to provide any meaningful history/ROS when asked about his right hand he does deny pain, however eating ok per nursing flowsheets stool? Review of Systems Review of Systems: Unobtainable due to cognitive status Physical Exam Physical Exam: gen - NAD, resting in bed, pleasant confusion neck - no JVD mouth - MMM heart - irregular, rate <100, s1 s2, no murmur lungs - CTA b/l abd - soft NT ND BS+ ext - pulses 2+ b/l feet musculo - mild ecchymoses present over dorsal surface of the right hand and several fingers; no deformity of any finger; mild swelling of right hand dorsum psych - oriented to person only Results & Data Results & Data Vital Signs (Past 12 Hours) Vital Signs Temp Pulse Resp BP Pulse Ox O2 Del Method 05/13/24 20:30 Room Air 05/13/24 19:34 36.9 C 62 16 113/64 96 Room Air 05/13/24 16:52 131/67 05/13/24 14:51 36.3 C L 71 16 90/43 L 96 Room Air Laboratory Results Laboratory Results - last 24 hr 05/13/24 08:50 Sodium 138 Potassium 4.0 Chloride 105 Carbon Dioxide 27 Anion Gap 6 BUN 19 Creatinine 0.97 Est Cr Clr Drug Dosing 65.5 eGFR 76.98 BUN/Creatinine Ratio 19.6 Glucose 108 H Calcium 9.1 PG Care Time/CCT Total # of Minutes Spent Total Time Spent with Patient: Total time spent is greater than 50% in coordination of care (as documented) at patient's floor/unit and/or counseling patient: Coding Level of Care Code 13114 SUB INP/OBS CARE 06/04MIN Diagnoses Paroxysmal atrial flutter I48.92 Ground-level fall W18.30XA Fracture of metacarpal of right hand, closed S62.309A Dementia F03.C0 Dementia behavioral or psychological symptom: without behavioral, psychotic, or mood disturbance or anxiety Dementia severity: severe Dementia type: unspecified type CAD (coronary artery disease) I25.10 Pulmonary hypertension I27.20 BPH (benign prostatic hyperplasia) N40.0 Hx of CABG Z95.1 Hx of bladder cancer Z85.51 Hypertension I10 (4) Dementia Dementia behavioral or psychological symptom: without behavioral, psychotic, or mood disturbance or anxiety Dementia severity: severe Dementia type: unspecified type Qualified Code(s): F03.C0 - Unspecified dementia, severe, with out behavioral disturbance, psychotic disturbance, mood disturbance, and anxiety
[2024-05-13] MEDS: ENOXAPARIN INJ 40 MG/0.4 ML SYR SQ ONE (21:59)
--- NOTE | 2024-05-14 19:22 | Hospitalist Progress Note ---
Date of Service May 14, 2024 Assessment & Plan (1) Paroxysmal atrial flutter: Plan: presented to [facility] with a.flutter with slow ventricular response unclear if any connection to his fall unclear if any symptoms from the a.flutter but suspect no symptoms from such metoprolol held due to bradycardia; low HRs resolved CHADsVASC score is at least 4 (5% chance of CVA) but poor candidate for anticoagulation did d/w his daughter risks/benefits of starting anticoagulation will [place] [employer] [place] back with daughter to see if she wants to start thinners will not resume any beta taylor moving forward (2) Ground-level fall: Plan: at [facility] this led to right hand fracture as below but larger joints (hips, etc) all wnl PT, OT evals advising short-term SNF rehab before returning to [facility] (3) Fracture of metacarpal of right hand, closed: Plan: x-rays with 4th metacarpal fracture [facility] consulted; appreciate their assistance removable brace needed pain meds prn 25-OH vit D level in 2023 was wnl; defer recheck (4) Dementia: Plan: advanced lives at a memory care center in [place] (5) CAD (coronary artery disease): Plan: s/p CABG in the past no ischemic sx's uncertain why he is not on aspirin or statin - perhaps 2nd to advanced dementia and low benefit?? (6) Pulmonary hypertension: Plan: stable o2 sats in room air (7) BPH (benign prostatic hyperplasia): Plan: cont flomax cont finasteride (8) Hx of CABG: Plan: 05/2010 (9) Hx of bladder cancer: Plan: noted (10) Hypertension: Plan: controlled (11) Hx of mitral valve repair: Plan: 2012 (12) Constipation: Plan: add senna daily add miralax daily Plan chronic HFpEF/right sided heart failure - compensated metoprolol stopped due to significant bradycardia cont lasix; stable BMP / lytes daughter updated by phone 05/12/24 will update her again tomorrow on 05/15/24 unfortunately needs SNF for rehab prior to returning to [facility] social work making referrals Admission and Anticipated Discharge Date Admission Date: May 13, 2024 Subjective no events patient resting comfortably in bed pleasantly confused wrist splint in place no stool documented since admission eating air per nursing flowsheets denies pain in any location Review of Systems Review of Systems: Unobtainable due to cognitive status Physical Exam Physical Exam: gen - NAD, resting in bed, pleasant confusion neck - no JVD mouth - MMM heart - irregular, rate <100, s1 s2, no murmur lungs - CTA b/l abd - soft NT ND BS+ ext - pulses 2+ b/l feet musculo - resolving mild ecchymoses present over dorsal surface of the right hand and several fingers; no deformity of any finger; minimal swelling of right hand dorsum; wrist splint in place psych - oriented to person only Results & Data Results & Data Vital Signs (Past 12 Hours) Vital Signs Temp Pulse Resp BP Pulse Ox O2 Del Method 05/14/24 14:07 36.6 C 61 16 113/74 95 Room Air 05/14/24 08:36 36.6 C 57 L 16 114/67 96 Room Air PG Care Time/CCT Total # of Minutes Spent Total Time Spent with Patient: Total time spent is greater than 50% in coordination of care (as documented) at patient's floor/unit and/or counseling patient: Coding Level of Care Code 01889 SUB INP/OBS CARE 06/04MIN Diagnoses Paroxysmal atrial flutter I48.92 Ground-level fall W18.30XA Fracture of metacarpal of right hand, closed S62.309A Dementia F03.C0 Dementia behavioral or psychological symptom: without behavioral, p sychotic, or mood disturbance or anxiety Dementia severity: severe Dementia type: unspecified type CAD (coronary artery disease) I25.10 Pulmonary hypertension I27.20 BPH (benign prostatic hyperplasia) N40.0 Hx of CABG Z95.1 Hx of bladder cancer Z85.51 Hypertension I10 Hx of mitral valve repair Z98.890 Constipation K59.00 (4) Dementia Dementia behavioral or psychological symptom: without behavioral, psychotic, or mood disturbance or anxiety Dementia severity: severe Dementia type: unspecified type Qualified Code(s): F03.C0 - Unspecified dementia, severe, without behavioral disturbance, psychotic disturbance, mood disturbance, and anxiety
[2024-05-14] MEDS: ENOXAPARIN INJ 40 MG/0.4 ML SYR SQ SCH (19:59)
[2024-05-15] MEDS: SENNA 8.6 MG TAB PO SCH (08:29)
[2024-05-15] MEDS: POLYETHYLENE (MIRALAX) 17 GM PACK PO SCH (08:30)
--- NOTE | 2024-05-15 19:27 | Hospitalist Progress Note ---
Date of Service May 15, 2024 Assessment & Plan (1) Paroxysmal atrial flutter: Plan: presented to [facility] with a.flutter with slow ventricular response unclear if any connection to his fall unclear if any symptoms from the a.flutter but suspect no symptoms from such metoprolol held due to bradycardia; low HRs resolved CHADsVASC score is at least 4 (5% chance of CVA) but poor candidate for anticoagulation did d/w his daughter risks/benefits of starting anticoagulation [place] back with daughter to see if she wants to start thinners will not resume any beta taylor moving forward (2) Ground-level fall: Plan: at [facility] this led to right hand fracture as below but larger joints (hips, etc) all wnl PT, OT evals advising short-term SNF rehab before returning to [facility] (3) Fracture of metacarpal of right hand, closed: Plan: x-rays with 4th metacarpal fracture [facility] consulted; appreciate their assistance cont removable brace pain meds prn 25-OH vit D level in 2023 was wnl; defer recheck (4) Dementia: Plan: advanced lives at a memory care center in [place] (5) CAD (coronary artery disease): Plan: s/p CABG in the past no ischemic sx's uncertain why he is not on aspirin or statin - perhaps 2nd to advanced dementia and low benefit?? (6) Pulmonary hypertension: Plan: stable o2 sats in room air (7) BPH (benign prostatic hyperplasia): Plan: cont flomax cont finasteride (8) Hx of CABG: Plan: 05/2010 (9) Hx of bladder cancer: Plan: noted (10) Hypertension: Plan: controlled (11) Hx of mitral valve repair: Plan: 2012 (12) Constipation: Plan: cont senna daily cont miralax daily still no BM thus give dulcolax suppos x 1 now Plan chronic HFpEF/right sided heart failure - compensated metoprolol stopped due to significant bradycardia cont lasix; stable BMP / lytes daughter updated by phone 05/12/24 and again today - 05/15/24 unfortunately needs SNF for rehab prior to returning to [facility] social work made referrals Admission and Anticipated Discharge Date Admission Date: May 13, 2024 Subjective no events eating ok patient very confused/disoriented but no agitation pleasant despite the confusion no BM since admission denies pain in any location Review of Systems Review of Systems: Unobtainable due to cognitive status Physical Exam Physical Exam: gen - NAD, resting in bed, pleasant confusion neck - no JVD mouth - MMM heart - irregular, rate <100, s1 s2, no murmur lungs - CTA b/l abd - soft NT ND BS+ ext - pulses 2+ b/l feet musculo - mild ecchymoses present over dorsal surface of several fingers right hand; no deformity of any finger; minimal swelling of right hand dorsum; wrist splint in place psych - oriented to person only Results & Data Results & Data Vital Signs (Past 12 Hours) Vital Signs Temp Pulse Resp BP Pulse Ox O2 Del Method 05/15/24 15:09 36.8 C 61 18 117/66 97 Room Air 05/15/24 13:46 36.6 C 62 18 127/58 L Room Air 05/15/24 08:51 36.5 C 71 18 143/71 H 95 Room Air 05/15/24 08:24 36.8 C 65 16 138/70 Room Air PG Care Time/CCT Total # of Minutes Spent Total Time Spent with Patient: Total time spent is greater than 50% in coordination of care (as documented) at patient's floor/unit and/or counseling patient: Coding Level of Care Code 67955 SUB INP/OBS CARE 06/04MIN Diagnoses Paroxysmal atrial flutter I48.92 Ground-level fall W18.30XA Fracture of metacarpal of right hand, closed S62.309A Dementia F03.C0 Dementia behavioral or psychological symptom: without behavioral, psychotic, or mood disturbance or anxiety Dementia severity: severe Dementia type: unspecified type CAD (coronary artery disease) I25.10 Pulmonary hypertension I27.20 BPH (benign prostatic hyperplasia) N40.0 Hx of CABG Z95.1 Hx of bladder cancer Z85.51 Hypertension I10 Hx of mitral valve repair Z98.890 Constipation K59.00 (4) Dementia Dementia behavioral or psychological symptom: without behavioral, psychotic, or mood disturbance or anxiety Dementia severity: severe Dementia type: unspecified type Qualified Code(s): F03.C0 - Unspecified dementia, severe, without behavioral disturbance, psychotic disturbance, mood disturbance, and anxiety
[2024-05-15] MEDS: bisacodyL 10 MG SUPP PR STA (21:24)
[2024-05-16 07:51] VITALS: RESP 16
--- NOTE | 2024-05-16 18:30 | Hospitalist Progress Note ---
Date of Service May 16, 2024 Assessment & Plan (1) Paroxysmal atrial flutter: Plan: presented to [facility] with a.flutter with slow ventricular response unclear if any connection to his fall but doubt such unclear if any symptoms from the a.flutter but also doubt such metoprolol held due to bradycardia; low HRs resolved WOULD KEEP OFF THE BETA TRINITY at discharge CHADsVASC score is at least 4 (5% chance of CVA) but poor candidate for anticoagulation did d/w his daughter risks/benefits of starting anticoagulation I did not get a strong sense she would want anticoagulation for him (2) Ground-level fall: Plan: at [facility] this led to right hand fracture as below but larger joints (hips, etc) all wnl PT, OT evals advising short-term SNF rehab before returning to [facility] (3) Fracture of metacarpal of right hand, closed: Plan: x-rays with 4th metacarpal fracture [facility] consulted; appreciate their assistance cont removable brace pain meds prn 25-OH vit D level in 2023 was wnl; defer recheck the current brace is a generic one from [employer] I have consulted orthotics to ensure that the current fit is correct and to ensure no other type of brace is more ideal (4) Dementia: Plan: advanced fortunately no behavioral disturbance or agitation lives at [facility] in [place] (5) CAD (coronary artery disease): Plan: s/p CABG in the past no ischemic sx's uncertain why he is not on aspirin or statin - perhaps 2nd to advanced dementia and low benefit?? (6) Pulmonary hypertension: Plan: stable o2 sats in room air (7) BPH (benign prostatic hyperplasia): Plan: cont flomax cont finasteride u/a at admission was not suspicious for UTI (8) Hx of CABG: Plan: 05/2010 (9) Hx of bladder cancer: Plan: noted (10) Hypertension: Plan: controlled (11) Hx of mitral valve repair: Plan: 2011 (12) Constipation: Plan: cont senna daily & miralax daily for bowel maintenance s/p dulcolax suppos on 05/15/24 with good results Plan chronic HFpEF/right sided heart failure - compensated metoprolol stopped due to significant bradycardia cont lasix; stable BMP while here daughter updated by phone 05/12/24 and 05/15/24 unfortunately needs SNF for rehab prior to returning to [facility] social work made referrals Admission and Anticipated Discharge Date Admission Date: May 13, 2024 Subjective did have stools s/p dulcolax suppos yesterday patient resting in bed looking out the window pleasant confusion as previous - he does not remember me from previous encounters cannot provide any meaningful history he reports no pain, however, when asked about pain eating 100% of meals Review of Systems Review of Systems: Unobtainable due to cognitive status Physical Exam Physical Exam: gen - NAD, resting in bed comfortably, pleasant confusion, no agitation neck - no JVD mouth - MMM heart - irregular, rate <100, s1 s2, no murmur lungs - CTA b/l abd - soft NT ND BS+ ext - pulses 2+ b/l feet, minimal lymphedema of feet, but no edema of shins musculo - nearly resolved ecchymoses over several fingers right hand; no deformity of any finger; wrist splint in place; nontender with palpation of his right hand psych - oriented to person only Results & Data Results & Data Vital Signs (Past 12 Hours) Vital Signs Temp Pulse Resp BP Pulse Ox O2 Del Method 05/16/24 15:58 36.8 C 61 16 135/69 95 Room Air 05/16/24 07:50 36.5 C 55 L 16 134/82 96 Room Air PG Care Time/CCT Total # of Minutes Spent Total Time Spent with Patient: Total time spent is greater than 50% in coordination of care (as documented) at patient's floor/unit and/or counseling patient: Coding Level of Care Code 11661 SUB INP/OBS CARE 06/04MIN Diagnoses Paroxysmal atrial flutter I48.92 Ground-level fall W18.30XA Fracture of metacarpal of right hand, closed S62.309A Dementia F03.C0 Dementia behavioral or psychological symptom: without behavioral, psychotic, or mood disturbance or anxiety Dementia severity: severe Dementia type: unspecified type CAD (coronary artery disease) I25.10 Pulmonary hypertension I27.20 BPH (benign prostatic hyperplasia) N40.0 Hx of CABG Z95.1 Hx of bladder cancer Z85.51 Hypertension I10 Hx of mitral valve repair Z98.890 Constipation K59.00 (4) Dementia Dementia behavioral or psychological symptom: without behavioral, psychotic, or mood disturbance or anxiety Dementia severity: severe Dementia type: unspecified type Qualified Code(s): F03.C0 - Unspecified dementia, severe, without behavioral disturbance, psychotic disturbance, mood disturbance, and anxiety
[2024-05-17 07:17] VITALS: TEMP 97.7
--- NOTE | 2024-05-17 08:40 | Hospitalist Progress Note ---
Date of Service May 17, 2024 Assessment & Plan (1) Paroxysmal atrial flutter: Plan: presented to [facility] with a.flutter with slow ventricular response unclear if any connection to his fall but doubt such unclear if any symptoms from the a.flutter but also doubt such metoprolol held due to bradycardia; low HRs resolved WOULD KEEP OFF THE BETA TRINITY at discharge CHADsVASC score is at least 4 (5% chance of CVA) but poor candidate for anticoagulation did d/w his daughter risks/benefits of starting anticoagulation I did not get a strong sense she would want anticoagulation for him (2) Ground-level fall: Plan: at [facility] this led to right hand fracture as below but larger joints (hips, etc) all wnl PT, OT evals advising short-term SNF rehab before returning to [facility] (3) Fracture of metacarpal of right hand, closed: Plan: x-rays with 4th metacarpal fracture [facility] consulted; appreciate their assistance cont removable brace pain meds prn 25-OH vit D level in 2023 was wnl; defer recheck the current brace is a generic one from [employer] supply I have consulted orthotics to ensure that the current fit is correct and to ensure no other type of brace is more ideal (4) Dementia: Plan: advanced fortunately no behavioral disturbance or agitation lives at [facility] in [place] (5) CAD (coronary artery disease): Plan: s/p CABG in the past no ischemic sx's uncertain why he is not on aspirin or statin - perhaps 2nd to advanced dementia and low benefit?? (6) Pulmonary hypertension: Plan: stable o2 sats in room air (7) BPH (benign prostatic hyperplasia): Plan: cont flomax cont finasteride u/a at admission was not suspicious for UTI (8) Hx of CABG: Plan: 05/2010 (9) Hx of bladder cancer: Plan: noted (10) Hypertension: Plan: controlled (11) Hx of mitral valve repair: Plan: 2011 (12) Constipation: Plan: cont senna daily & miralax daily for bowel maintenance s/p dulcolax suppos on 05/15/24 with good results Plan chronic HFpEF/right sided heart failure - compensated metoprolol stopped due to significant bradycardia cont lasix; stable BMP while here daughter updated by phone 05/12/24 and 05/15/24 unfortunately needs SNF for rehab prior to returning to [facility] social work made referrals Admission and Anticipated Discharge Date Admission Date: May 13, 2024 Subjective Eval this morning, sitting up in bed. Appears pleasant, cooperative, working on his breakfast. Discussed urination, he denies burning/suprapubic fullness or tenderness but nursing orders for catheter. Discussed having bladder scan, cath if needed but if not retaining would avoid for now. Nursing looking back into if able to return to [facility]. Denies any CP/SOB at this time, 98% on RA. Questions/concerns addressed at this time. Results & Data Results & Data Vital Signs (Past 12 Hours) Vital Signs Temp Pulse Resp BP Pulse Ox O2 Del Method 05/17/24 07:16 36.5 C 57 L 16 135/69 97 Room Air PG Care Time/CCT Total # of Minutes Spent Total Time Spent with Patient: Total time spent is greater than 50% in coordination of care (as documented) at patient's floor/unit and/or counseling patient: Coding Diagnoses Paroxysmal atrial flutter I48.92 Ground-level fall W18.30XA Fracture of metacarpal of right hand, closed S62.309A Dementia F03.C0 Dementia behavioral or psychological symptom: without behavioral, psychotic, or mood disturbance or anxiety Dementia severity: severe Dementia type: unspecified type CAD (coronary artery disease) I25.10 Pulmonary hypertension I27.20 BPH (benign prostatic hyperplasia) N40.0 Hx of CABG Z95.1 Hx of bladder cancer Z85.51 Hypertension I10 Hx of mitral valve repair Z98.890 Constipation K59.00 (4) Dementia Dementia behavioral or psychological symptom: without behavioral, psychotic, or mood disturbance or anxiety Dementia severity: severe Dementia type: unspecified type Qualified Code(s): F03.C0 - Unspecified dementia, severe, without behavioral disturbance, psychotic disturbance, mood disturbance, and anxiety
[2024-05-17 09:07] VITALS: BP 110/68; PULSE 55; O2SAT 98
--- NOTE | 2024-05-17 10:40 | Discharge Summary ---
Discharge Summary Date of Service May 17, 2024 Principal Dx & Hospital Course #1 = Principal Diagnosis (1) Paroxysmal atrial flutter: 84-year-old man with severe dementia, HFpEF/right heart failure, pulmonary hypertension, coronary artery disease with remote CABG and mitral valve repair admitted from memory care unit after having fallen, found to be bradycardic and atrial flutter with slow ventricular response and unable to get up which brought him in. Unclear if any connection to his fall but doubt such, also unclear if sx from aflutter but doubt such. Metoprolol held due to bradycardia with improvement in low HR/resolved (upper 50/60s at times). Metoprolol STOPPED at discharge, BP 110/68 off such. Was previously discussion w/ CHADsVASC score is at least 4 (5% chance of CVA) but poor candidate for anticoagulation and did discuss previously with daughter but did not get sense she would want anticoagulation for him and defer ongoing discussion with PCP in follow up. ALso notable patient w/ hx MONSE/not treated and would discuss this as well if wanting to start AC would rec tx for his MONSE as agreeable. (2) Ground-level fall: at [facility] this led to right hand fracture as below but larger joints (hips, etc) all wnl PT, OT evals advising short-term SNF rehab before returning to [facility] and arrangements made for [facility] prior to returning (3) Fracture of metacarpal of right hand, closed: x-rays with 4th metacarpal fracture [facility] consulted; appreciate their assistance cont removable brace pain meds prn 25-OH vit D level in 2023 was wnl; defer recheck the current brace is a generic one from central supply -- consulted orthotics to ensure current fit correct Outpt orthopedics f/u in 2-3 weeks for repeat imaging/eval. Rehab planned as above (4) Dementia: advanced fortunately no behavioral disturbance or agitation lives at [facility] in [place] mentation/mood stable during exam (5) CAD (coronary artery disease): s/p CABG in the past no ischemic sx's uncertain why he is not on aspirin or statin - perhaps 2nd to advanced dementia and low benefit?? f/u PCP given falls for discussion (6) Pulmonary hypertension: stable o2 sats in room air 98%, no CP/SOB reported (7) BPH (benign prostatic hyperplasia): cont flomax cont finasteride u/a at admission was not suspicious for UTI Did have reports for doran placement but had wet bed/no urinary retention with bladder scan and doran was deferred. (8) Hx of CAB05/2010 chronic HFpEF/right sided heart failure - compensated metoprolol stopped due to significant bradycardia cont lasix; stable BMP while here (9) Hx of bladder cancer: noted (10) Hypertension: controlled (11) Hx of mitral valve repair: 2011 (12) Constipation: cont senna daily & miralax daily for bowel maintenance s/p dulcolax suppos on 05/15/24 with good results and continue bowel regimen as needed to prevent constipation Plan Dispo : discharge to [facility], BB discontinued. Outpt f/u orthopedics 2-3 weeks Notes For Next Care Provider Metoprolol discontinued for bradycardia Rec discussion about AC for atrial fib if wanting by patient/daughter but deferred given prior conversation without definitive want to start but high risk however does have hx falls. CHADsVASC 4 --> Rec also discussion about untreated MONSE - if agreeable, would benefit from CPAP but intolerance reported in the past Ortho f/u for metacarpel fracture with Dr Tabor as consulted while inpatient for repeat imaging/eval 2-3 weeks Medication Changes From Visit Metoprolol DISCONTINUED due to Bradycardia Admission HPI Per Admitting Provider 84-year-old man with a history of dementia, HFpEF/ right sided heart failure, coronary artery disease with remote CABG, mitral valve repair who is a resident at [facility] at [facility] who was sent in because of a fall, weakness. He had an unwitnessed fall according to staff at [facility], he was thought to have hit his head, initially he complained of pain all over. He was also found to be hypoxic with a room air oxygen saturation in the 80s he is not usually hypoxic or on any oxygen. In the ED he was not hypoxic, vital signs were normal except for bradycardia. He was found to be in atrial flutter which is new for him. He was asymptomatic from bradycardia/a flutter. ED staff attempted to stand him up and have him walk and he was unable to. he was not orthostatic. I contacted the staff at [facility] and they said that he has had progressive decline recently and has gotten to the point where it is extremely hard for him to even transfer with assistance. Normally he would be ambulatory with a walker. He is extremely poor historian and has essentially no short-term memory. He can answer straightforward direct questions. He cannot tell me what happened he is not aware of where he is he denies any pain including head neck back arms and legs. He denies shortness of breath. No chest pain no abdominal pain. No nausea no dysuria or difficulty urinating. I reviewed his home medications he is on metoprolol succinate 25 mg daily there is a POLST form with him that specifies comfort measures only, use of antibiotics okay depending on the situation, DNR/DNI the staff at [facility] and the ED attempted to call his daughter but did not get any answer Admission Exam Per Admitting Provider PHYSICAL EXAMINATION Last 24h vital signs reviewed, see documentation in flowsheet General: elderly gentleman lying in ED gurney, frail appearing,comfortable appearing, no distress HEENT: Normocephalic, atraumatic, pupils round and equal, sclerae anicteric, no conjunctival injection, moist mucus membranes Lungs: Normal respiratory effort. Clear to auscultation bilaterally. No RRW Heart: Regular rate and rhythm, no murmurs. No JVD Abdomen: Soft, nontender, nondistended. Bowel sounds present. Extremities: Warm, dry, well-perfused. 2+ extremity edema to mid carson, pedal edema prominent, mild erythema of both ankles consistent with venous stasis disease. 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 chronic lymphedema at baseline lungs - CTA b/l abd - soft NT ND BS+ ext - pulses 2+ b/l feet, minimal lymphedema of feet, but no edema of shins musculo - nearly resolved ecchymoses over several fingers right hand; no deformity of any finger; wrist splint in place; nontender with palpation of his right hand psych - oriented to person only Discharge Plan Discharge Items Patient Disposition: Transfer Inpatient Rehab Fac Reason For Visit: FALL Discharge Diagnosis: Fall, Metacarpel fracture, bradycardia Condition on Discharge: Good Goals: You have been hospitalized for an acute medical problem. During your stay at [facility], we have made an effort to correct the problem that brought you to the hospital while keeping you as comfortable as possible. Medications were used to bring your condition under control and your discharge instructions will include directions for any medications you should take after leaving the hospital. Please make sure you see your Primary Care Provider as part of your follow up plan. Activity: As commented below Non-emergency contact: Primary Care Provider and Surgeon Call non-emergency contact if: you have any medication questions, your symptoms worsen, your pain is concerning for you and you have a fever Follow-up/Referrals: Aura Lamb CRNP [Primary Care Provider] - Sergio Tabor MD [Surgeon] - (2-3 weeks) Diet: Heart Healthy Addtl Attending Provider Instructions: You have been hospitalized for a fall. You were found to have fracture in your RIGHT hand and brace has been provided. You should have follow up in 2-3 weeks for repeat imaging. We also found your heart rate to be on the LOWER side and your METOPROLOL has been STOPPED as this could contribute to your falls. We have talked about starting a blood thinner like eliquis however with your falls this may be continue to discuss with follow up with primary care if you do decide to start this medication for episode of atrial fibrillation for stroke prevention. Arrangements have been made for [facility] for rehab at discharge prior to returning to [facility]. Please follow up with primary care in the next 7-10 days after discharge as well as orthopedics as discussed. Please return to the ER with any fever/chills, worsening pain, or for any other symptoms concerning for you. It has been a pleasure being a part of the medical team providing for you while you have been in the hospital. Take care! Pending Studies at Discharge: No Stand-Alone Forms: My [facility] [address] Skilled Items Patient informed of condition?: Yes DNR: Yes Discharge Level of Care: Acute rehab Communicable Disease: No Discharge Prognosis: Stable Lines: None Urinary Catheter: No Medications and DC Order Prescriptions: Continued potassium citrate 10 mEq (1,080 mg) Tablet Extended Release 10 meq PO QAM finasteride 5 mg Tablet 5 mg PO QPM tamsulosin 0.4 mg capsule 0.4 mg PO QPM sertraline 50 mg Tablet 50 mg PO QPM ferrous sulfate 325 mg (65 mg iron) tablet 325 mg PO DAILY Qty: 30 0RF docusate sodium [Colace] 100 mg capsule 100 mg PO BID Qty: 14 0RF furosemide 40 mg Tablet 40 mg DAILY PRN (Reason: weight gain >3 pounds in 1 day) furosemide [Lasix] 40 mg tablet 40 mg PO DAILY bisacodyl 10 mg Suppository 10 mg MI DAILY PRN (Reason: ON DAY 4 OF NO BOWEL MOVEMENT) naproxen sodium 220 mg Tablet 220 mg PO Q12H PRN (Reason: PAIN IF TYLENOL IS IN EFFECTIVE) polyethylene glycol 3350 17 gram/dose Powder 17 g PO DAILY PRN (Reason: CONSTIPATION ) Rx Instructions: MIX IN 8 OZ ORANGE JUICE OR WATER Discontinued metoprolol succinate [Toprol XL] 25 mg Tablet Extended Release 24 Hr 25 mg PO QAM Discharge Orders: Discharge Order (Routine); Ordered 05/17/24 Ordered By: Eusebia Thakkar Admission Data Admit Date/Time: 05/13/24 12:28 Attending Provider: Nithin Brewer Admit Provider: Anna Rader Primary Care Provider: Aura Lamb Other Providers: Anna Rader; [facility]; Sergio Tabor; Rosemarie Michelle [facility] Other Interventions: Discharge Summary Assessment (RN) Last Done: 05/17/24 14:49 Hospital Stay Data Consultations 05/11/24 09:12 ED Decision to Admit Stat 05/12/24 16:08 Consult Orthopedic Surgery Routine Diagnostic Imagining Performed Cervical Spine CT 05/11/24 06:53 EXAM: CT cervical spine wo con CLINICAL HISTORY: Unwitnessed fall, found down eval for head and neck trauma hx dementia. TECHNIQUE: A CT scan of the cervical spine was performed without the administration of intravenous contrast. Contiguous axial images were obtained from the skull base to the upper thoracic spine. Coronal and sagittal reformatted images were also reviewed. One of the following dose-reduction techniques was utilized for this exam. Automated exposure control, adjustment of the mA and/or kV according to patient size, and use of iterative reconstruction. COMPARISON: No previous studies are available for comparison. FINDINGS: Vertebrae: Status post spinolaminectomies at C3-C7 level. Straightening of cervical spine. Grade I anterolisthesis of C4 over C5 vertebra. Marginal bony outgrowths and end plates irregularity in cervical vertebrae. The vertebral bodies are normal in height. No evidence of acute fracture. No signs of lytic or sclerotic lesions. Intervertebral Discs: Multilevel significant disc degenerative changes with diffuse herniation, posterior marginal bony outgrowths, and facet joints arthropathy causing mild spinal canal stenosis and moderate to severe bilateral neural foraminal stenosis. Facet Joints: Multilevel facet joints arthropathy. Prevertebral Soft Tissues: The prevertebral soft tissues are normal in thickness without evidence of mass or abnormal fluid collection. IMPRESSION: 1. No evidence of acute fracture. 2. Status post spinolaminectomies at C3-C7 level. 3. Moderate spondylotic changes in the cervical spine. 4. Grade I anterolisthesis of C4 over C5 vertebra. 5. Multilevel significant disc degenerative changes with diffuse herniation, posterior marginal bony outgrowths and facet joints arthropathy causing mild spinal canal stenosis and moderate to severe bilateral neural foraminal stenosis. Electronically signed by Fernie Segura 05-11-2024 08:40 AM Chest X-Ray 05/11/24 06:53 XR chest 1V portable CLINICAL HISTORY: fall COMPARISON STUDY: Chest radiograph January 13, 2024. FINDINGS: There are median sternotomy wires and a prosthetic cardiac valve. Cardiomediastinal silhouette is stable. There is no pneumothorax or pleural effusion. No airspace opacities are present. Pulmonary vascularity is normal. The appearance of the chest is unchanged. IMPRESSION: No acute cardiopulmonary findings. ACT 112: Negative or not required by law. Electronically signed by: Richard Navarrete M.D. 05/11/2024 8:[address] 05/11/24 06:53 EXAM: CT head/brain wo con CLINICAL HISTORY: unwitnessed fall , found down eval for head and neck trauma hx dementia TECHNIQUE: Axial non-contrast CT scan of the brain was performed from the skull base to the high parietal region. One of the following dose reduction techniques were utilized for this exam: Automated exposure control, adjustment of the mA and/or kV according to patient size, use of iterative reconstruction. CTDI: 69.37 mGy , DLP: 1051.87 mGycm COMPARISON: None. FINDINGS: Brain Parenchyma: Small vessel ischemic changes in periventricular and subcortical white matter in bilateral cerebral hemispheres. Normal attenuation of rest of cerebral hemispheres, cerebellum, and brainstem. No evidence of acute infarct, hemorrhage, or mass effect. Ventricular System: Mild dilatation of ventricular system. Subarachnoid Spaces: Prominent sulci and cisterns. No evidence of subarachnoid hemorrhage or extra-axial fluid collections. Cerebellum and Brainstem: Normal size and signal. No masses, lesions, or areas of abnormal signal. Orbits: Normal appearance of the globes, optic nerves, and extraocular muscles. No evidence of orbital masses or abnormal signal. Sinuses: Clear paranasal sinuses. No evidence of sinusitis or mucosal thickening. Mastoid Air Cells: Clear mastoid air cells. No evidence of mastoiditis. Skull: Normal skull morphology. IMPRESSION: 1. No acute intracranial abnormality. 2. Age related brain atrophy and small vessel ischemic changes in bilateral cerebral hemispheres. Electronically signed by Fernie Segura 05-11-2024 08:27 AM Pelvis X-Ray 05/11/24 06:53 XR pelvis 1-2V routine CLINICAL HISTORY: fall COMPARISON: Pelvis radiograph and pelvis CT January 13, 2024. FINDINGS: Sacroiliac joints and symphysis pubis are intact. There are no fractures within the pelvis or hips. No osseous lesions are identified. IMPRESSION: No fractures within the pelvis or hips. ACT 112: Negative or not required by law. Electronically signed by: Richard Navarrete M.D. 05/11/2024 8:13 AM Hand X-Ray 05/12/24 15:00 XR hand RT 2V CLINICAL HISTORY: s/p fall, 3rd metacarpal pain R hand TECHNIQUE: 3 views of the right hand were obtained. Comparison: None available at the time of this dictation. FINDINGS: Fourth metacarpal fracture is seen in the midshaft. It does not definitely involve the carpometacarpal joint. Extensive osteoarthritic changes are seen. Soft tissue swelling is seen. IMPRESSION: Acute fracture of the fourth metacarpal shaft with associated soft tissue swelling. Osteoarthritic changes are seen. ACT 112: Negative or not required by law. Electronically signed by: Aamir Hernandez M.D. 05/12/2024 3:46 PM Discharge Instructions Given to Patient (Per Discharging Provider) You have been hospitalized for a fall. You were found to have fracture in your RIGHT hand and brace has been provided. You should have follow up in 2-3 weeks for repeat imaging. We also found your heart rate to be on the LOWER side and your METOPROLOL has been STOPPED as this could contribute to your falls. We have talked about starting a blood thinner like eliquis however with your falls this may be continue to discuss with follow up with primary care if you do decide to start this medication for episode of atrial fibrillation for stroke prevention. Arrangements have been made for [facility] for rehab at discharge prior to returning to [facility]. Please follow up with primary care in the next 7-10 days after discharge as well as orthopedics as discussed. Please return to the ER with any fever/chills, worsening pain, or for any other symptoms concerning for you. It has been a pleasure being a part of the medical team providing for you while you have been in the hospital. Take care! Supervising Physician Co-Signing Physician Notes The patient was not seen by me. The chart was reviewed. Case discussed with MARINA Riggs. Agree with assessment and plan Total Time Total Time Spent Total Time Spent (In Minutes): 40 Coding Level of Care Code 56734 INP/OBS DISCH >30 MIN Diagnoses Paroxysmal atrial flutter I48.92 Ground-level fall W18.30XA Fracture of metacarpal of right hand, closed S62.309A Dementia F03.C0 Dementia behavioral or psychological symptom: without behavioral, psychotic, or mood disturbance or anxiety Dementia severity: severe Dementia type: unspecified type CAD (coronary artery disease) I25.10 Pulmonary hypertension I27.20 BPH (benign prostatic hyperplasia) N40.0 Hx of CABG Z95.1 Hx of bladder cancer Z85.51 Hypertension I10 Hx of mitral valve repair Z98.890 Constipation K59.00
== END 2024-05-17 16:24 | DRG 309 ==
LOC: ED 06:45 → EDINP 06:45 → SUATTDRO 10:05 → EDINP 17:06 → 3N 17:42 → SUATTDRO 05-13 12:28